=== PATIENT | female | born 2000 | race Caucasian/White ===

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

== ENCOUNTER → 2018-02-03 09:20 | Outpatient (CLI) | payer MEDICAID, SELFPAY ==
--- NOTE | 2018-02-03 09:22 | MR_ITS ---
MR cervical spine wo con, MR 3-d myelogram/MRCP HISTORY: Neck pain, posterior soft tissue neck mass Neck pain around fat pad on neck. Symptoms XYrs. HX surgery on posterior soft tissue part of neck XYrs. ago. Pain in neck when looking down. ITS.REASON: soft tissue mass ORDERING PHYSICIAN: Jame Abel MD PATIENT AGE: 17 years Comparison: CT 05/07/15 TECHNIQUE: Standard multiplanar multiecho sequences are performed without contrast. 3-D MIP and myelographic images are also rendered and reviewed FINDINGS: The craniocervical junction has an unremarkable appearance. There is normal alignment. There is mild degree of motion artifact which does somewhat obscure fine detail. C2-C3 and C3-C4 have an unremarkable appearance. C4-C5: Minimal left foraminal narrowing from uncovertebral hypertrophy. C5-C6: Minimal left foraminal narrowing from uncovertebral surgery. C6-C7: Minimal left foraminal narrowing from uncovertebral hypertrophy C7-T1: Unremarkable. Sagittal images show mild degenerative disc 3 and T3-T4 with minimal bulging disc. Prominent adipose tissue is present at the base of the neck posteriorly causing a soft tissue hump. Centrally within this adipose tissue is an irregular flattened like area of decreased T1 and T2 signal measuring up to 5 cm AP and 1 cm transverse with a cephalad to caudad thickness of 0.6 cm. Is likely related to scar tissue in this patient with previous surgery to this area. IMPRESSION: 1. Minimal left foraminal narrowing from uncovertebral hypertrophy at C4-C5, C5-C6, and C6-7. 2. No disc herniation or bony canal stenosis. 3. Abnormal signal intensity in the subcutaneous fat along the posterior aspect of the neck which may be related to scar tissue.
== END ==
PROVIDERS: PCP Physician Assistant; Visit Provider Surgery
DX: D17.0 Benign lipomatous neoplasm of skin and subcutaneous tissue of head, face and neck (principal)
CPT/HCPCS: 72141; 76376

== ENCOUNTER → 2018-10-20 15:58 | Outpatient (CLI) | payer MEDICARE, MEDICAID, SELFPAY ==
[2018-10-20 17:53] LABS: HCG,Quantitative 0 mIU/mL
== END ==
PROVIDERS: Visit Provider Obstetrics & Gynecology
DX: Z34.90 Encounter for supervision of normal pregnancy, unspecified, unspecified trimester (principal)
CPT/HCPCS: 36415; 84702

== ENCOUNTER 2019-04-20 09:00 | Outpatient (RCR) | payer MEDICARE, MEDICAID, SELFPAY ==
--- NOTE | 2019-04-12 11:15 | HMH.PTOPEV ---
PT Outpatient Evaluation Rehab PT Outpatient Evaluation Start: 04/12/19 10:20 Freq: Status: Active Protocol: Document 04/12/19 10:48 URIAH (Rec: 04/12/19 11:14 URIAH [id number]) Electronically Signed By Arnie Irizarry, PT 04/12/19 10:48 Outpatient Therapy Subjective History Subjective History Patient is a 18 year old female presenting to outpatient PT with reports of acute knee pain of insidious onset starting approximately 2 weeks ago. Most recent diagnostics negative. Pt reports no previous hx of R knee pain. Observation indicates significant genu valgus bilaterally. All special tests negative for any soft tissue compromise. She ambulates into clinic with hinged knee brace and significant lack of R knee extension with ambulation. 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 Chief Complaint Pain,Stiff,Swelling Symptom Type Sharp,Shooting Symptoms Relieved By Rest/Positioning Prior Functional Limitations None Current Functional Limitations Housework,Standing,Squatting, Recreation Activity,Walking, Stairs,Balance,Bending/ Stooping Symptom Description Constant but Variable Level of pain today (0-10) 4 Pain scale - at its best (0-10) 4 Pain scale - at its worst (0-10) 8 Hip/Knee Eval Gait Observation General Gait Pattern Observation Antalgic Gait,Decrease Weight Bear (R) Palpation Tenderness right Knee Palpation Finding Tenderness Knee Palpation Overall Comment Medial and lateral patellar borders 3/4 MMT Hip Flexion Strength Grade 4- Good- Hip Abduction Strength Grade 4- Good- Hip Adduction Strength Grade 4- Good- Hip Extension Strength Grade 3+ Fair+ Hip External Rotation Strength Grade 3+ Fair+ Hip Internal Rotation Strength Grade 3+ Fair+ Knee Extension Strength Grade 3+ Fair+ Knee Flexion Strength Grade 3+ Fair+ ROM Hip ROM Reason Not Measured Within Functional Limits Knee Extension Active Range of Motion ( -6 degrees) Knee Extension Passive Range of Motion (
== END 2019-04-20 09:05 | disposition home or self-care (01) ==
LOC: PT 09:00
PROVIDERS: Visit Provider Orthopaedic Surgery
DX: M25.561 Pain in right knee (principal)
CPT/HCPCS: 97010; 97014; 97033; 97035; 97110; 97163; G0283

== ENCOUNTER → 2019-04-20 10:56 | Outpatient (CLI) | payer MEDICARE, MEDICAID, SELFPAY ==
--- NOTE | 2019-04-20 11:06 | XR_ITS ---
PROCEDURE: XR FOOT WT BEARING LT 3V CLINICAL INDICATION: pain COMPARISON: FTL3 FOOT-LT-3 VIEWS from 03/23/2015 FTL2 FOOT-LT-2 VIEWS from 12/15/2016 FINDINGS: No fracture or dislocation. No lytic or blastic change. There is normal mineralization. The joint spaces are well-preserved. No significant degenerative/arthritic changes. No erosive changes evident. Other findings:None. IMPRESSION: No acute findings. Dictated by: Duncan Gonzalez MD 04/20/2019 15:25 Electronically signed by Duncan Gonzalez MD in [place] 04/20/2019 15:25
--- NOTE | 2019-04-20 11:06 | XR_ITS ---
PROCEDURE: XR FOOT WT BEARING RT 3V CLINICAL INDICATION: pain COMPARISON: FTL3 FOOT-LT-3 VIEWS from 03/23/2015 FTL2 FOOT-LT-2 VIEWS from 12/15/2016 FINDINGS: No fracture or dislocation. No lytic or blastic change. There is normal mineralization. The joint spaces are well-preserved. No significant degenerative/arthritic changes. No erosive changes evident. Other findings:None. IMPRESSION: No acute findings. Dictated by: Duncan Gonzalez MD 04/20/2019 15:24 Electronically signed by Duncan Gonzalez MD in [place] 04/20/2019 15:24
== END ==
PROVIDERS: PCP Physician Assistant; Visit Provider Podiatrist
DX: M79.672 Pain in left foot (principal); M79.671 Pain in right foot
CPT/HCPCS: 73630

== ENCOUNTER 2019-10-15 16:21 | Emergency (ER) | payer MEDICARE, MEDICAID, SELFPAY ==
[2019-10-15 16:23] VITALS: BP 158/100; PULSE 75; RESP 20; TEMP 37.2; O2SAT 96; BMI 38.9
--- NOTE | 2019-10-15 16:35 | XR_ITS ---
PROCEDURE: XR WRIST LT MIN 3V CLINICAL INDICATION: injury Posttraumatic pain COMPARISON: WRL2 WRIST-2 VIEWS-LT from 08/04/2012 WRR3 WRIST-3 VIEWS-RT from 08/04/2012 WRR3 WRIST-3 VIEWS-RT from 03/10/2013 WRL3 WRIST-3 VIEWS-LT from 01/20/2014 FINDINGS: No fracture or dislocation. No lytic or blastic change. There is normal mineralization. The joint spaces are well-preserved. No significant degenerative/arthritic changes. No erosive changes evident. Other findings:None. IMPRESSION: No acute findings. Dictated by: Duncan Gonzalez MD 10/16/2019 05:40 Electronically signed by Duncan Gonzalez MD in [place] 10/16/2019 05:40
--- NOTE | 2019-10-15 17:03 | HMH.EDEXTP ---
ED Disposition Clinical Impression: Sprain and strain of wrist Disposition: Home, Self-Care Condition on Discharge: Good Instructions: Sprain Referrals: Danette Lynch PA [Primary Care Provider] - - Critical Care Critical Care Time: No Attestation: On 10/15/19, the high probability of a clinically significant, sudden or life threatening deterioration of the following system(s) required my full and direct attention, intervention and personal management. The time I documented below is in addition to time spent performing reported procedures but includes the following listed in this critical care notation. Medical Decision Making - Medical Records Medical records reviewed: Yes: I reviewed the patient's medical records. - Ty Inquiry Pt receiving controlled substance: No Vital Signs: 10/15/19 16:23 Temperature 98.9 F Temperature Source Oral Pulse Rate [Right] 75 Respiratory Rate 20 Blood Pressure [Right Arm] 158/100 H Blood Pressure Mean [Right Arm] 119 02 Sat by Pulse Oximetry 96 - Lab Data Lab results reviewed: Yes: I reviewed the patient's lab results. Orders (Tests/Meds): ORDERS Category Date Time Status Wrist XR left minimum 3 views [XR wrist LT min 3V] Stat Exams 10/15/19 16:35 Taken Extremity Problem HPI - General Chief complaint: Extremity Injury, Upper Stated complaint: [id number] injured l wrist Time Seen by Provider: 10/15/19 17:03 Mode of Arrival: Ambulatory Source of Information: Patient Limitations: No Limitations Description of Symptoms (Recalled from ER Triage Doc. by RN): Left wrist injury - History of Present Illness HPI Narrative: 19-year-old female presents the ED with a left wrist injury. She was walking up a hill getting some debate out of her car for fishing and she was on uneven ground and slipped and fell and landed with an outstretched hand on the left side. This injury took place about 1 hour prior to arrival here in the emergency department today. Patient states that the pain is 4 out of 10 and sharp and she states that exacerbating factors include movement and alleviating factors include rest. She states she hurts on the ulnar side not the radial side. Patient denies any other symptoms patient denies any other trauma. - Related Data Home Medications Medication Instructions Recorded Confirmed etonogestrel 68 mg subdermal 1 implant SUBDERMAL ONCE 10/05/17 05/30/19 implant sumatriptan succinate 100 mg tablet See Rx Instructions PO .COMPLEX 12/17/19 12/17/19 Previous Rx's Medication Instructions Recorded meloxicam 7.5 mg tablet 7.5 mg PO ONCE #30 tab 04/20/19 diclofenac sodium 1 % topical gel 4 g TOPICAL QID PRN 30 Days #100 g 05/25/19 Allergies Allergy/AdvReac Type Severity Reaction Status Date / Time Penicillins [PENICILLINS] Allergy Severe Anaphylaxis Verified 05/30/19 14:11 CONTRAST Allergy Mild Anaphylaxis Uncoded 05/30/19 14:11 [facility] History - Hepatitis A Screen Drug use history?: No High risk sexual behaviors?: No History of sexually transmitted infection?: No Currently employed?: No Childcare worker?: No Do you have indoor plumbing?: Yes Do you have electricity?: Yes Does patient meet criteria?: No Attestation statement:: This patient has been screened for Hepatitis A risk factors. I have reviewed the patient's past medical history: Yes Medical History: Reports:: Anxiety, Asthma, Depression, Gastroesophageal Reflux Disease(GERD), Hypertension, Migraine Denies:: Cancer, Diabetes Mellitus Type 1, Diabetes Mellitus Type 2, Internal Pacemaker, Lung Disease, MRSA, Seizures Other Medical History: Reports: Other Comment: Asthma. Anxiety. Depression. UTI'S. Colitis. Acute Gastritis. Chronic Tonsillitis and Adenoiditis. Peptic Ulcer. Hiatal Hernia. Duodenitis Laterality Cases: Bilateral: Myringotomy (Ear Tubes), Tonsillectomy, Other Other Surgeries: Yes: No Previous Surgery, EGD, Other. No: Pacemaker Am
[2019-10-15 17:14] VITALS: BP 130/98; PULSE 85; RESP 20; TEMP 36.8; O2SAT 98
== END 2019-10-15 17:16 | disposition home or self-care (01) ==
PROVIDERS: Emergency Provider Family Medicine; PCP Physician Assistant
DX: S63.502A Unspecified sprain of left wrist, initial encounter (principal); W01.0XXA Fall on same level from slipping, tripping and stumbling without subsequent striking against object, initial encounter; Y92.89 Other specified places as the place of occurrence of the external cause
CPT/HCPCS: 29125; 73110; 99283

== ENCOUNTER 2019-10-18 23:40 | Emergency (ER) | payer MEDICARE, MEDICAID, SELFPAY ==
[2019-10-18 23:43] VITALS: BP 134/71; PULSE 98; RESP 18; TEMP 37; O2SAT 97; BMI 40.7
[2019-10-19 00:10] VITALS: BP 138/74; PULSE 88; RESP 18; TEMP 37; O2SAT 99
--- NOTE | 2019-10-19 00:12 | HMH.EDALLER ---
ED Disposition Clinical Impression: Allergic reaction Qualifiers: Encounter type: initial encounter Qualified Code(s): T78.40XA - Allergy, unspecified, initial encounter Disposition: Home, Self-Care Condition on Discharge: Good Instructions: DI for Food Allergy Additional Instructions: use claritin and call pcp and dr soriano Prescriptions: predniSONE [Prednisone 20mg Tab] 20 mg PO BID #10 tab Transmission Status: Pending to [id number] Referrals: Provider,Referral, [Primary Care Provider] - Gary Soriano [Referring] - - Critical Care Critical Care Time: No Attestation: On 10/18/19, the high probability of a clinically significant, sudden or life threatening deterioration of the following system(s) required my full and direct attention, intervention and personal management. The time I documented below is in addition to time spent performing reported procedures but includes the following listed in this critical care notation. Medical Decision Making - Medical Records Medical records reviewed: Yes: I reviewed the patient's medical records. - Ty Inquiry Pt receiving controlled substance: No Vital Signs: 10/18/19 23:43 10/19/19 00:10 Temperature 98.6 F 98.6 F Temperature Source Oral Oral Pulse Rate 92 H Pulse Rate [Right] 98 H Respiratory Rate 18 18 Blood Pressure 000/00 L Blood Pressure [Right Arm] 134/71 Blood Pressure Mean [Right Arm] 92 Blood Pressure Source [Right Arm] Automatic Cuff Blood Pressure Position [Right Arm] Supine 02 Sat by Pulse Oximetry 97 Oxygen Delivery Method Room Air Room Air - Lab Data Lab results reviewed: Yes: I reviewed the patient's lab results. Orders (Tests/Meds): ED MEDICATIONS Discontinued Medications Generic Name Dose Route Start Last Admin Trade Name Freq PRN Reason Stop Dose Admin Dexamethasone Sodium Phosphate 8 mg 10/18/19 23:58 10/19/19 00:10 Decadron 4mg/Ml 1ml Vial IM 10/18/19 23:59 8 mg ONCE ONE Administration Diphenhydramine HCl 50 mg 10/18/19 23:58 10/19/19 00:09 Benadryl 50mg/1ml Vial IM 10/18/19 23:59 50 mg ONCE ONE Administration Sodium Chloride 1,000 mls @ 999 mls/hr 10/18/19 23:45 10/19/19 00:09 Sod Chlor 0.9% 1000ml Bag IV 10/19/19 00:45 Not Given .Q1H1M URIEL - Reevaluation(s) Time: 00:21 Reevaluation #1: some better Allergic React/Insect Bite HPI - General Chief complaint: Allergic Reaction Stated complaint: allergic reaction Time Seen by Provider: 10/19/19 00:00 Mode of Arrival - ED Triage: EMS Source of Information: Patient, EMS, Medical Record Limitations: No Limitations - History of Present Illness HPI narrative: swollen throat after eating strawberry - no rash - concerned about possible mold - no tongue swelling MD complaint: allergic reaction Onset (ago): hour(s) Exposure: food Symptoms: difficulty swallowing Treatment prior to arrival: none Allergies/Adverse Reactions: Allergies Allergy/AdvReac Type Severity Reaction Status Date / Time Penicillins [PENICILLINS] Allergy Severe Anaphylaxis Verified 05/30/19 14:11 CONTRAST Allergy Mild Anaphylaxis Uncoded 05/30/19 14:11 Previous Allergic Reaction History: none Severity: moderate - Related Data Home Medications Medication Instructions Recorded Confirmed etonogestrel 68 mg subdermal 1 implant SUBDERMAL ONCE 10/05/17 10/18/19 implant Previous Rx's Medication Instructions Recorded predniSONE [Prednisone 20mg 20 mg PO BID #10 tab 10/19/19 Tab] H History - Hepatitis A Screen Drug use history?: No High risk sexual behaviors?: No History of sexually transmitted infection?: No Currently employed?: No Childcare worker?: No Do you have indoor plumbing?: Yes Do you have electricity?: Yes Attestation statement:: This patient has been screened for Hepatitis A risk factors. I have reviewed the patient's past medical history: Yes Medical History: Reports:: An
--- NOTE | 2019-10-19 00:12 | PC.NURSE ---
Pt's mother did not want to have her blood drawn, pt feeling better after Zofran.
--- NOTE | 2019-10-19 00:22 | PC.NURSE ---
Pt states she feels back to normal, states she is ready to go home and her ride is here
== END 2019-10-19 00:28 | disposition home or self-care (01) ==
PROVIDERS: Emergency Provider Emergency Medicine; PCP Physician Assistant
DX: T78.1XXA Other adverse food reactions, not elsewhere classified, initial encounter (principal); R22.0 Localized swelling, mass and lump, head; F41.8 Other specified anxiety disorders; K21.9 Gastro-esophageal reflux disease without esophagitis; F17.210 Nicotine dependence, cigarettes, uncomplicated; Z90.09 Acquired absence of other part of head and neck; Z79.899 Other long term (current) drug therapy
CPT/HCPCS: 96372; 99281

== ENCOUNTER → 2019-10-25 11:57 | Outpatient (CLI) | payer MEDICARE, MEDICAID, SELFPAY ==
--- NOTE | 2019-10-25 12:07 | XR_ITS ---
PROCEDURE: XR WRIST LT W SCAPHOID CLINICAL INDICATION: Left wrist pain COMPARISON: WRL2 WRIST-2 VIEWS-LT from 08/04/2012 WRR3 WRIST-3 VIEWS-RT from 03/10/2013 WRL3 WRIST-3 VIEWS-LT from 01/20/2014 XR WRIST LT MIN 3V from 10/15/2019 FINDINGS: There is a very faint transverse lucency through the mid aspect of the navicular on the slightly oblique view of the wrist. This could be due to a nondisplaced fracture or prominence of the trabecula. This is not confirmed on the navicular view. No other significant anomalies are evident. IMPRESSION: Possible nondisplaced navicular fracture. CT may confirm if clinically warranted. Dictated by: Duncan Gonzalez MD 10/25/2019 12:55 Electronically signed by Duncan Gonzalez MD in [place] 10/25/2019 12:55
== END ==
PROVIDERS: PCP Physician Assistant; Visit Provider Physician Assistant
DX: M25.532 Pain in left wrist (principal)
CPT/HCPCS: 73110

== ENCOUNTER → 2019-10-30 13:51 | Outpatient (CLI) | payer MEDICARE, MEDICAID, SELFPAY ==
--- NOTE | 2019-10-30 13:52 | CT_ITS ---
PROCEDURE: CT WRIST LT WO CON CLINICAL HISTORY: r/o navicular fracture Posttraumatic pain, abnormal radiograph suggesting a nondisplaced navicular fracture. COMPARISON: XR WRIST LT W SCAPHOID from 10/25/2019 TECHNIQUE: Axial images obtained with sagittal and coronal reformats. All CT scans at the facility use one or more dose reduction, viz: automated exposure control, ma/kV adjustment per patient size (including targeted exams where dose is matched to indication, i.e. head), or iterative reconstruction technique. FINDINGS: No fracture or dislocation is evident. No lytic or blastic change. IMPRESSION: No acute fracture Dictated by: Duncan Gonzalez MD 10/31/2019 16:09 Electronically signed by Duncan Gonzalez MD in [place] 10/31/2019 16:09
== END ==
PROVIDERS: PCP Physician Assistant; Visit Provider Physician Assistant
DX: M25.532 Pain in left wrist (principal)
CPT/HCPCS: 73200

== ENCOUNTER 2019-12-30 01:12 | Emergency (ER) | payer MEDICARE, MEDICAID, SELFPAY ==
[2019-12-30 01:12] VITALS: BP 152/83; PULSE 103; RESP 14; TEMP 37.2; O2SAT 95; BMI 39.4
--- NOTE | 2019-12-30 01:18 | XR_ITS ---
PROCEDURE: XR ANKLE LT MIN 3V CLINICAL INDICATION: rolled ankle Posttraumatic pain COMPARISON: ANKR2 ANKLE-RT-2 VIEWS from 08/30/2012 ANKL3 ANKLE-LT-3 VIEWS from 08/30/2012 ANKR3 ANKLE-RT-3 VIEWS from 08/19/2014 FINDINGS: No fracture or dislocation. No lytic or blastic change. There is normal mineralization. The joint spaces are well-preserved. No significant degenerative/arthritic changes. No erosive changes evident. Other findings:None. IMPRESSION: No acute findings. Dictated by: Duncan Gonzalez MD 12/30/2019 09:37 Electronically signed by Duncna Gonzalez MD in [place] 12/30/2019 09:37
[2019-12-30 01:54] VITALS: BP 155/83; PULSE 92; O2SAT 96
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
[2019-12-30 02:07] VITALS: BP 145/90; PULSE 79; RESP 14; TEMP 37.2; O2SAT 96
== END 2019-12-30 02:36 | disposition home or self-care (01) ==
PROVIDERS: Emergency Provider Emergency Medicine; PCP Physician Assistant
DX: S93.402A Sprain of unspecified ligament of left ankle, initial encounter (principal); X50.1XXA Overexertion from prolonged static or awkward postures, initial encounter; Y92.488 Other paved roadways as the place of occurrence of the external cause; I10 Essential (primary) hypertension; F41.8 Other specified anxiety disorders; K21.9 Gastro-esophageal reflux disease without esophagitis; G43.709 Chronic migraine without aura, not intractable, without status migrainosus; J45.909 Unspecified asthma, uncomplicated
CPT/HCPCS: 73610; 99283

== ENCOUNTER 2020-02-21 23:18 | Emergency (ER) | payer MEDICARE, MEDICAID, SELFPAY ==
[2020-02-21 23:35] VITALS: BP 138/78; PULSE 67; RESP 16; TEMP 37; O2SAT 94; BMI 34.9
[2020-02-22 00:08] LABS: Appearance,Urine CLEAR (Clear); Bilirubin,Urine Negative (Negative); Blood, Urine TRACE-I (Negative); Color,Urine YELLOW (Yellow); Glucose,Urine (UA) Negative (Negative); Ketones,Urine Negative (Negative); Leukocyte Esterase,Urine Negative (Negative); Microscopic, Urine URINE MICROSCOPIC (MICROSCOPIC); Nitrate,Urine Negative (Negative); Protein,Urine Negative (Negative); Specific Gravity, Urine 1.025 (1.005-1.030)
[2020-02-22 00:09] LABS: Urine Pregnancy, HCG Qual. Negative (Negative)
[2020-02-22 00:15] LABS: Bacteria,Urine 1+ /lpf; Mucus,Urine 1+ /lpf
--- NOTE | 2020-02-22 00:37 | HMH.EDGENADL ---
ED Disposition Clinical Impression: UTI (urinary tract infection) Qualifiers: Urinary tract infection type: acute cystitis Hematuria presence: without hematuria Qualified Code(s): N30.00 - Acute cystitis without hematuria Disposition: Home, Self-Care Condition on Discharge: Fair Instructions: DI for Urinary Tract Infection (UTI) Prescriptions: Sulfamethoxazole/Trimethoprim [Bactrim DS tablet] 1 each PO BID 7 Days #14 tab Transmission Status: Pending to [facility] Referrals: Danette Lynch PA [Primary Care Provider] - Time of Disposition: 00:45 - Critical Care Critical Care Time: No Attestation: On 02/21/20, the high probability of a clinically significant, sudden or life threatening deterioration of the following system(s) required my full and direct attention, intervention and personal management. The time I documented below is in addition to time spent performing reported procedures but includes the following listed in this critical care notation. Medical Decision Making - Medical Records Medical records reviewed: Yes: I reviewed the patient's medical records. MR Comment: Complaints of lower abdominal pain and diarrhea off and on. Denies fever, vomiting, denies . Urinalysis shows urinary tract infection; plan is to provide an antibiotic, - Ty Inquiry Pt receiving controlled substance: No Vital Signs: 02/21/20 23:35 Temperature 98.6 F Temperature Source Oral Pulse Rate [Right Brachial] 67 Respiratory Rate 16 Blood Pressure [Right Arm] 138/78 Blood Pressure Mean [Right Arm] 98 Blood Pressure Source [Right Arm] Automatic Cuff Blood Pressure Position [Right Arm] Sitting 02 Sat by Pulse Oximetry 94 L Oxygen Delivery Method Room Air - Lab Data Lab Results 02/21/20 23:26: Urine Color Yellow, Urine Appearance Clear, Urine pH 7.0, Ur Specific Pfeifer 1.025, Urine Protein Negative, Urine Glucose (UA) Negative, Urine Ketones Negative, Urine Blood Trace-i, Urine Nitrate Negative, Urine Bilirubin Negative, Urine Urobilinogen 1.0, Ur Leukocyte Esterase Negative, Urine RBC 3-5, Urine WBC 3-5, Ur Squamous Epith Cells 3-5, Urine Bacteria 1+, Urine Mucus 1+ 02/21/20 23:26: Urine HCG, Qual Negative Orders (Tests/Meds): ORDERS Category Date Time Status CMP [Comprehensive Metabolic Panel] Stat Lab 02/22/20 00:28 Ordered Complete Blood Count Auto Diff Stat Lab 02/22/20 00:28 Ordered Diarrhea 6-11 Panel, Cdiff PCR Stat Lab 02/21/20 23:53 Ordered General Adult HPI - General Chief complaint: Nausea/Vomiting/Diarrhea Stated complaint: Diarrhea,weak,pain in abdomen Time Seen by Provider: 02/22/20 00:30 Mode of Arrival: Ambulatory Source of Information: Patient Limitations: No Limitations Description of Symptoms (Recalled from ER Triage Doc. by RN): diarrhea since wednesday; states no known contact with anyone who is sick with covid, flu, or any other contagious illness; afebrile - History of Present Illness HPI narrative: Complaints of lower abdominal pain and diarrhea off and on. Denies fever, vomiting, denies MD complaint: abdominal pain Onset (ago): day(s) Radiation: non-radiation Severity: mild Severity scale (1-10): 2 Quality: sharp Consistency: intermittent Associated symptoms: denies other symptoms. negative: fever/chills, malaise, nausea/vomiting Treatments prior to arrival: none - Related Data Home Medications Medication Instructions Recorded Confirmed etonogestrel 68 mg subdermal 1 implant SUBDERMAL ONCE 10/05/17 10/23/19 implant Previous Rx's Medication Instructions Recorded predniSONE [Prednisone 20mg 20 mg PO BID #10 tab 10/19/19 Tab] diclofenac sodium 75 mg 75 mg PO BID #60 tab 10/23/19 tablet,delayed release epinephrine 0.3 mg/0.3 mL 0.3 mg IM Q5-15M PRN #1 each 10/23/19 injection, auto-injector Sulfamethoxazole/Trimethoprim 1 each PO BID 7 Days #14 tab 02/22/20 [Bactrim DS tablet] Allergies Allergy/A
[2020-02-22 00:49] VITALS: BP 134/72; PULSE 68; RESP 16; TEMP 37; O2SAT 96
== END 2020-02-22 01:07 | disposition home or self-care (01) ==
PROVIDERS: Emergency Provider Emergency Medicine; PCP Physician Assistant
DX: N30.00 Acute cystitis without hematuria (principal); I10 Essential (primary) hypertension; F41.8 Other specified anxiety disorders; K21.9 Gastro-esophageal reflux disease without esophagitis; F17.210 Nicotine dependence, cigarettes, uncomplicated; Z88.0 Allergy status to penicillin
CPT/HCPCS: 81001; 81025; 99281

== ENCOUNTER 2020-04-07 03:57 | Emergency (ER) | payer MEDICARE, MEDICAID, SELFPAY ==
[2020-04-07 03:50] VITALS: BP 146/72; PULSE 85; RESP 16; TEMP 36.8; O2SAT 98; BMI 52.0
--- NOTE | 2020-04-07 03:51 | HMH.EDGENADL ---
ED Disposition Clinical Impression: Allergic reaction Qualifiers: Encounter type: initial encounter Qualified Code(s): T78.40XA - Allergy, unspecified, initial encounter Disposition: Home, Self-Care Condition on Discharge: Good Instructions: DI for General Allergic Reactions Additional Instructions: Benadryl, Pepcid, prednisone as prescribed for 3 days. Additional instructions for ALLERGIC REACTION: See your physician as soon as possible for further evaluation. Return immediately if severe intolerable rash or itching, trouble breathing, or faintness. Prescriptions: diphenhydrAMINE HCL [Benadryl 25mg Capsule] 25 mg PO QID #12 cap Transmission Status: Pending to [facility] Famotidine [Pepcid 20mg Tablet] 20 mg PO BID 3 Days #6 tab Transmission Status: Pending to [facility] predniSONE [Prednisone 20mg Tab] 20 mg PO BID #6 tab Transmission Status: Pending to [facility] - Critical Care Critical Care Time: No Attestation: On , the high probability of a clinically significant, sudden or life threatening deterioration of the following system(s) required my full and direct attention, intervention and personal management. The time I documented below is in addition to time spent performing reported procedures but includes the following listed in this critical care notation. Medical Decision Making - Medical Records Medical records reviewed: Yes: I reviewed the patient's medical records. - Ty Inquiry Pt receiving controlled substance: No Vital Signs: 04/07/20 03:50 Temperature 98.2 F Temperature Source Oral Pulse Rate [Right Brachial] 85 Respiratory Rate 16 Blood Pressure [Right Arm] 146/72 H Blood Pressure Mean [Right Arm] 96 Blood Pressure Source [Right Arm] Automatic Cuff Blood Pressure Position [Right Arm] Sitting 02 Sat by Pulse Oximetry 98 Oxygen Delivery Method Room Air Orders (Tests/Meds): ED MEDICATIONS Generic Name Dose Route Start Last Admin Trade Name Freq PRN Reason Stop Dose Admin Sodium Chloride 8 ml 04/07/20 04:00 Sodium Chloride 0.9% 10ml Vial IV 05/07/20 03:59 NEEDED PRN dilute pepcid Discontinued Medications Generic Name Dose Route Start Last Admin Trade Name Freq PRN Reason Stop Dose Admin Diphenhydramine HCl 25 mg 04/07/20 04:00 Diphenhydramine 50mg/Ml Vial IV 04/07/20 04:01 ONCE ONE Famotidine 20 mg 04/07/20 04:00 Famotidine 20mg/2ml Vial IV 04/07/20 04:01 ONCE ONE Methylprednisolone Sodium Succinate 125 mg 04/07/20 04:00 Methylprednisolone Sod Succ 125mg Vial IV 04/07/20 04:01 ONCE ONE General Adult HPI - General Chief complaint: Allergic Reaction Stated complaint: allergic reaction Time Seen by Provider: 04/07/20 03:51 - History of Present Illness HPI narrative: Brought in by ambulance. Patient says she believes she had an allergic reaction to mold. She has a known mold allergy for which she has an EpiPen. She was cleaning some moldy dishes out of her residence, thinks that she inhaled some of the mold. She says her face began tingling and she became nauseated and vomited. She had no swelling of her lips or tongue. No itching. She says she thinks her sister saw some hives, but she does not have any hives now. She used her EpiPen in her leg and now is asymptomatic. She did not take any other medications. - Related Data Home Medications Medication Instructions Recorded Confirmed etonogestrel 68 mg subdermal 1 implant SUBDERMAL ONCE 10/05/17 04/07/20 implant SUMAtriptan succinate [Sumatriptan See Rx Instructions PO .COMPLEX 04/07/20 04/07/20 Succinate] Previous Rx's Medication Instructions Recorded epinephrine 0.3 mg/0.3 mL 0.3 mg IM Q5-15M PRN #1 each 10/23/19 injection, auto-injector Famotidine [Pepcid 20mg Tablet] 20 mg PO BID 3 Days #6 tab 04/07/20 diphenhydrAMINE HCL [Benadryl 25mg 25 mg PO QID #12 cap 04/07/20 Capsule] predniSONE [Pred
[2020-04-07 04:15] VITALS: BP 124/75; PULSE 75; RESP 15; TEMP 36.7; O2SAT 98
== END 2020-04-07 04:18 | disposition home or self-care (01) ==
LOC: ER 04:17
PROVIDERS: Emergency Provider Emergency Medicine; PCP Physician Assistant
DX: T78.40XA Allergy, unspecified, initial encounter (principal); F41.8 Other specified anxiety disorders; I10 Essential (primary) hypertension; K21.9 Gastro-esophageal reflux disease without esophagitis; G43.709 Chronic migraine without aura, not intractable, without status migrainosus; F17.210 Nicotine dependence, cigarettes, uncomplicated
CPT/HCPCS: 96374; 96375; 99282

== ENCOUNTER 2020-05-23 18:07 | Emergency (ER) | payer MEDICARE, MEDICAID, SELFPAY ==
[2020-05-23 18:45] VITALS: BP 131/84; PULSE 78; RESP 20; TEMP 36.9; O2SAT 99; BMI 49.6
[2020-05-23 18:46] VITALS: BMI 49.6
--- NOTE | 2020-05-23 18:46 | XR_ITS ---
PROCEDURE: XR ELBOW LT MIN 3V CLINICAL INDICATION: INJURY Posttraumatic pain COMPARISON: No exams were available for comparison FINDINGS: No fracture or dislocation. No lytic or blastic change. There is normal mineralization. The joint spaces are well-preserved. No significant degenerative/arthritic changes. No erosive changes evident. Other findings:Linear opacity is present in the subcutaneous soft tissues of the arm medially consistent with a control device IMPRESSION: No acute findings. Dictated by: Duncan Gonazlez MD 05/24/2020 07:09 Duncan Gonzalez MD in [place] 05/24/2020 07:09
--- NOTE | 2020-05-23 19:46 | HMH.EDUTC ---
[facility] [place] Disposition Clinical Impression: Left elbow pain Disposition: Home, Self-Care Condition on Discharge: Good Instructions: DI for Arm Pain Additional Instructions: Rest the extremity, Wear the barrington wrap for compression, Elevate the extremity as tolerated while you are resting. Take ibuprofen for pain. I sent in a prescription to your pharmacy. Follow up with Dr. Nash (orthopedics). Sometimes there can be fractures that don't show up well on the first set of x-rays. So, you should follow up if you continue to have symptoms. I put in a referral but you need to call his office and schedule an appointment. Follow up with your regular doctor. GO TO THE ER FOR ANY WORSENING SYMPTOMS Prescriptions: Ibuprofen [Ibuprofen 600mg Tablet] 600 mg PO Q6HP PRN #30 tab PRN Reason: Mild Pain Transmission Status: Received by [id number] Referrals: Danette Lynch PA [Primary Care Provider] - Dougie Nash MD [Staff Physician] - Time of Disposition: 19:55 Medical Decision Making - Medical Records Medical records reviewed: No: I reviewed the patient's medical records. - Ty Inquiry Pt receiving controlled substance: No Vital Signs: 05/23/20 18:45 05/23/20 19:58 Temperature 98.4 F 98.4 F Temperature Source Oral Pulse Rate 78 Pulse Rate [Right Brachial] 78 Respiratory Rate 20 20 Blood Pressure 131/84 Blood Pressure [Right Arm] 131/84 Blood Pressure Mean [Right Arm] 99 Blood Pressure Source [Right Arm] Automatic Cuff Blood Pressure Position [Right Arm] Sitting 02 Sat by Pulse Oximetry 99 Oxygen Delivery Method Room Air [facility] [place] HPI - General Stated complaint: AO 05/23 @1730 injured L Elbow Time Seen by Provider: 05/23/20 19:46 Mode of Arrival: Ambulatory Source of Information: Patient Limitations: No Limitations Description of Symptoms (Recalled from Triage Doc. by RN): PATIENT C/O LEFT ELBOW PAIN AFTER HITTING IT ON A CAR DOOR LATCH APPROX 1 HOUR ORACLE AGILE [employer] HEENT Symptoms (Recalled from RN notes): No Resp Symptoms (Recalled from RN notes): No Skin Symptoms (Recalled from RN notes): No MS Symptoms (Recalled from RN notes): Yes Functional Status (Recalled from RN notes): WNL - History of Present Illness Provider Complaint: She states that she fell into the side of her car and hit her elbow on the side of the car. This happened right before she came in. She is having right elbow pain. - Related Data Home Medications Medication Instructions Recorded Confirmed SUMAtriptan succinate [Sumatriptan See Rx Instructions PO .COMPLEX 04/07/20 04/11/20 Succinate] Previous Rx's Medication Instructions Recorded Famotidine [Pepcid 20mg Tablet] 20 mg PO BID 3 Days #6 tab 04/07/20 diphenhydrAMINE HCL [Benadryl 25mg 25 mg PO QID #12 cap 04/07/20 Capsule] predniSONE [Prednisone 20mg 20 mg PO BID #6 tab 04/07/20 Tab] epinephrine 0.3 mg/0.3 mL 0.3 mg IM Q5-15M PRN #1 each 04/11/20 injection, auto-injector Ibuprofen [Ibuprofen 600mg 600 mg PO Q6HP PRN #30 tab 05/23/20 Tablet] Allergies Allergy/AdvReac Type Severity Reaction Status Date / Time Penicillins [PENICILLINS] Allergy Severe Anaphylaxis Verified 04/11/20 10:55 mold Allergy Intermediate Verified 04/11/20 11:07 CONTRAST Allergy Mild Anaphylaxis Uncoded 03/28/20 11:54 - Worker's Comp Is this a Worker's Comp case?: No [facility] History - Hepatitis A Screen Drug use history?: No High risk sexual behaviors?: No History of sexually transmitted infection?: No Currently employed?: No Childcare worker?: No Do you have indoor plumbing?: Yes Do you have electricity?: Yes Attestation statement:: This patient has been screened for Hepatitis A risk factors. I have reviewed the patient's past medical history: Yes Medical History: Reports:: Anxiety, Asthma, Depression, Gastroesophageal Reflux Disease(GERD), Hypertension, Migraine Denies:: Cancer, Diabetes Mellitus Type 1, Diabetes Mellitus Type 2,
[2020-05-23 19:58] VITALS: BP 131/84; PULSE 78; RESP 20; TEMP 36.9; O2SAT 99
== END 2020-05-23 20:05 | disposition home or self-care (01) ==
PROVIDERS: Emergency Provider Nurse Practitioner Family; PCP Physician Assistant
DX: S50.02XA Contusion of left elbow, initial encounter (principal); W22.09XA Striking against other stationary object, initial encounter; F41.8 Other specified anxiety disorders; I10 Essential (primary) hypertension; K21.9 Gastro-esophageal reflux disease without esophagitis; J45.909 Unspecified asthma, uncomplicated; Z88.0 Allergy status to penicillin; F17.210 Nicotine dependence, cigarettes, uncomplicated
CPT/HCPCS: G0463; 73080; 99201

== ENCOUNTER 2020-06-28 15:32 | Emergency (ER) | payer MEDICARE, MEDICAID, SELFPAY ==
[2020-06-28 15:41] VITALS: BP 163/78; PULSE 77; RESP 20; TEMP 36.8; O2SAT 95; BMI 47.8
[2020-06-28 15:45] VITALS: BP 163/78; PULSE 77; RESP 20; TEMP 36.8; O2SAT 95; BMI 47.8
--- NOTE | 2020-06-28 16:04 | HMH.EDUTC ---
[facility] [place] Disposition Clinical Impression: Candidiasis of breast Disposition: Home, Self-Care Condition on Discharge: Good Instructions: DI for Sally Diaper Rash Prescriptions: Fluconazole [Diflucan 150mg tab] 150 mg PO DAILY 3 Days #3 tab Transmission Status: Pending to [id number] Nystatin [Nystatin Cr 100,000 Units/GM 30GM] 30 gm TP TID 10 Days #30 tube Transmission Status: Pending to [id number] Referrals: Danette Lynch PA [Primary Care Provider] - Time of Disposition: 16:07 Medical Decision Making - Ty Inquiry Pt receiving controlled substance: No Vital Signs: 06/28/20 15:41 06/28/20 15:45 Temperature 98.2 F 98.2 F Temperature Source Oral Oral Pulse Rate [Left Radial] 77 77 Respiratory Rate 20 20 Blood Pressure [Right Arm] 163/78 H 163/78 H Blood Pressure Mean [Right Arm] 106 106 Blood Pressure Source [Right Arm] Automatic Cuff Automatic Cuff Blood Pressure Position [Right Arm] Sitting Sitting 02 Sat by Pulse Oximetry 95 95 Oxygen Delivery Method Room Air Room Air [facility] [place] HPI - General Stated complaint: rash on stomach Time Seen by Provider: 06/28/20 16:04 Mode of Arrival: Ambulatory Source of Information: Patient Limitations: No Limitations Description of Symptoms (Recalled from Triage Doc. by RN): PATIENT C/O RED, ITCHY, PAINFUL RASH UNDER LEFT BREAST HEENT Symptoms (Recalled from RN notes): No Resp Symptoms (Recalled from RN notes): No Skin Symptoms (Recalled from RN notes): Yes MS Symptoms (Recalled from RN notes): No Functional Status (Recalled from RN notes): WNL - History of Present Illness Provider Complaint: Red itchy raised rash under left breast X 4 days. Onset (ago): day(s) (4) Location: chest Relieving factors: none Exacerbating factors: none Associated symptoms: denies other symptoms Treatments prior to arrival: none - Related Data Home Medications Medication Instructions Recorded Confirmed SUMAtriptan succinate [Sumatriptan See Rx Instructions PO .COMPLEX 04/07/20 06/17/20 Succinate] Previous Rx's Medication Instructions Recorded epinephrine 0.3 mg/0.3 mL 0.3 mg IM Q5-15M PRN #1 each 04/11/20 injection, auto-injector Ibuprofen [Ibuprofen 600mg 600 mg PO Q6HP PRN #30 tab 05/23/20 Tablet] methylprednisolone 4 mg tablets in 4 mg PO PER PKG DIR 6 Days #21 tab 05/28/20 a dose pack Fluconazole [Diflucan 150mg tab] 150 mg PO DAILY 3 Days #3 tab 06/28/20 Nystatin [Nystatin Cr 100,000 30 gm TP TID 10 Days #30 tube 06/28/20 Units/GM 30GM] Allergies Allergy/AdvReac Type Severity Reaction Status Date / Time Penicillins [PENICILLINS] Allergy Severe Anaphylaxis Verified 06/17/20 13:59 mold Allergy Intermediate Verified 06/17/20 13:59 CONTRAST Allergy Mild Anaphylaxis Uncoded 06/17/20 13:59 - Worker's Comp Is this a Worker's Comp case?: No [facility] History - Hepatitis A Screen Drug use history?: No High risk sexual behaviors?: No History of sexually transmitted infection?: No Currently employed?: No Childcare worker?: No Do you have indoor plumbing?: Yes Do you have electricity?: Yes Attestation statement:: This patient has been screened for Hepatitis A risk factors. I have reviewed the patient's past medical history: Yes Medical History: Reports:: Anxiety, Asthma, Depression, Gastroesophageal Reflux Disease(GERD), Hypertension, Migraine Denies:: Cancer, Diabetes Mellitus Type 1, Diabetes Mellitus Type 2, Internal Pacemaker, Lung Disease, MRSA, Seizures Other Medical History: Reports: Other Comment: Asthma. Anxiety. Depression. UTI'S. Colitis. Acute Gastritis. Chronic Tonsillitis and Adenoiditis. Peptic Ulcer. Hiatal Hernia. Duodenitis Laterality Cases: Bilateral: Myringotomy (Ear Tubes), Tonsillectomy, Other Other Surgeries: Yes: No Previous Surgery, EGD, Other. No: Pacemaker Amputation: No Fractures: No Comment: Ear tubes as a child. TonsilX and AdenoidX--03/17/2007. AdenoidX--2007. Rt. Eard[place]
[2020-06-28 16:13] VITALS: BP 163/78; PULSE 77; RESP 20; TEMP 36.8; O2SAT 95
== END 2020-06-28 16:15 | disposition home or self-care (01) ==
PROVIDERS: Emergency Provider Physician Assistant; PCP Physician Assistant
DX: B37.2 Candidiasis of skin and nail (principal); F41.8 Other specified anxiety disorders; I10 Essential (primary) hypertension; K21.9 Gastro-esophageal reflux disease without esophagitis; G43.709 Chronic migraine without aura, not intractable, without status migrainosus; F17.210 Nicotine dependence, cigarettes, uncomplicated; Z88.0 Allergy status to penicillin
CPT/HCPCS: G0463; 99202

== ENCOUNTER 2020-10-07 18:42 | Emergency (ER) | payer MEDICARE, MEDICAID, SELFPAY ==
[2020-10-07 19:49] VITALS: BP 135/77; PULSE 88; RESP 17; TEMP 37; O2SAT 98; BMI 42.6
--- NOTE | 2020-10-07 19:53 | HMH.EDUTC ---
[facility] [place] Dis[place] Clinical Impression: Nausea vomiting and diarrhea Disposition: Home, Self-Care Condition on Discharge: Good Instructions: Diarrhea, Nausea and Vomiting-Adult Additional Instructions: Drink extra fluids with and between meals. If you have difficulty drinking, try very small amounts of water or suck on ice chips. ? Avoid fruit juices, as these do not replace minerals and can actually increase diarrhea. ? Children and adults can use sports drinks to replenish electrolytes. Younger children and infants should use products formulated for children, like oral rehydration solutions. ? Eat food in small amounts and let your stomach recover. ? Get lots of rest. You may feel tired or weak. ? No greasy or fried foods for the next 24-48 hours BRAT diet Bananas Rice Apples and Sigurd ? Make sure to drink plenty of liquids ? Return if needed ? Straight to ER if any life threatening symptoms ? Zofran as prescribed ? You was given an outpatient order for diarrhea panel, please collect specimen and bring back to outpatient lab then call back to the [facility] or follow up with family doctor for results ? Follow up with family doctor in the next 48-72 hours if no improvement or any worsening of symptoms Prescriptions: Dicyclomine HCl [Bentyl 10mg capsule] 10 mg PO TID PRN #15 cap PRN Reason: Cramping Prescription Printed Ondansetron [Zofran 4mg ODT] 4 mg PO TIDP PRN #9 tab PRN Reason: Nausea Prescription Printed Referrals: Danette Lynch PA [Primary Care Provider] - As needed Forms: Work/School Release Time of Disposition: 20:05 Medical Decision Making - Ty Inquiry Pt receiving controlled substance: No Ty was queried for this patient: No Vital Signs: 10/07/20 19:49 10/07/20 20:08 Temperature 98.6 F 98.6 F Temperature Source Oral Oral Pulse Rate 88 Pulse Rate [Right Brachial] 88 Respiratory Rate 17 17 Blood Pressure 135/77 Blood Pressure [Right Arm] 135/77 Blood Pressure Mean [Right Arm] 96 Blood Pressure Source Automatic Cuff Blood Pressure Source [Right Arm] Automatic Cuff Blood Pressure Position Sitting Blood Pressure Position [Right Arm] Sitting 02 Sat by Pulse Oximetry 98 Oxygen Delivery Method Room Air Room Air Medical Decision Narrative: Patient denies home medications no diarrhea or vomiting since arrival State that she has taken bentyl and zofran before without complications or reactions Denies chance of NO vomiting or diarrhea since arrival [facility] [place] HPI - General Stated complaint: vommiting diarrhea Time Seen by Provider: 10/07/20 19:53 Mode of Arrival: Ambulatory Source of Information: Patient Limitations: No Limitations Description of Symptoms (Recalled from Triage Doc. by RN): VOMITING, DIARRHEA HEENT Symptoms (Recalled from RN notes): No Resp Symptoms (Recalled from RN notes): No Skin Symptoms (Recalled from RN notes): No MS Symptoms (Recalled from RN notes): No Functional Status (Recalled from RN notes): WNL - History of Present Illness Provider Complaint: Patient state that she was recently around her neice that had a stomach bug States that she has been having N/V/D all day and having cramping like feeling just prior to getting sick States that she has not had any fever or other symptoms Denies chance of - Related Data Home Medications Medication Instructions Recorded Confirmed SUMAtriptan succinate [Sumatriptan See Rx Instructions PO .COMPLEX 04/07/20 07/17/20 Succinate] Previous Rx's Medication Instructions Recorded epinephrine 0.3 mg/0.3 mL 0.3 mg IM Q5-15M PRN #1 each 04/11/20 injection, auto-injector dicyclomine 10 mg capsule 10 mg PO BID #60 cap 07/17/20 psyllium husk (with sugar) 3.4 1 tbsp PO DAILY #575 g 07/17/20 gram/12 gram oral powder Dicyclomine HCl [Bentyl 10mg 10 mg PO TID PRN #15 cap 10/07/20 capsule] Ondansetron [Zofran 4mg ODT] 4 mg PO TIDP PRN #9 tab 10/07/20 Allergies Allergy/AdvRea
[2020-10-07 20:08] VITALS: BP 135/77; PULSE 88; RESP 17; TEMP 37; O2SAT 98
== END 2020-10-07 20:21 | disposition home or self-care (01) ==
PROVIDERS: Emergency Provider Nurse Practitioner; PCP Physician Assistant
DX: R11.2 Nausea with vomiting, unspecified (principal); R19.7 Diarrhea, unspecified; F41.8 Other specified anxiety disorders; K21.9 Gastro-esophageal reflux disease without esophagitis; I10 Essential (primary) hypertension; F17.210 Nicotine dependence, cigarettes, uncomplicated; Z79.899 Other long term (current) drug therapy; Z88.0 Allergy status to penicillin
CPT/HCPCS: G0463; 99202

== ENCOUNTER 2020-12-11 12:32 | Emergency (ER) | payer MEDICARE, MEDICAID, SELFPAY ==
[2020-12-11 12:35] VITALS: BP 160/102; PULSE 79; RESP 18; TEMP 36.7; O2SAT 99; BMI 51.3
--- NOTE | 2020-12-11 12:59 | HMH.EDGENADL ---
ED Disposition Clinical Impression: Contusion of hand, left Disposition: Home, Self-Care Condition on Discharge: Fair Additional Instructions: Use ibuprofen 400 mg 3 times a day as needed for pain or Tylenol. Use Robb bandage for the next few days. Aloe up with primary care physician if needed. Referrals: Danette Lynch PA [Primary Care Provider] - - Critical Care Critical Care Time: No Attestation: On , the high probability of a clinically significant, sudden or life threatening deterioration of the following system(s) required my full and direct attention, intervention and personal management. The time I documented below is in addition to time spent performing reported procedures but includes the following listed in this critical care notation. Medical Decision Making - Medical Records MR Comment: X-ray of the left hand was negative for any fracture. She will be provided with Robb bandage. - Ty Inquiry Pt receiving controlled substance: No Ty was queried for this patient: No Vital Signs: 12/11/20 12:35 Temperature 98.1 F Temperature Source Oral Pulse Rate [Radial] 79 Respiratory Rate 18 Blood Pressure [Right Arm] 160/102 H Blood Pressure Mean [Right Arm] 121 02 Sat by Pulse Oximetry 99 Oxygen Delivery Method Room Air Orders (Tests/Meds): ED MEDICATIONS Discontinued Medications Generic Name Dose Route Start Last Admin Trade Name Freq PRN Reason Stop Dose Admin Ibuprofen 400 mg 12/11/20 13:03 Ibuprofen 400 Mg Tablet PO 12/11/20 13:04 ONCE ONE ORDERS Category Date Time Status Hand XR left minimum 3 views [XR hand LT min 3V] Stat Exams 12/11/20 13:03 Taken General Adult HPI - General Chief complaint: PAIN Stated complaint: injury of the left wrist Time Seen by Provider: 12/11/20 12:35 Mode of Arrival: Ambulatory Limitations: No Limitations Description of Symptoms (Recalled from ER Triage Doc. by RN): Pt c/o left wrist pain, states she went to catch herself after tripping, and twisted wrist. Pain rated 7/10. - History of Present Illness HPI narrative: Patient is a 20-year-old female complains of left hand pain after a injury. Swelling on the dorsum of the left hand. No other injuries no other complaints. Onset (ago): hour(s) Location: upper extremity Radiation: non-radiation Severity: mild Severity scale (1-10): 2 Quality: aching Consistency: constant Relieving factors: cold therapy Exacerbating factors: movement Associated symptoms: denies other symptoms - Related Data Previous Rx's Medication Instructions Recorded epinephrine 0.3 mg/0.3 mL 0.3 mg IM Q5-15M PRN #1 each 04/11/20 injection, auto-injector Ondansetron [Zofran 4mg ODT] 4 mg PO TIDP PRN #9 tab 10/07/20 sumatriptan succinate 100 mg tablet See Rx Instructions PO .COMPLEX #7 12/11/20 tab Allergies Allergy/AdvReac Type Severity Reaction Status Date / Time Penicillins [PENICILLINS] Allergy Severe Anaphylaxis Verified 12/11/20 11:30 mold Allergy Intermediate Verified 12/11/20 11:30 CONTRAST Allergy Mild Anaphylaxis Uncoded 11/04/20 15:[address] [facility] History - Hepatitis A Screen Drug use history?: No High risk sexual behaviors?: No History of sexually transmitted infection?: No Currently employed?: No Childcare worker?: No Do you have indoor plumbing?: Yes Do you have electricity?: Yes Attestation statement:: This patient has been screened for Hepatitis A risk factors. Medical History: Reports:: Anxiety, Asthma, Depression, Gastroesophageal Reflux Disease(GERD), Hypertension, Migraine Denies:: Cancer, Diabetes Mellitus Type 1, Diabetes Mellitus Type 2, Internal Pacemaker, Lung Disease, MRSA, Seizures Other Medical History: Reports: Other Comment: Asthma. Anxiety. Depression. UTI'S. Colitis. Acute Gastritis. Chronic Tonsillitis and Adenoiditis. Peptic Ulcer. Hiatal Hernia. Duodenitis Laterality Cases: Bilateral: Myringotomy (Ear Tubes), Tonsillectomy, Ot
--- NOTE | 2020-12-11 13:03 | XR_ITS ---
PROCEDURE: XR WRIST LT MIN 3V CLINICAL INDICATION: injury Pain COMPARISON: CR WRR3 WRIST-3 VIEWS-RT from 03/10/2013 CR WRL3 WRIST-3 VIEWS-LT from 01/20/2014 CR XR WRIST LT MIN 3V from 10/15/2019 CR XR WRIST LT W SCAPHOID from 10/25/2019 FINDINGS: No fracture or dislocation. No lytic or blastic change. There is normal mineralization. The joint spaces are well-preserved. No significant degenerative/arthritic changes. No erosive changes evident. Other findings:None. IMPRESSION: No acute findings. Dictated by: Duncan Gonzalez MD 12/11/2020 13:58 Duncan Gonzalez MD in [place] 12/11/2020 13:58
[2020-12-11 13:26] VITALS: BP 158/99; PULSE 80; RESP 18; TEMP 36.7; O2SAT 99
== END 2020-12-11 13:26 | disposition home or self-care (01) ==
LOC: ER 13:06
PROVIDERS: Emergency Provider Internal Medicine; PCP Physician Assistant
DX: S60.222A Contusion of left hand, initial encounter (principal); W18.00XA Striking against unspecified object with subsequent fall, initial encounter; Y92.019 Unspecified place in single-family (private) house as the place of occurrence of the external cause
CPT/HCPCS: 73110; 99281; 99282

== ENCOUNTER → 2020-12-17 07:47 | Outpatient (CLI) | payer MEDICARE, MEDICAID, SELFPAY ==
--- NOTE | 2020-12-17 07:47 | US_ITS ---
PROCEDURE: US GALLBLADDER CLINICAL INDICATION: abd pain Right-sided abdominal pain with diarrhea and COMPARISON: No exams were available for comparison FINDINGS: Pancreas: Unremarkable/Not well seen Liver: Unremarkable. There is appropriate direction of blood flow within a non dilated portal vein. Right kidney: Unremarkable appearing. No hydronephrosis. Gallbladder: Gallbladder somewhat contracted. No stones, gallbladder wall thickening, pericholecystic fluid, or biliary dilatation is evident. Phyrigian cap is present as a variant IMPRESSION: Negative gallbladder ultrasound. No stones evident. Dictated by: Duncan Gonzalez MD 12/17/2020 17:22 Duncan Gonzalez MD in [place] 12/17/2020 17:22
== END ==
PROVIDERS: PCP Physician Assistant; Visit Provider Nurse Practitioner Family
DX: R10.9 Unspecified abdominal pain (principal)
CPT/HCPCS: 76705

== ENCOUNTER → 2020-12-31 08:56 | Outpatient (POV) | payer MEDICARE, MEDICAID, SELFPAY | PROVIDERS: Visit Provider Otolaryngology | DX: Z00.00 Encounter for general adult medical examination without abnormal findings (principal) ==

== ENCOUNTER 2021-01-02 16:34 | Emergency (ER) | payer MEDICARE, MEDICAID, SELFPAY ==
[2021-01-02 16:42] VITALS: PULSE 74; RESP 18; O2SAT 100; BMI 37.2
[2021-01-02 17:29] VITALS: BP 142/66; PULSE 65; RESP 18; TEMP 36.8; O2SAT 98; BMI 36.3
[2021-01-02 17:41] LABS: Apearance,Urine Cloudy (Clear); Color,Urine Amber (Yellow); PH,Urine 5.5 (5.0-8.5); Protein,Urine Trace (Negative); Specific Gravity, Urine > 1.030 (1.005-1.030)
[2021-01-02 17:42] LABS: Bilirubin,Urine 1+ (Negative); Blood, Urine 3+ (Negative); Glucose,Urine (UA) Negative (Negative); Ketones,Urine Negative (Negative); UTC Leukocyte Esterase,Urine Negative (Negative); UTC Nitrate,Urine Negative (Negative); Urobilinogen,Urine 0.2 EU/dl (0.2)
--- NOTE | 2021-01-02 17:55 | HMH.EDUTC ---
[facility] [place] Clinical Impression: UTI (urinary tract infection) Qualifiers: Urinary tract infection type: site unspecified Hematuria presence: with hematuria Qualified Code(s): N39.0 - Urinary tract infection, site not specified Hematuria Qualifiers: Hematuria type: unspecified type Qualified Code(s): R31.9 - Hematuria, unspecified Disposition: Home, Self-Care Condition on Discharge: Good Instructions: Urinary Tract Infection, DI for Urinary Tract Infection (UTI) Additional Instructions: Drink plenty of fluids. Take tylenol or ibuprofen for pain or fever. Take the medications as directed. Follow up with your regular doctor. GO TO THE ER FOR ANY WORSENING SYMPTOMS Prescriptions: Sulfamethoxazole/Trimethoprim [Bactrim DS tablet] 1 each PO BID 7 Days #14 tab Transmission Status: Received by [id number] Referrals: Danette Lynch PA [Primary Care Provider] - Time of Disposition: 17:57 Medical Decision Making - Medical Records Medical records reviewed: No: I reviewed the patient's medical records. - Ty Inquiry Pt receiving controlled substance: No Vital Signs: 01/02/21 16:42 01/02/21 17:29 01/02/21 18:52 Temperature 98.3 F 98 F Temperature Source Oral Pulse Rate 65 Pulse Rate [Left Radial] 74 65 Respiratory Rate 18 18 16 Blood Pressure 142/66 H Blood Pressure [Right Arm] 142/66 H Blood Pressure Mean [Right Arm] 91 02 Sat by Pulse Oximetry 100 98 Oxygen Delivery Method Room Air - Lab Data Lab results reviewed: Yes: I reviewed the patient's lab results. Lab Results 01/02/21 17:33: Urine Color Alyssa, Urine Appearance Cloudy, Urine pH 5.5, Ur Specific Bogart > 1.030 H, Urine Protein Trace, Urine Glucose (UA) Negative, Urine Ketones Negative, Urine Blood 3+, Urine Nitrate Negative, Urine Bilirubin 1+ A, Urine Urobilinogen 0.2, Ur Leukocyte Esterase Negative 01/02/21 17:42: Tst Clinic Negative [facility] [place] - General Stated complaint: Blood in urine, Right side pain Time Seen by Provider: 01/02/21 17:55 Mode of Arrival: Ambulatory Source of Information: Patient Limitations: No Limitations Description of Symptoms (Recalled from Triage Doc. by RN): pt has the nexplanon iud. she states theres blood when i wipe after pee. no other c/o noted. HEENT Symptoms (Recalled from RN notes): No Resp Symptoms (Recalled from RN notes): No Skin Symptoms (Recalled from RN notes): No MS Symptoms (Recalled from RN notes): No Functional Status (Recalled from RN notes): na - History of Present Illness Provider Complaint: She states that for the past 4 to 5 days she has had blood in her urine at times and she has had some lower abdominal discomfort after urinating. She denies any back pain or other discomfort. - Related Data Previous Rx's Medication Instructions Recorded epinephrine 0.3 mg/0.3 mL 0.3 mg IM Q5-15M PRN #1 each 04/11/20 injection, auto-injector Ondansetron [Zofran 4mg ODT] 4 mg PO TIDP PRN #9 tab 10/07/20 sumatriptan succinate 100 mg tablet See Rx Instructions PO .COMPLEX #7 12/11/20 tab Sulfamethoxazole/Trimethoprim 1 each PO BID 7 Days #14 tab 01/02/21 [Bactrim DS tablet] Allergies Allergy/AdvReac Type Severity Reaction Status Date / Time Penicillins [PENICILLINS] Allergy Severe Anaphylaxis Verified 12/11/20 11:30 mold Allergy Intermediate Verified 12/11/20 11:30 CONTRAST Allergy Mild Anaphylaxis Uncoded 11/04/20 15:10 - Worker's Comp Is this a Worker's Comp case?: No [facility] History - Hepatitis A Screen Drug use history?: No High risk sexual behaviors?: No History of sexually transmitted infection?: No Currently employed?: No Childcare worker?: No Do you have indoor plumbing?: Yes Do you have electricity?: Yes Attestation statement:: This patient has been screened for Hepatitis A risk factors. I have reviewed the patient's past medical history: Yes Medical History: Reports:: Anxiety, Asthma, Depressi
[2021-01-02 18:52] VITALS: BP 142/66; PULSE 65; RESP 16; TEMP 36.6
[2021-01-02 19:13] LABS: UTC Pregnancy Test, Urine Negative (Negative)
== END 2021-01-02 18:52 | disposition home or self-care (01) ==
PROVIDERS: Emergency Provider Nurse Practitioner Family; PCP Physician Assistant
DX: N30.01 Acute cystitis with hematuria (principal); K21.9 Gastro-esophageal reflux disease without esophagitis; I10 Essential (primary) hypertension; F41.8 Other specified anxiety disorders; F17.210 Nicotine dependence, cigarettes, uncomplicated; Z88.0 Allergy status to penicillin; Z79.899 Other long term (current) drug therapy
CPT/HCPCS: G0463; 81003; 81025; 99202

== ENCOUNTER → 2021-01-13 14:27 | Outpatient (CLI) | payer MEDICARE, MEDICAID, SELFPAY ==
--- NOTE | 2021-01-13 14:35 | XR_ITS ---
PROCEDURE: XR FOOT WT BEARING LT 3V CLINICAL INDICATION: foot pain COMPARISON: No exams were available for comparison FINDINGS: No fracture or dislocation. No lytic or blastic change. There is normal mineralization. The joint spaces are well-preserved. No significant degenerative/arthritic changes. No erosive changes evident. Other findings:None. IMPRESSION: No acute findings. Dictated by: Duncan Gonzalez MD 01/13/2021 15:29 Duncan Gonzalez MD in [place] 01/13/2021 15:29
--- NOTE | 2021-01-13 14:35 | XR_ITS ---
PROCEDURE: XR FOOT WT BEARING RT 3V CLINICAL INDICATION: foot pain COMPARISON: CR FTL3 FOOT-LT-3 VIEWS from 03/23/2015 CR FTL2 FOOT-LT-2 VIEWS from 12/15/2016 CR XR FOOT WT BEARING RT 3V from 04/20/2019 CR XR FOOT WT BEARING LT 3V from 04/20/2019 FINDINGS: No fracture or dislocation. No lytic or blastic change. There is normal mineralization. The joint spaces are well-preserved. No significant degenerative/arthritic changes. No erosive changes evident. Other findings:None. IMPRESSION: No acute findings. Dictated by: Duncan Gonzalez MD 01/13/2021 15:29 Duncan Gonzalez MD in [place] 01/13/2021 15:29
== END ==
PROVIDERS: PCP Physician Assistant; Visit Provider Nurse Practitioner
DX: L60.2 Onychogryphosis; L60.8 Other nail disorders; M79.672 Pain in left foot; M79.671 Pain in right foot
CPT/HCPCS: 73630; 87102; 87206; 87220

== ENCOUNTER → 2021-01-20 16:31 | Outpatient (CLI) | payer MEDICARE, MEDICAID, SELFPAY ==
[2021-01-20 17:20] LABS: Urine Pregnancy, HCG Qual. Negative (Negative)
== END ==
PROVIDERS: Visit Provider Surgery
DX: Z01.812 Encounter for preprocedural laboratory examination (principal); Z11.52 Encounter for screening for COVID-19; Z13.810 Encounter for screening for upper gastrointestinal disorder
CPT/HCPCS: 81025; U0003

== ENCOUNTER 2021-01-22 09:13 | Day surgery (SDC) | payer MEDICARE, MEDICAID, SELFPAY ==
[2021-01-20 15:08] VITALS: BMI 38.9
--- NOTE | 2021-01-22 09:30 | SUR.PREOP ---
Confirmed pt's responsible adult will be able to drive pt home after procedure
[2021-01-22 09:34] VITALS: BP 154/77; PULSE 72; RESP 18; TEMP 36.4; O2SAT 96
--- NOTE | 2021-01-22 10:23 | HMH.ANESCL ---
[facility] Anesthesia Checklist - Patient Identification Patient Identification: Arm Band - Structural Data Admitted From: Home Planned Operative Procedure/s: egd Consent for Planned Operative Procedure(s) Verified: Yes Verified Documents: Surgical Consent, History and Physical - NPO Status Verified Time NPO: 00:00 - Additional verifications Anesthesia Reactions: No - Airway Assessment C-Spine Mobility Assessed: Yes (mp2) TMJ Mobility Assessed: Yes Dentition: Good Dentition - Neurological Assessment Level of Consciousness: Awake, Alert - Anesthesia Plan Anesthesia Risk discussed: Yes Anesthesia Plan: Verified ASA Class: III Anesthesia Type: MAC [facility] History I have reviewed the patient's past medical history: Yes Medical History: Reports:: Anxiety, Asthma, Depression, Gastroesophageal Reflux Disease(GERD), Hypertension, Migraine Denies:: Cancer, Diabetes Mellitus Type 1, Diabetes Mellitus Type 2, Internal Pacemaker, Lung Disease, MRSA, Seizures *Have you ever received a pneumonia vaccine?: No *Have you received a flu vaccine this season?: No Other Medical History: Reports: Other Anesthesia experience/problems:: nac Laterality Cases: Bilateral: Myringotomy (Ear Tubes), Tonsillectomy, Other Other Surgeries: Yes: EGD, Other. No: Pacemaker Amputation: No Fractures: No - *Social History Last grade of school completed: High school graduate Smoking Status: Current every day smoker Tobacco Type: cigarettes # Packs/Day (cigarettes): 1 Alcohol Intake: never Alcohol Intake Frequency:: holidays/special occasions only Substance Use Type: denies use *Occupational Status:: other Housing: house Household Members: family *Travel in the last 8 weeks: None - Psychiatric History Pschychiatric History:: Reports:: Anxiety, Depression Family Hx:: Asthma, Cancer, Diabetes, Hypertension, Thyroid Disorder, Stroke
[2021-01-22 10:40] VITALS: BP 134/64; PULSE 80; RESP 18; TEMP 36.3; O2SAT 94
--- NOTE | 2021-01-22 10:40 | P.PCN_ITS ---
- Procedure: Date: 01/22/21 Patient Date of :: 2000 Procedure Performed:: Esophagogastroduodenoscopy with biopsies Indications:: Patient is a 20-year-old female referred by Martinez Whatley for upper endoscopy. 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 She now presents to the office for possible upper endoscopy. For several months she has had symptoms of nausea occurring postprandially. This usually occurs about 20 or 30 min. This seems to be somewhat worse with fatty foods. She does have some early postprandial diarrhea. She does describe some mid abdominal discomfort. She underwent ul trasound which was negative for gallstones. Performing Provider:: Jame Abel MD Referring Provider:: Lilly Whatley Sedation:: MAC sedation Procedure:: Patient was taken to endoscopy procedure room. She was positioned in lateral decubitus position. Adequate intravenous sedation was achieved. Olympus endoscope was inserted via the oropharynx. Esophagus was cannulated. Endoscope was advanced. Esophagus overall appeared normal. Gastroesophageal junction was encountered at approximately 35 cm from the incisors. Stomach was cannulated and insufflated. Retroflexion revealed very tiny hiatal hernia. Gastric antral mucosal biopsies obtained for CLOtest for H. pylori. Overall gastric lumen appeared relatively unremarkable other than possibly some very mild nonerosive gastritis. Pylorus was traversed. Duodenum appeared unremarkable. Biopsy was obtained within the duodenum. Gastric antral mucosal biopsy was obtained to assess for microscopic colitis. 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 Multiple bi opsies were obtained. A couple of biopsies were obtained of the distal esophagus. Stomach was desufflated and the endoscope was withdrawn. 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 Treat H. pylori if positive. Symptom etiology may be dietary. Complications:: None immediately apparent Estimated blood obtained (mL): 2
[2021-01-22 10:50] VITALS: BP 145/85; PULSE 54; RESP 18; O2SAT 99
[2021-01-22 11:00] VITALS: BP 144/81; PULSE 70; RESP 18; O2SAT 98
[2021-01-22 11:10] VITALS: BP 133/73; BP 139/71; PULSE 71; PULSE 76; RESP 18; TEMP 36.3; O2SAT 97; O2SAT 98
== END 2021-01-22 11:29 | disposition home or self-care (01) ==
LOC: OUTP 09:15
PROVIDERS: PCP Physician Assistant; Visit Provider Surgery
PROC: 0DJ08ZZ Inspection of Upper Intestinal Tract, Via Natural or Artificial Opening Endoscopic (ICD-10-PCS; CPT 43235; principal; 2021-01-22 10:30)
DX: K22.9 Disease of esophagus, unspecified (principal); K44.9 Diaphragmatic hernia without obstruction or gangrene; K29.60 Other gastritis without bleeding; I10 Essential (primary) hypertension; G43.909 Migraine, unspecified, not intractable, without status migrainosus; F41.9 Anxiety disorder, unspecified; J45.909 Unspecified asthma, uncomplicated; F32.9 Major depressive disorder, single episode, unspecified; K21.9 Gastro-esophageal reflux disease without esophagitis; Z72.0 Tobacco use; Z82.3 Family history of stroke; Z83.49 Family history of other endocrine, nutritional and metabolic diseases; Z80.9 Family history of malignant neoplasm, unspecified; Z83.3 Family history of diabetes mellitus; Z82.49 Family history of ischemic heart disease and other diseases of the circulatory system; R11.0 Nausea; R19.7 Diarrhea, unspecified
CPT/HCPCS: 43239; 87339; 88305

== ENCOUNTER → 2021-02-04 13:15 | Outpatient (CLI) | payer MEDICARE, MEDICAID, SELFPAY ==
[2021-02-04 13:21] LABS: Adenovirus F 40/41, stool Not Detected (NotDetected); Astrovirus Not Detected (NotDetected); Campylobacter Not Detected (NotDetected); Clostridium Difficile A/B, PCR Not Detected (NotDetected); Cryptosporidium Not Detected (NotDetected); Cyclospora Cayetanesis Not Detected (NotDetected); Entamoeba histolytica Not Detected (NotDetected); Enteroaggregative E coli Not Detected (NotDetected); Enterotoxigenic E coli Not Detected (NotDetected); Giardia lamblia Not Detected (NotDetected); Norovirus Not Detected (NotDetected); Plesimonas Shigalloides, PCR Not Detected (NotDetected); Rotavirus A Not Detected (NotDetected); Salmonella, PCR Not Detected (NotDetected); Shiga-like toxin E coli Not Detected (NotDetected); Shigella Enterovasive E coli Not Detected (NotDetected); Vibrio Cholerae Not Detected (NotDetected); Vibrio, PCR Not Detected (NotDetected); Yersinia Entercolitica, PCR Not Detected (NotDetected)
[2021-02-04 15:49] LABS: Sapovirus Detected (NotDetected)
[2021-02-04 15:50] LABS: Enteropathogenic E coli Detected (NotDetected)
== END ==
PROVIDERS: Visit Provider Surgery
DX: R19.7 Diarrhea, unspecified (principal); A04.0 Enteropathogenic Escherichia coli infection; A08.11 Acute gastroenteropathy due to Norwalk agent
CPT/HCPCS: 87506

== ENCOUNTER → 2021-02-11 17:42 | Outpatient (CLI) | payer MEDICARE, MEDICAID, SELFPAY ==
[2021-02-11 18:06] LABS: Alanine Aminotransferase 16 U/L (12-78); Albumin Level 4.7 g/dl (3.5-5.0); Albumin/Globulin Ratio 1.4 (1.1-1.8); Alkaline Phosphatase 87 U/L (38-126); Anion Gap 16.4 mEq/L (5-15); Aspartate Amino Transferase 20 U/L (14-36); Bilirubin,Total 0.6 mg/dl (0.2-1.3); Blood Urea Nitrogen 16 mg/dl (7-17); Calcium 9.5 mg/dl (8.4-10.2); Carbon Dioxide 28 mmol/L (22.0-30.0); Chloride 103 mmol/L (98-107); Chol/HDL Ratio 4.7 (1-3.5); Cholesterol 219 mg/dl (140-200); Estimated Glomerular Filt Rate 90 ml/min (>60); GFR (African American) 109 ML/MIN (>60); Globulin 3.3 g/dL (1.3-3.2); Glucose 84 mg/dl (74-100); HDL Cholesterol 47 mg/dl (40-60); Magnesium 2.2 mg/dl (1.6-2.3); Potassium 4.4 mmoL/L (3.5-5.1); Sodium 143 mmol/L (136-145); Triglycerides 107 mg/dl (30-150); VLDL Cholesterol 21 mg/dL (0-40)
[2021-02-11 18:10] LABS: Basophils # 0.1 K/mm3 (0-0.2); Eosinophils # 0.1 K/mm3 (0.0-0.4); Eosinophils % 1.2 % (0.1-12.0); Hematocrit 50.8 % (37.0-47.0); Hemoglobin 15.6 g/dL (12.2-16.2); Lymphocytes # 2.6 K/mm3 (0.7-4.5); Lymphocytes % 37.4 % (10-50); Mean Corpuscular HGB Conc 30.8 g/dL (31.8-35.4); Mean Corpuscular Hemoglobin 27.6 pg (27.0-31.2); Mean Corpuscular Volume 89.6 fl (81-99); Mean Platelet Volume 9.4 fl (7.4-10.4); Monocytes # 0.4 K/mm3 (0.1-1.0); Monocytes % 5.3 % (1.7-9.3); Neutrophils # 3.8 K/mm3 (1.8-7.8); Neutrophils % 55.1 % (37.0-80.0); Platelet Count 338 K/mm3 (142-424); Red Blood Count 5.66 M/mm3 (4.20-5.40); Red Cell Distribution Width 14.3 % (11.5-17.5)
[2021-02-11 18:17] LABS: Direct LDL Cholesterol 149.57 mg/dL (100-129)
[2021-02-11 18:22] LABS: 25-OH Vitamin D, Total 26.7 ng/mL (30-100)
[2021-02-11 18:23] LABS: T4 (Thyroxine) 12.9 ug/dl (5.53-11.0)
[2021-02-11 18:37] LABS: Thyroid Stimulating Hormone 2.82 uIU/mL (0.465-4.68)
== END ==
PROVIDERS: Visit Provider Nurse Practitioner Family
DX: E55.9 Vitamin D deficiency, unspecified (principal); E78.5 Hyperlipidemia, unspecified; I10 Essential (primary) hypertension; R25.2 Cramp and spasm; Z68.38 Body mass index [BMI] 38.0-38.9, adult; M25.522 Pain in left elbow
CPT/HCPCS: 80053; 80061; 82306; 83735; 84436; 84443; 85025

== ENCOUNTER → 2021-03-18 10:54 | Outpatient (POV) | payer MEDICARE, MEDICAID, SELFPAY | PROVIDERS: Visit Provider Otolaryngology | DX: Z00.00 Encounter for general adult medical examination without abnormal findings (principal) ==

== ENCOUNTER 2021-04-25 16:45 | Emergency (ER) | payer MEDICARE, MEDICAID, SELFPAY ==
[2021-04-25 17:35] VITALS: BP 187/80; PULSE 79; RESP 18; TEMP 37; O2SAT 95; BMI 47.5
--- NOTE | 2021-04-25 18:21 | HMH.EDUTC ---
[facility] – [place] Disposition Clinical Impression: URI (upper respiratory infection) Qualifiers: URI type: unspecified URI Qualified Code(s): J06.9 - Acute upper respiratory infection, unspecified Disposition: Home, Self-Care Condition on Discharge: Good Instructions: Sinusitis, DI for Sinusitis Additional Instructions: Continue Taking Clindamycin as prescribed You were tested for today for COVID19 your test result should be back in the next 24-48 hours, you may check for your results on the [facility] My Health Portal if you have trouble logging on or seeing your results you may call You was given a handout with instructions for Self Quarantine and Self isolation for while you wait on test results and what to do if they are positive If you are positive the Health Dept will be contacting you also Make sure to take your Vitamins Vit. C Vit D and Zinc if you can take them Prescriptions: Brompheniramine/Pseudoephed/Dm [Bromfed Dm Cough Syrup] 5 - 10 ml PO Q46H PRN #250 ml PRN Reason: Cough Transmission Status: Pending to [id number] Fluticasone Propionate [Flonase 50mcg nasal spray 16gm] 1 spr NS DAILY #1 each Transmission Status: Pending to [id number] Referrals: Danette Lynch PA [Primary Care Provider] - As needed Time of Disposition: 19:08 Medical Decision Making - Ty Inquiry Pt receiving controlled substance: No Ty was queried for this patient: No Vital Signs: 04/25/21 17:35 Temperature 98.6 F Temperature Source Oral Pulse Rate [Left Brachial] 79 Respiratory Rate 18 Blood Pressure [Left Arm] 187/80 H Blood Pressure Mean [Left Arm] 115 Blood Pressure Source [Left Arm] Automatic Cuff Blood Pressure Position [Left Arm] Sitting 02 Sat by Pulse Oximetry 95 Oxygen Delivery Method Room Air Orders (Tests/Meds): ORDERS Category Date Time Status Covid-19 Nasal PCR ([facility]) Routine Lab 04/25/21 18:20 Received [facility] [place] HPI - General Stated complaint: poss ear inf, sore throat,coughvomiting suraj Time Seen by Provider: 04/25/21 18:21 Mode of Arrival: Ambulatory Source of Information: Patient Limitations: No Limitations Description of Symptoms (Recalled from Triage Doc. by RN): PATIENT C/O COUGH, SORE THROAT, VOMITING, DIARRHEA, CONGESTION, WHEEZING, AND LEFT EAR PAIN X 1 WEEK HEENT Symptoms (Recalled from RN notes): Yes Resp Symptoms (Recalled from RN notes): Yes Skin Symptoms (Recalled from RN notes): No MS Symptoms (Recalled from RN notes): No Functional Status (Recalled from RN notes): WNL - History of Present Illness Provider Complaint: Patient states that she has not felt well since just after States that she has been having sinus pain and pressure along with sore throat, pain in her left ear and sore throat States that she has had cough and at times coughed so much she vomited Statse that mother is having similar symptoms so she came in to get checked - Related Data Previous Rx's Medication Instructions Recorded epinephrine 0.3 mg/0.3 mL 0.3 mg IM Q5-15M PRN #1 each 04/11/20 injection, auto-injector sumatriptan succinate 100 mg tablet See Rx Instructions PO .COMPLEX #7 12/11/20 tab pantoprazole 40 mg tablet,delayed 40 mg PO DAILY #30 tab 02/03/21 release cholecalciferol (vitamin D3) 1,250 1,250 mcg PO WEEKLY #7 tab 02/13/21 mcg (50,000 unit) tablet cholecalciferol (vitamin D3) 50 50 mcg PO DAILY #90 cap 02/13/21 mcg (2,000 unit) capsule Brompheniramine/Pseudoephed/Dm 5 - 10 ml PO Q46H PRN #250 ml 04/25/21 [Bromfed Dm Cough Syrup] Fluticasone Propionate [Flonase 1 spr NS DAILY #1 each 04/25/21 50mcg nasal spray 16gm] Allergies Allergy/AdvReac Type Severity Reaction Status Date / Time Penicillins [PENICILLINS] Allergy Severe Anaphylaxis Verified 03/17/21 14:03 mold Allergy Intermediate Verified 03/17/21 14:03 CONTRAST Allergy Mild Anaphylaxis Uncoded 02/03/21 10:14 - Worker's Comp Is this a Worker's Comp case?: No H History - Hepatit
[2021-04-25 19:24] VITALS: BP 187/80; PULSE 79; RESP 18; TEMP 37; O2SAT 95
== END 2021-04-25 19:39 | disposition home or self-care (01) ==
PROVIDERS: Emergency Provider Nurse Practitioner; PCP Physician Assistant
DX: J06.9 Acute upper respiratory infection, unspecified (principal); K21.9 Gastro-esophageal reflux disease without esophagitis; I10 Essential (primary) hypertension; F41.8 Other specified anxiety disorders; F17.210 Nicotine dependence, cigarettes, uncomplicated
CPT/HCPCS: G0463; 99202; C9803; U0003; U0005

== ENCOUNTER → 2021-05-09 16:01 | Outpatient (CLI) | payer MEDICARE, MEDICAID, SELFPAY | PROVIDERS: PCP Physician Assistant; Visit Provider Nurse Practitioner | DX: Z20.822 Contact with and (suspected) exposure to COVID-19 (principal) | CPT/HCPCS: C9803; U0003; U0005 ==

== ENCOUNTER → 2021-05-14 09:50 | Outpatient (CLI) | payer MEDICARE, MEDICAID, SELFPAY | PROVIDERS: Visit Provider Nurse Practitioner | DX: U07.1 COVID-19 (principal) | CPT/HCPCS: C9803; U0003; U0005 ==

== ENCOUNTER 2021-07-25 18:42 | Emergency (ER) | payer MEDICARE, MEDICAID, SELFPAY ==
[2021-07-25 18:43] VITALS: BP 156/101; PULSE 84; RESP 18; TEMP 36.8; O2SAT 96; BMI 37.2
--- NOTE | 2021-07-25 19:05 | HMH.EDUTC ---
[facility] – [place] Disposition Clinical Impression: Diarrhea Qualifiers: Diarrhea type: unspecified type Qualified Code(s): R19.7 - Diarrhea, unspecified Disposition: Home, Self-Care Condition on Discharge: Good Instructions: DI for Diarrhea and Traveler's Diarrhea -- Adult Additional Instructions: Diarrhea panel results will guide treatment Referrals: Danette Lynch PA [Primary Care Provider] - Time of Disposition: 19:16 Medical Decision Making - Ty Inquiry Pt receiving controlled substance: No Vital Signs: 07/25/21 18:43 Temperature 98.3 F Temperature Source Oral Pulse Rate [Left Radial] 84 Respiratory Rate 18 Blood Pressure [Left Arm] 156/101 H Blood Pressure Mean [Left Arm] 119 Blood Pressure Source [Left Arm] Automatic Cuff Blood Pressure Position [Left Arm] Sitting 02 Sat by Pulse Oximetry 96 Oxygen Delivery Method Room Air [facility] [place] HPI - General Stated complaint: diarrhea Time Seen by Provider: 07/25/21 19:05 Mode of Arrival: Ambulatory Source of Information: Patient Limitations: No Limitations Description of Symptoms (Recalled from Triage Doc. by RN): Pt c/o diarrhea x1 week. Denies N/V. - History of Present Illness Provider Complaint: Diarrhea X 4 days. Started Wednesday after work. Now every time she eats she gets watery diarrhea within seconds. No fever. No nausea or vomiting. States any food or liquid causes loose stool. Has abdominal cramps. No bleeding but does have rectal pain. Onset (ago): day(s) (4) Location: buttocks Relieving factors: none Exacerbating factors: none Associated symptoms: denies other symptoms Treatments prior to arrival: none - Related Data Previous Rx's Medication Instructions Recorded epinephrine 0.3 mg/0.3 mL 0.3 mg IM Q5-15M PRN #1 each 04/11/20 injection, auto-injector sumatriptan succinate 100 mg tablet See Rx Instructions PO .COMPLEX #7 12/11/20 tab pantoprazole 40 mg tablet,delayed 40 mg PO DAILY #30 tab 02/03/21 release cholecalciferol (vitamin D3) 1,250 1,250 mcg PO WEEKLY #7 tab 02/13/21 mcg (50,000 unit) tablet cholecalciferol (vitamin D3) 50 50 mcg PO DAILY #90 cap 02/13/21 mcg (2,000 unit) capsule Brompheniramine/Pseudoephed/Dm 5 - 10 ml PO Q46H PRN #250 ml 04/25/21 [Bromfed Dm Cough Syrup] Fluticasone Propionate [Flonase 1 spr NS DAILY #1 each 04/25/21 50mcg nasal spray 16gm] Allergies Allergy/AdvReac Type Severity Reaction Status Date / Time Penicillins [PENICILLINS] Allergy Severe Anaphylaxis Verified 03/17/21 14:03 mold Allergy Intermediate Verified 03/17/21 14:03 CONTRAST Allergy Mild Anaphylaxis Uncoded 02/03/21 10:14 [facility] History - Hepatitis A Screen Attestation statement:: This patient has been screened for Hepatitis A risk factors. I have reviewed the patient's past medical history: Yes Medical History: Reports:: Anxiety, Asthma, Depression, Gastroesophageal Reflux Disease(GERD), Hypertension, Migraine Denies:: Cancer, Diabetes Mellitus Type 1, Diabetes Mellitus Type 2, Internal Pacemaker, Lung Disease, MRSA, Seizures Other Medical History: Reports: Other Comment: Asthma. Anxiety. Depression. UTI'S. Colitis. Acute Gastritis. Chronic Tonsillitis and Adenoiditis. Peptic Ulcer. Hiatal Hernia. Duodenitis Laterality Cases: Bilateral: Myringotomy (Ear Tubes), Tonsillectomy, Other Other Surgeries: Yes: No Previous Surgery, EGD, Other. No: Pacemaker Amputation: No Fractures: No Comment: Ear tubes as a child. TonsilX and AdenoidX--03/17/2007. AdenoidX--2007. Rt. Eardrum recoonstruction--2008. Neck Surgery--2014. Esophagogastroduodenoscopy with biopsy--05/17/2017. Esophagogastroduodenoscopy with biopsy-07/15/2017. EGD c bx on 01/22/21 - Social History Smoking Status: Current every day smoker Tobacco Type: cigarettes # Packs/Day (cigarettes): 1 Alcohol Intake: never Alcohol Intake Frequency:: holidays/special occasions only Substance Use Type: denies use Occupational Status: other Housing: [facility]
[2021-07-25 19:06] VITALS: BP 156/101; PULSE 84; RESP 18; TEMP 36.8; O2SAT 96; BMI 54.9
[2021-07-25 19:22] VITALS: BP 156/101; PULSE 84; RESP 18; TEMP 36.8; O2SAT 96
== END 2021-07-25 19:22 | disposition home or self-care (01) ==
LOC: UTC 18:55 → ER 18:58 → UTC 18:58
PROVIDERS: Emergency Provider Physician Assistant; PCP Physician Assistant
DX: R19.7 Diarrhea, unspecified (principal); F41.9 Anxiety disorder, unspecified; J45.909 Unspecified asthma, uncomplicated; F32.A Depression, unspecified; K21.9 Gastro-esophageal reflux disease without esophagitis; I10 Essential (primary) hypertension; F17.210 Nicotine dependence, cigarettes, uncomplicated
CPT/HCPCS: 99202; G0463

== ENCOUNTER → 2021-07-29 16:18 | Outpatient (CLI) | payer MEDICARE, MEDICAID, SELFPAY ==
[2021-07-29 16:30] LABS: Astrovirus Not Detected (NotDetected); Campylobacter Not Detected (NotDetected); Clostridium Difficile A/B, PCR Not Detected (NotDetected); Cryptosporidium Not Detected (NotDetected); Cyclospora Cayetanesis Not Detected (NotDetected); Entamoeba histolytica Not Detected (NotDetected); Enteroaggregative E coli Not Detected (NotDetected); Enterotoxigenic E coli Not Detected (NotDetected); Giardia lamblia Not Detected (NotDetected); Norovirus Not Detected (NotDetected); Plesimonas Shigalloides, PCR Not Detected (NotDetected); Rotavirus A Not Detected (NotDetected); Salmonella, PCR Not Detected (NotDetected); Sapovirus Not Detected (NotDetected); Shiga-like toxin E coli Not Detected (NotDetected); Vibrio Cholerae Not Detected (NotDetected); Vibrio, PCR Not Detected (NotDetected); Yersinia Entercolitica, PCR Not Detected (NotDetected)
[2021-07-29 22:30] LABS: Adenovirus F 40/41, stool Detected (NotDetected)
[2021-07-29 22:34] LABS: Enteropathogenic E coli Detected (NotDetected); Shigella Enterovasive E coli Detected (NotDetected)
== END ==
PROVIDERS: Visit Provider Physician Assistant
DX: R19.7 Diarrhea, unspecified (principal); A08.2 Adenoviral enteritis; A04.0 Enteropathogenic Escherichia coli infection; A03.0 Shigellosis due to Shigella dysenteriae
CPT/HCPCS: 87506

== ENCOUNTER 2021-09-15 18:36 | Emergency (ER) | payer MEDICARE, MEDICAID, SELFPAY ==
[2021-09-15 18:36] VITALS: BP 150/86; PULSE 79; RESP 18; TEMP 37.6; O2SAT 99; BMI 34.3
--- NOTE | 2021-09-15 20:26 | HMH.EDUTC ---
[facility] Disposition Clinical Impression: Bronchitis Sinusitis Qualifiers: Sinusitis location: unspecified location Chronicity: acute Recurrence: non-recurrent Qualified Code(s): J01.90 - Acute sinusitis, unspecified Disposition: Home, Self-Care Condition on Discharge: Good Instructions: DI for Sinusitis Additional Instructions: Drink plenty of fluids. Take tylenol or ibuprofen for pain or fever. Take the medications as directed. Follow up with your regular doctor. GO TO THE ER FOR ANY WORSENING SYMPTOMS Prescriptions: Brompheniramine/Pseudoephed/Dm [Bromfed Dm Cough Syrup] 5 ml PO Q6HP PRN #240 ml PRN Reason: Cough Transmission Status: Received by [facility] methylPREDNISolone [Medrol] 4 mg PO DIRECTED 6 Days #21 packet Transmission Status: Received by [facility] Azithromycin [Z-Dylan 250mg Tab*] 250 mg PO UD DOSE PK #6 tab Transmission Status: Received by [facility] Referrals: Danette Lynch PA [Primary Care Provider] - Forms: Work/School Release Time of Disposition: 20:43 Medical Decision Making - Medical Records Medical records reviewed: No: I reviewed the patient's medical records. - Ty Inquiry Pt receiving controlled substance: No Vital Signs: 09/15/21 18:36 09/15/21 20:54 Temperature 99.6 F 99.6 F Temperature Source Oral Oral Pulse Rate 79 Pulse Rate [Right Radial] 79 Respiratory Rate 18 18 Blood Pressure 150/86 H Blood Pressure [Right Arm] 150/86 H Blood Pressure Mean [Right Arm] 107 Blood Pressure Source Automatic Cuff Blood Pressure Source [Right Arm] Automatic Cuff Blood Pressure Position Sitting Blood Pressure Position [Right Arm] Sitting 02 Sat by Pulse Oximetry 99 Oxygen Delivery Method Room Air Room Air [facility] HPI - General Stated complaint: congestion,SOB, Runny nose Time Seen by Provider: 09/15/21 20:26 - History of Present Illness Provider Complaint: She states that for the past 5 days she has been having sinus and chest congestion. She denies any fever or chills. - Related Data Previous Rx's Medication Instructions Recorded epinephrine 0.3 mg/0.3 mL 0.3 mg IM Q5-15M PRN #1 each 04/11/20 injection, auto-injector sumatriptan succinate 100 mg tablet See Rx Instructions PO .COMPLEX #7 12/11/20 tab pantoprazole 40 mg tablet,delayed 40 mg PO DAILY #30 tab 02/03/21 release cholecalciferol (vitamin D3) 1,250 1,250 mcg PO WEEKLY #7 tab 02/13/21 mcg (50,000 unit) tablet cholecalciferol (vitamin D3) 50 50 mcg PO DAILY #90 cap 02/13/21 mcg (2,000 unit) capsule Brompheniramine/Pseudoephed/Dm 5 - 10 ml PO Q46H PRN #250 ml 04/25/21 [Bromfed Dm Cough Syrup] Fluticasone Propionate [Flonase 1 spr NS DAILY #1 each 04/25/21 50mcg nasal spray 16gm] ciprofloxacin HCl 500 mg tablet 500 mg PO BID PRN #14 tab 07/30/21 Azithromycin [Z-Dylan 250mg Tab*] 250 mg PO UD DOSE PK #6 tab 09/15/21 Brompheniramine/Pseudoephed/Dm 5 ml PO Q6HP PRN #240 ml 09/15/21 [Bromfed Dm Cough Syrup] methylPREDNISolone [Medrol] 4 mg PO DIRECTED 6 Days #21 09/15/21 packet Allergies Allergy/AdvReac Type Severity Reaction Status Date / Time Penicillins [PENICILLINS] Allergy Severe Anaphylaxis Verified 09/15/21 20:26 mold Allergy Intermediate Verified 03/17/21 14:03 CONTRAST Allergy Mild Anaphylaxis Uncoded 02/03/21 10:14 [facility] History - Hepatitis A Screen Attestation statement:: This patient has been screened for Hepatitis A risk factors. I have reviewed the patient's past medical history: Yes Medical History: Reports:: Anxiety, Asthma, Depression, Gastroesophageal Reflux Disease(GERD), Hypertension, Migraine Denies:: Cancer, Diabetes Mellitus Type 1, Diabetes Mellitus Type 2, Internal Pacemaker, Lung Disease, MRSA, Seizures Other Medical History: Reports: Other Comment: Asthma. Anxiety. Depression. UTI'S. Colitis. Acute Gastritis. Chronic Tonsillitis and Adenoiditis. Peptic Ulcer. Hiatal Hernia. Duo
[2021-09-15 20:54] VITALS: BP 150/86; PULSE 79; RESP 18; TEMP 37.6; O2SAT 99
== END 2021-09-15 20:54 | disposition home or self-care (01) ==
PROVIDERS: Emergency Provider Nurse Practitioner Family; PCP Physician Assistant
DX: J20.9 Acute bronchitis, unspecified (principal); J01.90 Acute sinusitis, unspecified; F41.8 Other specified anxiety disorders; K21.9 Gastro-esophageal reflux disease without esophagitis; I10 Essential (primary) hypertension; F17.210 Nicotine dependence, cigarettes, uncomplicated; Z79.899 Other long term (current) drug therapy
CPT/HCPCS: 99212; G0463

== ENCOUNTER 2021-10-19 15:28 | Emergency (ER) | payer MEDICARE, MEDICAID, SELFPAY ==
[2021-10-19 15:53] VITALS: BP 148/95; PULSE 90; RESP 20; TEMP 37.2; O2SAT 100; BMI 47.2
--- NOTE | 2021-10-19 16:22 | HMH.EDUTC ---
[facility] Disposition Clinical Impression: Sore throat (viral) Disposition: Home, Self-Care Condition on Discharge: Good Instructions: Sore Throat, DI for Cough -- Adult Additional Instructions: *Monitor Temp, Over the counter Motrin or Tylenol as directed/as needed Tylenol every 4 hours and Motrin every 6 hours (as long as your family doctor has told you that you can take it) for fever or pain. and straight to ER if unable to lower temp less than 101.0 after medication given *Warm salt water gargles may help to soothe the throat *Throat Lozenges *Warm fluids like tea with honey may help to soothe the throat *Sleep elevated *Humidifier/Vaporizer *Flonase 2 sprays in each nostril daily but be aware that it may take 2-3 days before you notice improvement *Bromfed may cause drowsiness. Know how it effects you (your child) before driving, caring for small child, or sending your child to school. Not other antihistamines/allergy medications while taking bromfed Your throat swab was sent for culture. Those results are typically sent to your primary care. Be sure to follow up in 2-3 days with your family doctor/primary care physician if no improvement so they can review those result and treat if necessary. If you don?t have a primary care doctor, I recommend you get one but in the mean time, you will have to return to a walk in clinic Follow up IMMEDIATELY for new or worsening symptoms or no Noticeable improvement over the next 48-72 hours. 911 for difficulty breathing or swallowing Prescriptions: Brompheniramine/Pseudoephed/Dm [Bromfed Dm Cough Syrup] 5 - 10 ml PO Q4-6H PRN #150 ml PRN Reason: Cough Transmission Status: Pending to [facility] Fluticasone Propionate [Flonase 50mcg nasal spray 16gm] 1 spr NS DAILY #1 each Transmission Status: Pending to [facility] Referrals: Danette Lynch PA [Primary Care Provider] - As needed Time of Disposition: 16:55 Medical Decision Making - Ty Inquiry Pt receiving controlled substance: No Ty was queried for this patient: No Vital Signs: 10/19/21 15:53 Temperature 98.9 F Temperature Source Oral Pulse Rate [Left] 90 Respiratory Rate 20 Blood Pressure [Right Arm] 148/95 H Blood Pressure Mean [Right Arm] 112 02 Sat by Pulse Oximetry 100 - Lab Data Lab Results 10/19/21 15:50: Group A Strep Rapid Negative Orders (Tests/Meds): ORDERS Category Date Time Status Strep Screen Confirmation Stat Micro 10/19/21 15:50 Received [facility] HPI - General Stated complaint: sore throat and cough Time Seen by Provider: 10/19/21 16:22 Mode of Arrival: Ambulatory Source of Information: Patient Limitations: No Limitations Description of Symptoms (Recalled from Triage Doc. by RN): two days ago pt began having cough and sore throat HEENT Symptoms (Recalled from RN notes): Yes Resp Symptoms (Recalled from RN notes): No Skin Symptoms (Recalled from RN notes): No MS Symptoms (Recalled from RN notes): No Functional Status (Recalled from RN notes): wnl - History of Present Illness Provider Complaint: Patient states that a couple days ago she started having cough and sore throat States that she is not coughing anything up and worried that she may have strep throat so she came in to get checked - Related Data Previous Rx's Medication Instructions Recorded epinephrine 0.3 mg/0.3 mL 0.3 mg IM Q5-15M PRN #1 each 04/11/20 injection, auto-injector sumatriptan succinate 100 mg tablet See Rx Instructions PO .COMPLEX #7 12/11/20 tab pantoprazole 40 mg tablet,delayed 40 mg PO DAILY #30 tab 02/03/21 release cholecalciferol (vitamin D3) 1,250 1,250 mcg PO WEEKLY #7 tab 02/13/21 mcg (50,000 unit) tablet cholecalciferol (vitamin D3) 50 50 mcg PO DAILY #90 cap 02/13/21 mcg (2,000 unit) capsule Brompheniramine/Pseudoephed/Dm 5 - 10 ml PO Q46H PRN #250 ml 04/25/21 [Bromfed Dm Cough Syrup] Fluticasone Propionate [Flonase 1 spr NS DAILY #1 each 04/25
[2021-10-19 16:48] LABS: Strep Scrn Group A (Rapid) Negative (Negative)
[2021-10-19 17:03] VITALS: BP 148/95; PULSE 90; RESP 20; TEMP 37.2
== END 2021-10-19 17:04 | disposition home or self-care (01) ==
PROVIDERS: Emergency Provider Nurse Practitioner; PCP Physician Assistant
DX: J02.8 Acute pharyngitis due to other specified organisms (principal); R06.81 Apnea, not elsewhere classified; R35.89 Other polyuria; I10 Essential (primary) hypertension; K21.9 Gastro-esophageal reflux disease without esophagitis; E78.5 Hyperlipidemia, unspecified; K52.9 Noninfective gastroenteritis and colitis, unspecified; J35.03 Chronic tonsillitis and adenoiditis; K29.00 Acute gastritis without bleeding; K44.9 Diaphragmatic hernia without obstruction or gangrene; K27.9 Peptic ulcer, site unspecified, unspecified as acute or chronic, without hemorrhage or perforation; K29.80 Duodenitis without bleeding; E55.9 Vitamin D deficiency, unspecified; G43.909 Migraine, unspecified, not intractable, without status migrainosus; F17.210 Nicotine dependence, cigarettes, uncomplicated; J45.909 Unspecified asthma, uncomplicated; F32.A Depression, unspecified; F41.9 Anxiety disorder, unspecified; Z79.51 Long term (current) use of inhaled steroids; Z79.52 Long term (current) use of systemic steroids; Z79.899 Other long term (current) drug therapy; Z88.0 Allergy status to penicillin; Z91.041 Radiographic dye allergy status; Z91.048 Other nonmedicinal substance allergy status; Z87.440 Personal history of urinary (tract) infections; Z82.49 Family history of ischemic heart disease and other diseases of the circulatory system; Z83.3 Family history of diabetes mellitus; Z83.49 Family history of other endocrine, nutritional and metabolic diseases; Z80.9 Family history of malignant neoplasm, unspecified; Z82.5 Family history of asthma and other chronic lower respiratory diseases
CPT/HCPCS: 87430; 99213; G0463

== ENCOUNTER 2021-10-21 15:02 | Emergency (ER) | payer MEDICARE, MEDICAID, SELFPAY ==
[2021-10-21 15:55] LABS: Adenovirus,PCR Not Detected (NotDetected); Bordetella Pertussis Not Detected (NotDetected); Chlamydophila Pneumoniae, PCR Not Detected (NotDetected); Coronavirus 19, PCR Not Detected (NotDetected); Coronavirus 229E Not Detected (NotDetected); Coronavirus NL63 Not Detected (NotDetected); Coronavirus OC43 Not Detected (NotDetected); Coronovirus HKU1,PCR Not Detected (NotDetected); Human Metapneumovirus Not Detected (NotDetected); Influenza A, PCR Not Detected (NotDetected); Influenza AH1, 2009 Not Detected (NotDetected); Influenza AH1, PCR Not Detected (NotDetected); Influenza AH3,PCR Not Detected (NotDetected); Influenza B, PCR Not Detected (NotDetected); Mycoplasma Pneumoniae, PCR Not Detected (NotDetected); Parainfluenza 1, PCR Not Detected (NotDetected); Parainfluenza 2, PCR Not Detected (NotDetected); Parainfluenza 3, PCR Not Detected (NotDetected); Parainfluenza 4, PCR Not Detected (NotDetected); Rhinovirus/Enterovirus Not Detected (NotDetected)
[2021-10-21 15:56] VITALS: BP 140/87; PULSE 70; RESP 19; TEMP 36.6; O2SAT 96; BMI 46.5
[2021-10-21 16:16] LABS: Strep Scrn Group A (Rapid) Negative (Negative)
--- NOTE | 2021-10-21 16:17 | HMH.EDUTC ---
[facility] [place] Disposition Clinical Impression: Viral syndrome Asthma exacerbation Qualifiers: Asthma severity: unspecified severity Asthma persistence: unspecified Qualified Code(s): J45.901 - Unspecified asthma with (acute) exacerbation Disposition: Home, Self-Care Condition on Discharge: Good Instructions: DI for Viral Syndrome, Asthma -- Adult Additional Instructions: Drink plenty of fluids. Take tylenol or ibuprofen for pain or fever. Take the medications as directed. Follow up with your regular doctor. GO TO THE ER FOR ANY WORSENING SYMPTOMS The cough medication (promethazine dm) will make you drowsy, so don't drive or operate heavy machinery after taking it. Prescriptions: Albuterol Sulfate [Albuterol Sulfate Hfa] 2 puffs IH Q6HP PRN 30 Days #1 each PRN Reason: Shortness Of Breath Transmission Status: Pending to [facility] Promethazine/Dextromethorphan [Promethazine-Dm Syrup] 5 ml PO Q6HP PRN #240 ml PRN Reason: Cough Transmission Status: Pending to [facility] methylPREDNISolone [Medrol] 4 mg PO DIRECTED 6 Days #21 packet Transmission Status: Pending to [facility] Azithromycin [Z-Dylan 250mg Tab*] 250 mg PO UD DOSE PK #6 tab Transmission Status: Pending to [facility] Referrals: Danette Lynch PA [Primary Care Provider] - Time of Disposition: 16:50 Medical Decision Making - Medical Records Medical records reviewed: No: I reviewed the patient's medical records. - Ty Inquiry Pt receiving controlled substance: No Vital Signs: 10/21/21 15:56 Temperature 97.8 F Temperature Source Oral Pulse Rate [Radial] 70 Respiratory Rate 19 Blood Pressure [Right Arm] 140/87 Blood Pressure Mean [Right Arm] 104 02 Sat by Pulse Oximetry 96 - Lab Data Lab results reviewed: Yes: I reviewed the patient's lab results. Lab Results 10/21/21 15:50: Group A Strep Rapid Negative Orders (Tests/Meds): ORDERS Category Date Time Status Full Resp Panel w/COVID ([facility]) Routine Lab 10/21/21 15:50 Received Strep Screen Confirmation Stat Micro 10/21/21 15:50 Received [facility] [place] HPI - General Stated complaint: cough,CLIFTON,wheezing,chills Time Seen by Provider: 05/10/22 16:17 Mode of Arrival: Ambulatory Source of Information: Patient Limitations: No Limitations Description of Symptoms (Recalled from Triage Doc. by RN): pt c/o cough headache wheezing HEENT Symptoms (Recalled from RN notes): Yes Resp Symptoms (Recalled from RN notes): Yes Skin Symptoms (Recalled from RN notes): No MS Symptoms (Recalled from RN notes): No Functional Status (Recalled from RN notes): wnl - History of Present Illness Provider Complaint: She c/o chilling, low grade fever, cough, and wheezing for the past 2 days. Her mother is currently in the hospital with RSV. This patient has a history of asthma. - Related Data Previous Rx's Medication Instructions Recorded epinephrine 0.3 mg/0.3 mL 0.3 mg IM Q5-15M PRN #1 each 04/11/20 injection, auto-injector sumatriptan succinate 100 mg tablet See Rx Instructions PO .COMPLEX #7 12/11/20 tab pantoprazole 40 mg tablet,delayed 40 mg PO DAILY #30 tab 02/03/21 release cholecalciferol (vitamin D3) 1,250 1,250 mcg PO WEEKLY #7 tab 02/13/21 mcg (50,000 unit) tablet cholecalciferol (vitamin D3) 50 50 mcg PO DAILY #90 cap 02/13/21 mcg (2,000 unit) capsule Brompheniramine/Pseudoephed/Dm 5 - 10 ml PO Q46H PRN #250 ml 04/25/21 [Bromfed Dm Cough Syrup] Fluticasone Propionate [Flonase 1 spr NS DAILY #1 each 04/25/21 50mcg nasal spray 16gm] ciprofloxacin HCl 500 mg tablet 500 mg PO BID PRN #14 tab 07/30/21 Azithromycin [Z-Dylan 250mg Tab*] 250 mg PO UD DOSE PK #6 tab 09/15/21 Brompheniramine/Pseudoephed/Dm 5 ml PO Q6HP PRN #240 ml 09/15/21 [Bromfed Dm Cough Syrup] methylPREDNISolone [Medrol] 4 mg PO DIRECTED 6 Days #21 09/15/21 packet Brompheniramine/Pseudoephed/Dm 5 - 10 ml PO Q4-6H PRN #150 ml 10/19/21 [Bromfed Dm Co
[2021-10-21 16:51] VITALS: BP 140/87; PULSE 70; RESP 19; TEMP 36.6
[2021-10-21 17:55] LABS: Respiratory Syncytial Virus Detected (NotDetected)
== END 2021-10-21 16:54 | disposition home or self-care (01) ==
PROVIDERS: Emergency Provider Nurse Practitioner Family; PCP Physician Assistant
DX: J45.901 Unspecified asthma with (acute) exacerbation (principal); R06.81 Apnea, not elsewhere classified; I10 Essential (primary) hypertension; K21.9 Gastro-esophageal reflux disease without esophagitis; E78.5 Hyperlipidemia, unspecified; Z20.822 Contact with and (suspected) exposure to COVID-19; K52.9 Noninfective gastroenteritis and colitis, unspecified; K29.00 Acute gastritis without bleeding; K44.9 Diaphragmatic hernia without obstruction or gangrene; K29.80 Duodenitis without bleeding; K27.9 Peptic ulcer, site unspecified, unspecified as acute or chronic, without hemorrhage or perforation; J35.03 Chronic tonsillitis and adenoiditis; R35.89 Other polyuria; E55.9 Vitamin D deficiency, unspecified; F32.A Depression, unspecified; F41.9 Anxiety disorder, unspecified; F17.210 Nicotine dependence, cigarettes, uncomplicated; Z79.51 Long term (current) use of inhaled steroids; Z79.52 Long term (current) use of systemic steroids; Z79.899 Other long term (current) drug therapy; Z88.0 Allergy status to penicillin; Z91.041 Radiographic dye allergy status; Z91.048 Other nonmedicinal substance allergy status; Z87.440 Personal history of urinary (tract) infections; Z82.49 Family history of ischemic heart disease and other diseases of the circulatory system; Z82.5 Family history of asthma and other chronic lower respiratory diseases; Z83.3 Family history of diabetes mellitus; Z80.9 Family history of malignant neoplasm, unspecified; Z83.49 Family history of other endocrine, nutritional and metabolic diseases
CPT/HCPCS: 87430; 87581; 87632; 87798; 99213; C9803; G0463; U0003; U0005

== ENCOUNTER 2021-11-18 22:05 | Emergency (ER) | payer MEDICARE, MEDICAID, SELFPAY ==
[2021-11-18 22:06] VITALS: BP 165/56; PULSE 68; RESP 16; TEMP 37.2; O2SAT 98; BMI 40.6
[2021-11-18 23:21] LABS: Urine Pregnancy, HCG Qual. Negative (Negative)
--- NOTE | 2021-11-19 00:36 | HMH.EDSKAF ---
[facility] Disposition Clinical Impression: Dermatitis Disposition: Home, Self-Care Condition on Discharge: Good Instructions: DI for Rash Additional Instructions: use meds and see pcp for follow up Prescriptions: predniSONE [Prednisone 20mg Tab] 20 mg PO BID #10 tab Transmission Status: [facility] to [facility] Referrals: Danette Lynch PA [Primary Care Provider] - - Critical Care Critical Care Time: No Attestation: On 11/18/21, the high probability of a clinically significant, sudden or life threatening deterioration of the following system(s) required my full and direct attention, intervention and personal management. The time I documented below is in addition to time spent performing reported procedures but includes the following listed in this critical care notation. Medical Decision Making - Medical Records Medical records reviewed: Yes: I reviewed the patient's medical records. - Ty Inquiry Pt receiving controlled substance: No Vital Signs: 11/18/21 22:06 Temperature 98.9 F Temperature Source Oral Pulse Rate [Left Radial] 68 Respiratory Rate 16 Blood Pressure [Right Arm] 165/56 H Blood Pressure Mean [Right Arm] 92 02 Sat by Pulse Oximetry 98 Oxygen Delivery Method Room Air - Lab Data Lab results reviewed: Yes: I reviewed the patient's lab results. Lab Results 11/18/21 23:11: Urine HCG, Qual Negative Orders (Tests/Meds): ED MEDICATIONS Discontinued Medications Generic Name Dose Route Start Last Admin Trade Name Neftaliq PRN Reason Stop Dose Admin Diphenhydramine HCl 50 mg 11/19/21 23:13 Diphenhydramine 50mg Capsule PO 11/19/21 23:14 ONCE ONE Diphenhydramine HCl 50 mg 11/18/21 23:23 11/18/21 23:24 Diphenhydramine 50mg Capsule PO 11/18/21 23:24 50 mg ONCE ONE Administration Famotidine 40 mg 11/18/21 23:07 11/18/21 23:20 Famotidine 20mg Tablet PO 11/18/21 23:08 40 mg ONCE ONE Administration Methylprednisolone Sodium Succinate 125 mg 11/18/21 23:07 11/18/21 23:20 Methylprednisolone Sod Succ 125mg Vial IM 11/18/21 23:08 125 mg ONCE ONE Administration Medical Decision Narrative: has rash to sun exposed area with no sec infection Skin/Abscess/FB HPI - General Chief complaint: Skin/Abscess/Foreign Body Stated complaint: rash all over body Time Seen by Provider: 11/19/21 00:00 Mode of Arrival: Ambulatory Source of Information: Patient, Medical Record Limitations: No Limitations Description of Symptoms (Recalled from ER Triage Doc. by RN): RASH SINCE 11/10/21- PT REPORTS THAT RASH IS GETTING WORSE. PT REPORTS THAT SHE HAS TAKEN NO OVER THE COUNTER TREATMENTS FOR ITCHING AND RASH. - History of Present Illness HPI narrative: after sun exposure has rash to trunk and upper ext MD complaint: rash Onset (ago): day(s) Tetanus up to date: yes Location: face, chest, back, LUE, RUE Severity: moderate Associated symptoms: denies other symptoms Treatments prior to arrival: none - Related Data Previous Rx's Medication Instructions Recorded epinephrine 0.3 mg/0.3 mL 0.3 mg IM Q5-15M PRN #1 each 04/11/20 injection, auto-injector sumatriptan succinate 100 mg tablet See Rx Instructions PO .COMPLEX #7 12/11/20 tab pantoprazole 40 mg tablet,delayed 40 mg PO DAILY #30 tab 02/03/21 release cholecalciferol (vitamin D3) 1,250 1,250 mcg PO WEEKLY #7 tab 02/13/21 mcg (50,000 unit) tablet cholecalciferol (vitamin D3) 50 50 mcg PO DAILY #90 cap 02/13/21 mcg (2,000 unit) capsule Brompheniramine/Pseudoephed/Dm 5 - 10 ml PO Q46H PRN #250 ml 04/25/21 [Bromfed Dm Cough Syrup] Fluticasone Propionate [Flonase 1 spr NS DAILY #1 each 04/25/21 50mcg nasal spray 16gm] ciprofloxacin HCl 500 mg tablet 500 mg PO BID PRN #14 tab 07/30/21 Azithromycin [Z-Dylan 250mg Tab*] 250 mg PO UD DOSE PK #6 tab 09/15/21 Brompheniramine/Pseudoephed/Dm 5 ml PO Q6HP PRN #240 ml 09/15/21 [Bromfed Dm Cough Syrup] methylPREDNISolo
[2021-11-19 00:49] VITALS: BP 142/78; PULSE 78; RESP 16; TEMP 37.1; O2SAT 98
== END 2021-11-19 00:52 | disposition home or self-care (01) ==
PROVIDERS: Emergency Provider Emergency Medicine; PCP Physician Assistant
DX: L57.8 Other skin changes due to chronic exposure to nonionizing radiation
CPT/HCPCS: 81025; 96372; 99282

== ENCOUNTER → 2021-11-28 07:51 | Outpatient (CLI) | payer MEDICARE, MEDICAID, SELFPAY ==
[2021-11-27 17:35] LABS: Basophils # 0.1 K/mm3 (0-0.2); Basophils % 0.9 % (0.1-2.0); Eosinophils # 0.2 K/mm3 (0.0-0.4); Eosinophils % 2.7 % (0.1-12.0); Hematocrit 44.2 % (37.0-47.0); Hemoglobin 14.5 g/dL (12.2-16.2); Lymphocytes # 2.3 K/mm3 (0.7-4.5); Lymphocytes % 33.8 % (10-50); Mean Corpuscular HGB Conc 32.8 g/dL (31.8-35.4); Mean Corpuscular Hemoglobin 28.4 pg (27.0-31.2); Mean Corpuscular Volume 86.5 fl (81-99); Mean Platelet Volume 8.4 fl (7.4-10.4); Monocytes # 0.4 K/mm3 (0.1-1.0); Monocytes % 5.6 % (1.7-9.3); Neutrophils # 3.8 K/mm3 (1.8-7.8); Platelet Count 302 K/mm3 (142-424); Red Blood Count 5.11 M/mm3 (4.20-5.40); Red Cell Distribution Width 14.6 % (11.5-17.5); White Blood Count 6.7 K/mm3 (4.8-10.8)
[2021-11-27 17:53] LABS: Alanine Aminotransferase 16 U/L (12-78); Albumin Level 4.2 g/dl (3.5-5.0); Albumin/Globulin Ratio 1.6 (1.1-1.8); Alkaline Phosphatase 73 U/L (38-126); Anion Gap 12.4 mEq/L (5-15); Aspartate Amino Transferase 32 U/L (14-36); Bilirubin,Total 0.9 mg/dl (0.2-1.3); Blood Urea Nitrogen 11 mg/dl (7-17); Calcium 9.3 mg/dl (8.4-10.2); Carbon Dioxide 26 mmol/L (22.0-30.0); Chloride 109 mmol/L (98-107); Chol/HDL Ratio 7.2 (1-3.5); Cholesterol 202 mg/dl (140-200); Estimated Glomerular Filt Rate 124 ml/min (>60); GFR (African American) 150 ML/MIN (>60); Globulin 2.7 g/dL (1.3-3.2); Glucose 91 mg/dl (74-100); HDL Cholesterol 28 mg/dl (40-60); Potassium 4.4 mmoL/L (3.5-5.1); Sodium 143 mmol/L (136-145); Total Protein,Serum 6.9 g/dl (6.3-8.2); Triglycerides 271 mg/dl (30-150); VLDL Cholesterol 54 mg/dL (0-40)
[2021-11-27 17:56] LABS: Hemoglobin A1C 5.6 % (4.0-6.0)
[2021-11-27 18:10] LABS: 25-OH Vitamin D, Total 27.2 ng/mL (30-100)
[2021-11-27 18:11] LABS: Direct LDL Cholesterol 125.27 mg/dL (100-129)
[2021-11-27 18:25] LABS: Thyroid Stimulating Hormone 0.99 uIU/mL (0.465-4.68)
== END ==
PROVIDERS: PCP Physician Assistant; Visit Provider Physician Assistant
DX: I10 Essential (primary) hypertension (principal); R19.7 Diarrhea, unspecified; R73.09 Other abnormal glucose; Z68.38 Body mass index [BMI] 38.0-38.9, adult; R10.11 Right upper quadrant pain; E55.9 Vitamin D deficiency, unspecified; E66.9 Obesity, unspecified
CPT/HCPCS: 80053; 80061; 82306; 83036; 84443; 85025

== ENCOUNTER → 2021-12-08 08:59 | Outpatient (CLI) | payer MEDICARE, MEDICAID, SELFPAY ==
--- NOTE | 2021-12-08 09:00 | US_ITS ---
FINAL REPORT CLINICAL HISTORY: diarrhea FINDINGS: Sonographic images of the right upper quadrant were obtained. The pancreas is partially obscured.The liver has an unremarkable appearance.The gallbladder appears normal without evidence of gallstones.There is no evidence of biliary ductal dilatation.The common duct measures 1 mm. Limited images of the right kidney are unremarkable. IMPRESSION: Unremarkable right upper quadrant ultrasound. Reviewed, Interpreted and Dictated by Jame Leon III, MD Transcribed by Tamika Vega Authenticated and [facility]
== END ==
PROVIDERS: PCP Physician Assistant; Visit Provider Physician Assistant
DX: R10.11 Right upper quadrant pain (principal)
CPT/HCPCS: 76705

== ENCOUNTER 2022-03-19 05:08 | Emergency (ER) | payer MEDICARE, MEDICAID, SELFPAY ==
[2022-03-19 05:33] VITALS: BP 123/78; PULSE 80; RESP 18; TEMP 36.6; O2SAT 99
== END 2022-03-19 05:35 | disposition left against medical advice (07) ==
LOC: ER 05:33
PROVIDERS: Emergency Provider Emergency Medicine; PCP Physician Assistant
DX: Z53.21 Procedure and treatment not carried out due to patient leaving prior to being seen by health care provider (principal)

== ENCOUNTER 2022-04-13 22:32 | Emergency (ER) | payer MEDICARE, MEDICAID, SELFPAY ==
[2022-04-13 22:43] VITALS: BP 169/93; PULSE 110; RESP 18; TEMP 36.8; O2SAT 97; BMI 46.0
--- NOTE | 2022-04-13 23:31 | HMH.EDBACK ---
Discharge Plan Disposition Patient Disposition: Home, Self-Care Chief Complaint: Back Pain/Injury Prescriptions Prescriptions: No Action cholecalciferol (vitamin D3) 1,250 mcg (50,000 unit) tablet 1,250 mcg PO WEEKLY Qty: 14 3RF cholecalciferol (vitamin D3) 50 mcg (2,000 unit) capsule 50 mcg PO DAILY Qty: 90 3RF epinephrine [EpiPen] 0.3 mg/0.3 mL auto-injector 0.3 mg IM Q5-15M PRN (Reason: anaphylaxis) Qty: 1 0RF Rx Instructions: do not exceed 3 doses per episode fluticasone propionate 50 mcg/actuation spray,suspension 1 spray NS DAILY Qty: 1 0RF Rx Instructions: each nostril daily pantoprazole [Protonix] 40 mg tablet,delayed release (DR/EC) 40 mg PO DAILY Qty: 90 3RF sumatriptan succinate 100 mg tablet See Rx Instructions PO .COMPLEX Qty: 7 0RF Rx Instructions: take 1 tab at onset of headache; if no relief, may repeat 1 tab after at least 2 hrs; max = 2 tabs/24 hrs PO fluticasone propionate 120 SPR/BOT bottle 1 spr NS DAILY Qty: 1 0RF Rx Instructions: one spray in each nostril daily albuterol sulfate 8.5 GM HFA aerosol inhaler 2 puffs IH Q6HP PRN (Reason: Shortness Of Breath) 30 Days Qty: 1 5RF Referrals Follow up/Referrals: Danette Lynch PA [Primary Care Provider] - See instructions Clinical Impressions Clinical Impression: Lumbar back pain Instructions Patient Instructions: DI for Low Back Pain Discharge ED Provider: Kaz Espinoza Back Pain HPI General Chief Complaint: Back Pain/Injury Stated Complaint: back pain Time Seen by Provider: 04/13/22 23:31 Mode of Arrival: Ambulatory Source of Information: Patient and Medical Record Limitations: No Limitations Description of Symptoms (Recalled from ER Triage Doc. by RN): pt states that she has been having severe lower back pain that radiates into her middle back since Wednesday morning. Patient denies any painful urination. States that she did not take any medication for her back pain including tylenol or ibuprofen, states she didn't think it would help . History of Present Illness HPI Narrative: atraumatic back pain w/o radiation worse with mov - MD Complaint: back pain Onset (ago): day(s) Duration: intermittent Similar Symptoms Previously: No Location: lumbar spine Severity: moderate Associated symptoms: denies other symptoms Related Data Previous Rx's Medication Instructions Recorded fluticasone propionate 50 1 spr intranasal DAILY #1 ea 10/19/21 mcg/actuation nasal spray,suspension albuterol sulfate 90 mcg/actuation 2 puffs inhalation Q6HP PRN 10/21/21 aerosol inhaler Shortness Of Breath 30 days #1 ea cholecalciferol (vitamin D3) 1,250 1,250 mcg PO WEEKLY #14 tabs 11/27/21 mcg (50,000 unit) tablet cholecalciferol (vitamin D3) 50 50 mcg PO DAILY #90 caps 11/27/21 mcg (2,000 unit) capsule epinephrine 0.3 mg/0.3 mL 0.3 mg (0.3 mL) IM Q5-15M PRN 11/27/21 injection, auto-injector (EpiPen) anaphylaxis #1 ea fluticasone propionate 50 1 spray intranasal DAILY #1 ea 11/27/21 mcg/actuation nasal spray,suspension pantoprazole 40 mg tablet,delayed 40 mg PO DAILY #90 tabs 11/27/21 release (Protonix) sumatriptan succinate 100 mg tablet See Rx Instructions PO .COMPLEX 11/27/21 migraine #7 tabs Allergies Allergy/AdvReac Type Severity Reaction Status Date / Time Penicillins [PENICILLINS] Allergy Severe Anaphylaxis Verified 03/23/22 08:51 mold Allergy Intermediate Verified 03/23/22 08:51 CONTRAST Allergy Mild Anaphylaxis Uncoded 11/27/21 16:03 PFSH PFS Medical History Apneic episode Family history of diabetes mellitus Gastroesophageal reflux disease Hyperlipidemia (~09/26/17) Migraine headache Polyuria Vitamin D deficiency (~18) Social History Smoking Status: Never smoker alcohol intake: never substance use type: denies use current occu
[2022-04-13 23:34] LABS: Microscopic, Urine URINE MICROSCOPIC (MICROSCOPIC)
[2022-04-13 23:39] LABS: Appearance,Urine CLEAR (Clear); Bilirubin,Urine Negative (Negative); Blood, Urine TRACE-I (Negative); Color,Urine YELLOW (Yellow); Glucose,Urine (UA) Negative (Negative); Ketones,Urine Negative (Negative); Leukocyte Esterase,Urine Negative (Negative); Nitrate,Urine Negative (Negative); Protein,Urine Negative (Negative); Specific Gravity, Urine 1.025 (1.005-1.030)
[2022-04-14 00:03] LABS: Amorphous Sediment,Urine 3+ /lpf; Bacteria,Urine 1+ /lpf; Urine Pregnancy, HCG Qual. Negative (Negative); WBC,Urine Occasional #/hpf (0-3)
--- NOTE | 2022-04-14 00:06 | CT_ITS ---
PROCEDURE INFORMATION: Exam: CT Abdomen And Pelvis Without Contrast Exam date and time: 04/14/2022 12:06 AM Age: 21 years old Clinical indication: Patient HX: PT C/O low back pain TECHNIQUE: Imaging protocol: Computed tomography of the abdomen and pelvis without contrast. Radiation optimization: All CT scans at this facility use at least one of these dose optimization techniques: automated exposure control; mA and/or kV adjustment per patient size (includes targeted exams where dose is matched to clinical indication); or iterative reconstruction. [facility] pelvis w con 10/13/2017 3:58 PM FINDINGS: Liver: Normal. No mass. Gallbladder and bile ducts: Normal. No calcified stones. No ductal dilation. Pancreas: Normal. No ductal dilation. Spleen: Normal. No splenomegaly. Adrenal glands: Normal. No mass. Kidneys and ureters: Normal. No hydronephrosis. Stomach and bowel: Unremarkable. No obstruction. No mucosal thickening. Appendix: Unremarkable appendix. Intraperitoneal space: Unremarkable. No free air. No significant fluid collection. Vasculature: Unremarkable. No abdominal aortic aneurysm. Lymph nodes: Unremarkable. No enlarged lymph nodes. Urinary bladder: Unremarkable as visualized. Reproductive: Unremarkable as visualized. Bones/joints: Unremarkable. No acute fracture. Soft tissues: Unremarkable. IMPRESSION: No acute findings.
[2022-04-14 01:04] VITALS: BP 129/79; PULSE 75; RESP 17; TEMP 36.9; O2SAT 97
== END 2022-04-14 01:18 | disposition home or self-care (01) ==
PROVIDERS: Emergency Provider Emergency Medicine; PCP Physician Assistant
DX: M54.50 Low back pain, unspecified (principal); R06.02 Shortness of breath; R35.89 Other polyuria; R06.81 Apnea, not elsewhere classified; G43.909 Migraine, unspecified, not intractable, without status migrainosus; K21.9 Gastro-esophageal reflux disease without esophagitis; E78.5 Hyperlipidemia, unspecified; E55.9 Vitamin D deficiency, unspecified; Z79.51 Long term (current) use of inhaled steroids; Z79.899 Other long term (current) drug therapy; Z88.0 Allergy status to penicillin; Z91.041 Radiographic dye allergy status; Z91.048 Other nonmedicinal substance allergy status
CPT/HCPCS: 74176; 81001; 81025; 87086; 99285

== ENCOUNTER → 2022-07-08 15:00 | Outpatient (CLI) | payer MEDICARE, MEDICAID, SELFPAY ==
[2022-07-08 19:54] LABS: 25-OH Vitamin D, Total 66.1 ng/mL (30-100)
== END ==
PROVIDERS: PCP Physician Assistant; Visit Provider Physician Assistant
DX: E55.9 Vitamin D deficiency, unspecified (principal)
CPT/HCPCS: 82306

== ENCOUNTER 2023-02-12 16:33 | Emergency (ER) | payer MEDICARE, MEDICAID, SELFPAY ==
[2023-02-12 17:10] VITALS: BP 142/93; PULSE 72; RESP 14; TEMP 37.1; O2SAT 97; BMI 45.1
--- NOTE | 2023-02-12 17:35 | EXP.UTC ---
Discharge Plan Disposition Patient Disposition: Home, Self-Care Condition: Good Prescriptions Prescriptions: No Action epinephrine [EpiPen] 0.3 mg/0.3 mL auto-injector 0.3 mg IM Q5-15M PRN (Reason: anaphylaxis) Qty: 1 0RF Rx Instructions: do not exceed 3 doses per episode fluticasone propionate 50 mcg/actuation spray,suspension 1 spray NS DAILY Qty: 1 0RF Rx Instructions: each nostril daily sumatriptan succinate 100 mg tablet See Rx Instructions PO .COMPLEX Qty: 7 0RF Rx Instructions: take 1 tab at onset of headache; if no relief, may repeat 1 tab after at least 2 hrs; max = 2 tabs/24 hrs PO cholecalciferol (vitamin D3) 50 mcg (2,000 unit) capsule 50 mcg PO DAILY Qty: 90 3RF pantoprazole [Protonix] 40 mg tablet,delayed release (DR/EC) 40 mg PO DAILY Qty: 90 3RF nystatin 100,000 unit/gram powder 1 applic topical QID Qty: 15 0RF polymyxin B sulf-trimethoprim 10,000 unit- 1 mg/mL drops 1 drp ophthalmic (eye) Q3H 7 Days Qty: 10 0RF Rx Instructions: while awake; do not exceed 6 doses in 24 hours albuterol sulfate 8.5 GM HFA aerosol inhaler 2 puffs IH Q6HP PRN (Reason: Shortness Of Breath) 30 Days Qty: 1 5RF Referrals Follow up/Referrals: Danette Lynch PA [Primary Care Provider] - See instructions Activity Restrictions/Add. Instructions Additional Instructions/Restrictions: Drink extra fluids with and between meals. If you have difficulty drinking, try very small amounts of water or suck on ice chips. ? Avoid fruit juices, as these do not replace minerals and can actually increase diarrhea. ? Children and adults can use sports drinks to replenish electrolytes. Younger children and infants should use products formulated for children, like oral rehydration solutions. ? Eat food in small amounts and let your stomach recover. ? Get lots of rest. You may feel tired or weak. ? No greasy or fried foods for the next 24-48 hours BRAT diet Bananas Rice Apples and [place] ? Make sure to drink plenty of liquids ? Return if needed ? Straight to ER if any life threatening symptoms ? You was given an outpatient order for diarrhea panel, please collect specimen and bring back to outpatient lab then call back to the [facility] or follow up with family doctor for results ? Follow up with family doctor in the next 48-72 hours if no improvement or any worsening of symptoms Clinical Impressions Clinical Impression: Diarrhea Qualifiers: Diarrhea type: unspecified type Qualified Code(s): R19.7 - Diarrhea, unspecified Stand Alone Forms Stand Alone Forms: Work/School Release Instructions Patient Instructions: Diarrhea Discharge ED Provider: Tara Joseph [facility] [place] HPI General Stated complaint: diarrhea Mode of Arrival: Ambulatory Source of Information: Patient Limitations: No Limitations Time Seen by Provider: 02/12/23 17:35 Description of Symptoms (Recalled from Triage Doc. by RN): PATIENT C/O DIARRHEA X 3 DAYS HEENT Symptoms (Recalled from RN notes): No Resp Symptoms (Recalled from RN notes): No Skin Symptoms (Recalled from RN notes): No MS Symptoms (Recalled from RN notes): No Functional Status (Recalled from RN notes): WNL History of Present Illness Provider Complaint: Patient states that she has been having diarrhea for the last 3 days during the day and then stops at night State that today she has still been having diarrhea on and off so she came in wanting to get a diarrhea panel to see what may be causing her diarrhea State that she doesnt recall eating anything bad or anything Related Data Previous Rx's Medication Instructions Recorded albuterol sulfate 90 mcg/actuation 2 puffs inhalation Q6HP PRN 10/21/21 aerosol inhaler Shortness Of Breath 30 days #1 ea epinephrine 0.3 mg/0.3 mL 0.3 mg (0.3 mL) IM Q5-15M PRN 11/27/21 injection, auto-injector (EpiPen) anaphylaxi
[2023-02-12 17:46] VITALS: BP 142/93; PULSE 72; RESP 14; TEMP 37.1; O2SAT 97
== END 2023-02-12 17:49 | disposition home or self-care (01) ==
PROVIDERS: Emergency Provider Nurse Practitioner; PCP Physician Assistant
DX: R19.7 Diarrhea, unspecified (principal); K21.9 Gastro-esophageal reflux disease without esophagitis; E78.5 Hyperlipidemia, unspecified; E55.9 Vitamin D deficiency, unspecified
CPT/HCPCS: 99212; 99213; G0463

== ENCOUNTER 2023-02-12 20:56 | Emergency (ER) | payer MEDICARE, MEDICAID, SELFPAY ==
[2023-02-12 20:57] VITALS: BP 149/65; PULSE 80; RESP 18; TEMP 36.9; O2SAT 100; BMI 41.9
--- NOTE | 2023-02-12 21:50 | HMH.EDGENADL ---
Discharge Plan Disposition Patient Disposition: Home, Self-Care Prescriptions Prescriptions: New ondansetron 4 mg tablet,disintegrating 4 mg PO Q6H PRN (Reason: nausea and vomiting) Qty: 10 0RF esomeprazole magnesium 20 mg capsule,delayed release(DR/EC) 20 mg PO DAILY 28 Days Qty: 28 0RF No Action epinephrine [EpiPen] 0.3 mg/0.3 mL auto-injector 0.3 mg IM Q5-15M PRN (Reason: anaphylaxis) Qty: 1 0RF Rx Instructions: do not exceed 3 doses per episode fluticasone propionate 50 mcg/actuation spray,suspension 1 spray NS DAILY Qty: 1 0RF Rx Instructions: each nostril daily sumatriptan succinate 100 mg tablet See Rx Instructions PO .COMPLEX Qty: 7 0RF Rx Instructions: take 1 tab at onset of headache; if no relief, may repeat 1 tab after at least 2 hrs; max = 2 tabs/24 hrs PO cholecalciferol (vitamin D3) 50 mcg (2,000 unit) capsule 50 mcg PO DAILY Qty: 90 3RF pantoprazole [Protonix] 40 mg tablet,delayed release (DR/EC) 40 mg PO DAILY Qty: 90 3RF nystatin 100,000 unit/gram powder 1 applic topical QID Qty: 15 0RF polymyxin B sulf-trimethoprim 10,000 unit- 1 mg/mL drops 1 drp ophthalmic (eye) Q3H 7 Days Qty: 10 0RF Rx Instructions: while awake; do not exceed 6 doses in 24 hours albuterol sulfate 8.5 GM HFA aerosol inhaler 2 puffs IH Q6HP PRN (Reason: Shortness Of Breath) 30 Days Qty: 1 5RF Referrals Follow up/Referrals: Danette Lynch PA [Primary Care Provider] - See instructions Activity Restrictions/Add. Instructions Additional Instructions/Restrictions: Call your family doctor to establish care for this visit to the emergency department and schedule follow-up within 48 hours to ensure improvement. If you have any worsening of your condition or any other concerning signs or symptoms, return to the emergency department or your primary care doctor for further evaluation. Take medications as prescribed Clinical Impressions Clinical Impression: Gastroenteritis Instructions Patient Instructions: DI for Acute Abdominal Pain Discharge ED Provider: Alden Garcia General Adult HPI General Chief complaint: Abdominal Pain Stated complaint: weakness, V/D Time Seen by Provider: 02/12/23 21:06 Mode of Arrival: Family Vehicle Source of Information: Patient Limitations: No Limitations Description of Symptoms (Recalled from ER Triage Doc. by RN): Pt stated that she was seen in [facility] earlier today with stomach pain, and bloody stool. She stated that pain in RUQ to LUQ that feels like its cramping and it happens when she has a bowel movement. She stated that recently she feels dizzy and her face feels tingly. History of Present Illness HPI narrative: This is a 22-year-old female with history of GERD, morbid obesity presenting with abdominal pain. Patient states that she started having abdominal pain 2 days prior to arrival. Started having bloody stools yesterday. No fever or chills, the patient is having diffuse abdominal pain. Denies urinary symptoms. Denies lightheadedness, chest pain, shortness of breath, vaginal discharge or bleeding, or any other concerns. Denies chance of . Related Data Previous Rx's Medication Instructions Recorded albuterol sulfate 90 mcg/actuation 2 puffs inhalation Q6HP PRN 10/21/21 aerosol inhaler Shortness Of Breath 30 days #1 ea epinephrine 0.3 mg/0.3 mL 0.3 mg (0.3 mL) IM Q5-15M PRN 11/27/21 injection, auto-injector (EpiPen) anaphylaxis #1 ea fluticasone propionate 50 1 spray intranasal DAILY #1 ea 11/27/21 mcg/actuation nasal spray,suspension sumatriptan succinate 100 mg tablet See Rx Instructions PO .COMPLEX 11/27/21 migraine #7 tabs cholecalciferol (vitamin D3) 50 50 mcg PO DAILY #90 caps 07/21/22 mcg (2,000 unit) capsule nystatin 100,000 unit/gram topical 1 applic topical QID #15 grams 07/21/22 powder pantoprazole 40 mg tablet,delayed 40 mg PO DAILY #90 tabs 07/21/22 release (Protonix) po
[2023-02-12 21:51] LABS: Basophils # 0.1 K/mm3 (0-0.2); Basophils % 0.7 % (0.1-2.0); Eosinophils # 0.2 K/mm3 (0.0-0.4); Eosinophils % 1.8 % (0.1-12.0); Hematocrit 46.3 % (37.0-47.0); Hemoglobin 14.9 g/dL (12.2-16.2); Lymphocytes # 2.6 K/mm3 (0.7-4.5); Mean Corpuscular HGB Conc 32.1 g/dL (31.8-35.4); Mean Corpuscular Hemoglobin 27.1 pg (27.0-31.2); Mean Corpuscular Volume 84.4 fl (81-99); Monocytes # 0.5 K/mm3 (0.1-1.0); Monocytes % 5.6 % (1.7-9.3); Neutrophils # 4.9 K/mm3 (1.8-7.8); Platelet Count 317 K/mm3 (142-424); Red Blood Count 5.48 M/mm3 (4.20-5.40); Red Cell Distribution Width 14.4 % (11.5-17.5); White Blood Count 8.2 K/mm3 (4.8-10.8)
[2023-02-12 21:52] LABS: Chloride 103 mmol/L (98-107); Potassium 3.8 mmoL/L (3.5-5.1); Sodium 140 mmol/L (136-145)
[2023-02-12 21:53] LABS: Occult Blood,Stool Negative (Negative)
[2023-02-12 21:55] LABS: Alanine Aminotransferase 25 U/L (12-78); Albumin Level 4.3 g/dl (3.5-5.0); Albumin/Globulin Ratio 1.2 (1.1-1.8); Alkaline Phosphatase 83 U/L (38-126); Anion Gap 11.8 mEq/L (5-15); Aspartate Amino Transferase 27 U/L (14-36); Bilirubin,Total 0.7 mg/dl (0.2-1.3); Blood Urea Nitrogen 12 mg/dl (7-17); Calcium 9.7 mg/dl (8.4-10.2); Carbon Dioxide 29 mmol/L (22.0-30.0); Creatinine Clearance Estimated 135 mL/min (50-200); Estimated Glomerular Filt Rate 123 ml/min (>60); GFR (African American) 149 ML/MIN (>60); Globulin 3.5 g/dL (1.3-3.2); Glucose 110 mg/dl (74-100); HDL Cholesterol 31 mg/dl (40-60); Lipase 95 U/L (23-300); Total Protein,Serum 7.8 g/dl (6.3-8.2)
[2023-02-12 21:56] LABS: Chol/HDL Ratio 7.3 (1-3.5); Cholesterol 225 mg/dl (140-200); Triglycerides 336 mg/dl (30-150); VLDL Cholesterol 67 mg/dL (0-40)
[2023-02-12 22:05] LABS: Hemoglobin A1C 5.6 % (4.0-6.0)
[2023-02-12 22:07] LABS: Direct LDL Cholesterol 122.71 mg/dL (100-129)
[2023-02-12 22:17] LABS: Microscopic, Urine URINE MICROSCOPIC (MICROSCOPIC)
[2023-02-12 22:29] LABS: Urine Pregnancy, HCG Qual. Negative (Negative)
[2023-02-12 22:30] LABS: Appearance,Urine Slightly Cloudy (Clear); Color,Urine Yellow (Yellow)
[2023-02-12 22:31] VITALS: BP 147/76; PULSE 70; O2SAT 94
[2023-02-12 22:31] LABS: Bilirubin,Urine Negative (Negative); Blood, Urine Negative (Negative); Glucose,Urine (UA) Negative (Negative); Ketones,Urine Negative (Negative); Leukocyte Esterase,Urine Negative (Negative); Nitrate,Urine Negative (Negative); PH,Urine 8.5 (5.0-8.5); Protein,Urine Negative (Negative); Specific Gravity, Urine 1.025 (1.005-1.030)
--- NOTE | 2023-02-12 22:40 | PC.NURSE ---
Pt going to RAD
--- NOTE | 2023-02-12 22:41 | CT_ITS ---
PROCEDURE INFORMATION: Exam: CT Abdomen And Pelvis Without Contrast Exam date and time: 02/12/2023 10:46 PM Age: 22 years old Clinical indication: Abdominal pain; Additional info: Abd pain diffusely TECHNIQUE: Imaging protocol: Computed tomography of the abdomen and pelvis without contrast. Total images: 338 Radiation optimization: All CT scans at this facility use at least one of these dose optimization techniques: automated exposure control; mA and/or kV adjustment per patient size (includes targeted exams where dose is matched to clinical indication); or iterative reconstruction. REPORTING DATA: Count of CT and Cardiac NM exams in prior 12 months: This patient has received [address] and 0 known cardiac nuclear medicine studies in the 12 months prior to the current study. COMPARISON: CT ABDOMEN PELVIS WO CON 04/14/2022 12:06 AM FINDINGS: Lungs: Fine linear bibasilar atelectasis or scarring. No airspace consolidation. Heart: Normal heart size. Liver: Normal. No mass. Gallbladder and bile ducts: Normal. No calcified stones. No ductal dilation. Pancreas: Normal. No ductal dilation. Spleen: Normal. No splenomegaly. Adrenal glands: Normal. No mass. Kidneys and ureters: No hydronephrosis, nephrolithiasis, or discrete renal mass. No ureteral stones. Stomach and bowel: Mild gastric distention with recently ingested content. Unremarkable duodenum. No ileus or bowel obstruction. Mild subjective wall thickening proximal loops of jejunum may reflect enteritis. Mild colonic stool burden. No acute colonic inflammatory process. Unremarkable rectum. Appendix: Normal appendix. Intraperitoneal space: Unremarkable. No free air. No significant fluid collection. Vasculature: Aorta is normal in caliber. Lymph nodes: Mesenteric root haziness with prominent mesenteric lymph nodes implying mesenteric panniculitis/adenitis. Urinary bladder: Collapsed bladder. Reproductive: Physiologic uterus and ovaries. Bones/joints: No acute osseous abnormality or concerning bone lesions. No degenerative spondylosis. Soft tissues: Minor deep abdominal wall soft tissue edema. IMPRESSION: 1. Mild subjective wall thickening proximal loops of jejunum concerning for acute enteritis. No complicating features. 2. Mesenteric root haziness with prominent lymph nodes implying mesenteric panniculitis/adenitis. 3. No nephrolithiasis or hydronephrosis. 4. Normal appendix.
[2023-02-12 22:45] LABS: Amorphous Sediment,Urine 2+ /lpf; Bacteria,Urine 2+ /lpf; Squamous Epithelial Cell,Urine Occasional #/hpf (0-5); WBC,Urine Occasional #/hpf (0-3)
--- NOTE | 2023-02-12 22:52 | PC.NURSE ---
Pt is back from RAD
[2023-02-12 23:23] VITALS: BP 130/68; PULSE 66; O2SAT 98
[2023-02-12 23:31] VITALS: BP 140/70; PULSE 70; O2SAT 99
[2023-02-13 00:03] VITALS: BP 142/81; PULSE 69; RESP 16; TEMP 36.9; O2SAT 99
== END 2023-02-13 00:08 | disposition home or self-care (01) ==
PROVIDERS: Emergency Provider Emergency Medicine; PCP Physician Assistant
DX: K52.9 Noninfective gastroenteritis and colitis, unspecified (principal); K21.9 Gastro-esophageal reflux disease without esophagitis; E66.01 Morbid (severe) obesity due to excess calories; E78.5 Hyperlipidemia, unspecified
CPT/HCPCS: 74176; 80053; 80061; 81001; 81025; 82272; 83036; 83690; 85025; 87086; 96361; 96374; 96375; 99285; G0328; J0131

== ENCOUNTER → 2023-04-06 13:24 | Outpatient (CLI) | payer MEDICARE, MEDICAID, SELFPAY ==
--- NOTE | 2023-04-06 13:24 | US_ITS ---
PROCEDURE INFORMATION: Exam: US Right Breast, Complete US Left Breast, Complete MG Bilateral Screening 3D Mammography Exam date and time: 04/06/2023 1:28 PM Age: 22 years old Clinical indication: Screening examination; Family history of breast cancer in aunt TECHNIQUE: Imaging protocol: Complete ultrasound of all four quadrants of the right breast and the retroareolar regions, including ultrasound of the axilla when performed. Complete ultrasound of all four quadrants of the left breast and the retroareolar regions, including ultrasound of the axilla when performed. Bilateral Screening tomosynthesis and 2D mammography including computer-aided detection (CAD) when performed. COMPARISON: No relevant prior studies available. FINDINGS: MAMMOGRAPHY: Breast composition: Breast composition: The breasts are almost entirely fatty. Mass: 0.5 cm ovoid mass in the middle third of the right upper outer quadrant. Architectural distortion: None. Calcifications: None. Asymmetric density: None. Skin thickening: None. Axillary adenopathy: None. ULTRASOUND: Right solid masses: None. Right cystic masses: None. Right architectural distortion: None. Right acoustical shadowing: None. Right skin thickening: None. Right axillary adenopathy: None. Left solid masses: None. Left cystic masses: None. Left architectural distortion: None. Left acoustical shadowing: None. Left skin thickening: None. Left axillary adenopathy: None. IMPRESSION: Mammographically detected probably benign subcentimeter mass in the right upper outer quadrant. The finding is not seen on sonography. A six-month follow-up diagnostic right mammogram is recommended to ensure stability over time ASSESSMENT: Screening mammogram BIRADS: BI-RADS Category 0: Incomplete- Need Additional Imaging Evaluation and/or Prior Mammograms for Comparison Overall BIRADS: BI-RADS Category 3: Probably benign
== END ==
LOC: RAD 13:24
PROVIDERS: PCP Physician Assistant; Visit Provider Physician Assistant
DX: Z84.89 Family history of other specified conditions (principal); Z84.81 Family history of carrier of genetic disease; Z80.3 Family history of malignant neoplasm of breast; Z12.31 Encounter for screening mammogram for malignant neoplasm of breast; Z80.41 Family history of malignant neoplasm of ovary; N63.11 Unspecified lump in the right breast, upper outer quadrant; R92.8 Other abnormal and inconclusive findings on diagnostic imaging of breast
CPT/HCPCS: 76641; 77063; 77067

== ENCOUNTER 2023-04-29 10:46 | Emergency (ER) | payer MEDICARE, MEDICAID, SELFPAY ==
[2023-04-29 11:05] VITALS: BP 160/99; PULSE 88; RESP 24; TEMP 36.9; O2SAT 98; BMI 49.4
--- NOTE | 2023-04-29 11:32 | EXP.UTC ---
Discharge Plan Disposition Patient Disposition: Home, Self-Care Condition: Good Prescriptions Prescriptions: New fluticasone propionate [Flonase Allergy Relief] 50 mcg/actuation spray,suspension 1 - 2 spray intranasal DAILY Qty: 16 0RF Rx Instructions: administer into each nostril daily pseudoephedrine HCl [Sudafed 12 Hour] 120 mg tablet extended release 120 mg PO Q12H PRN (Reason: nasal congestion) Qty: 20 0RF azithromycin [Zithromax Z-Dylan] 250 mg tablet See Rx Instructions .ROUTE .COMPLEX 5 Days Qty: 6 0RF Rx Instructions: For 250 mg dose pack: take 500 mg today (day 1), then 250 mg for 4 days (days 2-5) No Action epinephrine [EpiPen] 0.3 mg/0.3 mL auto-injector 0.3 mg IM Q5-15M PRN (Reason: anaphylaxis) Qty: 1 0RF Rx Instructions: do not exceed 3 doses per episode fluticasone propionate 50 mcg/actuation spray,suspension 1 spray NS DAILY Qty: 1 0RF Rx Instructions: each nostril daily sumatriptan succinate 100 mg tablet See Rx Instructions PO .COMPLEX Qty: 7 0RF Rx Instructions: take 1 tab at onset of headache; if no relief, may repeat 1 tab after at least 2 hrs; max = 2 tabs/24 hrs PO cholecalciferol (vitamin D3) 50 mcg (2,000 unit) capsule 50 mcg PO DAILY Qty: 90 3RF pantoprazole [Protonix] 40 mg tablet,delayed release (DR/EC) 40 mg PO DAILY Qty: 90 3RF nystatin 100,000 unit/gram powder 1 applic topical QID Qty: 15 0RF esomeprazole magnesium 20 mg capsule,delayed release(DR/EC) 20 mg PO DAILY sulfamethoxazole-trimethoprim [Bactrim DS] 800-160 mg tablet 1 tab PO BID 10 Days Qty: 20 0RF albuterol sulfate 8.5 GM HFA aerosol inhaler 2 puffs IH Q6HP PRN (Reason: Shortness Of Breath) 30 Days Qty: 1 5RF ondansetron 4 mg tablet,disintegrating 4 mg PO Q6H PRN (Reason: nausea and vomiting) Qty: 10 0RF Referrals Follow up/Referrals: Danette Lynch PA [Primary Care Provider] - See instructions Activity Restrictions/Add. Instructions Additional Instructions/Restrictions: *Monitor Temp, Over the counter Motrin or Tylenol as directed/as needed Tylenol every 4 hours and Motrin every 6 hours (as long as your family doctor has told you that you can take it) for fever or pain. and straight to ER if unable to lower temp less than 101.0 after medication given *Warm salt water gargles may help to soothe the throat *Throat Lozenges? *Warm fluids like tea with honey may help to soothe the throat? *Sleep elevated *Humidifier/Vaporizer *Flonase 2 sprays in each nostril daily but be aware that it may take 2-3 days before you notice improvement Follow up IMMEDIATELY for new or worsening symptoms or no Noticeable improvement over the next 48-72 hours. 911 for difficulty breathing or swallowing Clinical Impressions Clinical Impression: Otitis media Qualifiers: Otitis media type: unspecified Laterality: right Qualified Code(s): H66.91 - Otitis media, unspecified, right ear Instructions Patient Instructions: Middle Ear Infection, DI for Nasal Congestion, Pseudoephedrine Discharge ED Provider: Tara Joseph [facility] General Stated complaint: sore throat, cough, ear drainage Mode of Arrival: Ambulatory Source of Information: Patient Limitations: No Limitations Time Seen by Provider: 04/29/23 11:20 Description of Symptoms (Recalled from Triage Doc. by RN): PATIENT C/O COUGH, BILATERAL EAR DRAINAGE, AND SINUS DRAINAGE SINCE WEDNESDAY MORNING HEENT Symptoms (Recalled from RN notes): Yes Resp Symptoms (Recalled from RN notes): Yes Skin Symptoms (Recalled from RN notes): No MS Symptoms (Recalled from RN notes): No Functional Status (Recalled from RN notes): WNL History of Present Illness Provider Complaint: Patient states that she has been having pain and pressure in her ears for several days then yesterday she woke up with sinus congestion cough and feeling like her ears are draining and
[2023-04-29 11:37] VITALS: BP 160/99; PULSE 88; RESP 24; TEMP 36.9; O2SAT 98
== END 2023-04-29 11:56 | disposition home or self-care (01) ==
PROVIDERS: Emergency Provider Nurse Practitioner; PCP Physician Assistant
DX: H66.91 Otitis media, unspecified, right ear (principal); R09.81 Nasal congestion; R07.0 Pain in throat; R05.9 Cough, unspecified; H92.03 Otalgia, bilateral; K21.9 Gastro-esophageal reflux disease without esophagitis; E78.5 Hyperlipidemia, unspecified
CPT/HCPCS: 99212; 99214; G0463

== ENCOUNTER → 2023-05-13 14:07 | Outpatient (CLI) | payer MEDICARE, MEDICAID, SELFPAY ==
[2023-05-13 14:44] LABS: Basophils # 0.1 K/mm3 (0-0.2); Basophils % 0.9 % (0.1-2.0); Eosinophils # 0.2 K/mm3 (0.0-0.4); Hematocrit 44.6 % (37.0-47.0); Hemoglobin 14.5 g/dL (12.2-16.2); Lymphocytes # 2.5 K/mm3 (0.7-4.5); Lymphocytes % 32.4 % (10-50); Mean Corpuscular HGB Conc 32.5 g/dL (31.8-35.4); Mean Corpuscular Hemoglobin 27.4 pg (27.0-31.2); Mean Corpuscular Volume 84.4 fl (81-99); Mean Platelet Volume 7.8 fl (7.4-10.4); Monocytes # 0.4 K/mm3 (0.1-1.0); Monocytes % 4.8 % (1.7-9.3); Neutrophils # 4.6 K/mm3 (1.8-7.8); Neutrophils % 59.9 % (37.0-80.0); Platelet Count 294 K/mm3 (142-424); Red Blood Count 5.29 M/mm3 (4.20-5.40); Red Cell Distribution Width 15.4 % (11.5-17.5); White Blood Count 7.7 K/mm3 (4.8-10.8)
[2023-05-13 15:12] LABS: Alanine Aminotransferase 24 U/L (12-78); Albumin Level 4.8 g/dl (3.5-5.0); Albumin/Globulin Ratio 1.5 (1.1-1.8); Alkaline Phosphatase 73 U/L (38-126); Anion Gap 13.2 mEq/L (5-15); Aspartate Amino Transferase 27 U/L (14-36); Bilirubin,Total 0.6 mg/dl (0.2-1.3); Blood Urea Nitrogen 16 mg/dl (7-17); Calcium 9.6 mg/dl (8.4-10.2); Carbon Dioxide 28 mmol/L (22.0-30.0); Chloride 105 mmol/L (98-107); Cholesterol 208 mg/dl (140-200); Estimated Glomerular Filt Rate 103 ml/min (>60); GFR (African American) 124 ML/MIN (>60); Globulin 3.2 g/dL (1.3-3.2); Glucose 94 mg/dl (74-100); HDL Cholesterol 42 mg/dl (40-60); Potassium 4.2 mmoL/L (3.5-5.1); Sodium 142 mmol/L (136-145); Triglycerides 161 mg/dl (30-150); VLDL Cholesterol 32 mg/dL (0-40)
[2023-05-13 15:23] LABS: C-Reactive Protein 9.7 mg/L (0-4); Direct LDL Cholesterol 137.93 mg/dL (100-129)
[2023-05-13 15:29] LABS: 25-OH Vitamin D, Total 40.2 ng/mL (30-100)
[2023-05-13 15:43] LABS: Thyroid Stimulating Hormone 2.67 uIU/mL (0.465-4.68)
[2023-05-13 15:56] LABS: Erythrocyte Sedimentation Rate 35 mm/hr (0-20)
== END ==
PROVIDERS: PCP Physician Assistant; Visit Provider Physician Assistant
DX: E55.9 Vitamin D deficiency, unspecified (principal); R19.7 Diarrhea, unspecified; E78.5 Hyperlipidemia, unspecified; Z79.899 Other long term (current) drug therapy
CPT/HCPCS: 36415; 80053; 80061; 82306; 84443; 85025; 85651; 86140

== ENCOUNTER → 2023-05-17 14:58 | Outpatient (CLI) | payer MEDICARE, MEDICAID, SELFPAY ==
[2023-05-17 15:04] LABS: Campylobacter Not Detected (NotDetected); Clostridium Difficile A/B, PCR Not Detected (NotDetected); Cryptosporidium Not Detected (NotDetected); Cyclospora Cayetanesis Not Detected (NotDetected); Enteroaggregative E coli Not Detected (NotDetected); Enteropathogenic E coli Not Detected (NotDetected); Enterotoxigenic E coli Not Detected (NotDetected); Plesimonas Shigalloides, PCR Not Detected (NotDetected); Salmonella, PCR Not Detected (NotDetected); Shiga-like toxin E coli Not Detected (NotDetected); Shigella Enterovasive E coli Not Detected (NotDetected); Vibrio Cholerae Not Detected (NotDetected); Vibrio, PCR Not Detected (NotDetected); Yersinia Entercolitica, PCR Not Detected (NotDetected)
[2023-05-17 15:05] LABS: Adenovirus F 40/41, stool Not Detected (NotDetected); Astrovirus Not Detected (NotDetected); Entamoeba histolytica Not Detected (NotDetected); Giardia lamblia Not Detected (NotDetected); Norovirus Not Detected (NotDetected); Rotavirus A Not Detected (NotDetected)
[2023-05-17 15:43] LABS: Occult Blood,Stool Negative (Negative)
[2023-05-21 13:13] LABS: Lactoferrin, Fecal, Quant. <1.00 ug/mL(g) (0.00-7.24)
[2023-05-22 07:35] LABS: Sapovirus Not Detected (NotDetected)
[2023-05-22 22:07] LABS: Calprotectin, Fecal 6 ug/g (0-120)
[2023-05-24 22:27] LABS: Fats, Neutral Normal (.); Fats, Total Normal (.); Pancreatic Elastase, Fecal 462 (>200)
== END ==
PROVIDERS: PCP Physician Assistant; Visit Provider Physician Assistant
DX: R19.7 Diarrhea, unspecified (principal); K21.9 Gastro-esophageal reflux disease without esophagitis
CPT/HCPCS: 82272; 82656; 82705; 83630; 83993; 87506; G0328

== ENCOUNTER → 2023-05-21 06:40 | Outpatient (CLI) | payer MEDICARE, MEDICAID, SELFPAY ==
--- NOTE | 2023-05-21 06:47 | US_ITS ---
FINAL REPORT CLINICAL HISTORY: Diarrhea, gallballder pain COMPARISON: 12/08/2021 FINDINGS: Sonographic images of the right upper quadrant were obtained. The pancreas is obscured. There is fatty infiltration of the liver. The gallbladder appears normal without evidence of gallstones. A phrygian cap is present in the gallbladder. There is no evidence of biliary ductal dilatation.The common duct measures 2 mm. Limited images of the right kidney are unremarkable. IMPRESSION: Fatty infiltration of the liver. Pancreas obscured by overlying bowel gas. Reviewed, Interpreted and Dictated by Jean Whitney MD Transcribed by Bibi Rodriguez Authenticated and . [facility]
== END ==
PROVIDERS: PCP Physician Assistant; Visit Provider Physician Assistant
DX: K82.9 Disease of gallbladder, unspecified (principal); R19.7 Diarrhea, unspecified
CPT/HCPCS: 76705

== ENCOUNTER 2023-08-15 10:22 | Emergency (ER) | payer MEDICARE, MEDICAID, SELFPAY ==
--- NOTE | 2023-08-15 10:29 | XR_ITS ---
PROCEDURE INFORMATION: Exam: XR Right Knee Exam date and time: 08/15/2023 10:23 AM Age: 23 years old Clinical indication: Injury or trauma; Fall; Blunt trauma; Knee; Right; Additional info: Fall x 3 days ago TECHNIQUE: Imaging protocol: Radiologic exam of the right knee. Views: 3 views. COMPARISON: CR XR KNEE RT 3V 03/26/2019 8:52 PM FINDINGS: Bones/joints: There is no evidence of acute fracture.There is no evidence of malalignment or dislocation. Soft tissues: Normal. IMPRESSION: There is no evidence of acute fracture.There is no evidence of malalignment or dislocation.
[2023-08-15 10:45] VITALS: BP 148/86; PULSE 76; RESP 18; TEMP 36.6; O2SAT 98; BMI 51.2
--- NOTE | 2023-08-15 10:51 | ED_ITS ---
Discharge Plan Disposition Patient Disposition: Home, Self-Care Condition: Good Prescriptions Prescriptions: New bacitracin 500 unit/gram ointment 1 applic topical TID Qty: 30 0RF Rx Instructions: apply to abrasion on knee as directed No Action epinephrine [EpiPen] 0.3 mg/0.3 mL auto-injector 0.3 mg IM Q5-15M PRN (Reason: anaphylaxis) Qty: 1 0RF Rx Instructions: do not exceed 3 doses per episode albuterol sulfate 90 mcg/actuation HFA aerosol inhaler 2 puff IH Q6HP PRN (Reason: Shortness Of Breath) 30 Days Qty: 1 5RF cholecalciferol (vitamin D3) 50 mcg (2,000 unit) capsule 50 mcg PO DAILY Qty: 90 3RF pantoprazole [Protonix] 40 mg tablet,delayed release (DR/EC) 40 mg PO DAILY Qty: 90 3RF nystatin 100,000 unit/gram powder 1 applic topical QID Qty: 15 0RF clotrimazole 1 % cream 1 applic topical TID Qty: 90 0RF ondansetron 4 mg tablet,disintegrating 4 mg PO Q6H PRN (Reason: nausea and vomiting) Qty: 10 0RF cefdinir 300 mg capsule 300 mg PO BID 10 Days Qty: 20 0RF fluconazole 150 mg tablet 150 mg PO DAILY Qty: 10 0RF fluticasone propionate [Flonase Allergy Relief] 50 mcg/actuation spray,suspension 1 - 2 spray intranasal DAILY Qty: 16 0RF Rx Instructions: administer into each nostril daily Referrals Follow up/Referrals: Danette Lynch PA [Primary Care Provider] - See instructions Activity Restrictions/Add. Instructions Additional Instructions/Restrictions: Clean abrasion with antibacterial soap and water and pat dry Leave open to air as much as possible and cover if you are going to be out *weight bearing as tolerated *RICE, Rest the extremity, Ice 15-20 minutes 3-4 times daily, Compress- wear the [place] wrap as discussed as much as possible to help reduce swelling and pain, Elevate the extremity when at rest Elevate when resting? *Ibuprofen 600-800mg every 6-8 hours as needed for pain an inflammation. If need something more can take Tylenol in between doses of Ibuprofen to help Clinical Impressions Clinical Impression: Contusion of knee, left Qualifiers: Encounter type: initial encounter Qualified Code(s): S80.02XA - Contusion of left knee, initial encounter Instructions Patient Instructions: DI for Contusion, DI for Abrasion Discharge ED Provider: Tara Joseph [facility] General Stated complaint: AO fall , right foot pain Mode of Arrival: Ambulatory Source of Information: Patient Limitations: No Limitations Time Seen by Provider: 08/15/23 10:51 Description of Symptoms (Recalled from Triage Doc. 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 and she slipped and fell and hit her right knee on the ground States that she has an abrasion on her knee and hurts when she walks on it so today she came in to get it checked out denies any other injury Related Data Previous Rx's Medication Instructions Recorded epinephrine 0.3 mg/0.3 mL 0.3 mg (0.3 mL) IM Q5-15M PRN 11/27/21 injection, auto-injector (EpiPen) anaphylaxis #1 ea fluticasone propionate 50 1 - 2 spray intranasal DAILY #16 04/29/23 mcg/actuation nasal grams spray,suspension (Flonase Allergy Relief) fluconazole 150 mg tablet 150 mg PO DAILY #10 tabs 07/23/23 albuterol sulfate 90 mcg/actuation 2 puff inhalation Q6HP PRN 07/28/23 aerosol inhaler Shortness Of Breath 30 days #1 ea cefdinir 300 mg capsule 300 mg PO BID 10 days #20 caps 07/28/23 cholecalciferol (vitamin D3) 50 50 mcg PO DAILY #90 caps 07/28/23 mcg (2,000 unit) capsule clotrimazole 1 % topical cream 1 applic topical TID #90 grams 07/28/23 nystatin 100,000 unit/gram topical 1 applic topical QID #15 grams 07/28/23 powder ondansetron 4 mg disintegrating 4 mg PO Q6H PRN nausea and 07/28/23 tablet vomiting #10 tabs pantoprazole 40 mg tablet,delayed 40 mg PO DAILY #90 tabs 07/28/23 release (Protonix) bacitracin 500 unit/gram topical 1 applic topical TID #30 grams 08/15/23 ointment Allergies Allergy/AdvReac Type Severity Reaction Status Date / Time Penicillins [PENICILLINS] Allergy Severe Anaphylaxis Verified 08/05/23 10:34 mold Allergy Intermediate Other Verified 08/05/23 10:34 Iodinated Contrast Media Allergy Anaphylaxis Verified 08/05/23 10:34 Worker's Comp Is this a Worker's Comp case?: No [facility] Disclaimer: The information contained in this section may have been updated after the patient was seen, as this information can be updated by other users. Medical History Apneic episode Family history of diabetes mellitus Gastroesophageal reflux disease Hyperlipidemia (~09/26/17) LGSIL on Pap smear of cervix Migraine headache Nexplanon insertion insertion 10/15/20 Polyuria Vitamin D deficiency (~09/26/17) Social History Smoking Status: Never smoker alcohol intake: never substance use type: denies use current occupational status: other Travel in the last 8 weeks: None household members: family housing: house caffeine: No ROS Obtained: Yes All systems reviewed & no additional complaints except as documented and Yes Systems reviewed as appropriate & no additional complaints except as documented Constitutional Constitutional: Reports system reviewed and no additional complaints, except as documented and Reports as per HPI ENT Ears, Nose, Mouth, and Throat: Reports system reviewed and no additional complaints, except as documented and Reports as per HPI Cardiovascular Cardiovascular: Reports system reviewed and no additional complaints, except as documented and Reports as per HPI Respiratory Respiratory: Reports system reviewed and no additional complaints, except as documented and Reports as per HPI Musculoskeletal Musculoskeletal: Reports system reviewed and no additional complaints, except as documented, Reports as per HPI and Reports other Comments: Pain in right knee after falling on Physical Exam General General appearance: alert and in no apparent distress ENT ENT exam: Present mucous membranes moist Respiratory Respiratory exam: Present normal lung sounds bilaterally; Absent respiratory distress or wheezes Cardiovascular Cardiovascular exam: Present regular rate, normal rhythm and normal heart sounds Abdominal Exam Abdominal exam: Present soft and normal bowel sounds; Absent distention or tenderness Expanded Lower Extremity Exam Right: Knee exam: Present tenderness and abrasion; Absent ecchymosis, deformity or erythema Lower leg exam: Present normal inspection Ankle exam: Present normal inspection Foot/toe exam: Present normal inspection Neurological Exam Neurological exam: Present alert, oriented X3 and normal gait Medical Decision Making Ty Inquiry Pt receiving controlled substance: No Ty was queried for this patient: No Vital Signs: 08/15/23 10:45 Temperature 97.9 F Temperature Source Oral Pulse Rate [Left Brachial] 76 Respiratory Rate 18 Blood Pressure [Left Arm] 148/86 H Blood Pressure Mean [Left Arm] 106 Blood Pressure Source [Left Arm] Automatic Cuff Blood Pressure Position [Left Arm] Sitting 02 Sat by Pulse Oximetry 98 Oxygen Delivery Method Room Air Orders (Tests/Meds): ORDERS Category Date Time Status Knee XR right 3 views [XR knee RT 3V] Stat Exams 08/15/23 10:29 Taken Radiology Data #1: Image(s): Knee Image Reviewed: Yes I have reviewed radiologist's interpretation IMPRESSION: There is no evidence of acute fracture.There is no evidence of malalignment or dislocation.
[2023-08-15 11:27] VITALS: BP 148/86; PULSE 76; RESP 18; TEMP 36.6; O2SAT 98
== END 2023-08-15 11:43 | disposition home or self-care (01) ==
PROVIDERS: Emergency Provider Nurse Practitioner; PCP Physician Assistant
DX: S80.01XA Contusion of right knee, initial encounter (principal); K21.9 Gastro-esophageal reflux disease without esophagitis; E78.5 Hyperlipidemia, unspecified; E66.01 Morbid (severe) obesity due to excess calories; Z68.43 Body mass index [BMI] 50.0-59.9, adult; I10 Essential (primary) hypertension; W01.0XXA Fall on same level from slipping, tripping and stumbling without subsequent striking against object, initial encounter
CPT/HCPCS: 73562; 99212; 99214; G0463

== ENCOUNTER 2023-08-15 23:37 | Emergency (ER) | payer MEDICARE, MEDICAID, SELFPAY ==
[2023-08-15 23:37] VITALS: BP 154/92; PULSE 101; PULSE 82; RESP 18; RESP 22; TEMP 36.6; O2SAT 98; O2SAT 99; BMI 51.9
--- NOTE | 2023-08-15 23:41 | PC.NURSE ---
Nicko JUNG at bedside, pt lungs are clear, equal bilaterally. Pt call light within reach, will observe for any new changes
--- NOTE | 2023-08-16 00:01 | HMH.EDGENADL ---
Discharge Plan Disposition Patient Disposition: Home, Self-Care Chief Complaint: Allergic Reaction Prescriptions Prescriptions: No Action epinephrine [EpiPen] 0.3 mg/0.3 mL auto-injector 0.3 mg IM Q5-15M PRN (Reason: anaphylaxis) Qty: 1 0RF Rx Instructions: do not exceed 3 doses per episode albuterol sulfate 90 mcg/actuation HFA aerosol inhaler 2 puff IH Q6HP PRN (Reason: Shortness Of Breath) 30 Days Qty: 1 5RF cholecalciferol (vitamin D3) 50 mcg (2,000 unit) capsule 50 mcg PO DAILY Qty: 90 3RF pantoprazole [Protonix] 40 mg tablet,delayed release (DR/EC) 40 mg PO DAILY Qty: 90 3RF nystatin 100,000 unit/gram powder 1 applic topical QID Qty: 15 0RF clotrimazole 1 % cream 1 applic topical TID Qty: 90 0RF ondansetron 4 mg tablet,disintegrating 4 mg PO Q6H PRN (Reason: nausea and vomiting) Qty: 10 0RF cefdinir 300 mg capsule 300 mg PO BID 10 Days Qty: 20 0RF fluconazole 150 mg tablet 150 mg PO DAILY Qty: 10 0RF fluticasone propionate [Flonase Allergy Relief] 50 mcg/actuation spray,suspension 1 - 2 spray intranasal DAILY Qty: 16 0RF Rx Instructions: administer into each nostril daily bacitracin 500 unit/gram ointment 1 applic topical TID Qty: 30 0RF Rx Instructions: apply to abrasion on knee as directed Activity Restrictions/Add. Instructions Additional Instructions/Restrictions: Please follow-up with your primary care provider. Please return to the emergency department if you develop any new or worsening symptoms or become concerned for your health. Clinical Impressions Clinical Impression: Allergic reaction Qualifiers: Encounter type: initial encounter Qualified Code(s): T78.40XA - Allergy, unspecified, initial encounter Discharge ED Provider: Nicko Ordonez Adult HPI General Chief complaint: Allergic Reaction Stated complaint: allergic reaction Time Seen by Provider: 08/15/23 23:39 Mode of Arrival: EMS Source of Information: Patient Limitations: No Limitations Description of Symptoms (Recalled from ER Triage Doc. by RN): Pt states she consumed a [place] Drink around 2300 and immediately started experiencing facial tingling that radiates into her arms. VSS at this time. No complaints of SOA or CP. History of Present Illness HPI narrative: 23-year-old female with no significant past medical history presents with concern for allergic reaction. She reports that she drank a dov drink from [employer] approximately 20 minutes prior to arrival. Shortly after drinking the dov drink, she reports that her face started tingling and she felt like she was having trouble swallowing. She reported difficulty breathing with EMS, but her vital signs were all within normal limits and on arrival she has no difficulty breathing. No wheezing noted by EMS. Patient has history of penicillin allergy and IV contrast allergy, but she has no history of foodborne allergies. She denies any nausea vomiting diarrhea or abdominal pain. Denies any chest pain. Related Data Previous Rx's Medication Instructions Recorded epinephrine 0.3 mg/0.3 mL 0.3 mg (0.3 mL) IM Q5-15M PRN 11/27/21 injection, auto-injector (EpiPen) anaphylaxis #1 ea fluticasone propionate 50 1 - 2 spray intranasal DAILY #16 04/29/23 mcg/actuation nasal grams spray,suspension (Flonase Allergy Relief) fluconazole 150 mg tablet 150 mg PO DAILY #10 tabs 07/23/23 albuterol sulfate 90 mcg/actuation 2 puff inhalation Q6HP PRN 07/28/23 aerosol inhaler Shortness Of Breath 30 days #1 ea cefdinir 300 mg capsule 300 mg PO BID 10 days #20 caps 07/28/23 cholecalciferol (vitamin D3) 50 50 mcg PO DAILY #90 caps 07/28/23 mcg (2,000 unit) capsule clotrimazole 1 % topical cream 1 applic topical TID #90 grams 07/28/23 nystatin 100,000 unit/gram topical 1 applic topical QID #15 grams 07/28/23 powder ondansetron 4 mg disintegrating 4 mg PO Q6H PRN nausea and 07/28/23 tablet vomiting #10 tabs pantoprazole 40 mg tablet,delayed 40 mg PO DAILY #90 tabs 07/28/23 release (Protonix) bacitracin 500 unit/gram topical 1 applic topical TID #30 grams 08/15/23 ointment Allergies Allergy/AdvReac Type Severity Reaction Status Date / Time Penicillins [PENICILLINS] Allergy Severe Anaphylaxis Verified 08/05/23 10:34 mold Allergy Intermediate Other Verified 08/05/23 10:34 Iodinated Contrast Media Allergy Anaphylaxis Verified 08/05/23 10:34 [facility] Disclaimer: The information contained in this section may have been updated after the patient was seen, as this information can be updated by other users. Medical History Apneic episode Family history of diabetes mellitus Gastroesophageal reflux disease Hyperlipidemia (~09/26/17) LGSIL on Pap smear of cervix Migraine headache Nexplanon insertion insertion 10/15/20 Polyuria Vitamin D deficiency (~09/26/17) Social History Smoking Status: Never smoker alcohol intake: never substance use type: denies use current occupational status: other Travel in the last 8 weeks: None household members: family housing: house caffeine: No ROS Obtained: Yes All systems reviewed & no additional complaints except as documented Physical Exam General General appearance: alert, in no apparent distress and obese Head Head exam: atraumatic and normocephalic Eye Eye exam: Present normal appearance, PERRL and EOMI ENT ENT exam: Present normal oropharynx, mucous membranes moist and normal external ear exam Neck Neck exam: Present normal inspection and full ROM Chest Chest inspection: Present normal inspection and symmetric chest wall rise; Absent tenderness Respiratory Respiratory exam: Present normal lung sounds bilaterally; Absent respiratory distress or wheezes Cardiovascular Cardiovascular exam: Present normal rhythm and tachycardia Abdominal Exam Abdominal exam: Present soft; Absent distention, tenderness or guarding Extremities Exam Extremities exam: Present normal inspection; Absent edema or joint swelling Back Exam Back exam: Present normal inspection; Absent tenderness Neurological Exam Neurological exam: Present alert and oriented X3; Absent motor sensory deficit Psychiatric Psychiatric exam: Present anxious Skin Skin exam: Present warm, dry and normal color Lymphatic Lymphatic Findings: no adenopathy Medical Decision Making Medical Records Medical records reviewed: Yes I reviewed the patient's medical records. Ty Inquiry Pt receiving controlled substance: No Ty was queried for this patient: No Vital Signs: 08/15/23 23:37 Temperature 97.9 F Temperature Source Oral Pulse Rate [Left] 101 H Respiratory Rate 22 Blood Pressure [Right Arm] 154/92 H Blood Pressure Mean [Right Arm] 112 Blood Pressure Source [Right Arm] Automatic Cuff Blood Pressure Position [Right Arm] Supine 02 Sat by Pulse Oximetry 98 Oxygen Delivery Method Room Air Lab Data Lab results reviewed: Yes I reviewed the patient's lab results. Medical Decision Narrative: 23-year-old female with history of penicillin and IV contrast allergy presents with concern for allergic reaction to dov juice. History was obtained interactive discussion with patient, EMS. On arrival, patient is [afebrile, hemodynamically stable, satting appropriately, alert, oriented x4, GCS 15], moving all extremities spontaneously. Full physical exam performed and significant for no significant physical exam abnormalities, specifically no wheezing, normal vitals, normal oropharyngeal exam. Differential includes but is not limited to allergic reaction, anaphylaxis, aspiration. Patient may be having a mild allergic reaction, but certainly does not meet the criteria for anaphylaxis. We will observe patient for a period of time and reassess. Patient placed on quality assurance monitor body. On reassessment patient reports symptomatic resolution. On my interpretation of quality assurance monitor body, patient remains normal sinus rhythm with rates in the 90s. Continues to sat appropriately on room air. Medications for anaphylaxis was considered, but deemed unnecessary due to low concern for emergent pathology at this time. Given patient history, exam and workup, patient's presentation most likely represents possible mild allergic reaction. Procedures Risk/Benefits of Procedure(s) Were Explained: Yes Critical Care Critical Care Time Critical Care Time: No
[2023-08-16 00:35] VITALS: BP 128/75; PULSE 63; RESP 16; TEMP 36.8; O2SAT 96
== END 2023-08-16 00:41 | disposition home or self-care (01) ==
PROVIDERS: Emergency Provider Emergency Medicine
DX: T78.40XA Allergy, unspecified, initial encounter (principal)
CPT/HCPCS: 99283

== ENCOUNTER 2023-09-17 14:00 | Outpatient (RCR) | payer MEDICARE, MEDICAID, SELFPAY ==
--- NOTE | 2023-08-11 11:27 | HMH.PTOPEV ---
PT Outpatient Evaluation Rehab PT Outpatient Evaluation Start: 08/11/23 10:18 Freq: Status: Active Protocol: Document 08/11/23 10:18 MOY (Rec: 08/11/23 11:27 MOY [id number]) E-signed By Alyssa Esteves, PT Outpatient Therapy Subjective History Subjective History Pt is a 23 y/o female who reports chronic bilateral medial arch and heel pain for >2 years. Pt denies injury or trauma. Pt denies having recent imaging of her ankles/ feet. Pt reports pain is worse with first steps out of bed in the morning. Pt reports pain is also aggravated by prolonged standing, walking and stair climbing. 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 Pt reports she wears her house slippers around the house and tennis shoes for community ambulation, denies having orthotics. Pt reports she ordered a night splint from [employer] but it does not fit around her calves so she is unable to wear it. Pt states she has had multiple injections in both feet with the last one performed on 08/05 which provide temporary relief. Pt reports Dr. Carlson gave her stretches and told her to roll her feet on a frozen water bottle but she is unable to tolerate this due to pain. Pt reports sometimes pain is so severe she has difficulty getting out of bed. Pt states she returns to her doctor in mid September for a follow-up visit. Medical History: Hyperlipidemia, GERD New diagnosis of cancer in past 12 No months? Chief Complaint Pain Symptom Type Sharp Symptoms Relieved By Rest/Positioning,Prescription Meds Symptoms Aggravated By Standing,Physical Activity, Walking Prior Functional Limitations None Current Functional Limitations Housework,Standing,Walking, Stairs Symptom Description Constant but Variable Level of pain today (0-10) 7 Pain scale - at its best (0-10) 2 Pain scale - at its worst (0-10) 10 Ankle/Foot Eval Gait Observation General Gait Pattern Observation Antalgic Gait,Wide Based Gait Palpation Tenderness bilateral Ankle/Foot Palpation Findings Tenderness Ankle/Foot Palpation Overall Comment PF insertion, medial arch ROM left Ankle/Foot Dorsiflexion w/Knee Extended 12 Active Range Motion (degrees) Ankle/Foot Plantar Flexion Active Range 40 of Motion (degrees) Ankle/Foot Eversion Active Range of 12 Motion (degrees) Ankle/Foot Inversion Active Range of 20 Motion (degrees) right Ankle/Foot Dorsiflexion w/Knee Extended 12 Active Range Motion (degrees) Ankle/Foot Plantar Flexion Active Range 30 of Motion (degrees) Ankle/Foot Eversion Active Range of 12 Motion (degrees) Ankle/Foot Inversion Active Range of 20 Motion (degrees) MMT left Ankle Dorsiflexion Strength Grade 4 Good Ankle Plantarflexion Strength Grade 4- Good- Foot Eversion Strength Grade 4- Good- Foot Inversion Strength Grade 4 Good right Ankle Dorsiflexion Strength Grade 4 Good Ankle Plantarflexion Strength Grade 4- Good- Foot Eversion Strength Grade 4- Good- Foot Inversion Strength Grade 4 Good Special Tests Ankle Anterior Drawer Test Negative Left,Negative Right Talar Tilt Test Negative Left,Negative Right Foot Compression Test Negative Left,Negative Right Lower Extremity Functional Index Activities Today, do you or would you have any difficulty at all with: a.Any of your usual work, housework or Moderate difficulty school activities b. Your usual hobbies, recreational or Quite a bit of difficulty sporting activities c. Getting into or out of the bath A little bit of difficulty d. Walking between rooms Quite a bit of difficulty e. Putting on your shoes or socks Moderate difficulty f. Squatting Extreme difficulty or unable to perform activity g. Lifting an object, like a bag of A little bit of difficulty groceries from the floor h. Performing light activities around Moderate difficulty your home i. Performing heavy activities around Moderate difficulty your home j. Getting into or out of a car Quite a bit of difficulty k. Walking 2 blocks Quite a bit of difficulty l. Walking a mile Quite a bit of difficulty m. Going up or down 10 stairs (about 1 Quite a bit of difficulty flight of stairs) n. Standing for 1 hour Moderate difficulty o. Sitting for 1 hour No difficulty p. Running on even ground Moderate difficulty q. Running on uneven ground A little bit of difficulty r. Making sharp turns while running fast Extreme difficulty or unable to perform activity s. Hopping Quite a bit of difficulty t. Rolling over in bed No difficulty LEFI Score Lower Extremity Functional Index Score 36 Outpatient Therapy Assessment Impairments Problems/Impairmments Palpation Tenderness,Impaired Range of Motion,Impaired Strength,Impaired Gait Pattern ,Impaired Walking,Impaired Standing,Impaired Household Care,Impaired Stair Climbing, Impaired Incline Stepping, Impaired Stepping on Uneven Surface,Subjective C/O Pain, Impaired Self Care/Self Management Prognosis Rehab Potential Fair Comment chronic pain and elevated BMI posing as barrier to progress Clinical Impression Consistent with Diagnosis Yes Short Term Goals Number of Weeks 3 Decrease Subjective C/O Pain Yes: Improve pain at worst to 8/10 to improve overall QOL Improve Self Care/Self Management Yes Patient to be Ind w/ HEP Yes Residential Goals Number of Weeks 6 Increase Range of Motion Yes: Improve B ankle PF to 45 degrees Increase Strength Yes: Improve ankle MMT to 4+-5 /5 to assist with function Increase Ability to Walk Yes: >5' with pain 6/10 or less to assist with ADLs Increase Ability to Stand Yes: >5' with pain 6/10 or less to assist with ADLs Improve LEFI Score Yes: Improve score to 46/80 to improve overall QOL Decrease Subjective C/O Pain Yes: Improve pain at worst to 6/10 to improve overall QOL Outpatient Therapy Plan of Care Treatment Plan May Include Therapeutic Exercise Including Home Yes Exercise Program Manual Therapy Techniques Yes Neuromuscular Re-education Yes Therapeutic Activities to Return to Yes Previous Functional/Work Level ADL/Self Care Education Yes Dry Needling Yes Thermal Modalities Yes Electrical Stimulation Yes Ultrasound/Phonophoresis Yes Iontophoresis Yes Orthotics/Bracing/Splinting Yes Vasopneumatic Compression Pump Yes Massage Yes Eval/Re-Eval Yes Frequency Times per week 2 Duration Number of Weeks 4-6 Addendums This patient is a candidate for social No or vocational rehab? Patient/Guardian verbally acknowledges Yes understanding of treatment program and consents to further treatment? Patient/Guardian verbally acknowledges Yes understanding of diagnosis, prognosis and goals for treatment? Eval Complexity PT Charges 58760 - Low Complexity Shoulder/Elbow Eval Shoulder Objective Measurements Elbow Objective Measurements PHYSICIAN CERTIFICATION: I certify the specified therapy services for Sanjuana Piña are required, authorized, and reviewed every 30 days.
--- NOTE | 2023-09-15 15:48 | HMH.RHREAS ---
Rehab Reassessment Rehab OP Re-assessment Start: 08/11/23 10:18 Freq: Status: Active Protocol: Document 09/15/23 14:59 MEGHANROBERT (Rec: 09/15/23 15:47 MOY [id number]) E-signed By Alyssa Esteves PT Lower Extremity Functional Index Activities Today, do you or would you have any difficulty at all with: a.Any of your usual work, housework or No difficulty school activities b. Your usual hobbies, recreational or No difficulty sporting activities c. Getting into or out of the bath A little bit of difficulty d. Walking between rooms A little bit of difficulty e. Putting on your shoes or socks Moderate difficulty f. Squatting Quite a bit of difficulty g. Lifting an object, like a bag of A little bit of difficulty groceries from the floor h. Performing light activities around No difficulty your home i. Performing heavy activities around Moderate difficulty your home j. Getting into or out of a car Extreme difficulty or unable to perform activity k. Walking 2 blocks Extreme difficulty or unable to perform activity l. Walking a mile Extreme difficulty or unable to perform activity m. Going up or down 10 stairs (about 1 Quite a bit of difficulty flight of stairs) n. Standing for 1 hour A little bit of difficulty o. Sitting for 1 hour No difficulty p. Running on even ground No difficulty q. Running on uneven ground Quite a bit of difficulty r. Making sharp turns while running fast Moderate difficulty s. Hopping A little bit of difficulty t. Rolling over in bed No difficulty LEFI Score Lower Extremity Functional Index Score 48 Rehab Re-assessment Subjective Subjective Pt reports noted improvement in pain since starting PT. Pt reports compliance with HEP. Pt states she has been wearing supportive tennis shoes as instructed; however, presents in slippers to most PT treatment sessions. Pt reports pain at worst as 4/10 with increased activity throughout the day. Pt reports she is now able to stand and walk longer . Pt states she no longer has sharp pain with initial steps in the morning. Pt reports she does get intermittent brief sharp pains in her R>L heels with quick movements that only last a few seconds. Pt reports she returns to her MD on 10/04/23. Objective Objective Notes L ankle: TTP: 1/4 TTP of posterior tib and PF insertion MMT: 4+/5 grossly R ankle: TTP: 1/4 TTP of PF insertion AROM: 40 PF MMT: 4+/5 grossly Assessment Assessment Notes Pt has attended 7 PT visits consisting of aerobic exercise , LE stretching/strengthening, modalities and HEP with good tolerance. Pt demonstrated improved subjective report of pain, tenderness to palpation, ankle strength and LEFS score this date compared to the initial evaluation. Pt continues to report brief, sharp shooting pain of the R>L heel with quick movements. Pt encouraged to wear supportive tennis shoes with orthotics to assist with this. Pt provided on information to assist with obtaining OTC orthortics for plantar fasciitis. Overall, the pt met most PT goals and is appropriate to discharge to independent HEP at this time. Patient goals met ST/3 LT/6 Goals Not Met 45 PF B (40 B) Revised Goals n/a Plan Plan Discharge to independent HEP Time and Billing Re-Eval Time 12 Re-Eval Billing Units 1 PHYSICIAN CERTIFICATION: I certify the specified therapy services for Sanjuana Deedee Piña are required, authorized, and reviewed every 30 days.
== END 2023-09-17 14:05 | disposition home or self-care (01) ==
LOC: PT 14:00
PROVIDERS: Visit Provider Podiatrist
DX: M72.2 Plantar fascial fibromatosis (principal); M79.671 Pain in right foot; M79.672 Pain in left foot
CPT/HCPCS: 97010; 97014; 97035; 97110; 97163; 97164; 97530; 97535; G0283

== ENCOUNTER 2023-11-12 15:12 | Emergency (ER) | payer MEDICARE, MEDICAID, SELFPAY ==
[2023-11-12 15:33] VITALS: BP 157/73; PULSE 67; RESP 16; TEMP 36.8; O2SAT 99; BMI 50.1
--- NOTE | 2023-11-12 15:37 | ED_ITS ---
Discharge Plan Disposition Patient Disposition: Home, Self-Care Condition: Good Prescriptions Prescriptions: New polymyxin B sulf-trimethoprim 10,000 unit- 1 mg/mL drops 1 drp Eye-Left Q3H 7 Days Qty: 10 0RF Rx Instructions: while awake; do not exceed 6 doses in 24 hours methylprednisolone 4 mg Tablets,Dose Pack 4 mg PO DIRECTED 6 Days Qty: 21 0RF Rx Instructions: Take 1 pack as directed for 6 days No Action dicyclomine 20 mg tablet 20 mg PO TID PRN (Reason: abdominal pain) Qty: 180 1RF amitriptyline 10 mg tablet 10 mg PO HS Qty: 30 2RF cholecalciferol (vitamin D3) 50 mcg (2,000 unit) capsule 50 mcg PO DAILY Qty: 90 3RF pantoprazole [Protonix] 40 mg tablet,delayed release (DR/EC) 40 mg PO DAILY Qty: 90 3RF epinephrine [EpiPen] 0.3 mg/0.3 mL auto-injector 0.3 mg IM Q5-15M PRN (Reason: anaphylaxis) Qty: 1 0RF Rx Instructions: do not exceed 3 doses per episode Referrals Follow up/Referrals: Danette Lynch PA [Primary Care Provider] - See instructions Activity Restrictions/Add. Instructions Additional Instructions/Restrictions: Use the eye drops as directed. Strict hand washing in the house hold, because conjunctivitis is very contagious. Follow up with your regular doctor. GO TO THE ER FOR ANY WORSENING SYMPTOMS OR CONCERNS Clinical Impressions Clinical Impression: Conjunctivitis of left eye Instructions Patient Instructions: How to Instill Eye Drops, DI for Conjunctivitis Discharge ED Provider: [place] Velas[place] [facility] [place] General Stated complaint: Right eye watering Mode of Arrival: Ambulatory Source of Information: Patient Limitations: No Limitations Time Seen by Provider: 11/12/23 15:36 Description of Symptoms (Recalled from Triage Doc. by RN): Complaint of swollen and crusted eye. HEENT Symptoms (Recalled from RN notes): Yes Resp Symptoms (Recalled from RN notes): No Skin Symptoms (Recalled from RN notes): No MS Symptoms (Recalled from RN notes): No Functional Status (Recalled from RN notes): wnl Related Data Previous Rx's Medication Instructions Recorded cholecalciferol (vitamin D3) 50 50 mcg PO DAILY #90 caps 07/28/23 mcg (2,000 unit) capsule pantoprazole 40 mg tablet,delayed 40 mg PO DAILY #90 tabs 07/28/23 release (Protonix) epinephrine 0.3 mg/0.3 mL 0.3 mg (0.3 mL) IM Q5-15M PRN 08/17/23 injection, auto-injector (EpiPen) anaphylaxis #1 ea amitriptyline 10 mg tablet 10 mg PO HS #30 tabs 08/26/23 dicyclomine 20 mg tablet 20 mg PO TID PRN abdominal pain 08/26/23 #180 tabs methylprednisolone 4 mg tablets in 4 mg PO DIRECTED 6 days #21 tabs 11/12/23 a dose pack polymyxin B sulfate 10,000 1 drp Eye-Left Q3H 7 days #10 mL 11/12/23 unit-trimethoprim 1 mg/mL eye drops Allergies Allergy/AdvReac Type Severity Reaction Status Date / Time Penicillins [PENICILLINS] Allergy Severe Anaphylaxis Verified 08/26/23 11:51 mold Allergy Intermediate Other Verified 08/26/23 11:51 Iodinated Contrast Media Allergy Anaphylaxis Verified 08/26/23 11:51 Worker's Comp Is this a Worker's Comp case?: No [facility] Disclaimer: The information contained in this section may have been updated after the patient was seen, as this information can be updated by other users. Medical History Gastroesophageal reflux disease LGSIL on Pap smear of cervix Nexplanon insertion insertion 10/15/20 Vitamin D deficiency (~09/26/17) Hyperlipidemia (~09/26/17) Family history of diabetes mellitus Polyuria Apneic episode Migraine headache Social History Smoking Status: Never smoker alcohol intake: never substance use type: denies use current occupational status: other Travel in the last 8 weeks: None household members: family housing: house caffeine: No ROS Obtained: Yes All systems reviewed & no additional complaints except as documented Constitutional Constitutional: Denies chills and Denies fever(s) Eyes Eyes: Reports eye discharge ENT Ears, Nose, Mouth, and Throat: Denies dizziness, Denies otalgia and Denies sore throat Cardiovascular Cardiovascular: Denies chest pain Respiratory Respiratory: Denies shortness of breath, Denies chest congestion, Denies cough, Denies stridor and Denies wheezing Gastrointestinal Gastrointestingal: Denies nausea or vomiting Musculoskeletal Musculoskeletal: Reports system reviewed and no additional complaints, except as documented and Denies arthralgias Integumentary/Breasts Skin/Breast: Denies rash Neurologic Neurologic: Denies dizziness and Denies paresthesias Allergic/Immunologic Allergic/Immunologic: Denies wheezing Physical Exam General General appearance: alert and in no apparent distress Head Head exam: atraumatic, normocephalic and normal inspection Eye Eye exam: Present PERRL, EOMI, conjunctival redness, conjunctival injection and discharge ENT ENT exam: Present normal exam, normal oropharynx, mucous membranes moist, TM's normal bilaterally and normal external ear exam Neck Neck exam: Present normal inspection, full ROM and trachea midline; Absent meningismus or lymphadenopathy Chest Chest inspection: Present normal inspection and symmetric chest wall rise; Absent tenderness Respiratory Respiratory exam: Present normal lung sounds bilaterally; Absent respiratory distress Cardiovascular Cardiovascular exam: Present regular rate and normal rhythm; Absent JVD Abdominal Exam Abdominal exam: Present soft and normal bowel sounds; Absent distention, tenderness or guarding Extremities Exam Extremities exam: Present normal inspection, full ROM and normal capillary refill; Absent calf tenderness Back Exam Back exam: Present normal inspection; Absent tenderness Neurological Exam Neurological exam: Present alert and oriented X3 Psychiatric Psychiatric exam: Present normal affect and normal mood Skin Skin exam: Present warm, dry, intact and normal color Lymphatic Lymphatic Findings: no adenopathy Medical Decision Making Medical Records Medical records reviewed: No I reviewed the patient's medical records. Ty Inquiry Pt receiving controlled substance: No Vital Signs: 11/12/23 15:33 Temperature 98.3 F Temperature Source Oral Pulse Rate [Radial] 67 Respiratory Rate 16 Blood Pressure [Right Arm] 157/73 H Blood Pressure Mean [Right Arm] 101 Blood Pressure Source [Right Arm] Automatic Cuff Blood Pressure Position [Right Arm] Sitting 02 Sat by Pulse Oximetry 99 Oxygen Delivery Method Room Air
[2023-11-12 16:20] VITALS: BP 157/73; PULSE 67; RESP 16; TEMP 36.8; O2SAT 99
== END 2023-11-12 16:21 | disposition home or self-care (01) ==
PROVIDERS: Emergency Provider Nurse Practitioner Family; PCP Physician Assistant
DX: H10.32 Unspecified acute conjunctivitis, left eye (principal)
CPT/HCPCS: 99212; 99214; G0463

== ENCOUNTER 2023-12-09 16:05 | Emergency (ER) | payer MEDICARE, MEDICAID, SELFPAY ==
[2023-12-09 16:25] VITALS: BP 133/80; PULSE 73; RESP 20; TEMP 36.7; O2SAT 95; BMI 51.2
--- NOTE | 2023-12-09 16:29 | XR_ITS ---
PROCEDURE INFORMATION: Exam: XR Left Foot Exam date and time: 12/09/2023 4:36 PM Age: 23 years old Clinical indication: Pain; Toes; Left; Additional info: Pinky toe is hurt/ pain when walking. TECHNIQUE: Imaging protocol: Radiologic exam of the left foot. Views: 1 or 2 views. COMPARISON: CR XR FOOT WT BEARING LT 3V 01/13/2021 2:50 PM FINDINGS: Bones/joints: Multiple views were obtained. The osseous structures appear intact with no evidence of acute fracture, dislocation, or malalignment. Joint spaces are preserved. No abnormal bone density or destructive lesions are noted. Soft tissues: Soft tissue swelling is observed, and further clinical correlation is advised. IMPRESSION: At the time of imaging, the skeletal radiograph demonstrates no acute osseous abnormalities but does show soft tissue swelling.
--- NOTE | 2023-12-09 17:21 | EXP.UTC ---
Discharge Plan Disposition Patient Disposition: Home, Self-Care Condition: Good Prescriptions Prescriptions: No Action dicyclomine 20 mg tablet 20 mg PO TID PRN (Reason: abdominal pain) Qty: 180 1RF amitriptyline 10 mg tablet 10 mg PO HS Qty: 30 2RF cholecalciferol (vitamin D3) 50 mcg (2,000 unit) capsule 50 mcg PO DAILY Qty: 90 3RF pantoprazole [Protonix] 40 mg tablet,delayed release (DR/EC) 40 mg PO DAILY Qty: 90 3RF epinephrine [EpiPen] 0.3 mg/0.3 mL auto-injector 0.3 mg IM Q5-15M PRN (Reason: anaphylaxis) Qty: 1 0RF Rx Instructions: do not exceed 3 doses per episode polymyxin B sulf-trimethoprim 10,000 unit- 1 mg/mL drops 1 drp Eye-Left Q3H 7 Days Qty: 10 0RF Rx Instructions: while awake; do not exceed 6 doses in 24 hours methylprednisolone 4 mg Tablets,Dose Pack 4 mg PO DIRECTED 6 Days Qty: 21 0RF Rx Instructions: Take 1 pack as directed for 6 days Referrals Follow up/Referrals: Danette Lynch PA [Primary Care Provider] - See instructions Activity Restrictions/Add. Instructions Additional Instructions/Restrictions: Take Tylenol/Motrin as needed for pain. Clinical Impressions Clinical Impression: Bruise of toe Instructions Patient Instructions: How To Perform RICE (Rest, Ice, Compress, Elevate) Discharge ED [place]iza [place] [facility] [place] General Stated complaint: AO 1830 toe pain Mode of Arrival: Ambulatory Source of Information: Patient Limitations: No Limitations Time Seen by Provider: 12/09/23 16:31 Description of Symptoms (Recalled from Triage Doc. by RN): PATIENT C/O PAIN TO LEFT PINKY TOE AFTER HITTING HER FOOT ON A CROCK-POT YESTERDAY HEENT Symptoms (Recalled from RN notes): No Resp Symptoms (Recalled from RN notes): No Skin Symptoms (Recalled from RN notes): No MS Symptoms (Recalled from RN notes): Yes Functional Status (Recalled from RN notes): WNL History of Present Illness Provider Complaint: Pt reports that she hit her pinky toe on a crockpot yesterday and it is bruised and swollen. Related Data Previous Rx's Medication Instructions Recorded cholecalciferol (vitamin D3) 50 50 mcg PO DAILY #90 caps 07/28/23 mcg (2,000 unit) capsule pantoprazole 40 mg tablet,delayed 40 mg PO DAILY #90 tabs 07/28/23 release (Protonix) epinephrine 0.3 mg/0.3 mL 0.3 mg (0.3 mL) IM Q5-15M PRN 08/17/23 injection, auto-injector (EpiPen) anaphylaxis #1 ea amitriptyline 10 mg tablet 10 mg PO HS #30 tabs 08/26/23 dicyclomine 20 mg tablet 20 mg PO TID PRN abdominal pain 08/26/23 #180 tabs methylprednisolone 4 mg tablets in 4 mg PO DIRECTED 6 days #21 tabs 11/12/23 a dose pack polymyxin B sulfate 10,000 1 drp Eye-Left Q3H 7 days #10 mL 11/12/23 unit-trimethoprim 1 mg/mL eye drops Allergies Allergy/AdvReac Type Severity Reaction Status Date / Time Penicillins [PENICILLINS] Allergy Severe Anaphylaxis Verified 08/26/23 11:51 mold Allergy Intermediate Other Verified 08/26/23 11:51 Iodinated Contrast Media Allergy Anaphylaxis Verified 08/26/23 11:51 Worker's Comp Is this a Worker's Comp case?: No [facility] Disclaimer: The information contained in this section may have been updated after the patient was seen, as this information can be updated by other users. Medical History Gastroesophageal reflux disease LGSIL on Pap smear of cervix Nexplanon insertion insertion 10/15/20 Vitamin D deficiency (~09/26/17) Hyperlipidemia (~09/26/17) Family history of diabetes mellitus Polyuria Apneic episode Migraine headache Social History Smoking Status: Never smoker alcohol intake: never substance use type: denies use current occupational status: other Travel in the last 8 weeks: None household members: family housing: house caffeine: No ROS Obtained: Yes All systems reviewed & no additional complaints except as documented Constitutional Constitutional: Reports system reviewed and no additional complaints, except as documented Eyes Eyes: Reports system reviewed and no additional complaints, except as documented ENT Ears, Nose, Mouth, and Throat: Reports system reviewed and no additional complaints, except as documented Cardiovascular Cardiovascular: Reports system reviewed and no additional complaints, except as documented Respiratory Respiratory: Reports system reviewed and no additional complaints, except as documented Gastrointestinal Gastrointestingal: Reports system reviewed and no additional complaints, except as documented Genitourinary Female Genitourinary: Reports system reviewed and no additional complaints, except as documented Musculoskeletal Musculoskeletal: Reports system reviewed and no additional complaints, except as documented, Reports abnormal gait, Reports arthralgias and Reports joint swelling Integumentary/Breasts Skin/Breast: Reports system reviewed and no additional complaints, except as documented Neurologic Neurologic: Reports system reviewed and no additional complaints, except as documented and Reports abnormal gait Endocrine Endocrine: Reports system reviewed and no additional complaints, except as documented Hematologic/Lymphatic Henatologic/Lymphatic: Reports system reviewed and no additional complaints, except as documented Allergic/Immunologic Allergic/Immunologic: Reports system reviewed and no additional complaints, except as documented Physical Exam General General appearance: alert and in no apparent distress Head Head exam: atraumatic and normocephalic Eye Eye exam: Present normal appearance ENT ENT exam: Present normal exam and normal oropharynx Neck Neck exam: Present normal inspection Chest Chest inspection: Present normal inspection and symmetric chest wall rise Respiratory Respiratory exam: Present normal lung sounds bilaterally Cardiovascular Cardiovascular exam: Present regular rate and normal rhythm Abdominal Exam Abdominal exam: Present soft and normal bowel sounds Extremities Exam Extremities exam: Present tenderness, normal capillary refill and edema Expanded Lower Extremity Exam Left: Hip/Pelvis exam: Present normal inspection Knee exam: Present normal inspection Lower leg exam: Present normal inspection Ankle exam: Present normal inspection Foot/toe exam: Present tenderness (fifth digit), swelling (fifth digit), ecchymosis (fifth digit) and tenderness at base of 5th metatarsal Top foot image: 1. bruising and swelling Neurovascular/Tendon exam: Present normal capillary refill Gait: observed and limited by pain Back Exam Back exam: Present normal inspection Neurological Exam Neurological exam: Present alert and oriented X3 Psychiatric Psychiatric exam: Present normal affect and normal mood Skin Skin exam: Present warm, dry and intact Lymphatic Lymphatic Findings: no adenopathy Medical Decision Making Ty Inquiry Pt receiving controlled substance: No Ty was queried for this patient: No Vital Signs: 12/09/23 16:25 Temperature 98.0 F Temperature Source Oral Pulse Rate [Left Brachial] 73 Respiratory Rate 20 Blood Pressure [Left Arm] 133/80 Blood Pressure Mean [Left Arm] 97 Blood Pressure Source [Left Arm] Automatic Cuff Blood Pressure Position [Left Arm] Sitting 02 Sat by Pulse Oximetry 95 Oxygen Delivery Method Room Air Orders (Tests/Meds): ORDERS Category Date Time Status Foot XR left 2 views [XR foot LT 2V] Stat Exams 12/09/23 16:29 Completed Radiology Data #1: Image(s): Foot/Toes Image Reviewed: Yes I reviewed the patient's radiology results and Yes I have reviewed radiologist's interpretation FINDINGS: Bones/joints: Multiple views were obtained. The osseous structures appear intact with no evidence of acute fracture, dislocation, or malalignment. Joint spaces are preserved. No abnormal bone density or destructive lesions are noted. Soft tissues: Soft tissue swelling is observed, and further clinical correlation is advised. IMPRESSION: At the time of imaging, the skeletal radiograph demonstrates no acute osseous abnormalities but does show soft tissue swelling.
[2023-12-09 17:27] VITALS: BP 133/80; PULSE 73; RESP 20; TEMP 36.7; O2SAT 95
== END 2023-12-09 17:32 | disposition home or self-care (01) ==
PROVIDERS: Emergency Provider Nurse Practitioner Family; PCP Physician Assistant
DX: S90.122A Contusion of left lesser toe(s) without damage to nail, initial encounter (principal); W22.8XXA Striking against or struck by other objects, initial encounter
CPT/HCPCS: 73620; 99212; 99213; G0463

== ENCOUNTER → 2024-01-13 07:24 | Outpatient (CLI) | payer MEDICARE, MEDICAID, SELFPAY | LOC: SL 07:25 | PROVIDERS: PCP Nurse Practitioner Family; Visit Provider Nurse Practitioner Family | DX: G47.33 Obstructive sleep apnea (adult) (pediatric) (principal); R40.0 Somnolence; R06.09 Other forms of dyspnea | CPT/HCPCS: G0399 ==

== ENCOUNTER 2024-04-10 16:56 | Emergency (ER) | payer MEDICARE, MEDICAID, SELFPAY ==
[2024-04-10 17:35] VITALS: BP 134/65; PULSE 70; RESP 21; TEMP 36.8; O2SAT 96; BMI 50.1
--- NOTE | 2024-04-10 17:43 | ED_ITS ---
Discharge Plan Disposition Patient Disposition: Home, Self-Care Condition: Good Prescriptions Prescriptions: New azithromycin [Zithromax] 250 mg tablet 250 mg PO UD DOSE PK Qty: 6 0RF Rx Instructions: Take two (2) tablets today, then one (1) tablet days #2 thru #5 methylprednisolone 4 mg Tablets,Dose Pack 4 mg PO DIRECTED 6 Days Qty: 21 0RF Rx Instructions: Take 1 pack as directed for 6 days [id number] [Bromfed DM] 2-30-10 mg/5 mL Syrup 5 ml PO Q6H PRN (Reason: Cough) Qty: 240 0RF No Action cholecalciferol (vitamin D3) 50 mcg (2,000 unit) capsule 50 mcg PO DAILY Qty: 90 3RF pantoprazole [Protonix] 40 mg tablet,delayed release (DR/EC) 40 mg PO DAILY Qty: 90 3RF Referrals Follow up/Referrals: Jose Baker APRN [Primary Care Provider] - See instructions Activity Restrictions/Add. Instructions Additional Instructions/Restrictions: Drink plenty of fluids. Take tylenol or ibuprofen for pain or fever. Take the medications as directed. Follow up with your regular doctor. GO TO THE ER FOR ANY WORSENING SYMPTOMS Clinical Impressions Clinical Impression: Acute bronchitis, Acute viral syndrome Instructions Patient Instructions: Acute Bronchitis, DI for Acute Bronchitis Print Language Print Language: Luxembour[place] Discharge ED Provider: Jeff Velasquez [facility] General Stated complaint: Cough,congestion Mode of Arrival: Ambulatory Source of Information: Patient Limitations: No Limitations Time Seen by Provider: 04/10/24 17:43 Description of Symptoms (Recalled from Triage Doc. by RN): PATIENT C/O COUGH AND STATES HER CHEST HURTS WHEN SHE COUGH SINCE YESTERDAY HEENT Symptoms (Recalled from RN notes): No Resp Symptoms (Recalled from RN notes): Yes Skin Symptoms (Recalled from RN notes): No MS Symptoms (Recalled from RN notes): No Functional Status (Recalled from RN notes): WNL Related Data Previous Rx's ?Medication ?Instructions ?Recorded cholecalciferol (vitamin D3) 50 50 mcg PO DAILY #90 caps 07/28/23 mcg (2,000 unit) capsule pantoprazole 40 mg tablet,delayed 40 mg PO DAILY #90 tabs 07/28/23 release (Protonix) azithromycin 250 mg tablet 250 mg PO UD DOSE PK #6 tabs 04/10/24 (Zithromax) yxgokylwksbuqsk-nvcbahhhpzafoah-VT 5 ml PO Q6H PRN Cough #240 mL 04/10/24 2 mg-30 mg-10 mg/5 mL oral syrup (Bromfed DM) methylprednisolone 4 mg tablets in 4 mg PO DIRECTED 6 days #21 tabs 04/10/24 a dose pack Allergies Allergy/AdvReac Type Severity Reaction Status Date / Time Penicillins [PENICILLINS] Allergy Severe Anaphylaxis Verified 12/23/23 13:38 mold Allergy Intermediate Other Verified 12/23/23 13:38 Iodinated Contrast Media Allergy Anaphylaxis Verified 12/23/23 13:38 Worker's Comp Is this a Worker's Comp case?: No [facility] Disclaimer: The information contained in this section may have been updated after the patient was seen, as this information can be updated by other users. Medical History Gastroesophageal reflux disease LGSIL on Pap smear of cervix Nexplanon insertion insertion 10/15/20 Vitamin D deficiency (~09/26/17) Hyperlipidemia (~09/26/17) Family history of diabetes mellitus Polyuria Apneic episode Migraine headache Social History Smoking Status: Never smoker alcohol intake: never substance use type: denies use current occupational status: other Travel in the last 8 weeks: None household members: family housing: house caffeine: No ROS Obtained: Yes All systems reviewed & no additional complaints except as d ocumented Constitutional Constitutional: Reports chills and Reports fever(s) Eyes Eyes: Denies eye discharge ENT Ears, Nose, Mouth, and Throat: Reports as per HPI Cardiovascular Cardiovascular: Denies chest pain Respiratory Respiratory: Denies chest congestion and Reports cough Gastrointestinal Gastrointestingal: Reports nausea; Denies abdominal pain, constipation, cramping, diarrhea or vomiting Musculoskeletal Musculoskeletal: Denies arthralgias Integumentary/Breasts Skin/Breast: Denies rash Neurologic Neurologic: Denies paresthesias Physical Exam General General appearance: alert and in no apparent distress Eye Eye exam: Present normal appearance, PERRL and EOMI ENT ENT exam: Present mucous membranes moist and normal external ear exam Expanded ENT Exam External ear exam: Present normal external inspection TM/Canal exam: Bilateral TM: erythema and bulging Nose exam: Absent sinus tenderness Nasal speculum exam: Bilateral: normal Mouth exam: Present normal external inspection; Absent drooling Teeth exam: Present normal inspection Throat exam: Present tonsillar erythema and tonsillomegaly Neck Neck exam: Present normal inspection, full ROM and trachea midline; Absent tenderness, lymphadenopathy or thyromegaly Chest Chest inspection: Present normal inspection and symmetric chest wall rise; Absent tenderness or rash Respiratory Respiratory exam: Present normal lung sounds bilaterally; Absent respiratory distress, wheezes, stridor or accessory muscle use Cardiovascular Cardiovascular exam: Present regular rate, normal rhythm and normal heart sounds Abdominal Exam Abdominal exam: Present soft; Absent distention, tenderness, guarding, rebound or rigidity Extremities Exam Extremities exam: Present normal inspection, full ROM and normal capillary refill; Absent tenderness or calf tenderness Back Exam Back exam: Present normal inspection and full ROM; Absent tenderness Neurological Exam Neurological exam: Present alert and oriented X3 Psychiatric Psychiatric exam: Present normal affect and normal mood Skin Skin exam: Present warm, dry, intact and normal color Lymphatic Lymphatic Findings: no adenopathy Medical Decision Making Medical Records Medical records reviewed: No I reviewed the patient's medical records. Screening: Per USPSTF and CDC recommendations, given the prevalence of disease in our region, it is our hospital?s policy to screen for HIV and viral Hepatitis for all patients aged 18 and over and those with ongoing risk factors. Ty Inquiry Pt receiving controlled substance: No Vital Signs: 04/10/24 17:35 Temperature 98.2 F Temperature Source Oral Pulse Rate [Left Brachial] 70 Respiratory Rate 21 Blood Pressure [Left Arm] 134/65 Blood Pressure Mean [Left Arm] 88 Blood Pressure Source [Left Arm] Automatic Cuff Blood Pressure Position [Left Arm] Sitting 02 Sat by Pulse Oximetry 96 Oxygen Delivery Method Room Air Lab Data Lab results reviewed: Yes I reviewed the patient's lab results.
[2024-04-10 18:35] VITALS: BP 134/65; PULSE 70; RESP 21; TEMP 36.8; O2SAT 96
== END 2024-04-10 18:42 | disposition home or self-care (01) ==
PROVIDERS: Emergency Provider Nurse Practitioner Family; PCP Nurse Practitioner Family
DX: B34.9 Viral infection, unspecified (principal)
CPT/HCPCS: 87635; 99213; G0381

== ENCOUNTER 2024-04-13 23:31 | Inpatient (IN) | payer MEDICARE, MEDICAID, SELFPAY ==
--- NOTE | 2024-04-13 23:29 | ECG_ITS ---
APPROVED REPORT Exam: Resting ECG HR:106 bpm ECG Measurements Heart Rate 106 AXES OR 141 P 39 QRSd 85 QRS 104 QT 320 T 24 QTc 382 Conclusion SINUS TACHYCARDIA RIGHT AXIS DEVIATION [QRS AXIS > 100] NONSPECIFIC T-WAVE ABNORMALITY ABNORMAL ECG UNCONFIRMED REPORT Electronically signed by : DACIA MAR, 04/15/2024 00:45:00
[2024-04-13 23:31] VITALS: BP 149/89; PULSE 63; RESP 24; TEMP 36.9; O2SAT 100; BMI 47.8
--- NOTE | 2024-04-13 23:43 | XR_ITS ---
PROCEDURE INFORMATION: Exam: XR Chest Exam date and time: 04/14/2024 12:07 AM Age: 23 years old Clinical indication: Cough and shortness of breath; Additional info: Cough SOA TECHNIQUE: Imaging protocol: Radiologic exam of the chest. Views: 1 view. COMPARISON: CR CXR CHEST(2 VIEWS-NOT PORTABLE) 05/19/2017 12:24 PM FINDINGS: Lungs: Low lung volumes. Pulmonary vasculature grossly normal. Alveolar opacities in the left mid and basilar lung concerning for pneumonia versus atelectasis or atypical edema pattern. Bandlike atelectasis in the right upper lobe. Pleural spaces: No pleural effusion. No pneumothorax. Heart/Mediastinum: Heart size normal. No tracheal/mediastinal shift. Bones/joints: No acute osseous abnormalities are identified. IMPRESSION: Alveolar opacities in the left lung mid and basilar distributions concerning for pneumonia versus atelectasis or atypical edema pattern.
[2024-04-13 23:44] VITALS: PULSE 63
--- NOTE | 2024-04-13 23:48 | ED_ITS ---
Discharge Plan Disposition Patient Disposition: Admitted Prescriptions Prescriptions: No Action cholecalciferol (vitamin D3) 50 mcg (2,000 unit) capsule 50 mcg PO DAILY Qty: 90 3RF pantoprazole [Protonix] 40 mg tablet,delayed release (DR/EC) 40 mg PO DAILY Qty: 90 3RF azithromycin [Zithromax] 250 mg tablet 250 mg PO UD DOSE PK Qty: 6 0RF Rx Instructions: Take two (2) tablets today, then one (1) tablet days #2 thru #5 methylprednisolone 4 mg Tablets,Dose Pack 4 mg PO DIRECTED 6 Days Qty: 21 0RF Rx Instructions: Take 1 pack as directed for 6 days [id number] [Bromfed DM] 2-30-10 mg/5 mL Syrup 5 ml PO Q6H PRN (Reason: Cough) Qty: 240 0RF Clinical Impressions Clinical Impression: Pneumonia, Asthma exacerbation Respiratory failure Qualifiers: Chronicity: acute Respiratory failure complication: hypoxia Qualified Code(s): J96.01 - Acute respiratory failure with hypoxia Print Language Print Language: [place] Discharge ED Provider: Nicko Ordonez General Adult HPI General Chief complaint: Chest Pain Stated complaint: chest pain Time Seen by Provider: 04/13/24 23:35 Mode of Arrival: Wheelchair Source of Information: Patient Limitations: No Limitations Description of Symptoms (Recalled from ER Triage Doc. by RN): Pt reports to ED with cc of chest pain. Pt states started approx 30 mins ago. Pt states she was checking out at [facility] when the chest pain started. Pt states having shortness of breathe with the chest pain. Pt denies pain radiating. Pt states having N&V. Pt describe the chest pain as tightness. Pt is accompained by sister. Pt sister states pt told her she was having some facial numbness. History of Present Illness HPI narrative: 23-year-old female with reported history of asthma presents with worsening chest pain shortness of breath. She reports that she has felt better last few days with cough and some shortness of breath. She was seen at urgent care couple days ago and diagnosed with bronchitis, was discharged with azithromycin and steroids but she did not pick them up. She reports that her asthma is not usually severe. Related Data Previous Rx's ?Medication ?Instructions ?Recorded cholecalciferol (vitamin D3) 50 50 mcg PO DAILY #90 caps 07/28/23 mcg (2,000 unit) capsule pantoprazole 40 mg tablet,delayed 40 mg PO DAILY #90 tabs 07/28/23 release (Protonix) azithromycin 250 mg tablet 250 mg PO UD DOSE PK #6 tabs 04/10/24 (Zithromax) [id number]-cflrfjkmdcdjebf-BR 5 ml PO Q6H PRN Cough #240 mL 04/10/24 2 mg-30 mg-10 mg/5 mL oral syrup (Bromfed DM) methylprednisolone 4 mg tablets in 4 mg PO DIRECTED 6 days #21 tabs 04/10/24 a dose pack Allergies Allergy/AdvReac Type Severity Reaction Status Date / Time Penicillins [PENICILLINS] Allergy Severe Anaphylaxis Verified 12/23/23 13:38 mold Allergy Intermediate Other Verified 12/23/23 13:38 Iodinated Contrast Media Allergy Anaphylaxis Verified 12/23/23 13:38 [facility] Disclaimer: The information contained in this section may have been updated after the patient was seen, as this information can be updated by other users. Medical History Gastroesophageal reflux disease LGSIL on Pap smear of cervix Nexplanon insertion insertion 10/15/20 Vitamin D deficiency (~09/26/17) Hyperlipidemia (~09/26/17) Family history of diabetes mellitus Polyuria Apneic episode Migraine headache Social History Smoking Status: Current every day smoker tobacco type: cigarettes packs per day: 1 alcohol intake: never substance use type: denies use current occupational status: other Travel in the last 8 weeks: None household members: family housing: house caffeine: No Other Medical History Have you received the Flu Vaccine for this season: No Have you received the Pneumonia Vaccine: No ROS Obtained: Yes All systems reviewed & no additional complaints except as documented Physical Exam General General appearance: alert Comment: Uncomfortable appearing Head Head exam: atraumatic and normocephalic Eye Eye exam: Present normal appearance, PERRL and EOMI ENT ENT exam: Present normal oropharynx and normal external ear exam Neck Neck exam: Present normal inspection and full ROM Chest Chest inspection: Present normal inspection and symmetric chest wall rise; Absent tenderness Respiratory Respiratory exam: Present respiratory distress (Mild tachypnea) and wheezes (Mild bilateral); Absent prolonged expiratory phase Cardiovascular Cardiovascular exam: Present normal rhythm and tachycardia Abdominal Exam Abdominal exam: Present soft; Absent distention, tenderness or guarding Extremities Exam Extremities exam: Present normal inspection; Absent edema or joint swelling Back Exam Back exam: Present normal inspection; Absent tenderness Neurological Exam Neurological exam: Present alert and oriented X3; Absent motor sensory deficit Psychiatric Psychiatric exam: Present normal affect and normal mood Skin Skin exam: Present warm, dry and normal color Lymphatic Lymphatic Findings: no adenopathy Medical Decision Making Medical Records Medical records reviewed: Yes I reviewed the patient's medical records. Screening: Per USPSTF and CDC recommendations, given the prevalence of disease in our region, it is our hospital?s policy to screen for HIV and viral Hepatitis for all patients aged 18 and over and those with ongoing risk factors. Ty Inquiry Pt receiving controlled substance: No Ty was queried for this patient: No Vital Signs: 04/13/24 23:31 04/13/24 23:44 04/14/24 00:22 Temperature 98.5 F Temperature Source Oral Pulse Rate 63 100 H Pulse Rate [Left Radial] 63 Respiratory Rate 24 Blood Pressure [Right Arm] 149/89 H Blood Pressure Mean [Right Arm] 109 Blood Pressure Source [Right Arm] Automatic Cuff Blood Pressure Position [Right Arm] Sitting 02 Sat by Pulse Oximetry 100 Oxygen Delivery Method Room Air 04/14/24 00:22 Temperature Temperature Source Pulse Rate 98 H Pulse Rate [Left Radial] Respiratory Rate Blood Pressure [Right Arm] Blood Pressure Mean [Right Arm] Blood Pressure Source [Right Arm] Blood Pressure Position [Right Arm] 02 Sat by Pulse Oximetry Oxygen Delivery Method Lab Data Lab results reviewed: Yes I reviewed the patient's lab results. Lab Results 04/13/24 23:47: WBC 7.0, RBC 5.36, Hgb 14.8, Hct 44.5, MCV 82.9, MCH 27.5, MCHC 33.2, RDW 14.6, Plt Count 265, MPV 6.9 L, Neut % (Auto) 65.1, Lymph % (Auto) 26.8, [place] % (Auto) 5.4, Eos % (Auto) 1.7, Baso % (Auto) 1.0, Neut # (Auto) 4.6, Lymph # (Auto) 1.9, [place] # (Auto) 0.4, Eos # (Auto) 0.1, Baso # (Auto) 0.1, Sodium 139, Potassium 3.7, Chloride 104, Carbon Dioxide 24, Anion Gap 14.7, BUN 12, Creatinine 0.70, Estimated Creat Clear 102, Estimated GFR 102, Est GFR ( Amer) 123, Glucose 121 H, Calcium 9.4, Total Bilirubin 0.9, AST 32, ALT 22, Alkaline Phosphatase 68, Troponin I < 0.01, Total Protein 7.9, Albumin 4.6, Globulin 3.3 H, Albumin/Globulin Ratio 1.4, Serum HCG, Qual Negative, HIV 1&2 Antibody Rapid Nonreactive 04/14/24 00:04: SARS-CoV-2 (PCR) Not detected, Influenza A Untype (PCR) Not detected, Influenza Type B (PCR) Not detected 04/13/24 23:47 04/13/24 23:47 Orders (Tests/Meds): ED MEDICATIONS Generic Name Dose Route Start Last Admin Trade Name Freq PRN Reason Stop Dose Admin Benzonatate 100 mg 04/14/24 01:00 Benzonatate 100mg Capsule PO 05/14/24 00:59 ONCE URIEL Levofloxacin/Dextrose 750 mg in 150 mls @ 100 mls/hr 04/14/24 01:30 Levofloxacin 750mg/150ml Premix IV 04/24/24 01:29 Q24H URIEL Discontinued Medications Generic Name Dose Route Start Last Admin Trade Name Freq PRN Reason Stop Dose Admin Acetaminophen 1,000 mg 04/13/24 23:43 04/13/24 23:58 Acetaminophen 500mg Tab PO 04/13/24 23:44 1,000 mg ONCE ONE Administration Albuterol/Ipratropium 6 ml 04/13/24 23:43 04/14/24 00:22 Ipratropium/Albuterol 3 Ml Neb IH 04/13/24 23:44 6 ml ONCE ONE Administration Azithromycin 500 mg 04/14/24 00:56 04/14/24 01:14 Azithromycin 250mg Tablet PO 04/14/24 00:57 Not Given ONCE ONE Dexamethasone Sodium Phosphate 10 mg 04/13/24 23:46 04/13/24 23:58 Dexamethasone 4mg/Ml 1ml Vial IV 04/13/24 23:47 10 mg ONCE ONE Administration Doxycycline Hyclate 100 mg 04/14/24 00:57 04/14/24 01:14 Doxycycline Hycl 100 Mg Tablet PO 04/14/24 00:58 Not Given ONCE ONE Lidocaine HCl 5 ml 04/14/24 00:20 04/14/24 00:22 Lidocaine 2% 20ml Vial IJ 04/14/24 00:21 5 ml ONCE ONE Administration ORDERS Category Date Time Status CXR --portable [XR chest portable] Stat Exams 04/13/24 23:43 Completed CBC w/Auto Diff [Complete Blood Count Auto Diff] Stat Lab 04/13/24 23:47 Completed CMP [Comprehensive Metabolic Panel] Stat Lab 04/13/24 23:47 Completed Full Resp Panel w/COVID ([facility]) Routine Lab 04/14/24 01:14 Ordered HCG Qualitative, Serum Stat Lab 04/13/24 23:47 Completed HIV (1&2) Antibody Rapid Stat Lab 04/13/24 23:47 Completed Hep C Ab with Reflex to RNA Stat Lab 04/13/24 23:47 Received Procalcitonin Stat Lab 04/14/24 01:14 Ordered Rapid PCR Covid and Flu A/B Stat Lab 04/14/24 00:04 Completed Troponin I Q3H Lab 04/13/24 23:47 Completed Troponin I Q3H Lab 04/14/24 02:46 Ordered Medical Decision Narrative: 23-year-old female with history of asthma presents for several days of worsening cough shortness of breath, acutely worsened tonight with the addition of chest pain. History was obtained via interactive discussion with patient, chart review. On arrival, patient is afebrile, mildly tachycardic, satting mid 90s on room air, alert and oriented, moving all extremities spontaneously. Full physical exam performed and significant for mild bilateral wheezing, mild tachypnea Differential includes but is not limited to asthma exacerbation, pneumonia, URI, COVID flu. Patient was given Decadron, DuoNeb x 2, lidocaine neb, Tessalon Perles, Tylenol for symptomatic management and correction of underlying abnormalities. Workup initiated including CBC CMP test troponin EKG chest x-ray COVID flu swab. On re-evaluation, patient reports some improvement in her breathing, but she is now hypoxic. She is satting in the high 80s consistently. With ambulation she dropped to the low 80s. She was placed on 2 L nasal cannula. Laboratory workup independently interpreted by me and significant for negative COVID flu, negative initial troponin, unremarkable labs. Imaging independently interpreted by me and significant for opacities consistent with pneumonia. See radiology read for full review of final results. EKG independently interpreted by me and significant for sinus tachycardia, rate of 106, insignificant Q-wave in lead III, no concerning ST changes. Documented April 13 at 2330. Given patient history, exam and workup, patient's presentation most likely represents pneumonia and asthma exacerbation with acute hypoxic respiratory failure. Given her anaphylactic allergy to penicillins, we will administer Levaquin for empiric treatment of commune acquired pneumonia. Interactive discussion was had with the hospitalist on-call for admission. Procedures Risk/Benefits of Procedure(s) Were Explained: Yes Critical Care Critical Care Time Critical Care Time: Yes Attestation: On 04/13/24, the high probability of a clinically significant, sudden or life threatening deterioration of the following system(s) respiratory required my full and direct attention, intervention and personal management. The time I documented below is in addition to time spent performing reported procedures but includes the following listed in this critical care notation. Total Time Total Critical Care Time: 40
--- NOTE | 2024-04-13 23:55 | PC.NURSE ---
contacted respiratory for the duoneb treatments
[2024-04-13 23:56] LABS: Basophils # 0.1 K/mm3 (0-0.2); Eosinophils # 0.1 K/mm3 (0.0-0.4); Eosinophils % 1.7 % (0.1-12.0); Hematocrit 44.5 % (37.0-47.0); Hemoglobin 14.8 g/dL (12.2-16.2); Lymphocytes # 1.9 K/mm3 (0.7-4.5); Lymphocytes % 26.8 % (10-50); Mean Corpuscular HGB Conc 33.2 g/dL (31.8-35.4); Mean Corpuscular Hemoglobin 27.5 pg (27.0-31.2); Mean Corpuscular Volume 82.9 fl (81-99); Mean Platelet Volume 6.9 fl (7.4-10.4); Monocytes # 0.4 K/mm3 (0.1-1.0); Monocytes % 5.4 % (1.7-9.3); Neutrophils # 4.6 K/mm3 (1.8-7.8); Neutrophils % 65.1 % (37.0-80.0); Platelet Count 265 K/mm3 (142-424); Red Blood Count 5.36 M/mm3 (4.20-5.40); Red Cell Distribution Width 14.6 % (11.5-17.5)
[2024-04-13] MEDS: DEXAMETHASONE 4MG/ML 1ML VIAL 10 MG IV (23:58)
[2024-04-13] MEDS: ACETAMINOPHEN 500MG TAB 1000 MG PO (23:58)
[2024-04-14] VITALS (15 sets, daily range): BP systolic 134–169; BP diastolic 63–90; PULSE 78–112; RESP 14–25; TEMP 36.4–37.1; O2SAT 92–96; BMI 49.7
[2024-04-14 00:05] LABS: Albumin Level 4.6 g/dl (3.5-5.0); Chloride 104 mmol/L (98-107); Potassium 3.7 mmoL/L (3.5-5.1); Sodium 139 mmol/L (136-145)
[2024-04-14 00:06] LABS: Blood Urea Nitrogen 12 mg/dl (7-17); Creatinine Clearance Estimated 102 mL/min (50-200); Estimated Glomerular Filt Rate 102 ml/min (>60); GFR (African American) 123 ML/MIN (>60); HCG Qualitative, Serum Negative (Negative)
[2024-04-14 00:07] LABS: Alanine Aminotransferase 22 U/L (12-78); Albumin/Globulin Ratio 1.4 (1.1-1.8); Alkaline Phosphatase 68 U/L (38-126); Anion Gap 14.7 mEq/L (5-15); Aspartate Amino Transferase 32 U/L (14-36); Bilirubin,Total 0.9 mg/dl (0.2-1.3); Calcium 9.4 mg/dl (8.4-10.2); Carbon Dioxide 24 mmol/L (22.0-30.0); Globulin 3.3 g/dL (1.3-3.2); Glucose 121 mg/dl (74-100); Total Protein,Serum 7.9 g/dl (6.3-8.2)
[2024-04-14 00:11] LABS: Coronavirus 19, PCR Not Detected (NotDetected); Influenza A, PCR Not Detected (NotDetected); Influenza B, PCR Not Detected (NotDetected)
[2024-04-14] MEDS: LIDOCAINE 2% 20ML VIAL 5 ML IJ (00:22)
[2024-04-14] MEDS: IPRATROPIUM/ALBUTEROL 3 ML NEB 6 ML IH (00:22)
[2024-04-14 00:27] LABS: HIV (1&2) Antibody Rapid NONREACTIVE (NONREACTIVE)
[2024-04-14 00:33] LABS: Troponin I < 0.01 ng/ml (0.00-0.034)
[2024-04-14] MEDS: BENZONATATE 100MG CAPSULE 100 MG PO (01:16)
[2024-04-14] MEDS: LEVOFLOXACIN/D5W 750 MG/150 ML 750 MG/150 ML PIGGYBACK 100 MG IV (01:16)
--- NOTE | 2024-04-14 01:20 | PC.NURSE ---
Attempted to call report nurse unable to take report at this time.
--- NOTE | 2024-04-14 01:35 | PC.NURSE ---
Report called to Justina KNIGHT
[2024-04-14 01:56] LABS: Procalcitonin 0.046 ng/mL (0.0-2.0)
--- NOTE | 2024-04-14 02:04 | P.HP_ITS ---
<Statement entered by Simba Hernandez MD - 04/16/24 15:21> Personally examined the patient and agree with the plan of care outlined by LAWYER. History of Present Illness *Admission Date: 04/14/24 *Reason for visit:: Shortness of breath *History of present illness: This is a 23-year-old female with past medical history of morbid obesity, TOO, hypertension and asthma who presents emergency department today with complaints of shortness of breath. She reports approximate 1 week ago developing increased wheezing and shortness of breath. Was seen in the outpatient clinic and diagnosed with bronchitis and sent home with cough syrup and steroids. States that she got into a coughing spell today and could not catch her breath. She denies any fever or congestion. States that she is coughing up clear sputum. Has been using her inhaler more than normal at home. Used to use her mother's nebulizer but she had to turn that nebulizer machine in. States that she wears BiPAP at home for her TOO. Emergency Department workup notable for mild respiratory stress on arrival. Audible wheezing noted upon arrival to the emergency department. Oxygen saturations in the mid 80s. She received bronchodilators and steroids in the emergency department with mild improvement in symptoms. They attempted to ambulate her off oxygen and had oxygen saturation dropped to 82% on room air. Given her continued wheezing and need for supplemental O2, she is admitted to the hospital service [facility] Disclaimer: The information contained in this section may have been updated after the patient was seen, as this information can be updated by other users. Medical History Gastroesophageal reflux disease LGSIL on Pap smear of cervix Nexplanon insertion Vitamin D deficiency (~09/26/17) Hyperlipidemia (~09/26/17) Family history of diabetes mellitus Polyuria Apneic episode Migraine headache Social History Smoking Status: Current every day smoker tobacco type: cigarettes packs per day: 1 alcohol intake: never substance use type: denies use current occupational status: other Travel in the last 8 weeks: None household members: family housing: house caffeine: No Other Medical History Have you received the Flu Vaccine for this season: No Have you received the Pneumonia Vaccine: No Review of Systems Review of Systems Review of systems:: other Review of systems (narrative): Negative except for HPI Meds Home Medications and Allergies Home Medications ?Medication ?Instructions ?Recorded ?Confirmed ?Type cholecalciferol (vitamin D3) 50 50 mcg PO DAILY #90 caps 07/28/23 04/10/24 Rx mcg (2,000 unit) capsule pantoprazole 40 mg tablet,delayed 40 mg PO DAILY #90 tabs 07/28/23 04/10/24 Rx release (Protonix) azithromycin 250 mg tablet 250 mg PO UD DOSE PK #6 tabs 04/10/24 Rx (Zithromax) [id number]-mpuvebcacgboida-WN 5 ml PO Q6H PRN Cough #240 mL 04/10/24 Rx 2 mg-30 mg-10 mg/5 mL oral syrup (Bromfed DM) methylprednisolone 4 mg tablets in 4 mg PO DIRECTED 6 days #21 tabs 04/10/24 Rx a dose pack New Prescriptions to Start Prescriptions: Allergies Allergy/AdvReac Type Severity Reaction Status Date / Time Penicillins [PENICILLINS] Allergy Severe Anaphylaxis Verified 12/23/23 13:38 mold Allergy Intermediate Other Verified 12/23/23 13:38 Iodinated Contrast Media Allergy Anaphylaxis Verified 12/23/23 13:38 Exam Data for Last 24 hours Vital signs and Labs for Last 24 Hours: Temp Pulse Resp BP Pulse Ox O2 Del Method O2 Flow Rate 98.5 F 107 H 24 169/63 H 93 L Nasal Cannula 2 04/14/24 01:35 04/14/24 01:35 04/14/24 01:35 04/14/24 01:35 04/14/24 01:00 04/14/24 01:35 04/14/24 01:35 Laboratory Results - last 24 hr 04/13/24 23:47: WBC 7.0, RBC 5.36, Hgb 14.8, Hct 44.5, MCV 82.9, MCH 27.5, MCHC 33.2, RDW 14.6, Plt Count 265, MPV 6.9 L, Neut % (Auto) 65.1, Lymph % (Auto) 26.8, [place] % (Auto) 5.4, Eos % (Auto) 1.7, Baso % (Auto) 1.0, Neut # (Auto) 4.6, Lymph # (Auto) 1.9, [place] # (Auto) 0.4, Eos # (Auto) 0.1, Baso # (Auto) 0.1, Sodium 139, Potassium 3.7, Chloride 104, Carbon Dioxide 24, Anion Gap 14.7, BUN 12, Creatinine 0.70, Estimated Creat Clear 102, Estimated GFR 102, Est GFR ( Amer) 123, Glucose 121 H, Calcium 9.4, Total Bilirubin 0.9, AST 32, ALT 22, Alkaline Phosphatase 68, Troponin I < 0.01, Total Protein 7.9, Albumin 4.6, Globulin 3.3 H, Albumin/Globulin Ratio 1.4, Serum HCG, Qual Negative, HIV 1&2 Antibody Rapid Nonreactive 04/14/24 00:01: Procalcitonin 0.046 04/14/24 00:04: SARS-CoV-2 (PCR) Not detected, Influenza A Untype (PCR) Not detected, Influenza Type B (PCR) Not detected I & O for Last 24 hours: Intake & Output 04/11/24 04/12/24 04/13/24 04/14/24 23:59 23:59 23:59 23:59 Weight 122.47 kg Constitutional Constitutional: no acute distress *Routine HEENT Exam Head: Present normocephalic Eye: Present EOMI and PERRL ENT: Present mucous membranes moist *Routine Neck Exam Neck: Present supple; Absent lymphadenopathy *Routine Respiratory Exam Respiratory: Present prolonged expiratory phase, wheezes and crackles *Routine Cardiovascular Exam Cardiovascular: Present RRR *Routine Abdominal Exam Abdominal: Present soft and normoactive bowel sounds; Absent tenderness *Routine Rectal Exam Rectal:: deferred *Routine Genitalia Exam Genitalia:: deferred *Routine Extremities Exam Extremities: Absent cyanosis, clubbing or edema *Routine Skin Exam Skin: Present warm; Absent rash *Routine Neurological Exam Neurological: Present alert and oriented X3 Assessment and Plan *Assessment and plan (1) Asthma exacerbation: Status: Acute Category: Medical Code(s): J45.901 - Unspecified asthma with (acute) exacerbation (2) Pneumonia: Status: Acute Category: Medical Code(s): J18.9 - Pneumonia, unspecified organism (3) TOO (obstructive sleep apnea): Status: Acute Category: Medical Code(s): G47.33 - Obstructive sleep apnea (adult) (pediatric) (4) Acute respiratory failure with hypoxia: Status: Acute Category: Medical Code(s): J96.01 - Acute respiratory failure with hypoxia Plan #Acute respiratory failure with hypoxia #Pneumonia #Asthma exacerbation On admission patient still has diffuse wheezing in the anterior upper lung ortega. Patient has extreme cough with difficulty catching her breath. Continue promethazine/codeine cough syrup for symptomatic relief Continue supplemental O2, wean as tolerated Daily prednisone 20 mg Continue Levaquin antibiotics, procalcitonin pending. Sputum culture pending COVID flu negative, will send for RPP DuoNebs every 6 #TOO CPAP for naps and bedtime. #Obesity, morbid Complicates all aspects of care
--- NOTE | 2024-04-14 02:06 | PC.NURSE ---
patient arrived to floor via stretcher @02:05
[2024-04-14] MEDS: PROMETHAZINE W/CODEINE 6.25MG/10MG 5ML UDC 5 ML PO ×2 (02:32→06:51)
[2024-04-14 04:05] LABS: Troponin I 0.01 ng/ml (0.00-0.034)
[2024-04-14 04:16] LABS: Adenovirus,PCR Not Detected (NotDetected); Bordetella Pertussis Not Detected (NotDetected); Chlamydophila Pneumoniae, PCR Not Detected (NotDetected); Coronavirus 19, PCR Not Detected (NotDetected); Coronavirus 229E Not Detected (NotDetected); Coronavirus NL63 Not Detected (NotDetected); Coronavirus OC43 Not Detected (NotDetected); Coronovirus HKU1,PCR Not Detected (NotDetected); Human Metapneumovirus Not Detected (NotDetected); Influenza A, PCR Not Detected (NotDetected); Influenza AH1, 2009 Not Detected (NotDetected); Influenza AH1, PCR Not Detected (NotDetected); Influenza AH3,PCR Not Detected (NotDetected); Influenza B, PCR Not Detected (NotDetected); Parainfluenza 1, PCR Not Detected (NotDetected); Parainfluenza 2, PCR Not Detected (NotDetected); Parainfluenza 3, PCR Not Detected (NotDetected); Parainfluenza 4, PCR Not Detected (NotDetected); Respiratory Syncytial Virus Not Detected (NotDetected); Rhinovirus/Enterovirus Not Detected (NotDetected)
[2024-04-14 05:46] LABS: Mycoplasma Pneumoniae, PCR Detected (NotDetected)
[2024-04-14] MEDS: IPRATROPIUM/ALBUTEROL 3 ML NEB IH (06:21)
[2024-04-14 06:45] LABS: Basophils % 0.4 % (0.1-2.0); Hematocrit 43.5 % (37.0-47.0); Hemoglobin 14.1 g/dL (12.2-16.2); Lymphocytes # 0.6 K/mm3 (0.7-4.5); Lymphocytes % 9.4 % (10-50); Mean Corpuscular HGB Conc 32.3 g/dL (31.8-35.4); Mean Corpuscular Hemoglobin 27.8 pg (27.0-31.2); Mean Corpuscular Volume 85.9 fl (81-99); Monocytes # 0.1 K/mm3 (0.1-1.0); Neutrophils # 5.3 K/mm3 (1.8-7.8); Neutrophils % 88.3 % (37.0-80.0); Platelet Count 255 K/mm3 (142-424); Red Blood Count 5.07 M/mm3 (4.20-5.40); Red Cell Distribution Width 14.6 % (11.5-17.5)
[2024-04-14] MEDS: AZITHROMYCIN 500 MG in 0.9 % SODIUM CHLORIDE 250 ML 250 MG IV (06:45)
[2024-04-14 06:48] LABS: MANUAL DIFFERENTIAL MANUAL DIFFERENTIAL (MANUAL DIFF)
[2024-04-14 07:00] LABS: Blood Urea Nitrogen 13 mg/dl (7-17); Calcium 8.9 mg/dl (8.4-10.2); Carbon Dioxide 25 mmol/L (22.0-30.0); Chloride 105 mmol/L (98-107); Creatinine Clearance Estimated 113 mL/min (50-200); Estimated Glomerular Filt Rate 122 ml/min (>60); GFR (African American) 147 ML/MIN (>60); Glucose 185 mg/dl (74-100); Sodium 140 mmol/L (136-145)
[2024-04-14] MEDS: predniSONE 20MG TAB 20 MG PO ×2 (08:31→09:51)
[2024-04-14] MEDS: CEFTRIAXONE 1 GM 1 GM in 0.9 % SODIUM CHLORIDE 50 ML IV (09:46)
[2024-04-14 09:59] LABS: Lymphocytes % 8 % (10-50); Monocytes % 3 % (2-9); Neutrophils % 89 % (42-76); Platelet Estimate Normal; RBC Morphology Normal; Total Cells Counted 100
[2024-04-14] MEDS: MAGNESIUM SULFATE IN WATER 2 GM/50 ML PIGGYBACK IV (11:22)
--- NOTE | 2024-04-14 15:56 | PC.NURSE ---
patient is a/ox4 and currently tolerating 2 LNC with o2 sats in the mid 90s. no c/o pain or nausea this shift. pt has been up ad isis to the bathroom independently. still awaiting sputum, pt is aware but unable to cough anything up, specimen cup at bedside. call light within reach no further requests at this time.
--- NOTE | 2024-04-14 22:21 | EXP.PN ---
Subjective *Date: 04/14/24 *Time: 22:21 Exam Data for Last 24 hours Vital signs and Labs for Last 24 Hours: Temp Pulse Resp BP Pulse Ox O2 Del Method O2 Flow Rate 98.8 F 90 18 157/89 H 96 Nasal Cannula 2 04/14/24 20:00 04/14/24 20:00 04/14/24 20:00 04/14/24 20:00 04/14/24 21:09 04/14/24 21:09 04/14/24 21:09 Laboratory Results - last 24 hr 04/13/24 23:47: WBC 7.0, RBC 5.36, Hgb 14.8, Hct 44.5, MCV 82.9, MCH 27.5, MCHC 33.2, RDW 14.6, Plt Count 265, MPV 6.9 L, Neut % (Auto) 65.1, Lymph % (Auto) 26.8, [place] % (Auto) 5.4, Eos % (Auto) 1.7, Baso % (Auto) 1.0, Neut # (Auto) 4.6, Lymph # (Auto) 1.9, [place] # (Auto) 0.4, Eos # (Auto) 0.1, Baso # (Auto) 0.1, Sodium 139, Potassium 3.7, Chloride 104, Carbon Dioxide 24, Anion Gap 14.7, BUN 12, Creatinine 0.70, Estimated Creat Clear 102, Estimated GFR 102, Est GFR ( Amer) 123, Glucose 121 H, Calcium 9.4, Total Bilirubin 0.9, AST 32, ALT 22, Alkaline Phosphatase 68, Troponin I < 0.01, Total Protein 7.9, Albumin 4.6, Globulin 3.3 H, Albumin/Globulin Ratio 1.4, Serum HCG, Qual Negative, HIV 1&2 Antibody Rapid Nonreactive 04/14/24 00:01: Procalcitonin 0.046 04/14/24 00:04: SARS-CoV-2 (PCR) Not detected, Influenza A Untype (PCR) Not detected, Influenza Type B (PCR) Not detected 04/14/24 03:20: Troponin I 0.01 04/14/24 04:00: Chlamy pneumoniae PCR Not detected, Adenovirus (PCR) Not detected, B. pertussis DNA (PCR) Not detected, Coronavirus OC43 (PCR) Not detected, Coronavirus HKU1 (PCR) Not detected, Coronavirus 229E (PCR) Not detected, SARS-CoV-2 (PCR) Not detected, Coronavirus NL63 (PCR) Not detected, Human Metapneumovir PCR Not detected, Influenza A (H1) PCR Not detected, Influ A (H1N1/09) PCR Not detected, Influenza A (H3) PCR Not detected, Influenza Type A (PCR) Not detected, Influenza Type B (PCR) Not detected, M. pneumoniae (PCR) Detected A, Parainfluenza 1 (PCR) Not detected, Parainfluenza 2 (PCR) Not detected, Parainfluenza 3 (PCR) Not detected, Parainfluenza 4 (PCR) Not detected, RSV (PCR) Not detected, Entero/Rhino (PCR) Not detected 04/14/24 05:57: WBC 6.0, RBC 5.07, Hgb 14.1, Hct 43.5, MCV 85.9, MCH 27.8, MCHC 32.3, RDW 14.6, Plt Count 255, MPV 7.0 L, Neut % (Auto) 88.3 H, Lymph % (Auto) 9.4 L, [place] % (Auto) 2.0, Eos % (Auto) 0.0 L, Baso % (Auto) 0.4, Neut # (Auto) 5.3, Lymph # (Auto) 0.6 L, [place] # (Auto) 0.1, Eos # (Auto) 0.0, Baso # (Auto) 0.0, Total Counted 100, Neutrophils % (Manual) 89 H, Lymphocytes % (Manual) 8 L, Monocytes % (Manual) 3, Platelet Estimate Normal, RBC Morphology Normal, Sodium 140, Potassium 4.0, Chloride 105, Carbon Dioxide 25, Anion Gap 14.0, BUN 13, Creatinine 0.60, Estimated Creat Clear 113, Estimated GFR 122, Est GFR ( Amer) 147, Glucose 185 H D, Calcium 8.9 I & O for Last 24 hours: Intake & Output 04/11/24 04/12/24 04/13/24 04/14/24 23:59 23:59 23:59 23:59 Intake Total 780 / 780 Output Total 0 / 0 Balance 780 / 780 Weight 122.47 kg 127.323 kg Assessment and Plan *Assessment and plan (1) Asthma exacerbation: Status: Acute Category: Medical Code(s): J45.901 - Unspecified asthma with (acute) exacerbation (2) Pneumonia: Status: Acute Category: Medical Code(s): J18.9 - Pneumonia, unspecified organism (3) TOO (obstructive sleep apnea): Status: Acute Category: Medical Code(s): G47.33 - Obstructive sleep apnea (adult) (pediatric) (4) Acute respiratory failure with hypoxia: Status: Acute Category: Medical Code(s): J96.01 - Acute respiratory failure with hypoxia Plan #Acute respiratory failure with hypoxia #Pneumonia #Asthma exacerbation On admission patient still has diffuse wheezing in the anterior upper lung ortega. Patient has extreme cough with difficulty catching her breath. Continue promethazine/codeine cough syrup for symptomatic relief Continue supplemental O2, wean as tolerated Daily prednisone 40 mg Ceftriaxone, azithrymycin. Sputum culture pending COVID flu negative, will send for RPP DuoNebs every 6 - Started pulmicort. Given IV magnesium. Still requiring 5-6L NC. #TOO CPAP for naps and bedtime. #Obesity, morbid Complicates all aspects of care
[2024-04-15] VITALS (12 sets, daily range): BP systolic 133–162; BP diastolic 71–87; PULSE 53–120; RESP 16–20; TEMP 36.8–36.9; O2SAT 93–97; BMI 49.7
[2024-04-15] MEDS: IPRATROPIUM/ALBUTEROL 3 ML NEB IH ×4 (00:17→18:14)
[2024-04-15 05:11] LABS: HCV Ab Non Reactive (Non Reactive)
[2024-04-15] MEDS: AZITHROMYCIN 500 MG in 0.9 % SODIUM CHLORIDE 250 ML 250 MG IV (05:59)
[2024-04-15] MEDS: BUDESONIDE 0.5MG/2ML NEB 0.5 MG IH ×2 (06:28→18:13)
[2024-04-15] MEDS: ONDANSETRON 4MG/2ML VIAL 4 MG IV (07:29)
[2024-04-15] MEDS: predniSONE 20MG TAB 40 MG PO (08:25)
[2024-04-15] MEDS: CEFTRIAXONE 1 GM 1 GM in 0.9 % SODIUM CHLORIDE 50 ML IV (08:25)
[2024-04-15 08:37] LABS: Basophils % 0.5 % (0.1-2.0); Eosinophils % 0.6 % (0.1-12.0); Hematocrit 44.5 % (37.0-47.0); Lymphocytes # 1.8 K/mm3 (0.7-4.5); Lymphocytes % 28.2 % (10-50); Mean Corpuscular HGB Conc 31.4 g/dL (31.8-35.4); Mean Corpuscular Hemoglobin 27.6 pg (27.0-31.2); Monocytes # 0.3 K/mm3 (0.1-1.0); Neutrophils # 4.3 K/mm3 (1.8-7.8); Neutrophils % 66.7 % (37.0-80.0); Platelet Count 284 K/mm3 (142-424); Red Blood Count 5.06 M/mm3 (4.20-5.40); Red Cell Distribution Width 14.8 % (11.5-17.5); White Blood Count 6.5 K/mm3 (4.8-10.8)
[2024-04-15 08:45] LABS: Albumin Level 4.2 g/dl (3.5-5.0); Chloride 107 mmol/L (98-107); Potassium 4.2 mmoL/L (3.5-5.1); Sodium 141 mmol/L (136-145)
[2024-04-15 08:48] LABS: Alanine Aminotransferase 22 U/L (12-78); Albumin/Globulin Ratio 1.4 (1.1-1.8); Alkaline Phosphatase 53 U/L (38-126); Anion Gap 11.2 mEq/L (5-15); Aspartate Amino Transferase 25 U/L (14-36); Bilirubin,Total 0.7 mg/dl (0.2-1.3); Blood Urea Nitrogen 18 mg/dl (7-17); Calcium 8.8 mg/dl (8.4-10.2); Carbon Dioxide 27 mmol/L (22.0-30.0); Creatinine Clearance Estimated 97 mL/min (50-200); Estimated Glomerular Filt Rate 102 ml/min (>60); GFR (African American) 123 ML/MIN (>60); Glucose 191 mg/dl (74-100); Total Protein,Serum 7.2 g/dl (6.3-8.2)
[2024-04-15] MEDS: MAGNESIUM SULFATE IN WATER 2 GM/50 ML PIGGYBACK IV (09:38)
[2024-04-15] MEDS: FLUTICASONE/SALMETEROL 250/50MCG DISKUS 1 PUFF IH ×2 (11:03→18:16)
--- NOTE | 2024-04-15 14:10 | CT_ITS ---
PROCEDURE INFORMATION: Exam: CT Chest Without Contrast; Diagnostic Exam date and time: 04/15/2024 2:35 PM Age: 23 years old Clinical indication: Condition or disease; Lung condition and disease; Hypoxia; Shortness of breath; Additional info: Hypoxia, SOB TECHNIQUE: Imaging protocol: Diagnostic computed tomography of the chest without contrast. Radiation optimization: All CT scans at this facility use at least one of these dose optimization techniques: automated exposure control; mA and/or kV adjustment per patient size (includes targeted exams where dose is matched to clinical indication); or iterative reconstruction. COMPARISON: CR XR CHEST PORTABLE 04/14/2024 12:07 AM. Chest radiograph dated 05/19/2017. FINDINGS: Tubes, catheters and devices: None. Lungs: Bilateral pulmonary multifocal linear interstitial and alveolar consolidation opacities are demonstrated within the lungs. The pulmonary opacities are demonstrated within bilateral upper and lower lungs. The pulmonary opacities are prominent within bilateral perihilar lungs. Prominent alveolar consolidation in the left perihilar mid lung extending to the posteromedial left lower lobe. Pleural spaces: Unremarkable. No pneumothorax. No pleural effusion. Heart: The heart does not appear enlarged. No significant pericardial effusion. Coronary arteries: Within the limitations of the study, no definite coronary arterial calcifications are identified. Lymph nodes: Calcified right hilar and mediastinal lymph nodes are present compatible with prior granulomatous infection. Vasculature: Unremarkable. No aortic aneurysm. Bones/joints: No acute bony abnormality identified. Soft tissues: Unremarkable. Other findings: This study is severely limited by patient's large body habitus. Clinically significant abnormalities may not be visible on this study. Recommend clinical correlation. Limited study with motion artifact. IMPRESSION: 1. Significantly limited study. 2. Bilateral pneumonia. 3. Decreased lung volumes with linear pulmonary atelectasis, scarring.
--- NOTE | 2024-04-15 15:21 | PC.NURSE ---
patient is a/ox4 and currently on RA. o2 sats on RA are 90%-94%. pt ambulated in the hallway via stand by assist on RA and sats dropped to 85% with no c/o SOB or dizziness. c/o nausea earlier in shift, treated per AUG. tolerating diet well. call light within reach, no further requests a this time.
--- NOTE | 2024-04-15 15:38 | EXP.PN ---
Subjective *Date: 04/15/24 *Time: 15:38 Interval history: Patient continues to have significant cough, desaturated to 85% on room air on walk test today. No chest pain. Exam Data for Last 24 hours Vital signs and Labs for Last 24 Hours: Temp Pulse Resp BP Pulse Ox O2 Del Method O2 Flow Rate 98.5 F 71 19 133/74 95 Room Air 2 04/15/24 12:00 04/15/24 12:00 04/15/24 12:00 04/15/24 12:00 04/15/24 12:00 04/15/24 15:00 04/15/24 13:00 Laboratory Results - last 24 hr 04/13/24 23:47: Hepatitis C Antibody Non reactive 04/15/24 08:27: WBC 6.5, RBC 5.06, Hgb 14.0, Hct 44.5, MCV 88.0, MCH 27.6, MCHC 31.4 L, RDW 14.8, Plt Count 284, MPV 7.0 L, Neut % (Auto) 66.7, Lymph % (Auto) 28.2, [place] % (Auto) 4.0, Eos % (Auto) 0.6, Baso % (Auto) 0.5, Neut # (Auto) 4.3, Lymph # (Auto) 1.8, [place] # (Auto) 0.3, Eos # (Auto) 0.0, Baso # (Auto) 0.0, Sodium 141, Potassium 4.2, Chloride 107, Carbon Dioxide 27, Anion Gap 11.2, BUN 18 H D, Creatinine 0.70, Estimated Creat Clear 97, Estimated GFR 102, Est GFR ( Amer) 123, Glucose 191 H, Calcium 8.8, Total Bilirubin 0.7, AST 25, ALT 22, Alkaline Phosphatase 53, Total Protein 7.2, Albumin 4.2, Globulin 3.0, Albumin/Globulin Ratio 1.4 I & O for Last 24 hours: Intake & Output 04/12/24 04/13/24 04/14/24 04/15/24 23:59 23:59 23:59 23:59 Intake Total 780 / 980 1000 / 1000 Output Total 0 / 0 Balance 780 / 980 1000 / 1000 Weight 122.47 kg 127.323 kg 127.323 kg Constitutional Constitutional: no acute distress *Routine HEENT Exam Head: Present normocephalic Eye: Present EOMI and PERRL ENT: Present mucous membranes moist *Routine Neck Exam Neck: Present supple; Absent lymphadenopathy *Routine Respiratory Exam Respiratory: Present wheezes and diminished air movement; Absent CTA bilaterally *Routine Cardiovascular Exam Cardiovascular: Present RRR *Routine Abdominal Exam Abdominal: Present soft and normoactive bowel sounds; Absent tenderness *Routine Extremities Exam Extremities: Absent cyanosis, clubbing or edema *Routine Skin Exam Skin: Present warm; Absent rash *Routine Neurological Exam Neurological: Present alert and oriented X3 Assessment and Plan *Assessment and plan (1) Asthma exacerbation: Status: Acute Category: Medical Code(s): J45.901 - Unspecified asthma with (acute) exacerbation (2) Pneumonia: Status: Acute Category: Medical Code(s): J18.9 - Pneumonia, unspecified organism (3) TOO (obstructive sleep apnea): Status: Acute Category: Medical Code(s): G47.33 - Obstructive sleep apnea (adult) (pediatric) (4) Acute respiratory failure with hypoxia: Status: Acute Category: Medical Code(s): J96.01 - Acute respiratory failure with hypoxia Plan #Acute respiratory failure with hypoxia # Multifocal community-acquired pneumonia # Presumed asthma exacerbation On admission patient still has diffuse wheezing in the anterior upper lung ortega. Patient has extreme cough with difficulty catching her breath. ? Patient was told she has asthma, but does not have home inhalers and does not seem like she has had PFTs. Current smoker. ? Respiratory panel positive for mycoplasma pneumonia. ? CT chest reveals bilateral pneumonia, but no chronic lung disease. ? Walk test today had desaturations to 85% on room air. ? Duo[place] scheduled and as needed. Pulmicort twice daily. ? Started Symbicort today. ? IV magnesium also given today. ? Continue ceftriaxone, azithromycin day 2/5. ? Prednisone 40 mg day 2/5. ? Will need pulmonology referral, PFTs outpatient. #Tobacco use disorder ? Nicotine patch as needed #TOO CPAP for naps and bedtime. #Obesity, morbid Complicates all aspects of care
[2024-04-16] VITALS (8 sets, daily range): BP systolic 127–157; BP diastolic 68–86; PULSE 55–85; RESP 16–18; TEMP 36.9; O2SAT 92–97; BMI 49.7
[2024-04-16] MEDS: IPRATROPIUM/ALBUTEROL 3 ML NEB IH ×3 (00:06→11:12)
--- NOTE | 2024-04-16 04:26 | PC.NURSE ---
23 yo female pt is A/O X 4. She is able to ambulate to BR with standby assist. [address] at 2 liters per nc however pt has taken 02 off several times throughout the shift. She has denied pain or increased SOA. Pt slept on and off throughout shift. VS have been stable for pt
[2024-04-16] MEDS: AZITHROMYCIN 500 MG in 0.9 % SODIUM CHLORIDE 250 ML 250 MG IV (05:30)
[2024-04-16] MEDS: BUDESONIDE 0.5MG/2ML NEB 0.5 MG IH (06:06)
[2024-04-16] MEDS: FLUTICASONE/SALMETEROL 250/50MCG DISKUS 1 PUFF IH (06:07)
[2024-04-16 07:40] LABS: Basophils # 0.1 K/mm3 (0-0.2); Basophils % 0.7 % (0.1-2.0); Eosinophils # 0.1 K/mm3 (0.0-0.4); Hematocrit 42.1 % (37.0-47.0); Lymphocytes # 2.7 K/mm3 (0.7-4.5); Lymphocytes % 35.7 % (10-50); Mean Corpuscular HGB Conc 33.1 g/dL (31.8-35.4); Mean Corpuscular Hemoglobin 28.4 pg (27.0-31.2); Mean Corpuscular Volume 85.7 fl (81-99); Monocytes # 0.4 K/mm3 (0.1-1.0); Monocytes % 4.8 % (1.7-9.3); Neutrophils # 4.3 K/mm3 (1.8-7.8); Neutrophils % 57.8 % (37.0-80.0); Platelet Count 292 K/mm3 (142-424); Red Blood Count 4.92 M/mm3 (4.20-5.40); Red Cell Distribution Width 14.8 % (11.5-17.5); White Blood Count 7.4 K/mm3 (4.8-10.8)
[2024-04-16 07:48] LABS: Chloride 105 mmol/L (98-107); Potassium 3.9 mmoL/L (3.5-5.1); Sodium 142 mmol/L (136-145)
[2024-04-16 07:51] LABS: Blood Urea Nitrogen 18 mg/dl (7-17); Creatinine Clearance Estimated 76 mL/min (50-200); Estimated Glomerular Filt Rate 76 ml/min (>60); GFR (African American) 92 ML/MIN (>60)
[2024-04-16 07:52] LABS: Anion Gap 11.9 mEq/L (5-15); Calcium 8.5 mg/dl (8.4-10.2); Carbon Dioxide 29 mmol/L (22.0-30.0); Glucose 124 mg/dl (74-100)
[2024-04-16] MEDS: predniSONE 20MG TAB 40 MG PO (08:33)
[2024-04-16] MEDS: NICOTINE 7MG/24HRS PATCH 7 MG TD (08:34)
[2024-04-16] MEDS: CEFTRIAXONE 1 GM 1 GM in 0.9 % SODIUM CHLORIDE 50 ML IV (08:34)
--- NOTE | 2024-04-16 11:53 | EXP.DC.SUM ---
General Admission date:: 04/14/24 HPI HPI HPI: This is a 23-year-old female with past medical history of morbid obesity, TOO, hypertension and asthma who presents emergency department today with complaints of shortness of breath. She reports approximate 1 week ago developing increased wheezing and shortness of breath. Was seen in the outpatient clinic and diagnosed with bronchitis and sent home with cough syrup and steroids. States that she got into a coughing spell today and could not catch her breath. She denies any fever or congestion. States that she is coughing up clear sputum. Has been using her inhaler more than normal at home. Used to use her mother's nebulizer but she had to turn that nebulizer machine in. States that she wears BiPAP at home for her TOO. Emergency Department workup notable for mild respiratory stress on arrival. Audible wheezing noted upon arrival to the emergency department. Oxygen saturations in the mid 80s. She received bronchodilators and steroids in the emergency department with mild improvement in symptoms. They attempted to ambulate her off oxygen and had oxygen saturation dropped to 82% on room air. Given her continued wheezing and need for supplemental O2, she is admitted to the hospital service Hospital Course Hospital Course Hospital Course: #Acute respiratory failure with hypoxia # Multifocal community-acquired pneumonia # Presumed asthma exacerbation On admission patient had diffuse wheezing throughout lung ortega. Patient has significant cough with difficulty catching her breath. ? Patient was told she has asthma, but does not have home inhalers and does not seem like she has had PFTs. Current smoker. ? Respiratory panel positive for mycoplasma pneumonia. ? CT chest reveals bilateral pneumonia, but no chronic lung disease. - Clinically improved with ceftriaxone and azithromycin, Duoneb and Pulmicort breathing treatments, IV magnesium, prednisone, and starting Symbicort. Appropriate saturations on walk test. - Discharged with cefdinir, azithromycin, and prednisone for a total of 5 days. Also prescribed Symbicort. - Referred to pulmonology for further evaluation and management. #Tobacco use disorder ? Nicotine patch as needed. Counseled on smoking cessation. #TOO Home CPAP for naps and bedtime. #Obesity, morbid Complicates all aspects of care Exam Data for Last 24 hours Vital signs and Labs for Last 24 Hours: Temp Pulse Resp BP Pulse Ox O2 Del Method O2 Flow Rate 98.5 F 83 17 133/86 97 Room Air 2 04/16/24 08:00 04/16/24 11:12 04/16/24 08:00 04/16/24 08:00 04/16/24 11:12 04/16/24 11:12 04/16/24 01:37 EDT Laboratory Results - last 24 hr 04/16/24 07:32: WBC 7.4, RBC 4.92, Hgb 14.0, Hct 42.1, MCV 85.7, MCH 28.4, MCHC 33.1, RDW 14.8, Plt Count 292, MPV 7.0 L, Neut % (Auto) 57.8, Lymph % (Auto) 35.7, [place] % (Auto) 4.8, Eos % (Auto) 1.0, Baso % (Auto) 0.7, Neut # (Auto) 4.3, Lymph # (Auto) 2.7, [place] # (Auto) 0.4, Eos # (Auto) 0.1, Baso # (Auto) 0.1, Sodium 142, Potassium 3.9, Chloride 105, Carbon Dioxide 29, Anion Gap 11.9, BUN 18 H, Creatinine 0.90 D, Estimated Creat Clear 76, Estimated GFR 76, Est GFR ( Amer) 92 D, Glucose 124 H D, Calcium 8.5 I & O for Last 24 hours: Intake & Output 04/13/24 04/14/24 04/15/24 04/16/24 23:59 23:59 23:59 22:59 Intake Total 780 / 980 1530 / 1530 530 / 530 Output Total 0 / 0 0 / 0 0 / 0 Balance 780 / 980 1530 / 1530 530 / 530 Weight 122.47 kg 127.323 kg 127.323 kg 127.323 kg Constitutional Constitutional: no acute distress and obese *Routine HEENT Exam Head: Present normocephalic Eye: Present EOMI and PERRL ENT: Present mucous membranes moist *Routine Neck Exam Neck: Present supple; Absent lymphadenopathy *Routine Respiratory Exam Respiratory: Present wheezes and diminished air movement; Absent CTA bilaterally *Routine Cardiovascular Exam Cardiovascular: Present RRR *Routine Abdominal Exam Abdominal: Present soft and normoactive bowel sounds; Absent tenderness *Routine Extremities Exam Extremities: Absent cyanosis, clubbing or edema *Routine Skin Exam Skin: Present warm; Absent rash *Routine Neurological Exam Neurological: Present alert and oriented X3 Results Data Completed and Pending Labs on day of discharge: Labs from last 24 hours 04/16/24 07:32 WBC 7.4 RBC 4.92 Hgb 14.0 Hct 42.1 MCV 85.7 MCH 28.4 MCHC 33.1 RDW 14.8 Plt Count 292 MPV 7.0 L Neut % (Auto) 57.8 Lymph % (Auto) 35.7 [place] % (Auto) 4.8 Eos % (Auto) 1.0 Baso % (Auto) 0.7 Neut # (Auto) 4.3 Lymph # (Auto) 2.7 [place] # (Auto) 0.4 Eos # (Auto) 0.1 Baso # (Auto) 0.1 Sodium 142 Potassium 3.9 Chloride 105 Carbon Dioxide 29 Anion Gap 11.9 BUN 18 H Creatinine 0.90 D Estimated Creat Clear 76 Estimated GFR 76 Est GFR ( Amer) 92 D Glucose 124 H D Calcium 8.5 DS: Diagnosis Discharge Diagnosis (1) Asthma exacerbation: Status: Resolved Code(s): J45.901 - Unspecified asthma with (acute) exacerbation (2) Pneumonia: Status: Acute Code(s): J18.9 - Pneumonia, unspecified organism Problem details: IM steroid Albuterol for shortness of breath, wheezing (3) TOO (obstructive sleep apnea): Status: Acute Code(s): G47.33 - Obstructive sleep apnea (adult) (pediatric) (4) Acute respiratory failure with hypoxia: Status: Resolved Code(s): J96.01 - Acute respiratory failure with hypoxia Meds Home Medications and Allergies Home Medications ?Medication ?Instructions ?Recorded ?Confirmed ?Type cholecalciferol (vitamin D3) 50 50 mcg PO DAILY #90 caps 07/28/23 04/20/24 Rx mcg (2,000 unit) capsule pantoprazole 40 mg tablet,delayed 40 mg PO DAILY #90 tabs 07/28/23 04/20/24 Rx release (Protonix) amitriptyline 10 mg tablet 10 mg PO HS 04/14/24 04/20/24 History fluticasone 250 mcg-salmeterol 50 1 inh inhalation BIDRT 30 days #60 04/16/24 04/20/24 Rx mcg/dose blistr powdr for ea inhalation (Advair Diskus) albuterol sulfate 90 mcg/actuation 1 inh inhalation Q6H PRN shortness 04/20/24 04/20/24 Rx aerosol inhaler of breath or wheezing #8.5 grams benzonatate 200 mg capsule 200 mg PO BID PRN cough #30 caps 04/20/24 04/20/24 Rx levofloxacin 500 mg tablet 500 mg PO DAILY 7 days #7 tabs 04/20/24 04/20/24 Rx New Prescriptions to Start Prescriptions: fluticasone propion-salmeterol [Advair Diskus] Simba Hernandez Allergies Allergy/AdvReac Type Severity Reaction Status Date / Time Penicillins [PENICILLINS] Allergy Severe Anaphylaxis Verified 04/20/24 14:11 mold Allergy Intermediate Other Verified 04/20/24 14:11 Iodinated Contrast Media Allergy Anaphylaxis Verified 04/20/24 14:11 Discharge Plan Disposition Patient Disposition: Home, Self-Care Discharge Order Discharge Orders: Discharge Order (Routine); Ordered 04/16/24 Ordered By: Simba Hernandez Follow up Plan Follow up with: Jose Baker APRN [Nurse Practitioner] - Enter time for follow up Praveen Zheng MD [Physician] - 04/19/24 Prescriptions/Medication Reconciliation: New fluticasone propion-salmeterol [Advair Diskus] 250-50 mcg/dose Blister With Device 1 inh inhalation BIDRT 30 Days Qty: 60 0RF Continued cholecalciferol (vitamin D3) 50 mcg (2,000 unit) capsule 50 mcg PO DAILY Qty: 90 3RF pantoprazole [Protonix] 40 mg tablet,delayed release (DR/EC) 40 mg PO DAILY Qty: 90 3RF amitriptyline 10 mg Tablet 10 mg PO HS No Action levofloxacin 500 mg tablet 500 mg PO DAILY 7 Days Qty: 7 0RF benzonatate 200 mg capsule 200 mg PO BID PRN (Reason: cough) Qty: 30 0RF albuterol sulfate 90 mcg/actuation HFA aerosol inhaler 1 inh inhalation Q6H PRN (Reason: shortness of breath or wheezing) Qty: 8.5 0RF Problem Reconciliation Problems Reviewed?: Yes Patient Discharge Instructions Patient Instructions: Pneumonia--Adult Print Language: German Providers Primary Care Provider: Provider,Referral Admit Provider: Simba Hernandez Attending Provider: Simba Hernandez
--- NOTE | 2024-04-18 13:48 | CARE MANAGER ---
Attempted to contact patient x2 related to hospital discharge. Left VM message. EUGENE Au
== END 2024-04-16 14:07 | disposition home or self-care (01) | DRG 189 ==
LOC: ER 04-14 01:15 → 2ND 04-14 10:48
PROVIDERS: Nurse Practitioner Acute Care; Admitting Provider Student in an Organized Health Care Education/Training Program; Emergency Provider Emergency Medicine; Visit Provider Student in an Organized Health Care Education/Training Program
DX: J96.01 Acute respiratory failure with hypoxia (principal); J18.9 Pneumonia, unspecified organism; Z68.42 Body mass index [BMI] 45.0-49.9, adult; J45.901 Unspecified asthma with (acute) exacerbation; E55.9 Vitamin D deficiency, unspecified; G47.33 Obstructive sleep apnea (adult) (pediatric); F17.210 Nicotine dependence, cigarettes, uncomplicated; E66.01 Morbid (severe) obesity due to excess calories
CPT/HCPCS: 36415; 71045; 71250; 80048; 80053; 84145; 84484; 84703; 85007; 85025; 85378; 86803; 87265; 87389; 87486; 87581; 87632; 87635; 87636; 93005; 94640; 94761; 99291; J0456; J0696; J1100; J1956; J2405; J3475; J7050; J7620

== ENCOUNTER 2024-07-17 17:30 | Emergency (ER) | payer MEDICARE, MEDICAID, SELFPAY ==
[2024-07-17 17:33] VITALS: BP 141/87; PULSE 89; RESP 17; TEMP 36.7; O2SAT 96; BMI 40.7
--- NOTE | 2024-07-17 17:35 | ED_ITS ---
<Statement entered by Musa James MD - 07/17/24 22:52> I was consulted by the PAYAL, and we discussed the complexity of the problems being addressed. I approved the treatment and management plan for this patient's care in the emergency department, thus performing a substantive portion of the medical decision making. Musa James MD, KATARINA, FACEP Discharge Plan Disposition Patient Disposition: Home, Self-Care Condition: Good Prescriptions Prescriptions: No Action cholecalciferol (vitamin D3) 50 mcg (2,000 unit) capsule 50 mcg PO DAILY Qty: 90 3RF pantoprazole [Protonix] 40 mg tablet,delayed release (DR/EC) 40 mg PO DAILY Qty: 90 3RF fluticasone propion-salmeterol [Advair Diskus] 250-50 mcg/dose blister with device 1 inh inhalation BIDRT 90 Days Qty: 60 3RF albuterol sulfate 90 mcg/actuation HFA aerosol inhaler 1 inh inhalation Q6H PRN (Reason: shortness of breath or wheezing) 90 Days Qty: 8.5 3RF benzonatate 200 mg capsule 200 mg PO BID PRN (Reason: cough) Qty: 30 0RF amitriptyline 10 mg Tablet 10 mg PO HS Referrals Follow up/Referrals: Becky Miller APRN [Primary Care Provider] - See instructions Activity Restrictions/Add. Instructions Additional Instructions/Restrictions: Continue taking Tylenol alternating with Motrin for body aches.. You may use [id number] antidiarrheals as instructed. Follow-up with your PCP for continued new or worsening signs or symptoms or return to the ER as needed. Clinical Impressions Clinical Impression: Diarrhea Qualifiers: Diarrhea type: unspecified type Qualified Code(s): R19.7 - Diarrhea, unspecified Instructions Patient Instructions: DI for Diarrhea and Traveler's Diarrhea -- Adult, DI for Diarrhea and Traveler's Diarrhea -- Child, DI for Nausea -- Adult, DI for Nausea -- Child Print Language Print Language: Portuguese Discharge ED Provider: Musa James General Adult HPI General Chief complaint: Nausea/Vomiting/Diarrhea Stated complaint: diarrhea stomach pain Time Seen by Provider: 07/17/24 17:35 History of Present Illness HPI narrative: Patient presents for 5 days of diarrhea. Patient states that she has been having loose stool and crampy abdominal pain for 5 days. She denies any fever chills hemoptysis hematochezia melena nausea or vomiting. Related Data Home Medications ?Medication ?Instructions ?Recorded ?Confirmed amitriptyline 10 mg tablet 10 mg PO HS 04/14/24 06/01/24 Previous Rx's ?Medication ?Instructions ?Recorded cholecalciferol (vitamin D3) 50 50 mcg PO DAILY #90 caps 07/28/23 mcg (2,000 unit) capsule pantoprazole 40 mg tablet,delayed 40 mg PO DAILY #90 tabs 07/28/23 release (Protonix) benzonatate 200 mg capsule 200 mg PO BID PRN cough #30 caps 04/20/24 albuterol sulfate 90 mcg/actuation 1 inh inhalation Q6H PRN shortness 05/24/24 aerosol inhaler of breath or wheezing 90 days #8.5 grams fluticasone 250 mcg-salmeterol 50 1 inh inhalation BIDRT 90 days #60 05/24/24 mcg/dose blistr powdr for ea inhalation (Advair Diskus) Allergies Allergy/AdvReac Type Severity Reaction Status Date / Time Penicillins (PENICILLINS) Allergy Severe Anaphylaxis Verified 06/01/24 16:24 mold Allergy Intermediate Other Verified 06/01/24 16:24 Iodinated Contrast Media Allergy Anaphylaxis Verified 06/01/24 16:24 [facility] Disclaimer: The information contained in this section may have been updated after the patient was seen, as this information can be updated by other users. Medical History (Updated 07/17/24 @ 20:35 by NI Díaz) Sleep apnea Asthma Acute viral syndrome Acute bronchitis Bruise of toe Conjunctivitis of left eye Allergic reaction Contusion of knee, left Skin yeast infection Otitis media Plantar fasciitis, bilateral Family history of ovarian cancer Family history of breast cancer Family history of BRCA gene mutation Bilateral otitis media Gastroesophageal reflux disease BMI 38.0-38.9,adult LGSIL on Pap smear of cervix Nexplanon insertion Hypertension Morbid obesity with BMI of 45.0-49.9, adult Vitamin D deficiency (~09/26/17) Hyperlipidemia (~09/26/17) Family history of diabetes mellitus Polyuria Apneic episode Migraine headache Surgical History (Updated 06/01/24 @ 16:25 by Tara Guzmán) History of tonsillectomy and adenoidectomy Family History (Updated 06/01/24 @ 16:26 by Tara Guzmán) Other Anxiety Depression Diabetes Hypertension Sleep apnea Stroke Social History Smoking Status: Never smoker alcohol intake: never substance use type: denies use current occupational status: disabled Travel in the last 8 weeks: None household members: family housing: house caffeine: No Have you lived/traveled outside [place] in past 30 days?: No Contact w/someone who lives/traveled outside US past 30 days?: No Exposure to someone with infectious disease in past 14 days?: No Do you have a fever (greater than 100.4 F or 38 C)?: No Have you tested positive for COVID-19: No Exposed to someone with COVID-19 in past 14 days?: No Do you have a sore throat?: No Do you have a cough?: Yes Do you have any weakness?: Yes Do you have any diarrhea?: Yes Are you experiencing any unusual bleeding?: No Do you have any muscle aches/pain?: No Do you have any abdominal pain?: No Are you experiencing loss of taste or smell?: No Other Medical History Have you received the Flu Vaccine for this season: No Have you received the Pneumonia Vaccine: No ROS Obtained: Yes Systems reviewed as appropriate & no additional complaints except as documented Physical Exam General General appearance: alert and in no apparent distress Respiratory Respiratory exam: Present normal lung sounds bilaterally Cardiovascular Cardiovascular exam: Present regular rate Neurological Exam Neurological exam: Present alert and oriented X3 Medical Decision Making Medical Records Medical records reviewed: Yes I reviewed the patient's medical records. Screening: Per USPSTF and CDC recommendations, given the prevalence of disease in our region, it is our hospital?s policy to screen for HIV and viral Hepatitis for all patients aged 18 and over and those with ongoing risk factors. Ty Inquiry Pt receiving controlled substance: No Vital Signs: 07/17/24 17:33 Temperature 98.1 F Temperature Source Oral Pulse Rate [Left Radial] 89 Respiratory Rate 17 Blood Pressure [Right Arm] 141/87 H Blood Pressure Mean [Right Arm] 105 Blood Pressure Source [Right Arm] Automatic Cuff Blood Pressure Position [Right Arm] Sitting 02 Sat by Pulse Oximetry 96 Oxygen Delivery Method Room Air Lab Data Lab results reviewed: Yes I reviewed the patient's lab results. Lab Results 07/17/24 19:09: WBC 5.9, RBC 5.07, Hgb 13.8, Hct 43.5, MCV 85.8, MCH 27.2, MCHC 31.7 L, RDW 13.8, Plt Count 245, MPV 8.6, Neut % (Auto) 59.3, Lymph % (Auto) 30.7, [place] % (Auto) 6.6, Eos % (Auto) 2.9, Baso % (Auto) 0.3, Neut # (Auto) 3.5, Lymph # (Auto) 1.8, [place] # (Auto) 0.4, Eos # (Auto) 0.2, Baso # (Auto) 0.0, Sodium 140, Potassium 3.6, Chloride 105, Carbon Dioxide 26, Anion Gap 12.6, BUN 12, Creatinine 0.70, Estimated Creat Clear 202, Estimated GFR 102, Est GFR ( Amer) 123, Glucose 98, Calcium 9.1, Magnesium 1.8, Total Bilirubin 0.8, AST 32, ALT 21, Alkaline Phosphatase 68, Total Protein 6.7, Albumin 4.6, Globulin 2.1, Albumin/Globulin Ratio 2.2 H, Lipase 34, Serum HCG, Qual Negative 07/17/24 19:09 07/17/24 19:09 Orders (Tests/Meds): ED MEDICATIONS Discontinued Medications Generic Name Dose Route Start Last Admin Trade Name Freq PRN Reason Stop Dose Admin Sodium Chloride 1,000 mls @ 999 mls/hr 07/17/24 17:58 07/17/24 18:57 Sod Chlor 0.9% 1000ml Bag IV 07/17/24 18:58 999 mls/hr .Q1H1M ONE Administration Ondansetron HCl 4 mg 07/17/24 17:58 07/17/24 18:57 Ondansetron 4mg/2ml Vial IV 07/17/24 17:59 4 mg ONCE ONE Administration ORDERS Category Date Time Status CT abdomen pelvis wo con Stat Cat Scan 07/17/24 17:59 Completed CBC w/Auto Diff [Complete Blood Count Auto Diff] Stat Lab 07/17/24 19:09 Completed CMP [Comprehensive Metabolic Panel] Stat Lab 07/17/24 19:09 Completed Diarrhea 23 Panel, PCR Stat Lab 07/17/24 17:59 Ordered HCG Qualitative, Serum Stat Lab 07/17/24 19:09 Completed Lipase Stat Lab 07/17/24 19:09 Completed Magnesium Stat Lab 07/17/24 19:09 Completed Medical Decision Narrative: In summary patient is a 23-year-old female who presents to the emergency department for evaluation of 5 days of diarrhea and abdominal discomfort. Patient is hemodynamically stable with a blood pressure 141/87 pulse 89 respiratory rate 17 O2 sat of 96% on room air upon arrival, febrile at 98.1. Physical exam is remarkable for mild diffuse abdominal tenderness with no rebound or guarding or rigidity. Bowel sounds normal active.. Differential diagnosis includes gastroenteritis versus colitis versus functional diarrhea etc. Initial workup will be conducted with hematologic labs CT scan abdomen pelvis without contrast as patient has contrast allergy. Initial interventions include crystalloid bolus and Zofran for now. Initial workup reviewed by me shows that her hematologic labs are nonactionable including normal electrolytes normal white count with no shift and negative test. My informed interpretation of CT scan abdomen pelvis shows no acute abnormalities no excessive stool burden no air-fluid levels or dilated bowel.. Upon repeat evaluation patient is still tolerating p.o but was unable to provide a stool specimen. Given this patient is appropriate for discharge with follow-up with her PCP for continuing symptoms. Patient given strict return precautions. Critical Care Critical Care Time Critical Care Time: No
--- NOTE | 2024-07-17 17:59 | CT_ITS ---
PROCEDURE INFORMATION: Exam: CT Abdomen And Pelvis Without Contrast Exam date and time: 07/17/2024 7:55 PM Age: 23 years old Clinical indication: Abdominal pain; Additional info: Acute abd pain TECHNIQUE: Imaging protocol: Computed tomography of the abdomen and pelvis without contrast. Radiation optimization: All CT scans at this facility use at least one of these dose optimization techniques: automated exposure control; mA and/or kV adjustment per patient size (includes targeted exams where dose is matched to clinical indication); or iterative reconstruction. COMPARISON: CT ABDOMEN PELVIS WO CON 02/12/2023 10:46 PM FINDINGS: Limitations: Lack of intravenous contrast. Lungs: Linear atelectasis/scarring LEFT lower lobe. Liver: Unremarkable. Gallbladder and biliary ducts: No calcified stones. No ductal dilation. Pancreas: Unremarkable. No ductal dilation. Spleen: No splenomegaly. Adrenal glands: No mass. Kidneys and ureters: No renal calculi. No significant hydronephrosis. Stomach and bowel: No definite mural thickening. No obstruction. Appendix: Normal caliber. No inflammation. Intraperitoneal space: No significant fluid collection. No definite free air. Vasculature: Unremarkable. No abdominal aortic aneurysm. Lymph nodes: No pathologically enlarged lymph nodes. Urinary bladder: Unremarkable. Reproductive: Small calcification along RIGHT adnexal region, stable. Bones/joints: No acute fracture. Soft tissues: Unremarkable. IMPRESSION: No definite acute intraabdominal abnormality.
--- NOTE | 2024-07-17 18:55 | PC.NURSE ---
have difficulty obtaining IV and labs. After 5 sticks, was able to place a 22g to LAC. However, line will not draw well. Called lab to obtained blood for ordered labs.
[2024-07-17] MEDS: ONDANSETRON 4MG/2ML VIAL 4 MG IV (18:57)
[2024-07-17] MEDS: 0.9 % SODIUM CHLORIDE 1000ML 1,000 ML 999 ML IV (18:57)
[2024-07-17 19:31] LABS: Basophils % 0.3 % (0.1-2.0); Eosinophils # 0.2 K/mm3 (0.0-0.4); Eosinophils % 2.9 % (0.1-12.0); Hematocrit 43.5 % (37.0-47.0); Hemoglobin 13.8 g/dL (12.2-16.2); Lymphocytes # 1.8 K/mm3 (0.7-4.5); Lymphocytes % 30.7 % (10-50); Mean Corpuscular HGB Conc 31.7 g/dL (31.8-35.4); Mean Corpuscular Hemoglobin 27.2 pg (27.0-31.2); Mean Corpuscular Volume 85.8 fl (81-99); Mean Platelet Volume 8.6 fl (7.4-10.4); Monocytes # 0.4 K/mm3 (0.1-1.0); Monocytes % 6.6 % (1.7-9.3); Neutrophils # 3.5 K/mm3 (1.8-7.8); Neutrophils % 59.3 % (37.0-80.0); Platelet Count 245 K/mm3 (142-424); Red Blood Count 5.07 M/mm3 (4.20-5.40); Red Cell Distribution Width 13.8 % (11.5-17.5); White Blood Count 5.9 K/mm3 (4.8-10.8)
[2024-07-17 19:41] LABS: Albumin Level 4.6 g/dl (3.5-5.0); Chloride 105 mmol/L (98-107); Sodium 140 mmol/L (136-145)
[2024-07-17 19:42] LABS: HCG Qualitative, Serum Negative (Negative); Potassium 3.6 mmoL/L (3.5-5.1)
[2024-07-17 19:44] LABS: Alanine Aminotransferase 21 U/L (12-78); Albumin/Globulin Ratio 2.2 (1.1-1.8); Alkaline Phosphatase 68 U/L (38-126); Anion Gap 12.6 mEq/L (5-15); Aspartate Amino Transferase 32 U/L (14-36); Bilirubin,Total 0.8 mg/dl (0.2-1.3); Blood Urea Nitrogen 12 mg/dl (7-17); Calcium 9.1 mg/dl (8.4-10.2); Carbon Dioxide 26 mmol/L (22.0-30.0); Creatinine Clearance Estimated 202 mL/min (50-200); Estimated Glomerular Filt Rate 102 ml/min (>60); GFR (African American) 123 ML/MIN (>60); Globulin 2.1 g/dL (1.3-3.2); Glucose 98 mg/dl (74-100); Lipase 34 U/L (23-300); Magnesium 1.8 mg/dl (1.6-2.3); Total Protein,Serum 6.7 g/dl (6.3-8.2)
[2024-07-17 21:26] VITALS: BP 163/96; PULSE 92; RESP 16; TEMP 36.6; O2SAT 99
== END 2024-07-17 21:27 | disposition home or self-care (01) ==
PROVIDERS: Physician Assistant; Emergency Provider Student in an Organized Health Care Education/Training Program; PCP Family Medicine
DX: R19.7 Diarrhea, unspecified (principal); R10.9 Unspecified abdominal pain
CPT/HCPCS: 74176; 80053; 83690; 83735; 84703; 85025; 96361; 96374; 99284; J2405; J7030

== ENCOUNTER 2024-08-24 12:26 | Outpatient (CLI) | payer MEDICARE, MEDICAID, SELFPAY ==
--- NOTE | 2024-08-24 13:47 | PC.NURSE ---
6 Minute Walk completed without incident.
== END 2024-08-24 23:59 | disposition home or self-care (01) ==
LOC: RT 12:27
PROVIDERS: PCP Family Medicine; Visit Provider Internal Medicine Pulmonary Disease
DX: R06.09 Other forms of dyspnea (principal)
CPT/HCPCS: 94618

== ENCOUNTER 2024-12-11 23:35 | Emergency (ER) | payer MEDICARE, MEDICAID, SELFPAY ==
[2024-12-11 23:45] VITALS: BP 148/92; PULSE 87; RESP 16; TEMP 37.1; O2SAT 98; BMI 47.6
[2024-12-11] MEDS: LACTATED RINGERS 1000ML 1,000 ML 999 ML IV (23:55)
[2024-12-11] MEDS: droPERidol 5MG/2ML VIAL 2.5 MG IV (23:55)
[2024-12-11] MEDS: ACETAMINOPHEN 500MG TAB 1000 MG PO (23:55)
[2024-12-11 23:57] LABS: Hematocrit 45.6 % (37.0-47.0); Hemoglobin 14.5 g/dL (12.2-16.2); Immature Granulocytes % 0.3 %; Mean Corpuscular HGB Conc 31.8 g/dL (31.8-35.4); Mean Corpuscular Hemoglobin 27.1 pg (27.0-31.2); Mean Corpuscular Volume 85.2 fl (81-99); Nucleated Red Blood Cells % 0 %; Platelet Count 311 K/mm3 (142-424); Red Blood Count 5.35 M/mm3 (4.20-5.40); Red Cell Distribution Width-SD 43.1 fL; White Blood Count 11.5 K/mm3 (4.8-10.8)
--- NOTE | 2024-12-11 23:57 | ECG_ITS ---
APPROVED REPORT Exam: Resting ECG HR:67 bpm ECG Measurements Heart Rate 67 AXES MA 151 P 2 QRSd 81 QRS 89 QT 394 T 58 QTc 410 Conclusion SINUS RHYTHM WITH OCCASIONAL SUPRAVENTRICULAR PREMATURE COMPLEXES No STEMI Electronically signed by : YOUSIF TYLER, 12/12/2024 02:26:08
[2024-12-11 23:59] LABS: Albumin Level 4.9 g/dl (3.5-5.0); Chloride 100 mmol/L (98-107); Potassium 4.2 mmoL/L (3.5-5.1); Sodium 140 mmol/L (136-145)
--- OUTSIDE RECORDS SUMMARY | 2024-12-11 23:59 | XMS_ITS | Clinical Summary ---
Author Organization Healthcare Address [address] [place] [address] Care Team Providers Care Journalism Intern Name Role Phone Danette Lynch Primary Care Provider [phone] Family History Medical History Relation Name Comments Diabetes Other 1 Hypertension Other 2 Osteoarthritis Other 3 Osteoporosis Other 4 Relation Name Status Comments Other 1 Other 2 Other 3 Other 4 Social History Tobacco Use Types Packs/Day Years Used Date Smoking Tobacco: Never Assessed Comments Unknown Sex and Gender Information Value Date Recorded Sex Assigned at Not on file Legal Sex Female 7:15 PM EDT Gender Identity Not on file Sexual Orientation Not on file Last Filed Vital Signs Vital Sign Reading Time Taken Comments Blood Pressure - - Pulse - - Temperature - - Respiratory Rate - - Oxygen Saturation - - Inhaled Oxygen Concentration - - Weight 90.9 kg (200 lb 6.4 oz) 08/06/2015 2:34 P M EST Height 156 cm (5' 1.42 ) 08/06/2015 2:34 PM EST Body Mass Index 37.35 08/06/2015 2:34 PM EST Plan of Treatment Health Maintenance Due Date Last Done Comments [facility]-Depression Screening 1998 [facility]-Infant/Child/Adol SDOH Screenings 1998 [facility]-Varicella Vaccines (1 of 2 - 13+ 2-dose series) 2011 HPV Vaccines (1 - 3-dose series) 2013 [facility]- SDOH Screenings 2016 [facility]-Adult SDOH Screenings 2016 [facility]-DTaP,Tdap,and Td Vaccine s (1 - Tdap) 2017 [facility]-Hepatitis B Vaccines (1 of 3 - 19+ 3-dose series) 2017 [facility]-Pap Smear 2019 [id number] Vaccine (1 - 20 24-25 season) 2024 [facility]-Influenza Vaccine ([place]as[place] n Ended) 2025 07/15/2007 [facility]-Zoster Vaccines (1 of 2) 2048 [facility]-Pneumococcal Vaccine: Pediatrics (0 to 5 Years) and At-Risk Patients (6 to 49 Years) Aged Out 09/05/2007 No long er eligible based on patient's age to complete this topic [facility]-HIB Vaccines Aged Out No longer e ligible based on patient's age to complete this topic [facility]-Hepatitis A Vaccines Aged Out No longer eligible based on patient's age to complete this topic [facility]-IPV Vaccines Aged Out No longer e ligible based on patient's age to complete this topic [facility]-Rotavirus Vaccines Aged Out No lo nger eligible based on patient's age to complete this topic Insurance MEDICAID [facility] MEDICARE Care Teams Journalism Intern Relationship Specialty Start Date End Date Danette Lynch PA [address] [place] [address] PCP - General 10/25/20
[2024-12-12] VITALS (12 sets, daily range): BP systolic 131–171; BP diastolic 66–105; PULSE 62–108; RESP 12–20; TEMP 37.1; O2SAT 94–99
[2024-12-12 00:04] LABS: Alanine Aminotransferase 20 U/L (12-78); Albumin/Globulin Ratio 1.5 (1.1-1.8); Alkaline Phosphatase 52 U/L (38-126); Anion Gap 13.2 mEq/L (5-15); Aspartate Amino Transferase 36 U/L (14-36); Bilirubin,Total 0.9 mg/dl (0.2-1.3); Blood Urea Nitrogen 13 mg/dl (7-17); Calcium 9.3 mg/dl (8.4-10.2); Carbon Dioxide 31 mmol/L (22.0-30.0); Creatinine Clearance Estimated 101 mL/min (50-200); Creatinine,Serum 0.70 mg/dl (0.52-1.04); Estimated Glomerular Filt Rate 101 ml/min (>60); GFR (African American) 122 ML/MIN (>60); Globulin 3.2 g/dL (1.3-3.2); Glucose 89 mg/dl (74-100); Total Protein,Serum 8.1 g/dl (6.3-8.2)
--- NOTE | 2024-12-12 00:06 | XR_ITS ---
PROCEDURE INFORMATION: Exam: XR Chest Exam date and time: 12/12/2024 12:31 AM Age: 24 years old Clinical indication: Other: Light headed; Additional info: Lightheadedness with standing TECHNIQUE: Imaging protocol: Radiologic exam of the chest. Views: 1 view. COMPARISON: CT CHEST WO CON 04/15/2024 2:35 PM FINDINGS: Lungs: There is mild elevation of the right hemidiaphragm. Minor linear markings in the right upper lobe are decreased from prior exam and likely reflect residual parenchymal scarring. The lungs appear otherwise clear. No focal areas of consolidation. Pleural spaces: No pleural effusions. Negative for pneumothorax. Heart/Mediastinum: Cardiac silhouette and pulmonary vasculature are within range of normal. Bones/joints: There is no evidence of acute fracture. IMPRESSION: Minor right upper lobe parenchymal scarring. Otherwise, negative for an acute cardiopulmonary abnormality.
[2024-12-12 00:28] LABS: HCG Qualitative, Serum Negative (Negative)
[2024-12-12 01:06] LABS: Troponin I < 0.01 ng/ml (0.00-0.034)
[2024-12-12 02:01] LABS: Microscopic, Urine URINE MICROSCOPIC (MICROSCOPIC)
--- NOTE | 2024-12-12 02:07 | HMH.EDGENADL ---
Discharge Plan Disposition Patient Disposition: Home, Self-Care Condition: Good Prescriptions Prescriptions: No Action (DME) blood-glucose meter [Accu-Chek Guide Glucose Meter] Misc See Rx Instructions .ROUTE .MEDSUPPLY Qty: 1 Patient Comments: USE DIRECTED Rx Instructions: As directed mupirocin [Centany] 2 % ointment 1 applic topical TID Qty: 15 0RF methylprednisolone 4 mg tablets,dose pack See Rx Instructions PO PER PKG DIR Qty: 21 0RF Rx Instructions: PO PER PKG DIR albuterol sulfate 90 mcg/actuation HFA aerosol inhaler 1 inh inhalation Q6H PRN (Reason: shortness of breath or wheezing) 90 Days Qty: 8.5 3RF amitriptyline 10 mg tablet 10 mg PO HS Qty: 30 1RF cholecalciferol (vitamin D3) 50 mcg (2,000 unit) capsule 50 mcg PO DAILY Qty: 90 3RF fluticasone propion-salmeterol [Advair Diskus] 250-50 mcg/dose blister with device 1 inh inhalation BIDRT 90 Days Qty: 60 3RF pantoprazole [Protonix] 40 mg tablet,delayed release (DR/EC) 40 mg PO DAILY Qty: 90 3RF (DME) blood pressure monitor [Blood Pressure Kit] Kit See Rx Instructions .Route Qty: 1 0RF Rx Instructions: As directed Referrals Follow up/Referrals: Cruzito Hughes MD [Staff Physician, Cardiology] - See instructions Referral Note: lightheadedness with standing with borderline positive orthostatics (tachycardia). Obese. Activity Restrictions/Add. Instructions Additional Instructions/Restrictions: You were evaluated in the ER and are believed to be appropriate for discharge at this time. Continue home medications as previously prescribed. Increase your hydration, aim for 80 to 100 ounces of water daily. You can also drink Gatorade or Pedialyte. Avoid caffeine or sugary drinks. Make an appointment with your primary care doctor for reevaluation in 2 to 3 days and discuss your blood pressure, lightheadedness, and urinary urgency with them. Also make an appointment with the cardiology office for reevaluation of your lightheadedness, you have been referred to Dr. Hughes for this purpose. Return to the ER with any new, worsening, or otherwise concerning symptoms Clinical Impressions Clinical Impression: Headache, Lightheadedness, Urinary urgency Print Language Print Language: Greenlandic Discharge ED Provider: Shin Reese General Adult HPI General Chief complaint: Headache Stated complaint: Headache, Dizzy, Shakiness Time Seen by Provider: 12/11/24 23:38 Mode of Arrival: EMS Source of Information: Patient Description of Symptoms (Recalled from ER Triage Doc. by RN): CLIFTON Pt presents to the ED with c/o CLIFTON X 4 hrs. Pt reports hx of migraines and reports that CLIFTON is similar to previous migraine. Pt denies N/V. History of Present Illness HPI narrative: 24-year-old female presents to the ER complaining of headache for the last 4 hours. She has history of migraines and reports this headache is similar to previous migraines however she cannot get it to go away. She admits she does not have any sumatriptan which she used to take for migraines. She took ibuprofen prior to arrival without relief. Patient denies nausea or vomiting. She states that separately she has been having some issues with lightheadedness when standing. She has not had full syncope but has gotten lightheaded and dizzy with standing. She also states she has been having significant urge to urinate and when she needs to urinate she needs to go right now or she will become incontinent. Her primary complaint today is the headache and she states her lightheadedness has seemed worse with the headache. She does not describe the headache as thunderclap in nature, it was not maximal intensity when it started. She states it is across the front of her head which is typical of her migraines. She has no photophobia or phonophobia. She reports when she had her lightheadedness earlier and her headache started she realized she had not had anything to eat so she ate and that helped her lightheadedness but her headache has not resolved. No chest pain or difficulty breathing, no numbness, tingling, or weakness. She denies dysuria or hematuria, no fevers or chills. No recent illness. Patient reports she has had high blood pressure readings but is not on any medications. She has no cardiac history. No other complaints or concerns. Related Data Home Medications ?Medication ?Instructions ?Recorded ?Confirmed blood-glucose meter (Accu-Chek #1 ea 12/04/24 12/04/24 Guide Glucose Meter) Previous Rx's ?Medication ?Instructions ?Recorded albuterol sulfate 90 mcg/actuation 1 inh inhalation Q6H PRN shortness 11/17/24 aerosol inhaler of breath or wheezing 90 days #8.5 grams amitriptyline 10 mg tablet 10 mg PO HS #30 tabs 11/17/24 cholecalciferol (vitamin D3) 50 50 mcg PO DAILY #90 caps 11/17/24 mcg (2,000 unit) capsule fluticasone 250 mcg-salmeterol 50 1 inh inhalation BIDRT 90 days #60 11/17/24 mcg/dose blistr powdr for ea inhalation (Advair Diskus) pantoprazole 40 mg tablet,delayed 40 mg PO DAILY #90 tabs 11/17/24 release (Protonix) blood pressure monitor (Blood #1 ea 11/27/24 Pressure Kit) methylprednisolone 4 mg tablets in See Rx Instructions PO PER PKG DIR 12/04/24 a dose pack #21 tabs mupirocin 2 % topical ointment 1 applic topical TID #15 grams 12/04/24 (Centany) Allergies Allergy/AdvReac Type Severity Reaction Status Date / Time Penicillins (PENICILLINS) Allergy Severe Anaphylaxis Verified 12/04/24 18:10 mold Allergy Intermediate Other Verified 12/04/24 18:10 Iodinated Contrast Media Allergy Anaphylaxis Verified 12/04/24 18:10 [facility] Disclaimer: The information contained in this section may have been updated after the patient was seen, as this information can be updated by other users. Medical History Sleep apnea Asthma Acute viral syndrome Acute bronchitis Bruise of toe Conjunctivitis of left eye Allergic reaction Contusion of knee, left Skin yeast infection Otitis media Plantar fasciitis, bilateral Family history of ovarian cancer Family history of breast cancer Family history of BRCA gene mutation Bilateral otitis media Gastroesophageal reflux disease BMI 38.0-38.9,adult LGSIL on Pap smear of cervix Nexplanon insertion insertion 10/15/20 Hypertension Morbid obesity with BMI of 45.0-49.9, adult Vitamin D deficiency (~09/26/17) Hyperlipidemia (~09/26/17) Family history of diabetes mellitus Polyuria Apneic episode Migraine headache Surgical History History of tonsillectomy and adenoidectomy Family History Other Anxiety Depression Diabetes Hypertension Sleep apnea Stroke Social History Smoking Status: Current every day smoker tobacco type: cigarettes packs per day: 1 alcohol intake: never substance use type: denies use current occupational status: disabled Travel in the last 8 weeks?: None household members: family housing: house caffeine: No Other Medical History Have you received the Flu Vaccine for this season: No Have you received the Pneumonia Vaccine: No ROS Obtained: Yes Systems reviewed as appropriate & no additional complaints except as documented per HPI Physical Exam General General appearance: alert, in no apparent distress and obese Head Head exam: atraumatic and normocephalic Eye Eye exam: Present PERRL and EOMI; Absent conjunctival redness or nystagmus ENT ENT exam: Present mucous membranes moist Neck Neck exam: Present normal inspection and full ROM Chest Chest inspection: Present symmetric chest wall rise Respiratory Respiratory exam: Present normal lung sounds bilaterally; Absent respiratory distress, wheezes or stridor Cardiovascular Cardiovascular exam: Present regular rate and normal rhythm Abdominal Exam Abdominal exam: Present soft; Absent distention or tenderness Extremities Exam Extremities exam: Present full ROM; Absent edema Neurological Exam Neurological exam: Present alert, oriented X3, CN II-XII intact and normal gait; Absent motor sensory deficit Psychiatric Psychiatric exam: Present normal affect and normal mood Skin Skin exam: Present warm and dry Medical Decision Making Medical Records Medical records reviewed: Yes I reviewed the patient's medical records. Screening: Per USPSTF and CDC recommendations, given the prevalence of disease in our region, it is our hospital?s policy to screen for HIV and viral Hepatitis for all patients aged 18 and over and those with ongoing risk factors. Ty Inquiry Pt receiving controlled substance: No Vital Signs: 12/11/24 23:45 12/12/24 00:00 12/12/24 00:07 Temperature 98.8 F Temperature Source Oral Pulse Rate 76 Pulse Rate [Left] 87 Pulse Rate [Orthostatic Lying] 74 Pulse Rate [Orthostatic Sitting] 108 H Pulse Rate [Orthostatic Standing] 105 H Respiratory Rate 16 12 Blood Pressure 169/85 H Blood Pressure [Orthostatic Lying Right Arm] 150/82 H Blood Pressure [Orthostatic Sitting Right Arm] 155/98 H Blood Pressure [Orthostatic Standing Right Arm] 163/105 H Blood Pressure [Right Arm] 148/92 H Blood Pressure Mean 113 Blood Pressure Mean [Right Arm] 110 Blood Pressure Source [Right Arm] Automatic Cuff Blood Pressure Position Blood Pressure Position [Right Arm] Sitting 02 Sat by Pulse Oximetry 98 98 Oxygen Delivery Method Room Air 12/12/24 00:17 12/12/24 00:19 12/12/24 00:31 Temperature Temperature Source Pulse Rate 70 104 H 75 Pulse Rate [Left] Pulse Rate [Orthostatic Lying] Pulse Rate [Orthostatic Sitting] Pulse Rate [Orthostatic Standing] Respiratory Rate 14 15 19 Blood Pressure 150/82 H 155/98 H 131/74 Blood Pressure [Orthostatic Lying Right Arm] Blood Pressure [Orthostatic Sitting Right Arm] Blood Pressure [Orthostatic Standing Right Arm] Blood Pressure [Right Arm] Blood Pressure Mean 104 117 107 Blood Pressure Mean [Right Arm] Blood Pressure Source [Right Arm] Blood Pressure Position Blood Pressure Position [Right Arm] 02 Sat by Pulse Oximetry 95 95 97 Oxygen Delivery Method 12/12/24 01:00 12/12/24 01:30 12/12/24 01:56 Temperature Temperature Source Pulse Rate 62 66 74 Pulse Rate [Left] Pulse Rate [Orthostatic Lying] Pulse Rate [Orthostatic Sitting] Pulse Rate [Orthostatic Standing] Respiratory Rate 19 20 14 Blood Pressure 140/66 134/77 144/76 H Blood Pressure [Orthostatic Lying Right Arm] Blood Pressure [Orthostatic Sitting Right Arm] Blood Pressure [Orthostatic Standing Right Arm] Blood Pressure [Right Arm] Blood Pressure Mean 103 96 98 Blood Pressure Mean [Right Arm] Blood Pressure Source [Right Arm] Blood Pressure Position Supine Blood Pressure Position [Right Arm] 02 Sat by Pulse Oximetry 94 L 96 99 Oxygen Delivery Method 12/12/24 01:57 12/12/24 01:58 Temperature Temperature Source Pulse Rate 66 89 Pulse Rate [Left] Pulse Rate [Orthostatic Lying] Pulse Rate [Orthostatic Sitting] Pulse Rate [Orthostatic Standing] Respiratory Rate 18 20 Blood Pressure 160/87 H 171/96 H Blood Pressure [Orthostatic Lying Right Arm] Blood Pressure [Orthostatic Sitting Right Arm] Blood Pressure [Orthostatic Standing Right Arm] Blood Pressure [Right Arm] Blood Pressure Mean 93 121 Blood Pressure Mean [Right Arm] Blood Pressure Source [Right Arm] Blood Pressure Position Sitting Standing Blood Pressure Position [Right Arm] 02 Sat by Pulse Oximetry 99 99 Oxygen Delivery Method Lab Data Lab Results 12/11/24 23:17: WBC 11.5 H, RBC 5.35, Hgb 14.5, Hct 45.6, MCV 85.2, MCH 27.1, MCHC 31.8, RDW 13.9, Plt Count 311, MPV 8.7, Neut % (Auto) 59.2, Lymph % (Auto) 32.9, [place] % (Auto) 5.8, Eos % (Auto) 1.5, Baso % (Auto) 0.3, Neut # (Auto) 6.8, Lymph # (Auto) 3.8, [place] # (Auto) 0.7, Eos # (Auto) 0.2, Baso # (Auto) 0.0, Sodium 140, Potassium 4.2, Chloride 100, Carbon Dioxide 31 H, Anion Gap 13.2, BUN 13, Creatinine 0.70, Estimated Creat Clear 101, Estimated GFR 101, Est GFR ( Amer) 122, Glucose 89, Calcium 9.3, Total Bilirubin 0.9, AST 36, ALT 20, Alkaline Phosphatase 52, Total Protein 8.1, Albumin 4.9, Globulin 3.2, Albumin/Globulin Ratio 1.5, Serum HCG, Qual Negative 12/12/24 00:15: Troponin I < 0.01 12/11/24 23:17 12/11/24 23:17 Orders (Tests/Meds): ED MEDICATIONS Discontinued Medications Generic Name Dose Route Start Last Admin Trade Name Mer PRN Reason Stop Dose Admin Acetaminophen 1,000 mg 12/11/24 23:46 12/11/24 23:55 Acetaminophen 500mg Tab PO 12/11/24 23:47 1,000 mg ONCE ONE Administration Droperidol 2.5 mg 12/11/24 23:45 12/11/24 23:55 Droperidol 5mg/2ml Vial IV 12/11/24 23:46 2.5 mg ONCE ONE Administration Lactated Ringer's 1,000 mls @ 999 mls/hr 12/11/24 23:41 12/11/24 23:55 Lactated Ringer's 1000 Ml Bag IV 12/12/24 00:41 999 mls/hr .Q1H1M ONE Administration ORDERS Category Date Time Status CXR --portable [XR chest portable] Stat Exams 12/12/24 00:06 Taken CBC w/Auto Diff [Complete Blood Count Auto Diff] Stat Lab 12/11/24 23:17 Completed CMP [Comprehensive Metabolic Panel] Stat Lab 12/11/24 23:17 Completed HCG Qualitative, Serum Stat Lab 12/11/24 23:17 Completed Trop I [Troponin I] Stat Lab 12/12/24 00:15 Completed Troponin I Q3H Lab 12/12/24 03:15 Ordered Troponin I Q3H Lab 12/12/24 06:15 Ordered Urinalysis and Microscopic Stat Lab 12/12/24 01:58 Received Medical Decision Narrative: In summary, this 24-year-old female with history of TOO, obesity, elevated blood pressures not on medications, hyperlipidemia presents to the emergency department today with headache similar to previous migraines, episodes of lightheadedness, episodes of urinary urgency without dysuria or hematuria and no infectious symptoms. On initial evaluation patient is hemodynamically stable, afebrile, GCS 15, independently ambulatory into the ER, no neurologic deficits, headache does not have any red flag symptoms, cardiopulmonary exam benign, no peripheral edema, abdominal exam benign. Differential diagnosis includes but is not limited to headache, migraine, tension headache, I considered acute intracranial pathology such as bleed but have very low suspicion for this since patient has a history of migraines and her headache is characteristic of that without red flag symptoms, I considered electrolyte abnormality, dehydration, orthostatic hypotension, I had considered arrhythmia, arrhythmia genic abnormality such as WPW, Brugada, HCM, prolonged QT, anxiety, urinary tract infection, among others. Ruling out the most morbid conditions drove my assessment. ECG personally interpreted demonstrates sinus rhythm with occasional PAC, normal axis, normal [place] and QTc, no STEMI. Patient received IV fluids, Tylenol, droperidol for treatment. Initial orthostatics were positive for significant tachycardia with position changes but no hypotension. Labs personally reviewed demonstrate mild leukocytosis WBC 11.5, nonspecific and nonactionable, no anemia, normal platelets, CMP unremarkable, nonactionable, initial troponin undetectably low less than 0.01, hCG negative, UA negative for findings of infection. XR personally interpreted demonstrates no acute intrathoracic abnormality, see radiology read for final interpretation. On reassessment patient has had improvement of symptoms. She no longer has headache. Orthostatics were repeated and patient does not have any hypotension, she only became tachycardic between sitting and standing. She was much less lightheaded per her report. I believe she is appropriate for discharge at this time. I gave her referral to cardiology for outpatient follow-up given her report of symptoms as well as recommendations for close follow-up with her primary care doctor for further evaluation. She is comfortable with this plan. Patient was given instructions on symptomatic management, follow up instructions, and return precautions for the emergency department. Patient indicated understanding and was discharged in stable condition. Critical Care Critical Care Time Critical Care Time: No
[2024-12-12 02:12] LABS: Bilirubin,Urine Negative (Negative); Color,Urine YELLOW (Yellow); Glucose,Urine (UA) Negative (Negative); Ketones,Urine Negative (Negative); Leukocyte Esterase,Urine Negative (Negative); PH,Urine 6.0 (5.0-8.5); Protein,Urine Negative (Negative); Specific Gravity, Urine 1.025 (1.005-1.030); Urobilinogen,Urine 0.2 EU/dl (0.2)
[2024-12-12 03:35] LABS: Squamous Epithelial Cell,Urine Occasional #/hpf (0-5); WBC,Urine Occasional #/hpf (0-3)
[2024-12-12 03:36] LABS: Bacteria,Urine 1+ /lpf; Calcium Oxalate Crystals,Urine 2+ /lpf
== END 2024-12-12 02:32 | disposition home or self-care (01) ==
PROVIDERS: Emergency Provider Emergency Medicine
DX: R51.9 Headache, unspecified (principal); R42 Dizziness and giddiness; R39.15 Urgency of urination; F17.210 Nicotine dependence, cigarettes, uncomplicated; I10 Essential (primary) hypertension; E78.5 Hyperlipidemia, unspecified
CPT/HCPCS: 71045; 80053; 81001; 84484; 84703; 85025; 93005; 96361; 96374; 99284; J1790; J7120

== ENCOUNTER 2024-12-26 15:34 | Outpatient (CLI) | payer MEDICARE, MEDICAID, SELFPAY ==
--- OUTSIDE RECORDS SUMMARY | 2024-12-26 15:36 | XMS_ITS | Clinical Summary ---
Author Organization Healthcare Address [address] [place] [address] Care Team Providers Care Church History Teacher Name Role Phone Danette Lynch Primary Care Provider [phone] Family History Medical History Relation Name Comments [...] 19+ 3-dose series) 2017 [facility]-Pap Smear 2019 [id number] Vaccine (1 - 20 24-25 season) 2024 [facility]-Influenza Vaccine (#1) 2025 07/15/2007 [facility]-Zoster Vaccines (1 of 2) [...] age to complete this topic Insurance MEDICAID [facility] MEDICARE Care Teams Church History Teacher Relationship Specialty Start Date End Date Danette Lynch PA [address] [place] [address] PCP - General 10/25/20
--- OUTSIDE RECORDS SUMMARY | 2024-12-26 15:36 | XMS_ITS | Clinical Summary ---
[facility] Organization [facility] Address [address] [place] [id number] Phone Care Team Providers Care Guest Service Manager Name Role Phone Krystal Treadwell PA-C Primary Care Physician [ ] Conditions or Problems Problem Name Problem Code Onset Date Status Entry Date Provider Comment Standard Description Annotate HEAD LICE PEDICULOS B85.2 (ICD-10-CM) Inactive Krystal Treadwell PA-C Pediculosis, unspecified History of HEARING LOSS, RIGHT EAR 95376659 (SNOMED CT) Active Mikayla Rosales MA Hearing loss 50% History of ASTHMA 208560589 (SNOMED CT) Active Mikayla Rosales MA Asthma History of ALLERGIC RHINITIS 65477023 (SNOMED CT) Active Mikayla Rosales MA Allergic rhinitis Medications Medication Instructions Start Date Stop Date Generic Name [facility] Provider ULESFIA 5 % EXTERNAL LOTION APPLY TO HAIR, RINSE AFTER 10 MINUTES AND REPEAT IN 1 WEEK 5 BENZYL ALCOHOL [id number] Krystal Treadwell PA-C ADVAIR HFA 45-21 MCG/ACT AERO USE 2 PUFFS TWICE A DAY 2 FLUTICASONE-SHASHI METEROL [id number] Krystal Treadwell PA-C LORATADINE 10 MG TABS TAKE 1 TAB BY MOUTH EVERY DAY 2 LORATADINE [id number] Krystal Treadwell PA-C SINGULAIR 5 MG CHEW TAKE 1 TAB BY MOUTH EVERY DAY 2 MONTELUKAST SODIUM 59055329374 Krystal Treadwell PA-C PROAIR HFA 108 (90 Base) MCG/ACT INHALATION AEROSOL SOLUTION USE 2 INHALATIONS 4 TIMES A DAY NEEDED FOR WHEEZING 2 ALBUTEROL SULFATE 97858596337 Krystal Treadwell PA-C ULESFIA 5 % EXTERNAL LOTION APPLY TO HAIR, RINSE AFTER 10 MINUTES AND REPEAT IN 1 WEEK 5 BENZYL ALCOHOL [id number] Krystal Treadwell PA-C ADVAIR HFA 45-21 MCG/ACT AERO 2 PUFFS BID 1 FLUTICASONE-SHASHI METEROL 23523150521 Krystal Treadwell PA-C LORATADINE 10 MG TABS OPT 1 LORATADINE 16385468207 Mikayla Rosales MA SINGULAIR 5 MG CHEW 1 PO QD 1 MONTELUKAST SODIUM 71083174069 Mikayla Rosales MA PROAIR HFA 108 (90 Base) MCG/ACT INHALATION AEROSOL SOLUTION 2 PUFFS QID 1 ALBUTEROL SULFATE [id number] Mikayla Rosales MA Medications Administered No information available. Allergies, Adverse Reactions, Alerts Allergy Name Reaction Description Start Date Severity Statu s Provider PENICILLIN Critical Active Mikayla Rosales MA Results No information available. Plan of Care Type Date Detail Pending order Flu 3 yrs and ol hansel vfc Pending order Hep A pediatric/ adolescent dosage- 2 dose 2 schedule Pending order Gardasil, HPV vf c Procedures Code Procedure Name Date Entry Date CPT-33690SVD Flu 3 yrs and older vfc 2009 CPT-16471KIT Hep A pediatric/adol escent dosage- 2 dose 2 schedule CPT-93860WUX Gardasil, HPV vfc Vital Signs Date Name Value Unit Description Body Temperature 97.3 [degF] temperat ure E&M Body Temperature 36.3 Rossy temperat ure in centigrade E&M BP Diastolic 75 mm[Hg] blood pressu re, diastolic BP Systolic 130 mm[Hg] blood pressur e, systolic Heart Rate 66 /min pulse rate Weight Measured 125 [lb_av] weight E& M Weight Measured 125 [lb_av] weight E& M Weight Measured 56.82 kg weight in kilograms E&M Height 0 cm height in cent imeters E&M BMI (Body Mass Index) 22.2 kg/m2 Bod y Mass Index (Ratio) Immunizations Vaccine Administration Date Standard Description CVX Co de Dose mmr #1 03 Unknown mmr #2 03 Unknown ipv #4 10 Unknown ipv #3 10 Unknown ipv #2 10 Unknown ipv #1 10 Unknown hib #1 17 Unknown dtap #2 20 Unknown hib #4 17 Unknown dtap #1 20 Unknown dtap #4 20 Unknown hib #3 17 Unknown hib #2 17 Unknown varicella#2 21 Unknown dtap #5 20 Unknown dtap #3 20 Unknown varicella#1 21 Unknown pneumovax 33 Unknown hpv #3 62 Unknown hpv #2 62 Unknown hpv #1 62 Unknown flu vax 88 Unknown flu vax 88 Unknown flu vax 88 Unknown hepbvax#1 45 Unknown hepavax #1 85 Unknown hepbvax#2 45 Unknown hepbvax#3 45 Unknown flu vax#1 88 Unknown Advance Directives No information available.
== END 2024-12-26 23:59 | disposition home or self-care (01) ==
LOC: RT 15:35
PROVIDERS: PCP Family Medicine; Visit Provider Physician Assistant
DX: I49.1 Atrial premature depolarization (principal); I47.19 Other supraventricular tachycardia; I49.3 Ventricular premature depolarization; E78.5 Hyperlipidemia, unspecified; R51.9 Headache, unspecified; R55 Syncope and collapse; R00.1 Bradycardia, unspecified
CPT/HCPCS: 93270

== ENCOUNTER 2025-01-25 14:33 | Outpatient (CLI) | payer MEDICARE, MEDICAID, SELFPAY ==
--- OUTSIDE RECORDS SUMMARY | 2025-01-25 14:37 | XMS_ITS | Clinical Summary ---
Author Organization [facility] Address [address] [place] [address] Care Team Providers Care Multigraph Operator Name Role Phone Danette Lynch Primary Care Provider [phone] Family History Medical History Relation Name Comments [...] Date Last Done Comments [facility]-Depression Screening 1998 [facility]-/Child/Adol SDOH Screenings 1998 [facility]-Varicella Vaccines (1 of 2 - 13+ 2-dose series) 2011 HPV Vaccines (1 - 3-dose series) 2013 [facility]- SDOH Screenings 2016 [facility]-Adult SDOH Screenings 2016 [facility]-DTaP,Tdap,and Td Vaccine s (1 - Tdap) 2017 [facility]-Hepatitis B Vaccines (1 of 3 - 19+ 3-dose series) 2017 [facility]-Pap Smear 2019 [id number] Vaccine (1 - 20 24-25 season) 2024 [...] age to complete this topic Insurance MEDICAID [facility] MEDICARE Care Teams Multigraph Operator Relationship Specialty Start Date End Date Danette Lynch PA [address] [place] [address] PCP - General 10/25/20
[2025-01-25 15:02] LABS: Hematocrit 42.0 % (37.0-47.0); Hemoglobin 13.3 g/dL (12.2-16.2); Immature Granulocytes % 0.1 %; Mean Corpuscular HGB Conc 31.7 g/dL (31.8-35.4); Mean Corpuscular Hemoglobin 27.1 pg (27.0-31.2); Mean Corpuscular Volume 85.7 fl (81-99); Nucleated Red Blood Cells % 0 %; Platelet Count 293 K/mm3 (142-424); Red Blood Count 4.90 M/mm3 (4.20-5.40); Red Cell Distribution Width-SD 44.1 fL; White Blood Count 7.1 K/mm3 (4.8-10.8)
[2025-01-25 16:28] LABS: Albumin Level 4.4 g/dl (3.5-5.0); Chloride 107 mmol/L (98-107); Potassium 4.2 mmoL/L (3.5-5.1); Sodium 141 mmol/L (136-145)
[2025-01-25 16:31] LABS: Alanine Aminotransferase 14 U/L (12-78); Alkaline Phosphatase 81 U/L (38-126); Anion Gap 11.2 mEq/L (5-15); Aspartate Amino Transferase 21 U/L (14-36); Bilirubin,Direct 0.2 mg/dl (0.0-0.4); Bilirubin,Indirect 0.5 mg/dL (0.0-0.9); Bilirubin,Total 0.7 mg/dl (0.2-1.3); Bilirubin,Unconjugated 0.4 mg/dL (0.0-1.1); Blood Urea Nitrogen 10 mg/dl (7-17); Calcium 9.0 mg/dl (8.4-10.2); Carbon Dioxide 27 mmol/L (22.0-30.0); Cholesterol 195 mg/dl (140-200); Creatinine,Serum 0.60 mg/dl (0.52-1.04); Estimated Glomerular Filt Rate 121 ml/min (>60); GFR (African American) 146 ML/MIN (>60); Glucose 95 mg/dl (74-100); Total Protein,Serum 7.0 g/dl (6.3-8.2); Triglycerides 110 mg/dl (30-150)
[2025-01-25 16:32] LABS: HDL Cholesterol 40 mg/dl (40-60); Magnesium 2.2 mg/dl (1.6-2.3)
[2025-01-25 16:47] LABS: Free T4 (Free Thyroxine) 1.20 ng/dl (0.78-2.19)
[2025-01-25 17:03] LABS: Thyroid Stimulating Hormone 1.99 uIU/mL (0.465-4.68)
== END 2025-01-25 23:59 | disposition home or self-care (01) ==
LOC: LAB 14:34
PROVIDERS: PCP Family Medicine; Visit Provider Physician Assistant
DX: E78.49 Other hyperlipidemia (principal); R42 Dizziness and giddiness; R03.0 Elevated blood-pressure reading, without diagnosis of hypertension
CPT/HCPCS: 36415; 80048; 80061; 80076; 83735; 84439; 84443; 85025

== ENCOUNTER 2025-02-13 14:35 | Outpatient (CLI) | payer MEDICARE, MEDICAID, SELFPAY ==
--- NOTE | 2025-02-13 14:30 | CA_ITS ---
FINAL REPORT TECHNIQUE: Ultrasound images of the deep venous system were obtained from the left groin to the calf veins. CLINICAL HISTORY: calf tenderness and edema FINDINGS: The deep venous system is normally compressible. Normal flow is identified. IMPRESSION: No evidence of left lower extremity DVT. Reviewed, Interpreted and Dictated by Jean Whitney MD Transcribed by Callie Blevins Authenticated and [facility] [place]
--- OUTSIDE RECORDS SUMMARY | 2025-02-13 14:44 | XMS_ITS | Clinical Summary ---
Author Organization [facility] Address [address] [place] [phone] Phone Care Team Providers Care Harm Reduction Worker Name Role Phone Krystal Treadwell PA-C Primary Care Physician [phone] [ ] Conditions or Problems Problem Name Problem Code Onset Date Status Entry Date Provider Comment Standard Description Annotate HEAD LICE PEDICULOS B85.2 (ICD-10-CM) Inactive Krystal Treadwell PA-C Pediculosis, unspecified History of HEARING LOSS, RIGHT EAR 69659128 (SNOMED CT) Active Mikayla Rosales MA Hearing loss 50% History of ASTHMA 378075594 (SNOMED CT) Active Mikayla Rosales MA Asthma History of ALLERGIC RHINITIS 14963708 (SNOMED CT) Active Mikayla Rosales MA Allergic rhinitis Medications Medication Instructions Start Date Stop Date Generic Name [facility][NOTE 3] Provider ULESFIA 5 % EXTERNAL LOTION APPLY TO HAIR, RINSE AFTER 10 MINUTES AND REPEAT IN 1 WEEK 5 BENZYL ALCOHOL [id number] Krystal Treadwell PA-C ADVAIR HFA 45-21 MCG/ACT AERO USE 2 PUFFS TWICE A DAY 2 FLUTICASONE-SHASHI METEROL 22741151743 Krystal Treadwell PA-C LORATADINE 10 MG TABS TAKE 1 TAB BY MOUTH EVERY DAY 2 LORATADINE 00302603444 Krystal Treadwell PA-C SINGULAIR 5 MG CHEW TAKE 1 TAB BY MOUTH EVERY DAY 2 MONTELUKAST SODIUM 95876690605 Krystal Treadwell PA-C PROAIR HFA 108 (90 Base) MCG/ACT INHALATION AEROSOL SOLUTION USE 2 INHALATIONS 4 TIMES A DAY NEEDED FOR WHEEZING 2 ALBUTEROL SULFATE 60808687470 Krystal Treadwell PA-C ULESFIA 5 % EXTERNAL LOTION APPLY TO HAIR, RINSE AFTER 10 MINUTES AND REPEAT IN 1 WEEK 5 BENZYL ALCOHOL 89410221352 Krystal Treadwell PA-C ADVAIR HFA 45-21 MCG/ACT AERO 2 PUFFS BID 1 FLUTICASONE-SHASHI METEROL 09841209262 Krystal Treadwell PA-C LORATADINE 10 MG TABS OPT 1 LORATADINE 59859909621 Mikayla Rosales MA SINGULAIR 5 MG CHEW 1 PO QD 1 MONTELUKAST SODIUM 51458421229 Mikayla Rosales MA PROAIR HFA 108 (90 Base) MCG/ACT INHALATION AEROSOL SOLUTION 2 PUFFS QID 1 ALBUTEROL SULFATE 12160838452 Mikayla Rosales MA Medications Administered No information [...] Procedures Code Procedure Name Date Entry Date CPT-46673JGB Flu 3 yrs and older vfc 2009 CPT-72608EMR Hep A pediatric/adol escent dosage- 2 dose 2 schedule CPT-26660VHP Gardasil, HPV vfc Vital Signs Date Name [...]
--- OUTSIDE RECORDS SUMMARY | 2025-02-13 14:45 | XMS_ITS | Clinical Summary ---
Author Organization [facility] Address [address] [place] [address] Care Team Providers Care Legal Librarian Name Role Phone Danette Lynch Primary Care Provider [phone] Family History Medical History Relation Name Comments [...] 19+ 3-dose series) 2017 [facility]-Pap Smear 2019 [id number] Vaccine (1 - 20 24-25 season) 2024 [...] age to complete this topic Insurance MEDICAID [facility] MEDICARE Care Teams Legal Librarian Relationship Specialty Start Date End Date Danette Lynch PA [address] [place] [address] PCP - General 10/25/20
== END 2025-02-13 23:59 | disposition home or self-care (01) ==
LOC: RT 14:36
PROVIDERS: PCP Family Medicine; Visit Provider Family Medicine
DX: M79.669 Pain in unspecified lower leg (principal); M79.89 Other specified soft tissue disorders
CPT/HCPCS: 93971

== ENCOUNTER 2025-02-22 00:18 | Inpatient (IN) | payer MEDICARE, MEDICAID, SELFPAY ==
[2025-02-22] VITALS (40 sets, daily range): BP systolic 101–166; BP diastolic 58–97; PULSE 72–119; RESP 12–24; TEMP 36.5–37.2; O2SAT 86–100; BMI 46.9; BMI 46.1
--- NOTE | 2025-02-22 00:32 | ECG_ITS ---
APPROVED REPORT Exam: Resting ECG HR:87 bpm ECG Measurements Heart Rate 87 AXES OK 146 P 19 QRSd 83 QRS 96 QT 409 T -58 QTc 453 Conclusion SINUS RHYTHM BORDERLINE RIGHT AXIS DEVIATION [QRS AXIS > 90] MODERATE T-WAVE ABNORMALITY, CONSIDER ANTEROLATERAL ISCHEMIA [-0.1+ mV T-WAVE IN V3-V6] MODERATE T-WAVE ABNORMALITY, CONSIDER INFERIOR ISCHEMIA [-0.1+ mV T-WAVE IN II/aVF] No STEMI Electronically signed by : YOUSIF TYLER, 02/23/2025 02:51:05
[2025-02-22] MEDS: KETOROLAC 30MG/ML VIAL 30 MG IV (00:40)
[2025-02-22] MEDS: ACETAMINOPHEN 500MG TAB 1000 MG PO (00:45)
[2025-02-22] MEDS: MECLIZINE 25MG TABLET 25 MG PO (00:45)
[2025-02-22] MEDS: ASPIRIN 81MG CHEWABLE TABLET 324 MG PO (02:00)
--- NOTE | 2025-02-22 03:29 | CT_ITS ---
PROCEDURE INFORMATION: Exam: CTA Chest With Contrast Exam date and time: 02/22/2025 2:37 AM Age: 24 years old Clinical indication: Pain; Chest pressure; Additional info: Chest pain, elevated d-dimer TECHNIQUE: Imaging protocol: Computed tomographic angiography of the chest with contrast. Exam focused on the arteries. 3D rendering (Not supervised by radiologist): MIP and/or 3D reconstructed images were created by the technologist. Radiation optimization: All CT scans at this facility use at least one of these dose optimization techniques: automated exposure control; mA and/or kV adjustment per patient size (includes targeted exams where dose is matched to clinical indication); or iterative reconstruction. Contrast material: ISOVUE; Contrast volume: 80 ml; Contrast route: INTRAVENOUS (IV); COMPARISON: No relevant prior studies available. FINDINGS: Pulmonary arteries: Extensive bilateral pulmonary emboli with emboli as proximal as the right and left main pulmonary arteries. Aorta: Unremarkable. No aortic aneurysm. No aortic dissection. Lungs: Groundglass opacity left lung base likely pulmonary infarct. Pleural spaces: Unremarkable. No pneumothorax. No pleural effusion. Heart: Elevated RV LV ratio of 1.1 compatible with right heart strain. Lymph nodes: Unremarkable. No enlarged lymph nodes. Bones/joints: Unremarkable. No acute fracture. Soft tissues: Unremarkable. IMPRESSION: Acute pulmonary embolism as described above. Findings discussed with Dr. Piña 1:02 [address] [place] Standard time.
--- NOTE | 2025-02-22 03:29 | ED_ITS ---
Discharge Plan Disposition Patient Disposition: Admitted Condition: Serious Clinical Impressions Clinical Impression: Pulmonary embolism Discharge ED Provider: Nicko Ordonez General Adult HPI General Chief complaint: Chest Pain Stated complaint: Chest pain Time Seen by Provider: 02/22/25 03:29 History of Present Illness HPI narrative: 24-year-old female with history of severe obesity presents for multiple complaints. She reports that 2 days ago she had an episode of dizziness and passing out which is abnormal for her. She saw her PCP and got a ultrasound of the left lower extremity which was negative. She is continue to feel weak and dizzy and had another dizzy spell earlier today. She reports some chest pain and palpitations, denies significant shortness of breath. She reports that she feels lightheaded and does not really feel like the room is spinning. Moving her head or laying back does not change or make the dizziness worse. Related Data Home Medications ?Medication ?Instructions ?Recorded ?Confirmed blood-glucose meter (Accu-Chek #1 ea 12/04/24 02/20/25 Guide Glucose Meter) Previous Rx's ?Medication ?Instructions ?Recorded amitriptyline 10 mg tablet 10 mg PO HS #30 tabs cholecalciferol (vitamin D3) 50 50 mcg PO DAILY #90 ca ps 11/17/24 mcg (2,000 unit) capsule pantoprazole 40 mg tablet,delayed 40 mg PO DAILY #90 t abs 11/17/24 release (Protonix) blood pressure monitor (Blood #1 ea 11/27/24 Pressure Kit) albuterol sulfate 90 mcg/actuation 1 inh inhalation Q6 H PRN shortness 12/19/24 aerosol inhaler of breath or wheezing 90 day s #8.5 grams fluticasone 500 mcg-salmeterol 50 1 inh inhalation BID 90 days #180 12/19/24 mcg/dose blistr powdr for ea inhalation (Advair Diskus) ipratropium 0.5 mg-albuterol 3 mg 3 ml inhalation Q6H PRN shortness 12/19/24 (2.5 mg base)/3 mL nebulization of breath or wheezing #90 mL soln blood pressure monitor (Blood #1 ea 12/26/24 Pressure Kit) furosemide 20 mg tablet (Lasix) 20 mg PO DAILY #4 tabs 02/13/25 Allergies Allergy/AdvReac Type Severity Reaction Status Date / Time Penicillins (PENICILLINS) Allergy Severe Anaphylaxis Verified 02/20/25 13:53 mold Allergy Intermediate Other Verified 02/20/25 13:53 Iodinated Contrast Media Allergy Anaphylaxis Verified 02/20/25 13:53 [facility] Disclaimer: The information contained in this section may have been updated after the patient was seen, as this information can be updated by other users. Medical History Sleep apnea Asthma Acute viral syndrome Acute bronchitis Bruise of toe Conjunctivitis of left eye Allergic reaction Contusion of knee, left Skin yeast infection Otitis media Plantar fasciitis, bilateral Family history of ovarian cancer Family history of breast cancer Family history of BRCA gene mutation Bilateral otitis media Gastroesophageal reflux disease BMI 38.0-38.9,adult LGSIL on Pap smear of cervix Nexplanon insertion insertion 10/15/20 Hypertension Morbid obesity with BMI of 45.0-49.9, adult Vitamin D deficiency (~09/26/17) Hyperlipidemia (~09/26/17) Family history of diabetes mellitus Polyuria Apneic episode Migraine headache Surgical History History of tonsillectomy and adenoidectomy Family History Other Anxiety Depression Diabetes Hypertension Sleep apnea Stroke Social History Smoking Status: Current every day smoker tobacco type: cigarettes packs per day: 1 alcohol intake: never substance use type: denies use current occupational status: disabled Travel in the last 8 weeks?: None household members: family housing: house caffeine: No Other Medical History Have you received the Flu Vaccine for this season: No Have you received the Pneumonia Vaccine: No ROS Obtained: Yes All systems reviewed & no additional complaints except as documented Physical Exam General General appearance: alert and in no apparent distress Head Head exam: atraumatic and normocephalic Eye Eye exam: Present normal appearance, PERRL and EOMI ENT ENT exam: Present normal oropharynx and normal external ear exam Neck Neck exam: Present normal inspection and full ROM Chest Chest inspection: Present normal inspection and symmetric chest wall rise; Absent tenderness Respiratory Respiratory exam: Present normal lung sounds bilaterally; Absent respiratory distress Cardiovascular Cardiovascular exam: Present normal rhythm and tachycardia Abdominal Exam Abdominal exam: Present soft; Absent distention, tenderness or guarding Extremities Exam Extremities exam: Present normal inspection; Absent edema or joint swelling Back Exam Back exam: Present normal inspection; Absent tenderness Neurological Exam Neurological exam: Present alert and oriented X3; Absent motor sensory deficit Psychiatric Psychiatric exam: Present normal affect and normal mood Skin Skin exam: Present warm, dry and normal color Lymphatic Lymphatic Findings: no adenopathy Medical Decision Making Medical Records Medical records reviewed: Yes I reviewed the patient's medical records. Screening: Per USPSTF and CDC recommendations, given the prevalence of disease in our region, it is our hospital?s policy to screen for HIV and viral Hepatitis for all patients aged 18 and over and those with ongoing risk factors. Ty Inquiry Pt receiving controlled substance: No Ty was queried for this patient: No Vital Signs: 02/22/25 00:24 02/22/25 00:30 02/22/25 01:00 Temperature Temperature Source Pulse Rate 98 H 92 H 83 Pulse Rate [Left] Respiratory Rate 12 21 Blood Pressure 166/85 H 139/78 130/79 Blood Pressure [Right Arm] Blood Pressure Mean [Right Arm] Blood Pressure Source Blood Pressure Source [Right Arm] Blood Pressure Position Blood Pressure Position [Right Arm] 02 Sat by Pulse Oximetry 96 99 97 Oxygen Delivery Method Room Air 02/22/25 01:31 02/22/25 02:00 02/22/25 03:00 Temperature Temperature Source Pulse Rate 77 81 106 H Pulse Rate [Left] Respiratory Rate 20 22 17 Blood Pressure 116/70 122/65 147/96 H Blood Pressure [Right Arm] Blood Pressure Mean [Right Arm] Blood Pressure Source Blood Pressure Source [Right Arm] Blood Pressure Position Blood Pressure Position [Right Arm] 02 Sat by Pulse Oximetry 95 95 98 Oxygen Delivery Method Room Air 02/22/25 03:27 02/22/25 03:30 02/22/25 03:42 Temperature 97.8 F 97.8 F Temperature Source Oral Pulse Rate 106 H 105 H Pulse Rate [Left] 96 H Respiratory Rate 18 17 Blood Pressure 147/96 H Blood Pressure [Right Arm] 166/85 H Blood Pressure Mean [Right Arm] 112 Blood Pressure Source Automatic Cuff Blood Pressure Source [Right Arm] Automatic Cuff Blood Pressure Position Sitting Blood Pressure Position [Right Arm] Sitting 02 Sat by Pulse Oximetry 100 Oxygen Delivery Method Room Air Room Air Lab Data Lab results reviewed: Yes I reviewed the patient's lab results. Lab Results 02/22/25 00:30: WBC 10.0, RBC 5.60 H, Hgb 15.4, Hct 48.1 H, MCV 85.9, MCH 27.5, MCHC 32.0, RDW 13.8, Plt Count 246, MPV 9.3, Neut % (Auto) 51.5, Lymph % (Auto) 39.9, Robeson % (Auto) 6.0, Eos % (Auto) 2.0, Baso % (Auto) 0.4, Neut # (Auto) 5.2, Lymph # (Auto) 4.0, Robeson # (Auto) 0.6, Eos # (Auto) 0.2, Baso # (Auto) 0.0, D- Dimer 2.75 H, Sodium 141, Potassium 3.8, Chloride 106, Carbon Dioxide 26, Anion Gap 12.8, BUN 12, Creatinine 0.70, Estimated Creat Clear 101, Estimated GFR 101, Est GFR ( Amer) 122, Glucose 98, Calcium 10.0, Total Bilirubin 1.7 H, AST 48 H, ALT 32, Alkaline Phosphatase 71, Total Protein 8.6 H, Albumin 4.9, G lobulin 3.7 H, Albumin/Globulin Ratio 1.3, Serum HCG, Qual Negative 02/22/25 00:30 02/22/25 00:30 Orders (Tests/Meds): ED MEDICATIONS Generic Name Dose Route Start Last Admin Trade Name Freq PRN Reason Stop Dose Admin Acetaminophen 1,000 mg 02/22/25 03:29 02/22/25 00:45 Acetaminophen 500mg Tab PO 02/22/25 03:30 1,000 mg ONCE ONE Administration Acetaminophen 650 mg 02/22/25 03:34 Acetaminophen 325mg Tab PO 03/24/25 03:33 Q4HP PRN Fever or Mild Pain (1-3) Aspirin 324 mg 02/22/25 03:29 02/22/25 02:00 Aspirin 81mg Chewable Tablet PO 02/22/25 03:30 324 mg ONCE ONE Administration Enoxaparin Sodium 120 mg 02/22/25 03:30 02/22/25 02:55 Enoxaparin 100mg/Ml Syringe SUBCUT 03/24/25 03:29 120 mg Q12H URIEL Administration Ketorolac Tromethamine 30 mg 02/22/25 03:29 02/22/25 00:40 Ketorolac 30mg/Ml Vial IV 02/22/25 03:30 30 mg ONCE ONE Administration Meclizine HCl 25 mg 02/22/25 03:39 02/22/25 00:45 Meclizine 25mg Tablet PO 02/22/25 03:40 25 mg ONCE ONE Administration Ondansetron HCl 4 mg 02/22/25 03:34 Ondansetron 4mg/2ml Vial IV 03/24/25 03:33 Q8HP PRN Nausea ECG Data Tracing #1: I reviewed this ECG and interpreted as documented below: T wave inversions in all ortega, sinus tachycardia ECG initial impression date: 02/22/25 ECG initial impression time: 00:30 HEART Score History (anamnesis): Slightly suspicious ECG: Non-specific disturbance Age: <45 years Risk factors: 1-2 risk factors Troponin: 1-3x normal limit HEART Score: 3 Medical Decision Narrative: 24-year-old female with history of obesity presents for some lightheadedness, a couple of episodes of near syncope over the last couple of days, with some associated chest pain.. History was obtained via interactive discussion with patient, family. On arrival, patient is [afebrile, hemodynamically stable, mildly tachycardic, satting appropriately, alert, oriented x4, GCS 15], moving all extremities spontaneously. Full physical exam performed and significant for clear lungs bilaterally Differential includes but is not limited to ACS, PE, BPPV, STRIPPING SHOVEL OPERATOR lesion, palpitations, arrhythmia, electrolyte derangement,. Patient was given Tylenol, Toradol, meclizine initially for symptomatic management and correction of underlying abnormalities. Workup initiated including CBC CMP D-dimer troponin EKG chest x-ray test. On re-evaluation, patient [remains afebrile, HD stable.] Laboratory workup independently interpreted by me and significant for elevated initial troponin, elevated D-dimer, will follow-up with CT PE. Patient was given aspirin. Imaging independently interpreted by me and significant for CT PE with massive bilateral mainstem PEs extending into all lung ortega with associated right heart strain. See radiology read for full review of final results. Patient was initiated on Lovenox 1 mg/kg. I called and discussed the case with Dr. Hughes who is planning on doing thrombectomy in the morning. Patient was admitted to the hospitalist after interactive discussion in stable condition. Shortly after the patient went upstairs, she passed out in the bathroom and became diaphoretic, blue in the face and minimally responsive with heart rate in the 160s and sats in the 70s.. I was called upstairs, and additional IV access, placed on a nonrebreather. Unfortunately, during the time the patient was in our ER, we were in downtime and did not have access to her chart. In her chart she has a listed anaphylactic reaction to contrast. It has been at least a couple of hours since patient received contrast, but given her acute decompensation I think treating with IM epi and Solu-Medrol is reasonable so this was done. More likely though, her decompensation is related to hemodynamic changes from her massive PEs. We discussed the case with Dr. Hughes again. Patient was given TNK for thrombolysis. When I left the patient's bedside she was awake and interactive, tachycardic to 110, normotensive, satting appropriately on nasal cannula. It is unclear whether the patient struck her head during her syncopal event after admission. Given her hemodynamic instability, I do not think a CT scan is the best course of action at this time. Recommend neurochecks and CT scan if patient has a neurologic decompensation. Procedures Risk/Benefits of Procedure(s) Were Explained: Yes Critical Care Critical Care Time Critical Care Time: Yes Attestation: On 02/22/25, the high probability of a clinically significant, sudden or life threatening deterioration of the following system(s) required my full and direct attention, intervention and personal management. The time I documented below is in addition to time spent performing reported procedures but includes the following listed in this critical care notation. Total Time Total Critical Care Time: 75
--- NOTE | 2025-02-22 03:30 | XR_ITS ---
PROCEDURE INFORMATION: Exam: XR Chest Exam date and time: 02/22/2025 12:49 AM Age: 24 years old Clinical indication: Pain; Chest pressure; Additional info: Chest pain TECHNIQUE: Imaging protocol: Radiologic exam of the chest. Views: 1 view. COMPARISON: No relevant prior studies available. FINDINGS: Lungs: Unremarkable. No consolidation. Pleural spaces: Unremarkable. No pleural effusion. No pneumothorax. Heart/Mediastinum: Unremarkable. No cardiomegaly. Bones/joints: Unremarkable. IMPRESSION: No acute findings.
--- OUTSIDE RECORDS SUMMARY | 2025-02-22 03:31 | XMS_ITS | Clinical Summary ---
Author Organization [facility] Address [address] [place] [phone] Phone Care Team Providers Care Distribution Collection Operator Name Role Phone Krystal Treadwell PA-C Primary Care Physician [ ] Conditions or Problems Problem Name Problem Code Onset Date Status Entry Date Provider Comment Standard Description Annotate HEAD LICE PEDICULOS B85.2 (ICD-10-CM) Inactive Krystal Treadwell PA-C Pediculosis, unspecified History of HEARING LOSS, RIGHT EAR 30487343 (SNOMED CT) Active Mikayla Rosales MA Hearing loss 50% History of ASTHMA 101457075 (SNOMED CT) Active Mikayla Rosales MA Asthma History of ALLERGIC RHINITIS 69076582 (SNOMED CT) Active Mikayla Rosales MA Allergic rhinitis Medications Medication Instructions Start Date Stop Date Generic Name [facility] Provider ULESFIA 5 % EXTERNAL LOTION APPLY TO HAIR, RINSE AFTER 10 MINUTES AND REPEAT IN 1 WEEK 5 BENZYL ALCOHOL [id number] Krystal Treadwell PA-C ADVAIR HFA 45-21 MCG/ACT AERO USE 2 PUFFS TWICE A DAY 2 FLUTICASONE-SHASHI METEROL [id number] Krystal Treadwell PA-C LORATADINE 10 MG TABS TAKE 1 TAB BY MOUTH EVERY DAY 2 LORATADINE [id number] Krystal Treadwell PA-C SINGULAIR 5 MG CHEW TAKE 1 TAB BY MOUTH EVERY DAY 2 MONTELUKAST SODIUM [id number] Krystal Treadwell PA-C PROAIR HFA 108 (90 Base) MCG/ACT INHALATION AEROSOL SOLUTION USE 2 INHALATIONS 4 TIMES A DAY NEEDED FOR WHEEZING 2 ALBUTEROL SULFATE [id number] Krystal Treadwell PA-C ULESFIA 5 % EXTERNAL LOTION APPLY TO HAIR, RINSE AFTER 10 MINUTES AND REPEAT IN 1 WEEK 5 BENZYL ALCOHOL [id number] Krystal Treadwell PA-C ADVAIR HFA 45-21 MCG/ACT AERO 2 PUFFS BID 1 FLUTICASONE-SHASHI METEROL [id number] Krystal Treadwell PA-C LORATADINE 10 MG TABS OPT 1 LORATADINE [id number] Mikayla Rosales MA SINGULAIR 5 MG CHEW 1 PO QD 1 MONTELUKAST SODIUM [id number] Mikayla Rosales MA PROAIR HFA 108 (90 Base) MCG/ACT INHALATION AEROSOL SOLUTION 2 PUFFS QID 1 ALBUTEROL SULFATE [id number] Mikayla Rosales MA Medications Administered No information [...] Procedures Code Procedure Name Date Entry Date CPT-[id number] Flu 3 yrs and older vfc 2009 CPT-[id number] Hep A pediatric/adol escent dosage- 2 dose 2 schedule CPT-[id number] Gardasil, HPV vfc Vital Signs Date Name [...]
--- OUTSIDE RECORDS SUMMARY | 2025-02-22 03:32 | XMS_ITS | Clinical Summary ---
Author Organization Healthcare Address [address] [place] [address] Care Team Providers Care Outreach Nurse Name Role Phone Danette Lynch Primary Care Provider [phone] Family History Medical History Relation Name Comments [...] 19+ 3-dose series) 2017 [facility]-Pap Smear 2019 TIN-YTFUP-33 Vaccine (1 - 20 24-25 season) 2025 [facility]-Influenza Vaccine (#1) 2025 07/15/2007 [facility]-Zoster Vaccines [...] age to complete this topic Insurance MEDICAID [facility] MEDICARE Care Teams Outreach Nurse Relationship Specialty Start Date End Date Danette Lynch PA [address] [place] [address] PCP - General 10/25/20
--- NOTE | 2025-02-22 03:36 | P.HP_ITS ---
<Statement entered by Simba Hernandez MD - 02/22/25 10:47> Personally evaluated patient and agree with the plan of care as outlined by the PRODUCTION BORING MACHINE OPERATOR. History of Present Illness *Admission Date: 02/22/25 *Reason for visit:: Chest pain and dizziness *History of present illness: This is a 24-year-old female with past medical history of obesity, TOO, GERD, hyperlipidemia, anxiety who presents emergency department with complaints of dizziness and chest pain. She also reports 1 week history of left calf tightness and lower extremity swelling. States that she saw her PCP in office approximately a week ago and had ultrasound of her left lower extremity that was negative for DVT. She reports chest pressure/heaviness and dizziness that began 2 days ago. She denies shortness of breath or fever. Emergency department workup notable for elevated D-dimer with elevated troponin of 0.10. CT PE with massive bilateral mainstem PEs extending into all lung ortega with associated right heart strain. All other labs stable. At the time of admission she had normal vital signs with heart rate in the 70s, 100% on room air and blood pressure of 140/80. Dr. Hughes was consulted and recommends therapeutic Lovenox with plans for thrombectomy in the a.m. [facility] difficulty. Upon getting out of the wheelchair and ambulating to the bathroom she became dizzy, diaphoretic with syncopal episode. Upon my immediate arrival to the bedside she was noted to be cyanotic and minimally responsive. She was noted to have heart rate in the 160s with oxygen saturation in the 70s. She did arouse somewhat and was able to get back into the wheelchair and then back to the hospital bed. ER provider Dr. Ordonez and manager data warehouse with other community support specialist arrived to the bedside. She was complaining of worsening chest pressure with worsening T wave abnormalities on EKG. Dr. Hughes was reconsulted and decision was made to give TNK given likely hemodynamic changes from her massive PEs. Further differentials were discussed including possible anaphylaxis. At the time of patient receiving CT contrast, computer system was on downtime. She did not tell ED providers that she was allergic to contrast in the beginning of her emergency department visit. After computer system came back up it was shown that she was allergic to iodine to contrast dye. Given her hemodynamic instability 0.3 mg of epinephrine IM and Solu-Medrol were given although CT contrast scan was completed approximately 2 hours prior to this event. After stabilization, she was moved to the ICU. At the time of transfer to the ICU she had heart rate in the 110s, 100% oxygen saturation and normotensive. All care was discussed with her as well as her sister Cami over the phone. Both patient and sister Cami agreed to patient receiving TNK. [facility] Disclaimer: The information contained in this section may have been updated after the patient was seen, as this information can be updated by other users. Medical History Sleep apnea Asthma Acute viral syndrome Acute bronchitis Bruise of toe Conjunctivitis of left eye Allergic reaction Contusion of knee, left Skin yeast infection Otitis media Plantar fasciitis, bilateral Family history of ovarian cancer Family history of breast cancer Family history of BRCA gene mutation Bilateral otitis media Gastroesophageal reflux disease BMI 38.0-38.9,adult LGSIL on Pap smear of cervix Nexplanon insertion insertion 10/15/20 Hypertension Morbid obesity with BMI of 45.0-49.9, adult Vitamin D deficiency (~09/26/17) Hyperlipidemia (~09/26/17) Family history of diabetes mellitus Polyuria Apneic episode Migraine headache Surgical History History of tonsillectomy and adenoidectomy Family History Other Anxiety Depression Diabetes Hypertension Sleep apnea Stroke Social History Smoking Status: Current every day smoker tobacco type: cigarettes packs per day: 1 alcohol intake: never substance use type: denies use current occupational status: disabled Travel in the last 8 weeks?: None household members: family housing: house caffeine: No Other Medical History Have you received the Flu Vaccine for this season: No Have you received the Pneumonia Vaccine: No Review of Systems Review of Systems Review of systems:: pertinent systems reviewed and negative unless documented below Review of systems (narrative): Negative except for HPI Meds Home Medications and Allergies Home Medications ?Medication ?Instructions ?Recorded ?Confirmed ?Type amitriptyline 10 mg tablet 10 mg PO HS #30 tabs 02/22/25 Rx cholecalciferol (vitamin D3) 50 50 mcg PO DAILY #90 ca ps 11/17/24 02/22/25 Rx mcg (2,000 unit) capsule pantoprazole 40 mg tablet,delayed 40 mg PO DAILY #90 t abs 11/17/24 02/22/25 Rx release (Protonix) blood pressure monitor (Blood #1 ea 11/27/24 02/20/25 Rx Pressure Kit) blood-glucose meter (Accu-Chek #1 ea 12/04/24 02/20/25 History Guide Glucose Meter) albuterol sulfate 90 mcg/actuation 1 inh inhalation Q6 H PRN shortness 12/19/24 02/22/25 Rx aerosol inhaler of breath or wheezing 90 day s #8.5 grams fluticasone 500 mcg-salmeterol 50 1 inh inhalation BID 90 days #180 12/19/24 02/22/25 Rx mcg/dose blistr powdr for ea inhalation (Advair Diskus) ipratropium 0.5 mg-albuterol 3 mg 3 ml inhalation Q6H PRN shortness 12/19/24 02/22/25 Rx (2.5 mg base)/3 mL nebulization of breath or wheezing #90 mL soln blood pressure monitor (Blood #1 ea 12/26/24 02/20/25 Rx Pressure Kit) New Prescriptions to Start Prescriptions: Allergies Allergy/AdvReac Type Severity Reaction Status Date / Time Penicillins (PENICILLINS) Allergy Severe Anaphylaxis Verified 02/20/25 13:53 mold Allergy Intermediate Other Verified 02/20/25 13:53 Iodinated Contrast Media Allergy Anaphylaxis Verified 02/20/25 13:53 Exam Data for Last 24 hours Vital signs and Labs for Last 24 Hours: Temp Pulse Resp BP Pulse Ox O2 Del Method 97.8 F 96 H 18 166/85 H 100 Room Air 02/22/25 03:27 02/22/25 03:27 02/22/25 03:27 02/22/25 03:27 02/22/25 03:27 02/22/25 03:27 I & O for Last 24 hours: Intake & Output 02/19/25 02/20/25 02/21/25 02/22/25 23:59 23:59 23:59 23:59 Weight 120.202 kg Constitutional Constitutional: moderate distress, morbidly obese and diaphoretic *Routine HEENT Exam Head: Present normocephalic Eye: Present EOMI and PERRL ENT: Present mucous membranes moist *Routine Neck Exam Neck: Present supple; Absent lymphadenopathy *Routine Respiratory Exam Respiratory: Present accessory muscle use and CTA bilaterally *Routine Cardiovascular Exam Cardiovascular: Present RRR *Routine Abdominal Exam Abdominal: Present soft and normoactive bowel sounds; Absent tenderness *Routine Rectal Exam Rectal:: deferred *Routine Genitalia Exam Genitalia:: deferred *Routine Extremities Exam Extremities: Absent cyanosis, clubbing or edema *Routine Skin Exam Skin: Present warm; Absent rash *Routine Neurological Exam Neurological: Present alert and oriented X3 Assessment and Plan *Assessment and plan (1) Pulmonary embolism: Status: Acute Qualifiers: Acute cor pulmonale presence: with acute cor pulmonale Chronicity: acute Category: Medical Code(s): I26.99 - Other pulmonary embolism without acute cor pulmonale (2) Peripheral edema: Status: Acute Category: Medical Code(s): R60.0 - Localized edema (3) Hypertension: Status: Acute Category: Medical Code(s): I10 - Essential (primary) hypertension (4) BMI greater than 40: Status: Chronic Category: Medical (5) TOO (obstructive sleep apnea): Status: Acute Category: Medical Code(s): G47.33 - Obstructive sleep apnea (adult) (pediatric) Plan Admit to ICU #Bilateral pulmonary emboli Massive pulmonary emboli bilaterally with right heart strain. Elevated troponin of 0.10, repeat pending Dr. Hughes consulted. Initially staged for thrombectomy in a.m. but patient had decompensation requiring TNK administration. Cardiology to see patient in a.m. and develop further planning Avoid further venipuncture post TNK Every hour neurochecks. Patient did have syncopal episode and is unsure if if she hit her head or not. Patient did receive therapeutic Lovenox in the emergency department as well as aspirin prior to this syncopal episode. Out of abundance for precaution, will continue neurochecks to monitor for any neuro changes related to bleeding Cardiac monitoring #Syncope Syncopized after ambulation upon arrival to the [facility] floor. Unsure if patient hit her head. Patient does not have any tenderness to her scalp anywhere. Will continue every hour neurochecks since patient did receive therapeutic Lovenox and aspirin in the emergency department and then TNK post syncopal episode. Monitor for signs and symptoms of changing neurostatus Every hour neurocheck #Obesity #TOO Complicates all aspects of care
[2025-02-22 03:37] LABS: Alanine Aminotransferase 32 U/L (12-78); Albumin Level 4.9 g/dl (3.5-5.0); Albumin/Globulin Ratio 1.3 (1.1-1.8); Alkaline Phosphatase 71 U/L (38-126); Anion Gap 12.8 mEq/L (5-15); Aspartate Amino Transferase 48 U/L (14-36); Bilirubin,Total 1.7 mg/dl (0.2-1.3); Blood Urea Nitrogen 12 mg/dl (7-17); Calcium 10.0 mg/dl (8.4-10.2); Carbon Dioxide 26 mmol/L (22.0-30.0); Chloride 106 mmol/L (98-107); Creatinine Clearance Estimated 101 mL/min (50-200); Creatinine,Serum 0.70 mg/dl (0.52-1.04); Estimated Glomerular Filt Rate 101 ml/min (>60); GFR (African American) 122 ML/MIN (>60); Globulin 3.7 g/dL (1.3-3.2); Glucose 98 mg/dl (74-100); Hematocrit 48.1 % (37.0-47.0); Hemoglobin 15.4 g/dL (12.2-16.2); Immature Granulocytes % 0.2 %; Mean Corpuscular HGB Conc 32.0 g/dL (31.8-35.4); Mean Corpuscular Hemoglobin 27.5 pg (27.0-31.2); Mean Corpuscular Volume 85.9 fl (81-99); Nucleated Red Blood Cells % 0 %; Platelet Count 246 K/mm3 (142-424); Potassium 3.8 mmoL/L (3.5-5.1); Red Blood Count 5.60 M/mm3 (4.20-5.40); Red Cell Distribution Width-SD 43.0 fL; Sodium 141 mmol/L (136-145); Total Protein,Serum 8.6 g/dl (6.3-8.2); White Blood Count 10.0 K/mm3 (4.8-10.8)
[2025-02-22 03:38] LABS: D-Dimer 2.75 ug/mL (0.0-0.5)
[2025-02-22 03:39] LABS: HCG Qualitative, Serum Negative (Negative)
[2025-02-22] MEDS: METHYLPREDNISOLONE SOD SUCC 125MG VIAL 125 MG IV ×2 (04:00→11:12)
--- NOTE | 2025-02-22 04:03 | ECG_ITS ---
APPROVED REPORT Exam: Resting ECG HR:118 bpm ECG Measurements Heart Rate 118 AXES WI 142 P 17 QRSd 105 QRS 119 QT 344 T -56 QTc 414 Conclusion SINUS TACHYCARDIA INCOMPLETE RIGHT BUNDLE BRANCH BLOCK [90+ ms QRS DURATION, TERMINAL R IN V1/V2, 40+ ms S IN I/aVL/V4/V5/V6] POSSIBLE RIGHT VENTRICULAR HYPERTROPHY [SOME/ALL OF: PROMINENT R IN V1, LATE TRANSITION, RAD, BENITA, SSS] ABNORMAL ECG INTERPRETATION BASED ON A DEFAULT AGE OF 40 YEARS UNCONFIRMED REPORT Electronically signed by : Reinaldo Nava MD 02/22/2025 09:09:13
[2025-02-22] MEDS: TENECTEPLASE 50MG VIAL IV (04:04)
[2025-02-22 04:25] LABS: Hematocrit 43.8 % (37.0-47.0); Immature Granulocytes % 0.2 %; Mean Corpuscular HGB Conc 31.3 g/dL (31.8-35.4); Mean Corpuscular Hemoglobin 27.2 pg (27.0-31.2); Mean Corpuscular Volume 87.1 fl (81-99); Nucleated Red Blood Cells % 0 %; Platelet Count 245 K/mm3 (142-424); Red Blood Count 5.03 M/mm3 (4.20-5.40); Red Cell Distribution Width-SD 44.4 fL; White Blood Count 13.0 K/mm3 (4.8-10.8)
--- NOTE | 2025-02-22 04:25 | PC.NURSE ---
Addendum entered by Alyse Bruce RN 02/22/25 05:55: Patient arrived to MedSurg Unit (Room 214) at approximately 03:35 via wheelchair on room air. Original Note: RAPID RESPONSE activated at 03:44 due to acute change in patient's condition - SEE RAPID RESPONSE INTERVENTION Patient was transferred to ICU Unit (Room 266) at 04:12.
[2025-02-22 04:33] LABS: Chloride 108 mmol/L (98-107); Potassium 3.5 mmoL/L (3.5-5.1); Sodium 138 mmol/L (136-145)
[2025-02-22 04:36] LABS: Blood Urea Nitrogen 11 mg/dl (7-17); Creatinine Clearance Estimated 75 mL/min (50-200); Creatinine,Serum 0.90 mg/dl (0.52-1.04); Estimated Glomerular Filt Rate 76 ml/min (>60); GFR (African American) 92 ML/MIN (>60)
[2025-02-22 04:37] LABS: Anion Gap 21.5 mEq/L (5-15); Calcium 9.2 mg/dl (8.4-10.2); Carbon Dioxide 12 mmol/L (22.0-30.0); Glucose 275 mg/dl (74-100)
[2025-02-22 04:42] LABS: Hemoglobin 13.7 g/dL (12.2-16.2)
--- NOTE | 2025-02-22 04:49 | PC.NURSE ---
patient brought to ICU from [facility] at 4:15 for transfer per Hospitalist. Patient admission history and assessment completed. Patient stable and comfortable at this time. Will continue to monitor.
[2025-02-22 05:12] LABS: Troponin I 0.12 ng/ml (0.00-0.034)
[2025-02-22 05:20] LABS: Total Cells Counted 100
[2025-02-22] MEDS: FUROSEMIDE 40MG/4ML VIAL 40 MG IV ×2 (05:34→10:46)
[2025-02-22] MEDS: ONDANSETRON 4MG/2ML VIAL 4 MG IV (05:34)
[2025-02-22] MEDS: IPRATROPIUM BROMIDE 0.5 MG/2.5ML SOLUTION IH ×3 (05:35→09:45)
--- NOTE | 2025-02-22 07:00 | CA_ITS ---
APPROVED REPORT EXAM: Comprehensive 2D, Doppler, and color-flow Echocardiogram [employer] Mill Operator: Paz Martinez CRT Ht: 5 ft 2 in Wt: 260lbs BSA: 2.14 BP: 147/96 mmHg Indications: Massive PE's, Chest Pain, Shortness of Breath, Syncope, Palpitations, Peripheral Edema Pt sitting up in bed, SOB, on 6 LPM NC and NRB. very difficult exam. M-Mode Dimensions RVDd 2.78 cm (0.9-2.6) LA Diam 2.71 cm (1.9-4.0) LVDd 2.98 cm (3.5-5.7) LVDs 2.24 cm (3.5-5.7) IVSd 2.01 cm (0.6-1.1) PWd 1.04 cm (0.6-1.1) EF (Teich) 50.60% FS 24.80% EDV (Teich) 34.40 mL TAPSE 1.09 (<1.7) ESV (Teich) 17.00 mL LV Diastology E Decel Time 193 (160-240 msec) E/A Ratio 1.14 MED A' 8.50 cm/s LAT A' 7.00 cm/s Aortic Valve AO Peak GR. 7.60 mmHg Mitral Valve MV A Velocity 54.0 (40-130 cm/s) E/A Ratio 1.14 Tricuspid Valve TR P. Velocity 320.00 cm/s RAP Estimate 10.00 mmHg RVSP 50.80 mmHg Left Ventricle The left ventricle is normal size. Left ventricular systolic function is normal. The left ventricular ejection fraction is within the normal range. There is normal left ventricular wall thickness. There is normal LV segmental wall motion. The left ventricular diastolic function is normal. LVEF is 55% Right Ventricle The right ventricle is moderately dilated. The right ventricular systolic function is moderately reduced. Atria The left atrium size is normal. The right atrium size is normal. There is no color Doppler evidence of interatrial shunt. Aortic Valve The aortic valve opens well. There is no hemodynamically significant aortic valvular stenosis. No aortic regurgitation is present. Mitral Valve The mitral valve is normal in structure. No evidence of mitral valve stenosis. Trace mitral regurgitation is present. Tricuspid Valve The tricuspid valve leaflets are thin and pliable. Trace tricuspid regurgitation. There is insufficient TR jet to estimate RVSP. Pulmonic Valve The pulmonary valve is grossly normal in structure. Trace pulmonic valve regurgitation is present. Great Vessels The aortic root is normal in size. IVC is normal in size and collapses >50% with inspiration. Pericardium There is no pericardial effusion. Other Information Study Quality: Technically Difficult Conclusion Technically difficult study. Normal LV systolic function. Moderate RV dilation with moderate reduction in RV function. No significant valvular stenosis or regurgitation. Electronically signed by : Laura Beaver MD 02/22/2025 14:34:57
[2025-02-22] MEDS: 0.9 % SODIUM CHLORIDE 50 ML VIAL IV (07:14)
[2025-02-22] MEDS: SODIUM CHLORIDE 0.9% 10ML SYR (RAD ONLY) 10 ML IV (07:15)
[2025-02-22] MEDS: IOPAMIDOL-370 (76%);100ML BOTTLE 80 ML IV (07:15)
--- NOTE | 2025-02-22 07:30 | HMH.PHAINT1 ---
Pharmacy Intervention Comments: MEDICATION RECONCILIATION COMPLETED ON PATIENT USING EXTERNAL FILL HISTORY FROM PHARMACY AND LIST FROM PCP OFFICE. -JEMAL DONALDSON, LIZETTED
[2025-02-22 08:48] LABS: Hemoglobin A1C 5.4 % (4.0-6.0)
[2025-02-22 08:58] LABS: Cholesterol 197 mg/dl (140-200); Triglycerides 168 mg/dl (30-150)
[2025-02-22 08:59] LABS: HDL Cholesterol 30 mg/dl (40-60); Troponin I 0.47 ng/ml (0.00-0.034)
--- NOTE | 2025-02-22 09:03 | PC.NURSE ---
relayed critical troponin to dr torres on morning rounds. Asked about pulmonology consult which he was okay with ordering.
[2025-02-22 09:29] LABS: Thyroid Stimulating Hormone 1.36 uIU/mL (0.465-4.68)
[2025-02-22 09:34] LABS: NT Pro Brain Natriuretic Pep. 2860 pg/mL (0-125)
[2025-02-22] MEDS: LEVALBUTEROL 1.25MG/3ML NEB 1.25 MG IH (09:45)
--- NOTE | 2025-02-22 09:50 | P.CONS_ITS ---
History of Present Illness History of present illness: Ms. Piña is a 74-year-old female with a history of obesity TOO and GERD dyslipidemia presented today with worsening respiratory distress dizziness found to have bilateral pulmonary embolism and pulmonary was called for further evaluation and management. [facility] Disclaimer: The information contained in this section may have been updated after the patient was seen, as this information can be updated by other users. Medical History (Updated 02/22/25 @ 11:48 by Sandi Daniels APRN) Leg pain Sleep apnea Asthma Acute viral syndrome Acute bronchitis Bruise of toe Conjunctivitis of left eye Allergic reaction Contusion of knee, left Skin yeast infection Otitis media Plantar fasciitis, bilateral Family history of ovarian cancer Family history of breast cancer Family history of BRCA gene mutation Bilateral otitis media Gastroesophageal reflux disease BMI 38.0-38.9,adult LGSIL on Pap smear of cervix Nexplanon insertion Hypertension Morbid obesity with BMI of 45.0-49.9, adult Vitamin D deficiency (~09/26/17) Hyperlipidemia (~09/26/17) Family history of diabetes mellitus Polyuria Apneic episode Migraine headache Surgical History History of tonsillectomy and adenoidectomy Family History Other Anxiety Depression Diabetes Hypertension Sleep apnea Stroke Social History (Updated 02/22/25 @ 04:42 by Gabrielle Ruano RN) Smoking Status: Current every day smoker tobacco type: cigarettes packs per day: 1 alcohol intake: never substance use type: denies use current occupational status: disabled Travel in the last 8 weeks?: None household members: family housing: house caffeine: No Contact w/someone who lives/traveled outside [place] past 30 days?: No Exposure to someone with infectious disease in past 14 days?: No Do you have a fever (greater than 100.4 F or 38 C)?: No Review of Systems Constitutional Constitutional: Reports anorexia, Reports body ache(s), Reports fatigue and Reports lethargy Eyes Eyes: Denies eye discharge, Denies dry eyes, Denies irritation and Denies itchy eyes ENT Ears, Nose, Mouth, and Throat: Denies epistaxis, Denies facial pain, Denies lip swelling and Denies throat swelling *Cardiovascular Cardiovascular: Reports dyspnea and Reports dyspnea on exertion Comments: Dizziness *Respiratory Respiratory: Denies change in phlegm color, Reports chest congestion, Reports cough, Reports dyspnea, Reports dyspnea on exertion, Denies excessive phlegm production, Denies hemoptysis and Reports wheezing *Gastrointestinal Gastrointestinal: Denies abdominal pain, Denies belching and Denies cramping *Musculoskeletal Musculoskeletal: Reports back pain, Reports myalgias and Reports other (No small joint swelling or Pain) Psychiatric Psychiatric: Denies homicidal ideation and Denies suicidal ideation Endocrine Endocrine: Reports fatigue and Denies heat intolerance Hematologic/Lymphatic Hematologic/Lymphatic: Denies easy bleeding and Denies lymphadenopathy Allergic/Immunologic Allergic/Immunologic: Denies itchy eyes, Denies lip swelling, Denies throat swelling and Reports wheezing Pulmonology Exam Inpatient Vital signs and Labs for Last 24 Hours: Temp Pulse Resp BP Pulse Ox O2 Del Method O2 Flow Rate 97.9 F 84 17 133/78 99 Nasal Cannula, Non-Rebreather 15 02/22/25 07:00 02/22/25 09:00 02/22/25 09:00 02/22/25 09:00 02/22/25 09:00 02/22/25 09:00 02/22/25 06:22 FiO2 100 02/22/25 08:00 Laboratory Results - last 24 hr 02/22/25 00:30: WBC 10.0, RBC 5.60 H, Hgb 15.4, Hct 48.1 H, MCV 85.9, MCH 27.5, MCHC 32.0, RDW 13.8, Plt Count 246, MPV 9.3, Neut % (Auto) 51.5, Lymph % (Auto) 39.9, Amador % (Auto) 6.0, Eos % (Auto) 2.0, Baso % (Auto) 0.4, Neut # (Auto) 5.2, Lymph # (Auto) 4.0, Amador # (Auto) 0.6, Eos # (Auto) 0.2, Baso # (Auto) 0.0, D- Dimer 2.75 H, Sodium 141, Potassium 3.8, Chloride 106, Carbon Dioxide 26, Anion Gap 12.8, BUN 12, Creatinine 0.70, Estimated Creat Clear 101, Estimated GFR 101, Est GFR ( Amer) 122, Glucose 98, Calcium 10.0, Total Bilirubin 1.7 H, AST 48 H, ALT 32, Alkaline Phosphatase 71, Total Protein 8.6 H, Albumin 4.9, G lobulin 3.7 H, Albumin/Globulin Ratio 1.3, Serum HCG, Qual Negative 02/22/25 04:15: WBC 13.0 H D, RBC 5.03, Hgb 13.7 D, Hct 43.8, MCV 87.1, MCH 27.2, MCHC 31.3 L, RDW 13.9, Plt Count 245, MPV 9.3, Neut % (Auto) 46.0, Lymph % (Auto) 46.4, Amador % (Auto) 5.8, Eos % (Auto) 1.3, Baso % (Auto) 0.3, Neut # (Auto) 6.0, Lymph # (Auto) 6.0 H, Amador # (Auto) 0.8, Eos # (Auto) 0.2, Baso # (Auto) 0.0, Total Counted 100, Neutrophils % (Manual) 35 L, Lymphocytes % (Manual) 59 H, Monocytes % (Manual) 6, Platelet Estimate Not Reportable, RBC Morphology Not Reportable, Sodium 138, Potassium 3.5, Chloride 108 H, Carbon Dioxide 12 L, Anion Gap 21.5 H, BUN 11, Creatinine 0.90 D, Estimated Creat Clear 75, Estimated GFR 76, Est GFR ( Amer) 92 D, Glucose 275 H D, Calcium 9.2, Troponin I 0.12 H 02/22/25 08:15: Hemoglobin A1c 5.4, Troponin I 0.47 H, NT-Pro-B Natriuret Pep 2860 H, Triglycerides 168 H, Cholesterol 197, LDL Cholesterol Direct 140.37 H, VLDL Cholesterol 34, HDL Cholesterol 30 L, Cholesterol/HDL Ratio 6.6 H, TSH 1.36 I & O for Labs for Last 24 Hours: Intake & Output 02/19/25 02/20/25 02/21/25 02/22/25 23:59 23:59 23:59 23:59 Output Total 1000 / 1000 Balance -1000 / -1000 Weight 260 lb 4.8 oz Constitutional: Present severe distress Head: Present normocephalic and atraumatic ENT: Present normal exam, normal oropharynx and mucous membranes moist Neck: Present normal inspection and full ROM Respiratory: Present respiratory distress, diminished air movement and able to speak in complete sentences; Absent prolonged expiratory phase, rhonchi, wheezes or crackles Cardiac: Present S1/S2, Tachycardia and radial pulses present GI: Present soft and distention; Absent tenderness or guarding Rectal (female): Present deferred (female): Present deferred Skin: Present intact; Absent cyanosis or jaundice Neuro: Present alert, awake and oriented x 3 Extremities: Present normal inspection; Absent clubbing or cyanosis Psychiatric: Present normal affect and cooperative Meds Home Medications and Allergies Home Medications ?Medication ?Instructions ?Recorded ?Confirmed ?Type amitriptyline 10 mg tablet 10 mg PO HS #30 tabs 02/22/25 Rx cholecalciferol (vitamin D3) 50 50 mcg PO DAILY #90 ca ps 11/17/24 02/22/25 Rx mcg (2,000 unit) capsule pantoprazole 40 mg tablet,delayed 40 mg PO DAILY #90 t abs 11/17/24 02/22/25 Rx release (Protonix) blood pressure monitor (Blood #1 ea 11/27/24 02/20/25 Rx Pressure Kit) blood-glucose meter (Accu-Chek #1 ea 12/04/24 02/20/25 History Guide Glucose Meter) fluticasone 500 mcg-salmeterol 50 1 inh inhalation BID 90 days #180 12/19/24 02/22/25 Rx mcg/dose blistr powdr for ea inhalation (Advair Diskus) blood pressure monitor (Blood #1 ea 12/26/24 02/20/25 Rx Pressure Kit) albuterol sulfate 90 mcg/actuation 1 inh inhalation Q6 HP PRN 02/22/25 02/22/25 History aerosol inhaler shortness of breath or wheez ing ipratropium 0.5 mg-albuterol 3 mg 3 ml inhalation Q6HP PRN shortness 02/22/25 02/22/25 History (2.5 mg base)/3 mL nebulization of breath or wheezing soln New Prescriptions to Start Prescriptions: Allergies Allergy/AdvReac Type Severity Reaction Status Date / Time Penicillins (PENICILLINS) Allergy Severe Anaphylaxis Verified 02/20/25 13:53 mold Allergy Intermediate Other Verified 02/20/25 13:53 Iodinated Contrast Media Allergy Anaphylaxis Verified 02/20/25 13:53 Results Laboratory Findings 02/22/25 04:15 02/22/25 04:15 PT/INR, D-dimer D-Dimer 2.75 ug/mL (0.0-0.5) H 02/22/25 00:30 Abnormal lab findings: Abnormal Labs 02/22/25 02/22/25 02/22/25 00:30 04:15 08:15 WBC 13.0 H D RBC 5.60 H Hct 48.1 H MCHC 31.3 L Lymph # (Auto) 6.0 H Neutrophils % (Manual) 35 L Lymphocytes % (Manual) 59 H D-Dimer 2.75 H Chloride 108 H Carbon Dioxide 12 L Anion Gap 21.5 H Glucose 275 H D Total Bilirubin 1.7 H AST 48 H Troponin I 0.12 H 0.47 H NT-Pro-B Natriuret Pep 2860 H Total Protein 8.6 H Globulin 3.7 H Triglycerides 168 H LDL Cholesterol Direct 140.37 H HDL Cholesterol 30 L Cholesterol/HDL Ratio 6.6 H Assessment and Plan *Assessment and plan (1) Pulmonary embolism: Status: Acute Qualifiers: Acute cor pulmonale presence: with acute cor pulmonale Chronicity: a cute Pulmonary embolism type: saddle Qualified Code(s): I26.02 - Saddle embolus of pulmonary artery with acute cor pulmonale Category: Medical Code(s): I26.99 - Other pulmonary embolism without acute cor pulmonale (2) Acute respiratory failure with hypoxia: Status: Resolved Category: Medical Code(s): J96.01 - Acute respiratory failure with hypoxia Plan Ms. Piña is a 74-year-old female with a history of obesity TOO and GERD dyslipidemia presented today with worsening respiratory distress dizziness found to have bilateral pulmonary embolism and pulmonary was called for further evaluation and management. CT upon admission bilateral extensive pulmonary embolism extending from right and left main pulmonary arteries. Possible left lower lobe wedge infarct. She had received tenecteplase for her pulmonary embolism. She also received iodine contrast. Plan: Received initial dose of Lovenox at 3 AM. Will start heparin drip at 3 PM today and will continue for the next 24 hours before switching to long-acting anticoagulants. Closely monitor coagulation studies. ICU management for the next 48 hours. Closely monitor for any signs of bleeding/neurological complications. Continue other supplementation to maintain O2 saturation above 90% and above. Avoid positive pressure ventilation. Follow with cardiology recommendations Anthony 4 times daily as needed # Thank you for involving pulmonary in this patient care. Will continue to follow.
--- OUTSIDE RECORDS SUMMARY | 2025-02-22 10:29 | XMS_ITS | Clinical Summary ---
Author Organization [facility] Address [address] [place] [id number] Phone Care Team Providers Care Piano Player Name Role Phone Krystal Treadwell PA-C Primary Care Physician [ ] Conditions or Problems Problem Name Problem Code Onset Date Status Entry Date Provider Comment Standard Description Annotate HEAD LICE PEDICULOS B85.2 (ICD-10-CM) Inactive Krystal Treadwell PA-C Pediculosis, unspecified History of HEARING LOSS, RIGHT EAR 83856025 (SNOMED CT) Active Mikayla Rosales MA Hearing loss 50% History of ASTHMA 019800233 (SNOMED CT) Active Mikayla Rosales MA Asthma History of ALLERGIC RHINITIS 70483081 (SNOMED CT) Active Mikayla Rosales MA Allergic rhinitis Medications Medication Instructions Start Date Stop Date Generic Name [facility] Provider ULESFIA 5 % EXTERNAL LOTION APPLY TO HAIR, RINSE AFTER 10 MINUTES AND REPEAT IN 1 WEEK 5 BENZYL ALCOHOL [id number] Krystal Treadwell PA-C ADVAIR HFA 45-21 MCG/ACT AERO USE 2 PUFFS TWICE A DAY 2 FLUTICASONE-SHASHI METEROL [id number] Krystal Treadwell PA-C LORATADINE 10 MG TABS TAKE 1 TAB BY MOUTH EVERY DAY 2 LORATADINE [id number] Krystal Treadwell PA-C SINGULAIR 5 MG CHEW TAKE 1 TAB BY MOUTH EVERY DAY 2 MONTELUKAST SODIUM [id number] Krystal Treadwell PA-C PROAIR HFA 108 (90 Base) MCG/ACT INHALATION AEROSOL SOLUTION USE 2 INHALATIONS 4 TIMES A DAY NEEDED FOR WHEEZING 2 ALBUTEROL SULFATE [id number] Krystal Treadwell PA-C ULESFIA 5 % EXTERNAL LOTION APPLY TO HAIR, RINSE AFTER 10 MINUTES AND REPEAT IN 1 WEEK 5 BENZYL ALCOHOL [id number] Krystal Treadwell PA-C ADVAIR HFA 45-21 MCG/ACT AERO 2 PUFFS BID 1 FLUTICASONE-SHASHI METEROL [id number] Krystal Treadwell PA-C LORATADINE 10 MG TABS OPT 1 LORATADINE [id number] Mikayla Rosales MA SINGULAIR 5 MG CHEW 1 PO QD 1 MONTELUKAST SODIUM 36346123745 Mikayla Rosales MA PROAIR HFA 108 (90 Base) MCG/ACT INHALATION AEROSOL SOLUTION 2 PUFFS QID 1 ALBUTEROL SULFATE [id number] Mikayla Rosales MA Medications Administered No information [...] Procedures Code Procedure Name Date Entry Date CPT-[id number] Flu 3 yrs and older vfc 2009 [id number] Hep A pediatric/adol escent dosage- 2 dose 2 schedule [id number] Gardasil, HPV vfc Vital Signs Date Name [...]
--- OUTSIDE RECORDS SUMMARY | 2025-02-22 10:30 | XMS_ITS | Clinical Summary ---
Author Organization Healthcare Address [address] [place] [address] Care Team Providers Care Weave Defect Charting Clerk Name Role Phone Danette Lynch Primary Care Provider [phone] Family History Medical History Relation Name Comments [...] 19+ 3-dose series) 2017 UKY-Pap Smear 2019 EIN-VBAFU-84 Vaccine (1 - 20 24-25 season) 2025 [...] age to complete this topic Insurance MEDICAID [facility] MEDICARE Care Teams Weave Defect Charting Clerk Relationship Specialty Start Date End Date Danette Lynch PA [address] [place] [address] PCP - General 10/25/20
--- NOTE | 2025-02-22 10:35 | IR_ITS ---
APPROVED REPORT Patient Location: Inpatient PROCEDURES Right femoral venous access Catheter placement in the right pulmonary artery Right pulmonary artery selective angiogram Catheter placement in the right upper right middle and right lower subsegmental branches with mechanical thrombectomy Catheter placement in the left pulmonary artery Left pulmonary artery selective angiogram Catheter placement in the left upper and left lower subsegmental branches with mechanical thrombectomy INDICATION Massive and submassive pulmonary embolism, Right ventricular strain, Informed consent was obtained prior to the procedure. COMPLICATIONS NONE Estimated Blood Loss: LESS THAN 10 ML TECHNIQUE 1% lidocaine used anesthetize the right groin the right femoral vein was accessed via the central technique and a 7 Guamanian sheath was placed in the right femoral vein. This was upsized to an 11 and then 16 Guamanian sheath. Under fluoroscopic guidance a Cashion-Krysten catheter was floated into the right pulmonary artery and a wire was exchanged along with a trailblazer catheter and eventually allowed for advancement of the 16 Guamanian sheath to be advanced into the right main pulmonary artery. A flash catheter was advanced and angiography was performed. The catheter was placed in the upper middle and lower pulmonary arteries and subsegmental branches and a large evacuation of thrombus was performed which reperfused the upper and lower pulmonary arteries. Post embolectomy angiography demonstrated wide patency pulmonary arteries. This procedure was repeated in the left lung performing left upper and lower pulmonary artery mechanical thrombectomy. At the end of procedure the apparatus was removed the sheath was removed and hemostasis was achieved using manual pressure patient was transferred to the postoperative in stable condition ANGIOGRAPHIC RESULTS Right main distal pulmonary artery has a large thrombus which extends into the middle and lower lung occluding nearly the entire right lower lung Left main distal pulmonary artery has a large thrombus partially occluding the left lower lobe and partially the right left upper lobe IMPRESSION Bilateral submassive PEs as described above Successful mechanical thrombectomy as described above PLAN 1. Xarelto 15 mg twice daily for 3 weeks followed by 20 mg daily 2. Recommend MELT HELPER evaluation for removal of hormone releasing control from the arm 3. Hypercoagulable workup Electronically signed by : Cruzito Hughes MD 02/22/2025 15:40:18
--- NOTE | 2025-02-22 10:36 | CA_ITS ---
FINAL REPORT CLINICAL HISTORY: PE'S,SOA,LLE SWELLING COMPARISON: None FINDINGS: DUPLEX VENOUS SONOGRAPHY OF THE BILATERAL LOWER EXTREMITIES Multiple transverse and longitudinal scans were performed of the femoropopliteal deep venous systems, with augmentation and compression maneuvers. HISTORY: Pain and edema FINDINGS: Normal phasic flow was noted in the visualized deep venous systems. No intraluminal increased echogenicity is noted to suggest thrombus. There is normal compression and augmentation of the venous structures. No abnormal venous collaterals are seen. IMPRESSION: No evidence of deep venous thrombosis of the bilateral lower extremities. Reviewed, Interpreted and Dictated by Rena Frankel MD Transcribed by Bibi Rodriguez Authenticated and [facility]
[2025-02-22] MEDS: METHYLPREDNISOLONE SOD SUCC 40MG VIAL 40 MG IV ×2 (10:45→21:08)
[2025-02-22] MEDS: FAMOTIDINE 20MG/2ML VIAL 20 MG IV (11:14)
--- NOTE | 2025-02-22 11:40 | P.CONCA_ITS ---
History of Present Illness History of Present Illness Consult date: 02/22/25 Requesting physician: Simba Hernandez Consult reason: chest pain Chief complaint: chest pain History of present illness: This is a 24-year-old female with a past medical history of obesity, obstructive sleep apnea, GERD, hyperlipidemia and anxiety. She presented to the emergency department with complaints of chest pain and dizziness. She states that her symptoms started approximately 3 to 4 days ago with feeling sharp pains in her chest. She states that she was walking from the car to her sisters job yesterday when she got significantly dizzy and felt as if she was going to pass out. She had to lean on the car to prevent herself from passing out again. She states that she did pass out a few days ago at home. She states that last week she was having pain and swelling in her left calf area. She saw her primary care provider and have an ultrasound that did not show a DVT. Now she states that she is having the pain in the right leg which is new for her today. In the emergency department she was found to have an elevated troponin and D-dimer. CT of the chest showed massive bilateral mainstem PEs extending into the right and left main pulmonary arteries. There is also evidence that she has likely had some pulmonary infarcts, this is concerning for acute on chronic PEs. Initially the patient was treated with Lovenox and plan for thrombectomy this morning. When she arrived to the MedSurg unit she got cyanotic and was minimally responsive. Her heart rate was in the 160s with oxygen saturations in the 70s. She was having worsening chest pressure with worsening T wave abnormalities. The patient was then given TNK for her massive PEs. She did have improvement in her symptoms after that. This morning her vital signs are stable. While I am talking to her that her heart rate did increase to around 103 to 110 bpm but her oxygen saturation and blood pressure remained stable. Her sister Cami was on the phone during my evaluation of the patient who also did help to provide some history. The patient denies any fever, chills, nausea, vomiting or diarrhea. She denies hypertension, hyperlipidemia and diabetes. [facility] Disclaimer: The information contained in this section may have been updated after the patient was seen, as this information can be updated by other users. Medical History (Updated 02/22/25 @ 11:48 by Sandi Daniels APRN) Leg pain Sleep apnea Asthma Acute viral syndrome Acute bronchitis Bruise of toe Conjunctivitis of left eye Allergic reaction Contusion of knee, left Skin yeast infection Otitis media Plantar fasciitis, bilateral Family history of ovarian cancer Family history of breast cancer Family history of BRCA gene mutation Bilateral otitis media Gastroesophageal reflux disease BMI 38.0-38.9,adult LGSIL on Pap smear of cervix Nexplanon insertion Hypertension Morbid obesity with BMI of 45.0-49.9, adult Vitamin D deficiency (~09/26/17) Hyperlipidemia (~09/26/17) Family history of diabetes mellitus Polyuria Apneic episode Migraine headache Surgical History History of tonsillectomy and adenoidectomy Family History Other Anxiety Depression Diabetes Hypertension Sleep apnea Stroke Social History (Updated 02/22/25 @ 04:42 by Gabrielle Ruano RN) Smoking Status: Current every day smoker tobacco type: cigarettes packs per day: 1 alcohol intake: never substance use type: denies use current occupational status: disabled Travel in the last 8 weeks?: None household members: family housing: house caffeine: No Contact w/someone who lives/traveled outside [place] past 30 days?: No Exposure to someone with infectious disease in past 14 days?: No Do you have a fever (greater than 100.4 F or 38 C)?: No Review of Systems Review of Systems Review of systems:: pertinent systems reviewed and negative unless documented below Constitutional Constitutional: Reports system reviewed and no additional complaints, except as documented, Reports fatigue, Reports lethargy and Reports weakness Eyes Eyes: Reports system reviewed and no additional complaints, except as documented ENT Ears, Nose, Mouth, and Throat: Reports system reviewed and no additional complaints, except as documented and Reports dizziness *Cardiovascular Cardiovascular: Reports system reviewed and no additional complaints, except as documented, Reports chest pain, Reports chest pain at rest, Reports chest pain with activity, Reports lightheadedness and Reports syncope *Respiratory Respiratory: Reports system reviewed and no additional complaints, except as documented *Gastrointestinal Gastrointestinal: Reports system reviewed and no additional complaints, except as documented *Genitourinary Genitourinary: Reports system reviewed and no additional complaints, except as documented *Musculoskeletal Musculoskeletal: Reports system reviewed and no additional complaints, except as documented Integumentary/Breasts Skin/Breast: Reports system reviewed and no additional complaints, except as documented *Neurologic Neurologic: Reports system reviewed and no additional complaints, except as documented, Reports dizziness, Reports syncope and Reports weakness Psychiatric Psychiatric: Reports system reviewed and no additional complaints, except as documented Endocrine Endocrine: Reports system reviewed and no additional complaints, except as documented and Reports fatigue Hematologic/Lymphatic Hematologic/Lymphatic: Reports system reviewed and no additional complaints, except as documented Allergic/Immunologic Allergic/Immunologic: Reports system reviewed and no additional complaints, except as documented Exam Data for Last 24 hours Vital signs and Labs for Last 24 Hours: Temp Pulse Resp BP Pulse Ox O2 Del Method O2 Flow Rate 97.9 F 76 20 131/77 99 Nasal Cannula, Non-Rebreather 15 02/22/25 07:00 02/22/25 10:00 02/22/25 10:00 02/22/25 10:00 02/22/25 10:00 02/22/25 09:55 02/22/25 09:55 FiO2 100 02/22/25 09:55 Laboratory Results - last 24 hr 02/22/25 00:30: WBC 10.0, RBC 5.60 H, Hgb 15.4, Hct 48.1 H, MCV 85.9, MCH 27.5, MCHC 32.0, RDW 13.8, Plt Count 246, MPV 9.3, Neut % (Auto) 51.5, Lymph % (Auto) 39.9, [place] % (Auto) 6.0, Eos % (Auto) 2.0, Baso % (Auto) 0.4, Neut # (Auto) 5.2, Lymph # (Auto) 4.0, [place] # (Auto) 0.6, Eos # (Auto) 0.2, Baso # (Auto) 0.0, D- Dimer 2.75 H, Sodium 141, Potassium 3.8, Chloride 106, Carbon Dioxide 26, Anion Gap 12.8, BUN 12, Creatinine 0.70, Estimated Creat Clear 101, Estimated GFR 101, Est GFR ( Amer) 122, Glucose 98, Calcium 10.0, Total Bilirubin 1.7 H, AST 48 H, ALT 32, Alkaline Phosphatase 71, Total Protein 8.6 H, Albumin 4.9, Globulin 3.7 H, Albumin/Globulin Ratio 1.3, Serum HCG, Qual Negative 02/22/25 04:15: WBC 13.0 H D, RBC 5.03, Hgb 13.7 D, Hct 43.8, MCV 87.1, MCH 27.2, MCHC 31.3 L, RDW 13.9, Plt Count 245, MPV 9.3, Neut % (Auto) 46.0, Lymph % (Auto) 46.4, [place] % (Auto) 5.8, Eos % (Auto) 1.3, Baso % (Auto) 0.3, Neut # (Auto) 6.0, Lymph # (Auto) 6.0 H, [place] # (Auto) 0.8, Eos # (Auto) 0.2, Baso # (Auto) 0.0, Total Counted 100, Neutrophils % (Manual) 35 L, Lymphocytes % (Manual) 59 H, Monocytes % (Manual) 6, Platelet Estimate Not Reportable, RBC Morphology Not Reportable, Sodium 138, Potassium 3.5, Chloride 108 H, Carbon Dioxide 12 L, Anion Gap 21.5 H, BUN 11, Creatinine 0.90 D, Estimated Creat Clear 75, Estimated GFR 76, Est GFR ( Amer) 92 D, Glucose 275 H D, Calcium 9.2, Troponin I 0.12 H 02/22/25 08:15: Hemoglobin A1c 5.4, Troponin I 0.47 H, NT-Pro-B Natriuret Pep 2860 H, Triglycerides 168 H, Cholesterol 197, LDL Cholesterol Direct 140.37 H, VLDL Cholesterol 34, HDL Cholesterol 30 L, Cholesterol/HDL Ratio 6.6 H, TSH 1.36 I & O for Last 24 hours: Intake & Output 02/19/25 02/20/25 02/21/25 02/22/25 23:59 23:59 23:59 23:59 Output Total 1000 / 1000 Balance -1000 / -1000 Weight 260 lb 4.8 oz Constitutional Constitutional: no acute distress and morbidly obese *Routine HEENT Exam Head: Present normocephalic and atraumatic ENT: Present mucous membranes moist *Routine Neck Exam Neck: Present supple, full ROM and normal carotid upstroke; Absent JVD, carotid bruit or lymphadenopathy *Routine Respiratory Exam Respiratory: Present CTA bilaterally, normal respiratory effort, able to speak in complete sentences and symmetric chest movement *Routine Cardiovascular Exam Cardiovascular: Present RRR, Normal S1 and Normal S2; Absent murmur or gallop *Routine Abdominal Exam Abdominal: Present soft and normoactive bowel sounds; Absent tenderness, distended or organomegaly *Routine Extremities Exam Extremities: Present full ROM, pulses intact and normal capillary refill; Absent cyanosis, clubbing or edema *Routine Skin Exam Skin: Present intact and warm; Absent erythema *Routine Neurological Exam Neurological: Present alert, oriented X3 and CN II-XII intact; Absent sensory deficit or motor deficit Routine Psychiatric Exam Psychiatric: Present normal affect Meds Home Medications and Allergies Home Medications ?Medication ?Instructions ?Recorded ?Confirmed ?Type amitriptyline 10 mg tablet 10 mg PO HS #30 tabs 02/22/25 Rx cholecalciferol (vitamin D3) 50 50 mcg PO DAILY #90 ca ps 11/17/24 02/22/25 Rx mcg (2,000 unit) capsule pantoprazole 40 mg tablet,delayed 40 mg PO DAILY #90 t abs 11/17/24 02/22/25 Rx release (Protonix) blood pressure monitor (Blood #1 ea 11/27/24 02/20/25 Rx Pressure Kit) blood-glucose meter (Accu-Chek #1 ea 12/04/24 02/20/25 History Guide Glucose Meter) fluticasone 500 mcg-salmeterol 50 1 inh inhalation BID 90 days #180 12/19/24 02/22/25 Rx mcg/dose blistr powdr for ea inhalation (Advair Diskus) blood pressure monitor (Blood #1 ea 12/26/24 02/20/25 Rx Pressure Kit) albuterol sulfate 90 mcg/actuation 1 inh inhalation Q6 HP PRN 02/22/25 02/22/25 History aerosol inhaler shortness of breath or wheez ing ipratropium 0.5 mg-albuterol 3 mg 3 ml inhalation Q6HP PRN shortness 02/22/25 02/22/25 History (2.5 mg base)/3 mL nebulization of breath or wheezing soln New Prescriptions to Start Prescriptions: Allergies Allergy/AdvReac Type Severity Reaction Status Date / Time Penicillins (PENICILLINS) Allergy Severe Anaphylaxis Verified 02/20/25 13:53 mold Allergy Intermediate Other Verified 02/20/25 13:53 Iodinated Contrast Media Allergy Anaphylaxis Verified 02/20/25 13:53 Assessment and Plan *Assessment and plan (1) Pulmonary embolism: Status: Acute Qualifiers: Acute cor pulmonale presence: with acute cor pulmonale Chronicity: acute Pulmonary embolism type: saddle Qualified Code(s): I26.02 - Saddle embolus of pulmonary artery with acute cor pulmonale Category: Medical Code(s): I26.99 - Other pulmonary embolism without acute cor pulmonale (2) Peripheral edema: Status: Acute Category: Medical Code(s): R60.0 - Localized edema (3) Leg pain: Status: Acute Qualifiers: Laterality: bilateral Qualified Code(s): M79.604 - Pain in right leg; M79.605 - Pain in left leg Category: Medical Code(s): M79.606 - Pain in leg, unspecified (4) Syncope: Status: Acute Qualifiers: Syncope type: unspecified Qualified Code(s): R55 - Syncope and collapse Category: Medical Code(s): R55 - Syncope and collapse (5) TOO (obstructive sleep apnea): Status: Acute Category: Medical Code(s): G47.33 - Obstructive sleep apnea (adult) (pediatric) Plan Plan: 1. The patient was admitted to the hospital for bilateral massive pulmonary emb gisele extending to the right and left main pulmonary arteries. Echocardiogram does show at least moderate dilation and moderate reduction in RV function. Thrombectomy is recommended. 2. The patient will undergo bilateral thrombectomy today due to her massive PEs. She has been educated risk and benefits of proceeding with procedure, bilateral thrombectomy. The patient verbalized understanding and is agreeable to proceed with the procedure. 3. The patient will be n.p.o. in preparation for bilateral thrombectomy. 4. Her blood pressure is well-controlled. 5. Her LDL goal is less than 100. Her LDL is 140. Will start her on Lipitor 40 mg p.o. nightly. 6. The patient will be on therapeutic Lovenox with the twice daily dosing for anticoagulation. Prior to discharge home she will need to be transitioned to oral Xarelto. 7. The patient does have a Nexplanon in place and she is a smoker. These PEs were likely provoked from the Nexplanon and tobacco use. We do recommend her having the Nexplanon removed and switching her form of control. The patient verbalizes understanding and is agreeable with this. 8. Her troponins were elevated which is most likely from the RV strain from her massive PEs. No plans for invasive left cardiac catheterization at this time. 9. As mentioned above the patient does have bilateral PEs. There is also evidence of pulmonary infarct. Pulmonology has been consulted as well. 10. Further recommendations were made pending the patient's response to treatment the results of her thrombectomy today. Thank you for the opportunity to help participate in the care of this patient. All recommendations and orders are per Dr. Beaver.
[2025-02-22 12:18] LABS: Troponin I 0.51 ng/ml (0.00-0.034)
[2025-02-22] MEDS: HEPARIN 1,000 UNITS/500ML NS (CATH LAB) 3000 UNIT IV (13:20)
[2025-02-22] MEDS: FENTANYL 100MCG/2ML VIAL 50 MCG IV (13:23)
[2025-02-22] MEDS: LIDOCAINE 1% 10ML MDV 10 ML IJ (13:23)
[2025-02-22] MEDS: MIDAZOLAM HCL 1MG/ML 5ML VIAL 1 MG IV (13:23)
[2025-02-22] MEDS: HEPARIN 1,000 UNITS/ML 10ML VIAL (CATH LAB) 5000 UNIT IV (13:43)
--- NOTE | 2025-02-22 13:56 | PC.NURSE ---
notified wom[facility] about consult
[2025-02-22] MEDS: HEPARIN 25,000 UNITS/D5W 500 ML 40 UNIT IV (16:43)
[2025-02-22 17:18] LABS: PTT Heparin (inpatient only) 80.1 Seconds (50-75)
--- NOTE | 2025-02-22 17:32 | EXP.GYNCONS ---
History of Present Illness *Admission Date: 02/22/25 *History of present illness: Sanjuana Piña is a pleasant 24-year-old G0 who I was consulted on secondary to pulmonary embolism in the setting of a Nexplanon. Per chart review her Nexplanon was placed on 10/15/2020, approximately 4 years ago. Her beta-hCG is negative as of 02/22/2025. Her Pap smear was last completed in 2020 where it was negative for endothelial lesion or malignancy, transformation zone was present, gonorrhea and Chlamydia negative. She did have a Pap smear in 2018 that was LGSIL. The patient reports a past medical history of tobacco use, obesity, obstructive sleep apnea, GERD, hyperlipidemia, and anxiety. She has not seen a bowling ball assembler in several years. Patient reports that her mom from a stroke. She is unsure if she has any family history of inheritable thrombophilias [facility] Disclaimer: The information contained in this section may have been updated after the patient was seen, as this information can be updated by other users. Medical History (Updated 02/22/25 @ 11:48 by Sandi Daniels APRN) Leg pain Sleep apnea Asthma Acute viral syndrome Acute bronchitis Bruise of toe Conjunctivitis of left eye Allergic reaction Contusion of knee, left Skin yeast infection Otitis media Plantar fasciitis, bilateral Family history of ovarian cancer Family history of breast cancer Family history of BRCA gene mutation Bilateral otitis media Gastroesophageal reflux disease BMI 38.0-38.9,adult LGSIL on Pap smear of cervix Nexplanon insertion Hypertension Morbid obesity with BMI of 45.0-49.9, adult Vitamin D deficiency (~09/26/17) Hyperlipidemia (~09/26/17) Family history of diabetes mellitus Polyuria Apneic episode Migraine headache Surgical History History of tonsillectomy and adenoidectomy Family History Other Anxiety Depression Diabetes Hypertension Sleep apnea Stroke Social History (Updated 02/22/25 @ 04:42 by Gabrielle Ruano RN) Smoking Status: Current every day smoker tobacco type: cigarettes packs per day: 1 alcohol intake: never substance use type: denies use current occupational status: disabled Travel in the last 8 weeks?: None household members: family housing: house caffeine: No Contact w/someone who lives/traveled outside [place] past 30 days?: No Exposure to someone with infectious disease in past 14 days?: No Do you have a fever (greater than 100.4 F or 38 C)?: No Review of Systems Review of Systems Review of systems (narrative): Review of Systems Constitutional: Denies fever, chills, and sweats Eyes: Denies vision change/ pain Respiratory: Denies cough and shortness of breath Cardiovascular: Denies chest pain and lightheadedness Gastrointestinal: Denies abdominal pain. Denies nausea, vomiting. Genitourinary: Denies dysuria and incontinence Musculoskeletal: Denies shoulder pain and back pain Neurological: Denies change in speech or headaches Constitutional Constitutional: Reports weakness ENT Ears, Nose, Mouth, and Throat: Reports dizziness *Cardiovascular Cardiovascular: Reports syncope *Neurologic Neurologic: Reports system reviewed and no additional complaints, except as documented, Reports dizziness, Reports syncope and Reports weakness Meds Home Medications and Allergies Home Medications ?Medication ?Instructions ?Recorded ?Confirmed ?Type amitriptyline 10 mg tablet 10 mg PO HS #30 tabs 11/17/24 02/22/25 Rx cholecalciferol (vitamin D3) 50 50 mcg PO DAILY #90 caps 11/17/24 02/22/25 Rx mcg (2,000 unit) capsule pantoprazole 40 mg tablet,delayed 40 mg PO DAILY #90 tabs 11/17/24 02/22/25 Rx release (Protonix) blood pressure monitor (Blood #1 ea 11/27/24 02/20/25 Rx Pressure Kit) blood-glucose meter (Accu-Chek #1 ea 12/04/24 02/20/25 History Guide Glucose Meter) fluticasone 500 mcg-salmeterol 50 1 inh inhalation BID 90 days #180 12/19/24 02/22/25 Rx mcg/dose blistr powdr for ea inhalation (Advair Diskus) blood pressure monitor (Blood #1 ea 12/26/24 02/20/25 Rx Pressure Kit) albuterol sulfate 90 mcg/actuation 1 inh inhalation Q6HP PRN 02/22/25 02/22/25 History aerosol inhaler shortness of breath or wheezing ipratropium 0.5 mg-albuterol 3 mg 3 ml inhalation Q6HP PRN shortness 02/22/25 02/22/25 History (2.5 mg base)/3 mL nebulization of breath or wheezing soln New Prescriptions to Start Prescriptions: Allergies Allergy/AdvReac Type Severity Reaction Status Date / Time Penicillins (PENICILLINS) Allergy Severe Anaphylaxis Verified 02/20/25 13:53 mold Allergy Intermediate Other Verified 02/20/25 13:53 Iodinated Contrast Media Allergy Anaphylaxis Verified 02/20/25 13:53 Exam (Inpt) Vital signs and Labs for Last 24 Hours: Temp Pulse Resp BP Pulse Ox O2 Del Method O2 Flow Rate 98.9 F 92 H 18 103/64 L 93 L Nasal Cannula 4 02/22/25 12:00 02/22/25 17:10 02/22/25 17:10 02/22/25 17:10 02/22/25 17:10 02/22/25 17:10 02/22/25 17:10 FiO2 100 02/22/25 09:55 Laboratory Results - last 24 hr 02/22/25 00:30: WBC 10.0, RBC 5.60 H, Hgb 15.4, Hct 48.1 H, MCV 85.9, MCH 27.5, MCHC 32.0, RDW 13.8, Plt Count 246, MPV 9.3, Neut % (Auto) 51.5, Lymph % (Auto) 39.9, [place] % (Auto) 6.0, Eos % (Auto) 2.0, Baso % (Auto) 0.4, Neut # (Auto) 5.2, Lymph # (Auto) 4.0, [place] # (Auto) 0.6, Eos # (Auto) 0.2, Baso # (Auto) 0.0, D-Dimer 2.75 H, Sodium 141, Potassium 3.8, Chloride 106, Carbon Dioxide 26, Anion Gap 12.8, BUN 12, Creatinine 0.70, Estimated Creat Clear 101, Estimated GFR 101, Est GFR ( Amer) 122, Glucose 98, Calcium 10.0, Total Bilirubin 1.7 H, AST 48 H, ALT 32, Alkaline Phosphatase 71, Total Protein 8.6 H, Albumin 4.9, Globulin 3.7 H, Albumin/Globulin Ratio 1.3, Serum HCG, Qual Negative 02/22/25 04:15: WBC 13.0 H D, RBC 5.03, Hgb 13.7 D, Hct 43.8, MCV 87.1, MCH 27.2, MCHC 31.3 L, RDW 13.9, Plt Count 245, MPV 9.3, Neut % (Auto) 46.0, Lymph % (Auto) 46.4, [place] % (Auto) 5.8, Eos % (Auto) 1.3, Baso % (Auto) 0.3, Neut # (Auto) 6.0, Lymph # (Auto) 6.0 H, [place] # (Auto) 0.8, Eos # (Auto) 0.2, Baso # (Auto) 0.0, Total Counted 100, Neutrophils % (Manual) 35 L, Lymphocytes % (Manual) 59 H, Monocytes % (Manual) 6, Platelet Estimate Not Reportable, RBC Morphology Not Reportable, Sodium 138, Potassium 3.5, Chloride 108 H, Carbon Dioxide 12 L, Anion Gap 21.5 H, BUN 11, Creatinine 0.90 D, Estimated Creat Clear 75, Estimated GFR 76, Est GFR ( Amer) 92 D, Glucose 275 H D, Calcium 9.2, Troponin I 0.12 H 02/22/25 08:15: Hemoglobin A1c 5.4, Troponin I 0.47 H, NT-Pro-B Natriuret Pep 2860 H, Triglycerides 168 H, Cholesterol 197, LDL Cholesterol Direct 140.37 H, VLDL Cholesterol 34, HDL Cholesterol 30 L, Cholesterol/HDL Ratio 6.6 H, TSH 1.36 02/22/25 11:30: Troponin I 0.51 H 02/22/25 16:35: APTT 80.1 H* I & O for Labs for Last 24 Hours: Intake & Output 02/19/25 02/20/25 02/21/25 02/22/25 23:59 23:59 23:59 23:59 Output Total 2500 / 2500 Balance -2500 / -2500 Weight 260 lb 4.8 oz HEENT Head: Present normocephalic and atraumatic Respiratory: Present normal respiratory effort and able to speak in complete sentences; Absent accessory muscle use or respiratory distress Cardiac: Present Reg Rate and Rhythm GI: Present soft Extremities: Present normal inspection; Absent tenderness Skin: Present intact Assessment and Plan *Assessment and plan (1) Pulmonary embolism: Status: Acute Qualifiers: Acute cor pulmonale presence: with acute cor pulmonale Chronicity: acute Pulmonary embolism type: saddle Qualified Code(s): I26.02 - Saddle embolus of pulmonary artery with acute cor pulmonale Category: Medical Code(s): I26.99 - Other pulmonary embolism without acute cor pulmonale (2) Peripheral edema: Status: Acute Category: Medical Code(s): R60.0 - Localized edema (3) Leg pain: Status: Acute Qualifiers: Laterality: bilateral Qualified Code(s): M79.604 - Pain in right leg; M79.605 - Pain in left leg Category: Medical Code(s): M79.606 - Pain in leg, unspecified (4) Syncope: Status: Acute Qualifiers: Syncope type: unspecified Qualified Code(s): R55 - Syncope and collapse Category: Medical Code(s): R55 - Syncope and collapse (5) TOO (obstructive sleep apnea): Status: Acute Category: Medical Code(s): G47.33 - Obstructive sleep apnea (adult) (pediatric) (6) Hypertension: Status: Acute Category: Medical Code(s): I10 - Essential (primary) hypertension (7) BMI greater than 40: Status: Chronic Category: Medical (8) Nexplanon in place: Status: Acute Category: Social Hx Code(s): Z97.5 - Presence of (intrauterine) contraceptive device Plan Discussed tobacco cessation Discussed increased ambulation and lifestyle modifications upon discharge Recommended outpatient follow-up with gynecology as this time for new Nexplanon as well as an annual exam and a Pap smear Discussed that per the CDC guidelines the Nexplanon is a category 2 and equivocal to all other forms of LARCs including the copper IUD, levonorgestrel IUD, Depo-Provera, and progesterone only pills as far as safety goes with current clot. Combined oral contraceptives would be contraindicated in this patient. She should undergo a thrombophilia evaluation. Discussed with the patient that this needed to be reviewed with any business english instructor during future pregnancies as she would be at an increased risk for recurrent clot in We will schedule an outpatient follow-up for this patient tomorrow when the office staff is back in the office and it will be provided to her prior to her discharge Thanks for including us on her care
--- NOTE | 2025-02-22 17:51 | PC.NURSE ---
Addendum entered by Amira Hernández RN 02/22/25 18:21: made aware of the r ankle pain and complaints of the slight numbness to that leg. stated let her continue stay in bed for now until reads of studies come back, and see how pain does. patient visiting with family and purwick and chux replaced. call light within reach. heparin drip was started after baseline ptt drawn. Original Note: patient has done well this shift. before heart caht rested well and using purick. lots of urine produced with 2 bedchange required on top of purwick because of large amounts of urine. no complaints of pain and had selwyn noted through out. upon return to floor after heart cath patient doing well. on nasal cannula at 4lpm with sats of 95%. has slowly been sat up. noted small amount of blood to groin gauzepad, but unchanged at this time. educated she could get up now slowly with assistance. bp and heart rate has remained stable. attempted to stand up at this time but is complaining of ankle pain on right side. groin site looks good. pulses within normal limits. warm to touch. assisted back to bed
[2025-02-22 19:23] LABS: PTT Heparin (inpatient only) 86.4 Seconds (50-75)
--- NOTE | 2025-02-22 19:28 | PC.NURSE ---
new dressing placed over cath site at this time
--- NOTE | 2025-02-22 20:12 | XR_ITS ---
PROCEDURE INFORMATION: Exam: XR Chest Exam date and time: 02/22/2025 5:28 AM Age: 24 years old Clinical indication: Pulmonary embolism. Shortness of breath TECHNIQUE: Imaging protocol: Radiologic exam of the chest. Views: 1 view. COMPARISON: CR (CHEST, CXR AP LANDSCAPE) 02/22/2025 12:49 AM FINDINGS: Lungs: Increasing right upper lobe subsegmental atelectasis. Increasing hazy ground-glass opacity within the right lower lung and left upper lung. Stable hazy opacity at the left base. Pleural spaces: No significant pleural effusions. No pneumothorax. Heart/Mediastinum: Mild cardiomegaly. Stable mediastinal contours. Bones/joints: Bones are stable. IMPRESSION: 1. Mild cardiomegaly. 2. Multifocal pulmonary infiltrates, increasing compared to the earlier examination. In the setting of pulmonary embolism, these may represent pulmonary infarcts.
[2025-02-22] MEDS: ACETAMINOPHEN 325MG TAB 650 MG PO (20:29)
[2025-02-22] MEDS: TRAMADOL 50MG TABLET 50 MG PO (21:07)
[2025-02-22 21:49] LABS: PTT Heparin (inpatient only) 110.2 Seconds (50-75)
[2025-02-22] MEDS: MORPHINE 2MG/ML SYRINGE 2 MG IV (22:32)
[2025-02-22 23:30] LABS: Hematocrit 38.1 % (37.0-47.0); Immature Granulocytes % 0.2 %; Mean Corpuscular HGB Conc 32.3 g/dL (31.8-35.4); Mean Corpuscular Hemoglobin 27.6 pg (27.0-31.2); Mean Corpuscular Volume 85.6 fl (81-99); Nucleated Red Blood Cells % 0 %; Platelet Count 218 K/mm3 (142-424); Red Blood Count 4.45 M/mm3 (4.20-5.40); Red Cell Distribution Width-SD 43.1 fL; White Blood Count 10.4 K/mm3 (4.8-10.8)
[2025-02-22 23:34] LABS: Hemoglobin 12.4 g/dL (12.2-16.2)
[2025-02-22 23:59] LABS: PTT Heparin (inpatient only) 112.0 Seconds (50-75)
[2025-02-23] VITALS (24 sets, daily range): BP systolic 108–139; BP diastolic 54–90; PULSE 67–114; RESP 14–21; TEMP 36.4–37; O2SAT 91–100; BMI 45.4
--- NOTE | 2025-02-23 02:10 | PC.NURSE ---
Attempted to draw labs on pt by multiple staff for scheduled 0100 PTT and were unsuccessful. Pt IV to right upper arm occluded. Ultrasound guided IV placed to right forearm. Labs collected at time of insertion.
--- NOTE | 2025-02-23 02:15 | PC.NURSE ---
Cath site dressing noted to be saturated with sanguineous drainage. Dressing removed. Manual pressure held for 10 minutes. No sign of active bleeding at this time. New dressing applied to site.
[2025-02-23 02:27] LABS: PTT Heparin (inpatient only) 95.0 Seconds (50-75)
[2025-02-23] MEDS: ACETAMINOPHEN 325MG TAB 650 MG PO ×2 (06:08→10:24)
--- NOTE | 2025-02-23 06:35 | PC.NURSE ---
Pt has not voided during shift. Pt bladder scanned - 368ml. Pt states she is unable to void at this time. Musa Larson made aware and states to reassess in 2 hours.
[2025-02-23 07:05] LABS: Hematocrit 36.4 % (37.0-47.0); Hemoglobin 11.4 g/dL (12.2-16.2); Immature Granulocytes % 0.5 %; Mean Corpuscular HGB Conc 31.3 g/dL (31.8-35.4); Mean Corpuscular Hemoglobin 27.2 pg (27.0-31.2); Mean Corpuscular Volume 86.9 fl (81-99); Nucleated Red Blood Cells % 0 %; Platelet Count 241 K/mm3 (142-424); Red Blood Count 4.19 M/mm3 (4.20-5.40); Red Cell Distribution Width-SD 45.1 fL; White Blood Count 13.1 K/mm3 (4.8-10.8)
[2025-02-23 07:17] LABS: PTT Heparin (inpatient only) 58.9 Seconds (50-75)
[2025-02-23 08:20] LABS: Anion Gap 13.1 mEq/L (5-15); Blood Urea Nitrogen 14 mg/dl (7-17); Calcium 8.7 mg/dl (8.4-10.2); Carbon Dioxide 27 mmol/L (22.0-30.0); Chloride 101 mmol/L (98-107); Creatinine Clearance Estimated 84 mL/min (50-200); Creatinine,Serum 0.80 mg/dl (0.52-1.04); Estimated Glomerular Filt Rate 87 ml/min (>60); GFR (African American) 105 ML/MIN (>60); Glucose 173 mg/dl (74-100); Potassium 4.1 mmoL/L (3.5-5.1); Sodium 137 mmol/L (136-145)
[2025-02-23] MEDS: HEPARIN 25,000 UNITS/D5W 500 ML 22 UNIT IV (08:41)
--- NOTE | 2025-02-23 08:43 | P.PN_ITS ---
Subjective *Date: 02/23/25 *Time: 12:57 Interval history: No acute respiratory vents overnight. Improving oxygen requirements. Pulmonology Exam Inpatient Vital signs and Labs for Last 24 Hours: Temp Pulse Resp BP Pulse Ox O2 Del Method O2 Flow Rate 97.6 F 80 15 118/76 93 L Nasal Cannula 4 02/23/25 04:00 02/23/25 06:00 02/23/25 06:00 02/23/25 06:00 02/23/25 06:00 02/23/25 06:56 02/23/25 06:56 FiO2 100 02/22/25 09:55 Laboratory Results - last 24 hr 02/22/25 08:15: Hemoglobin A1c 5.4, Troponin I 0.47 H, NT-Pro-B Natriuret Pep 2860 H, Triglycerides 168 H, Cholesterol 197, LDL Cholesterol Direct 140.37 H, VLDL Cholesterol 34, HDL Cholesterol 30 L, Cholesterol/HDL Ratio 6.6 H, TSH 1.36 02/22/25 11:30: Troponin I 0.51 H 02/22/25 16:35: APTT 80.1 H* 02/22/25 18:30: APTT 86.4 H* 02/22/25 21:03: APTT 110.2 H* 02/22/25 23:23: WBC 10.4, RBC 4.45, Hgb 12.4, Hct 38.1, MCV 85.6, MCH 27.6, MCHC 32.3, RDW 13.9, Plt Count 218, MPV 9.3, Neut % (Auto) 84.6 H, Lymph % (Auto) 9.4 L, [place] % (Auto) 5.7, Eos % (Auto) 0.0 L, Baso % (Auto) 0.1, Neut # (Auto) 8.8 H , Lymph # (Auto) 1.0, [place] # (Auto) 0.6, Eos # (Auto) 0.0, Baso # (Auto) 0.0, APTT 112.0 H* 02/23/25 01:51: APTT 95.0 H* 02/23/25 06:50: WBC 13.1 H D, RBC 4.19 L, Hgb 11.4 L, Hct 36.4 L, MCV 86.9, MCH 27.2, MCHC 31.3 L, RDW 14.1, Plt Count 241, MPV 9.6, Neut % (Auto) 81.6 H, Lymph % (Auto) 12.6, [place] % (Auto) 5.2, Eos % (Auto) 0.0 L, Baso % (Auto) 0.1, Neut # (Auto) 10.6 H, Lymph # (Auto) 1.7, [place] # (Auto) 0.7, Eos # (Auto) 0.0, Baso # (Auto) 0.0, APTT 58.9, Sodium 137, Potassium 4.1, Chloride 101, Carbon Dioxide 27, Anion Gap 13.1, BUN 14 D, Creatinine 0.80, Estimated Creat Clear 84, Estimated GFR 87, Est GFR ( Amer) 105, Glucose 173 H, Calcium 8.7 Temp Pulse Resp BP Pulse Ox O2 Del Method O2 Flow Rate 97.9 F 84 17 133/78 99 Nasal Cannula, Non-Rebreather 15 02/22/25 07:00 02/22/25 09:00 02/22/25 09:00 02/22/25 09:00 02/22/25 09:00 02/22/25 09:00 02/22/25 06:22 FiO2 100 02/22/25 08:00 Laboratory Results - last 24 hr 02/22/25 00:30: WBC 10.0, RBC 5.60 H, Hgb 15.4, Hct 48.1 H, MCV 85.9, MCH 27.5, MCHC 32.0, RDW 13.8, Plt Count 246, MPV 9.3, Neut % (Auto) 51.5, Lymph % (Auto) 39.9, [place] % (Auto) 6.0, Eos % (Auto) 2.0, Baso % (Auto) 0.4, Neut # (Auto) 5.2, Lymph # (Auto) 4.0, [place] # (Auto) 0.6, Eos # (Auto) 0.2, Baso # (Auto) 0.0, D- Dimer 2.75 H, Sodium 141, Potassium 3.8, Chloride 106, Carbon Dioxide 26, Anion Gap 12.8, BUN 12, Creatinine 0.70, Estimated Creat Clear 101, Estimated GFR 101, Est GFR ( Amer) 122, Glucose 98, Calcium 10.0, Total Bilirubin 1.7 H, AST 48 H, ALT 32, Alkaline Phosphatase 71, Total Protein 8.6 H, Albumin 4.9, Globulin 3.7 H, Albumin/Globulin Ratio 1.3, Serum HCG, Qual Negative 02/22/25 04:15: WBC 13.0 H D, RBC 5.03, Hgb 13.7 D, Hct 43.8, MCV 87.1, MCH 27.2, MCHC 31.3 L, RDW 13.9, Plt Count 245, MPV 9.3, Neut % (Auto) 46.0, Lymph % (Auto) 46.4, [place] % (Auto) 5.8, Eos % (Auto) 1.3, Baso % (Auto) 0.3, Neut # (Auto) 6.0, Lymph # (Auto) 6.0 H, [place] # (Auto) 0.8, Eos # (Auto) 0.2, Baso # (Auto) 0.0, Total Counted 100, Neutrophils % (Manual) 35 L, Lymphocytes % (Manual) 59 H, Monocytes % (Manual) 6, Platelet Estimate Not Reportable, RBC Morphology Not Reportable, Sodium 138, Potassium 3.5, Chloride 108 H, Carbon Dioxide 12 L, Anion Gap 21.5 H, BUN 11, Creatinine 0.90 D, Estimated Creat Clear 75, Estimated GFR 76, Est GFR ( Amer) 92 D, Glucose 275 H D, Calcium 9.2, Troponin I 0.12 H 02/22/25 08:15: Hemoglobin A1c 5.4, Troponin I 0.47 H, NT-Pro-B Natriuret Pep 2860 H, Triglycerides 168 H, Cholesterol 197, LDL Cholesterol Direct 140.37 H, VLDL Cholesterol 34, HDL Cholesterol 30 L, Cholesterol/HDL Ratio 6.6 H, TSH 1.36 I & O for Labs for Last 24 Hours: Intake & Output 02/20/25 02/21/25 02/22/25 02/23/25 23:59 23:59 23:59 23:59 Intake Total 523.333 / 763.333 364.667 / 364.667 Output Total 2500 / 2500 Balance -1976.667 / -1736.667 364.667 / 364.667 Weight 260 lb 4.8 oz 256 lb 8 oz Intake & Output 02/19/25 02/20/25 02/21/25 02/22/25 23:59 23:59 23:59 23:59 Output Total 1000 / 1000 Balance -1000 / -1000 Weight 260 lb 4.8 oz Constitutional: Present severe distress Head: Present normocephalic and atraumatic ENT: Present normal exam, normal oropharynx and mucous membranes moist Neck: Present normal inspection and full ROM Respiratory: Present respiratory distress, diminished air movement and able to speak in complete sentences; Absent prolonged expiratory phase, rhonchi, wheezes or crackles Cardiac: Present S1/S2, Tachycardia and radial pulses present GI: Present soft and distention; Absent tenderness or guarding Rectal (female): Present deferred (female): Present deferred Skin: Present intact; Absent cyanosis or jaundice Neuro: Present alert, awake and oriented x 3 Extremities: Present normal inspection; Absent clubbing or cyanosis Psychiatric: Present normal affect and cooperative Assessment and Plan *Assessment and plan (1) Pulmonary embolism: Status: Acute Qualifiers: Acute cor pulmonale presence: with acute cor pulmonale Chronicity: acute Pulmonary embolism type: saddle Qualified Code(s): I26.02 - Saddle embolus of pulmonary artery with acute cor pulmonale Category: Medical Code(s): I26.99 - Other pulmonary embolism without acute cor pulmonale (2) Acute respiratory failure with hypoxia: Status: Resolved Category: Medical Code(s): J96.01 - Acute respiratory failure with hypoxia Plan Ms. Piña is a 74-year-old female with a history of obesity TOO and GERD dyslipidemia presented today with worsening respiratory distress dizziness found to have bilateral pulmonary embolism and pulmonary was called for further evaluation and management. CT upon admission bilateral extensive pulmonary embolism extending from right and left main pulmonary arteries. Possible left lower lobe wedge infarct. She had received tenecteplase for her pulmonary embolism. She also received iodine contrast. Interval update: No acute respiratory vents overnight. Status post mechanical thrombectomy by cardiology. Improving oxygen requirements. Continue to receive heparin drip. Chest x-ray ordered by worsening pulm infiltrates. Slight worsening leukocytosis. Worsening infiltrates can well be from wedge infarcts given her massive bilateral pulmonary embolism however cannot completely rule out airspace disease. Plan: Initiate levofloxacin 750 mg daily Switch heparin to full dose oral anticoagulation Continue other supplementation to maintain O2 saturation above 90% and above. Follow with cardiology recommendations Albuterol/DuoNebs 4 times daily as needed # Thank you for involving pulmonary in this patient care. Will continue to follow.
--- NOTE | 2025-02-23 08:54 | HMH.PHAHEP ---
[facility] Pharmacy Heparin Dosing Demographic Data Admission date:: 02/22/25 Date: 02/23/25 Time: 08:54 Allergies Allergy/AdvReac Type Severity Reaction Status Date / Time Penicillins (PENICILLINS) Allergy Severe Anaphylaxis Verified 02/20/25 13:53 mold Allergy Intermediate Other Verified 02/20/25 13:53 Iodinated Contrast Media Allergy Anaphylaxis Verified 02/20/25 13:53 Height: 1.6 m Weight: 116 kg Indication Medication therapy:: Heparin Current Indications:: PE Current Active Problems (Updated 02/22/25 @ 11:48 by Sandi Daniels APRN) Nexplanon in place (Acute) Leg pain (Acute) Hypertension (Acute) Pulmonary embolism (Acute) Peripheral edema (Acute) Syncope (Acute) BMI greater than 40 (Chronic) TOO (obstructive sleep apnea) (Acute) CVA?: No Bleeding problem?: No Kidney disease?: No CT?: No Desired PTT range:: 50-75 seconds Labs Anticoagulation Lab Results:: 02/22/25 02/23/25 23:23 06:50 Hgb 12.4 11.4 L Hct 38.1 36.4 L Plt Count 218 241 Monitoring Dose Monitor 1: Date: 02/22/25 Time: 16:35 PTT Result:: 80.1 Infusion Rate:: HAD HEPARIN IV IN MEDICAL PSYCHOTHERAPIST. STARTED HEPARIN 2000 UNITS/HR ABOUT 1630. NO ADDITIONAL BOLUS GIVEN DUE TO RECEIVING IN MEDICAL PSYCHOTHERAPIST. Dose Monitor 2: Date: 02/22/25 Time: 18:30 PTT Result:: 86.4 Infusion Rate:: CONTINUE WITH HEPARIN 2000 UNITS/HR Dose Monitor 3: Date: 02/22/25 Time: 21:03 PTT Result:: 110.2 Infusion Rate:: 1640 UNITS/HR Dose Monitor 4: Date: 02/22/25 Time: 23:23 PTT Result:: 112.0 Infusion Rate:: 1280 UNITS/HR Dose Monitor 5: Date: 02/23/25 Time: 01:51 PTT Result:: 95.0 Infusion Rate:: 1100 UNITS/HR Dose Monitor 6: Date: 02/23/25 Time: 06:50 PTT Result:: 58.9 Infusion Rate:: 1100 UNITS/HR Core Measures Is INR > or = 2 at discharge?: No Most Recent Labs:: Laboratory Results - last 24 hr 02/22/25 08:15: Troponin I 0.47 H, NT-Pro-B Natriuret Pep 2860 H, Triglycerides 168 H, Cholesterol 197, LDL Cholesterol Direct 140.37 H, VLDL Cholesterol 34, HDL Cholesterol 30 L, Cholesterol/HDL Ratio 6.6 H, TSH 1.36 02/22/25 11:30: Troponin I 0.51 H 02/22/25 16:35: APTT 80.1 H* 02/22/25 18:30: APTT 86.4 H* 02/22/25 21:03: APTT 110.2 H* 02/22/25 23:23: WBC 10.4, RBC 4.45, Hgb 12.4, Hct 38.1, MCV 85.6, MCH 27.6, MCHC 32.3, RDW 13.9, Plt Count 218, MPV 9.3, Neut % (Auto) 84.6 H, Lymph % (Auto) 9.4 L, [place] % (Auto) 5.7, Eos % (Auto) 0.0 L, Baso % (Auto) 0.1, Neut # (Auto) 8.8 H, Lymph # (Auto) 1.0, [place] # (Auto) 0.6, Eos # (Auto) 0.0, Baso # (Auto) 0.0, APTT 112.0 H* 02/23/25 01:51: APTT 95.0 H* 02/23/25 06:50: WBC 13.1 H D, RBC 4.19 L, Hgb 11.4 L, Hct 36.4 L, MCV 86.9, MCH 27.2, MCHC 31.3 L, RDW 14.1, Plt Count 241, MPV 9.6, Neut % (Auto) 81.6 H, Lymph % (Auto) 12.6, [place] % (Auto) 5.2, Eos % (Auto) 0.0 L, Baso % (Auto) 0.1, Neut # (Auto) 10.6 H, Lymph # (Auto) 1.7, [place] # (Auto) 0.7, Eos # (Auto) 0.0, Baso # (Auto) 0.0, APTT 58.9, Sodium 137, Potassium 4.1, Chloride 101, Carbon Dioxide 27, Anion Gap 13.1, BUN 14 D, Creatinine 0.80, Estimated Creat Clear 84, Estimated GFR 87, Est GFR ( Amer) 105, Glucose 173 H, Calcium 8.7 Were Heparin and Warfarin started on the same day?: No If not, why?: started xarelto
--- NOTE | 2025-02-23 09:09 | EXP.CARD.PN ---
Subjective Subjective Date: 02/23/25 Time: 08:00 Principal diagnosis: Bilateral pulmonary emboli Interval history: This is a 24-year-old white female who was found to have bilateral pulmonary emboli. The patient underwent bilateral thrombectomy of the right main distal pulmonary artery which extended through the middle and lower lung. She also underwent thrombectomy of the left main distal pulmonary artery to the left lower and partially the right upper lobe. The patient tolerated this procedure well. This morning she denies any chest pain or shortness of breath. She denies any fever, chills, nausea, vomiting, diarrhea, PND or orthopnea. She states she is feeling much better today. Exam Data for Last 24 hours Vital signs and Labs for Last 24 Hours: Temp Pulse Resp BP Pulse Ox O2 Del Method O2 Flow Rate 98.4 F 75 21 135/86 93 L Nasal Cannula 4 02/23/25 08:00 02/23/25 09:00 02/23/25 09:00 02/23/25 09:00 02/23/25 09:00 02/23/25 09:00 02/23/25 09:00 FiO2 100 02/22/25 09:55 Laboratory Results - last 24 hr 02/22/25 08:15: NT-Pro-B Natriuret Pep 2860 H, LDL Cholesterol Direct 140.37 H, TSH 1.36 02/22/25 11:30: Troponin I 0.51 H 02/22/25 16:35: APTT 80.1 H* 02/22/25 18:30: APTT 86.4 H* 02/22/25 21:03: APTT 110.2 H* 02/22/25 23:23: WBC 10.4, RBC 4.45, Hgb 12.4, Hct 38.1, MCV 85.6, MCH 27.6, MCHC 32.3, RDW 13.9, Plt Count 218, MPV 9.3, Neut % (Auto) 84.6 H, Lymph % (Auto) 9.4 L, [place] % (Auto) 5.7, Eos % (Auto) 0.0 L, Baso % (Auto) 0.1, Neut # (Auto) 8.8 H, Lymph # (Auto) 1.0, [place] # (Auto) 0.6, Eos # (Auto) 0.0, Baso # (Auto) 0.0, APTT 112.0 H* 02/23/25 01:51: APTT 95.0 H* 02/23/25 06:50: WBC 13.1 H D, RBC 4.19 L, Hgb 11.4 L, Hct 36.4 L, MCV 86.9, MCH 27.2, MCHC 31.3 L, RDW 14.1, Plt Count 241, MPV 9.6, Neut % (Auto) 81.6 H, Lymph % (Auto) 12.6, [place] % (Auto) 5.2, Eos % (Auto) 0.0 L, Baso % (Auto) 0.1, Neut # (Auto) 10.6 H, Lymph # (Auto) 1.7, [place] # (Auto) 0.7, Eos # (Auto) 0.0, Baso # (Auto) 0.0, APTT 58.9, Sodium 137, Potassium 4.1, Chloride 101, Carbon Dioxide 27, Anion Gap 13.1, BUN 14 D, Creatinine 0.80, Estimated Creat Clear 84, Estimated GFR 87, Est GFR ( Amer) 105, Glucose 173 H, Calcium 8.7 I & O for Last 24 hours: Intake & Output 02/20/25 02/21/25 02/22/25 02/23/25 23:59 23:59 23:59 23:59 Intake Total 523.333 / 763.333 364.667 / 364.667 Output Total 2500 / 2500 Balance -1976.667 / -1736.667 364.667 / 364.667 Weight 260 lb 4.8 oz 255 lb 11.779 oz Constitutional Constitutional: no acute distress and morbidly obese *Routine HEENT Exam Head: Present normocephalic and atraumatic ENT: Present mucous membranes moist *Routine Neck Exam Neck: Present supple, full ROM and normal carotid upstroke; Absent JVD, carotid bruit or lymphadenopathy *Routine Respiratory Exam Respiratory: Present CTA bilaterally, normal respiratory effort, able to speak in complete sentences and symmetric chest movement *Routine Cardiovascular Exam Cardiovascular: Present RRR, Normal S1 and Normal S2; Absent murmur or gallop *Routine Abdominal Exam Abdominal: Present soft and normoactive bowel sounds; Absent tenderness, distended or organomegaly *Routine Extremities Exam Extremities: Present full ROM, pulses intact and normal capillary refill; Absent cyanosis, clubbing or edema *Routine Skin Exam Skin: Present intact and warm; Absent erythema *Routine Neurological Exam Neurological: Present alert, oriented X3 and CN II-XII intact; Absent sensory deficit or motor deficit Routine Psychiatric Exam Psychiatric: Present normal affect Progress Note: A&P Assessment and plan (1) Pulmonary embolism: Status: Acute (2) Acute respiratory failure with hypoxia: Status: Resolved (3) Nexplanon in place: Status: Acute (4) Hyperlipidemia: Status: Chronic Assessment and Plan Assessment and Plan for All Diagnoses:: Plan: 1. The patient was admitted to the hospital for bilateral massive pulmonary emboli extending to the right and left main pulmonary arteries. Echocardiogram does show at least moderate dilation and moderate reduction in RV function. Thrombectomy is recommended. 2. The patient underwent mechanical thrombectomy yesterday of the right and left main pulmonary arteries. She tolerated the procedure well. Her symptoms have resolved this morning. 3. Her blood pressure is well-controlled. 4. Her LDL goal is less than 100. Her LDL is 140. Will start her on Lipitor 40 mg p.o. nightly. 5. The patient is currently on therapeutic Lovenox for anticoagulation. Prior to discharge home we would like for her to be switched over to Eliquis 10 mg twice daily x 1 week then 5 mg twice daily thereafter for at least 6 months. 6. Recommend a hypercoagulable workup and referral to Dr. Perez with hematology. 7. The patient does have a Nexplanon in place and she is a smoker. HARBOR POLICE LAUNCH COMMANDER does not feel that the Nexplanon provoked the PE. However, it does state that Nexplanon is contraindicated once the patient has a diagnosis of VTE. We would recommend removal of Nexplanon since she does have massive bilateral PEs. We will leave this up to the patient and [employer] POLICE LAUNCH COMMANDER, Dr. Gaitan. 8. Her troponins were elevated which is most likely from the RV strain from her massive PEs. No plans for invasive left cardiac catheterization at this time. 9. As mentioned above the patient does have bilateral PEs. There is also evidence of pulmonary infarct. Pulmonology has been consulted as well. 10. No further recommendations at this time from a cardiac standpoint. Once this patient is stable for discharge home from a medical standpoint she will need to be seen in cardiology clinic next week. The patient will need to be discharged on the following cardiac medications: Eliquis 10 mg twice daily for 10 days then 5 mg twice daily thereafter for at least 6 months Lipitor 40 mg p.o. nightly Referral to hematology Thank you for the opportunity to help participate in the care of this patient. All recommendations and orders are per Dr. Beaver.
[2025-02-23 09:33] LABS: POC Glucose,Bedside 176 gm/dL (70-110)
[2025-02-23] MEDS: LEVOFLOXACIN/D5W 750 MG/150 ML 750 MG/150 ML PIGGYBACK 100 MG IV (10:20)
[2025-02-23 10:50] LABS: PTT Heparin (inpatient only) 36.5 Seconds (50-75)
--- NOTE | 2025-02-23 12:21 | XR_ITS ---
FINAL REPORT CLINICAL HISTORY: pain, difficulty weight bearing FINDINGS: RIGHT FOOT Three views show no evidence of acute displaced fracture or dislocation of the visualized bony architecture. The joint spaces appear normal. IMPRESSION: Unremarkable exam. Authenticated and ERN
--- NOTE | 2025-02-23 12:44 | PC.NURSE ---
1208: pt was to get up with RT to complete 6 min walk test. pt stated to staff that she thought she would be unable to get up and walk in the room. pt instead said she needed to use the restroom. pt was offered a walker and assisted to the restroom. pt o2 sats were checked by RT while up to the commode and were noted to be 96-97. pt stated that she was dizzy and was assisted back to the bed. MD was notified of pt complaint. requested xray for r ankle, as one had not been ordered since admission. ok to order xray. When pt laid back in bed, o2 sats were noted to drop to the lower 70's. md also requests orthostatic vitals, and if pt is not comfortable with being discharged, she can stay another night. pt stated to this RN that she was not comfortable being discharged home today. called and notified md, he stated that he will be over to assess pt again. also asked for PT order to be entered for pt.
--- NOTE | 2025-02-23 13:39 | EXP.PN ---
Subjective *Date: 02/24/25 *Time: 14:10 Interval history: Patient is nervous about mechanical thrombectomy, but agreed to get it done. No chest pain, shortness of breath at this time. Exam Data for Last 24 hours Vital signs and Labs for Last 24 Hours: Temp Pulse Resp BP Pulse Ox O2 Del Method O2 Flow Rate 98.6 F 94 H 16 126/74 97 Nasal Cannula 2 02/24/25 12:18 02/24/25 12:18 02/24/25 12:18 02/24/25 12:18 02/24/25 12:18 02/24/25 12:18 02/24/25 12:18 FiO2 100 02/22/25 09:55 Laboratory Results - last 24 hr 02/22/25 08:15: LITA Comment Comment, CECY-1 Antibody <0.2, SS-A Antibody <0.2, SS-B Antibody <0.2, Sm (Galarza) Antibody <0.2, BEAM HOUSE INSPECTOR Antibody <0.2, Scl-70 Scleroderma Ab <0.2, Double Strand DNA Ab <1, Chromatin Antibody <0.2, Centromere B Antibody <0.2 I & O for Last 24 hours: Intake & Output 02/21/25 02/22/25 02/23/25 02/24/25 23:59 23:59 23:59 23:59 Intake Total 523.333 / 113.438 8103.070 / 1863.070 732 / 732 Output Total 2500 / 2500 600 / 600 500 / 500 Balance -1976.667 / -9496.605 7033.070 / 1263.070 232 / 232 Weight 118.07 kg 116 kg 119.884 kg Constitutional Constitutional: no acute distress and obese *Routine HEENT Exam Head: Present normocephalic Eye: Present EOMI and PERRL ENT: Present mucous membranes moist *Routine Neck Exam Neck: Present supple; Absent lymphadenopathy *Routine Respiratory Exam Respiratory: Present CTA bilaterally *Routine Cardiovascular Exam Cardiovascular: Present RRR *Routine Abdominal Exam Abdominal: Present soft and normoactive bowel sounds; Absent tenderness *Routine Extremities Exam Extremities: Absent cyanosis, clubbing or edema *Routine Skin Exam Skin: Present warm; Absent rash *Routine Neurological Exam Neurological: Present alert and oriented X3 Assessment and Plan *Assessment and plan (1) Pulmonary embolism: Status: Acute Qualifiers: Acute cor pulmonale presence: with acute cor pulmonale Chronicity: acute Pulmonary embolism type: saddle Qualified Code(s): I26.02 - Saddle embolus of pulmonary artery with acute cor pulmonale Category: Medical Code(s): I26.99 - Other pulmonary embolism without acute cor pulmonale Plan Sanjuana Piña is a 24-year-old female who presented with dizziness, syncope, shortness of breath, chest pain and was admitted for extensive bilateral pulmonary emboli. #Acute hypoxic respiratory failure #Extensive bilateral pulmonary emboli #RV failure #NSTEMI type II #Syncope, shortness of breath #Transient cardiogenic shock ? Patient presented with dizziness, syncope, shortness of breath, chest pain. CTA chest 02/22/2025 revealed extensive bilateral pulmonary emboli with RV strain. ? Shortly after admission, patient syncopized with hypotension which is likely sequelae of significant PEs/transient cardiogenic shock. Improved with TNK. Lower suspicion for known contrast allergy as this happened hours after contrast, and previous allergy was not anaphylactic. No further episodes of syncope, hypotension during admission. ? Patient was given therapeutic Lovenox. ? Patient does have risk factors including obesity, tobacco smoking, and Nexplanon. ? Cardiology consulted, s/p mechanical thrombectomy on 02/22/2025. Extensive pulmonary emboli were removed. Patient tolerated procedure well. ? Pulmonology consulted, recommended levofloxacin 750 mg daily for right lower lobe opacity. ? Transitioned from heparin drip to Xarelto 15 mg twice daily. ? [employer]JOR LEAG[employer] BASEBALL UMPIRE consulted, do not recommend removing Nexplanon at this time. Can be reconsidered on an outpatient basis as Nexplanon is contraindicated in VTE. ? Complains of right calf pain, follow-up bilateral venous Doppler. ? Initially required nonrebreather 15 L with 6 L nasal cannula, weaned to 2 L after mechanical thrombectomy. ? Follow-up LITA comprehensive panel, factor V Leiden, protein C/S. Will need hematology follow-up after discharge. ? Patient feels slightly dizzy with ambulation today, will monitor overnight due to high risk of decompensation with residual PE and cardiogenic shock during admission. #Right ankle pain ? Follow-up right ankle x-ray. #GERD ? Continue home PPI. #Anxiety/depression ? Continue home amitriptyline 10 mg. #Obesity ? Complicates all aspects of care. #Current tobacco smoker ? Strongly advise discontinuation. Full code DVT prophylaxis: Xarelto
--- NOTE | 2025-02-23 13:55 | HMH.PTEV ---
Physical Therapy Evaluation Rehab PT IP Evaluation Start: 02/23/25 12:51 Freq: ONCE Status: Active Protocol: Document 02/23/25 13:45 RICO (Rec: 02/23/25 13:51 RICO [id number]) Subjective/History History History Per H&P: This is a 24-year-old female with past medical history of obesity, TOO, GERD, hyperlipidemia, anxiety who presents emergency department with complaints of dizziness and chest pain. She also reports 1 week history of left calf tightness and lower extremity swelling. States that she saw her PCP in office approximately a week ago and had ultrasound of her left lower extremity that was negative for DVT. She reports chest pressure/heaviness and dizziness that began 2 days ago. She denies shortness of breath or fever. Emergency department workup notable for elevated D- dimer with elevated troponin of 0.10. CT PE with massive bilateral mainstem PEs extending into all lung ortega with associated right heart strain. All other labs stable. At the time of admission she had normal vital signs with heart rate in the 70s, 100% on room air and blood pressure of 140/80. Dr. Hughes was consulted and recommends therapeutic Lovenox with plans for thrombectomy in the a.m. Patient arrived to the Med[facility] unit via wheelchair without difficulty. Upon getting out of the wheelchair and ambulating to the bathroom she became dizzy, diaphoretic with syncopal episode. Upon my immediate arrival to the bedside she was noted to be cyanotic and minimally responsive. She was noted to have heart rate in the 160s with oxygen saturation in the 70s. She did arouse somewhat and was able to get back into the wheelchair and then back to the hospital bed. ER provider Dr. Ordonez and housetrailer servicer with other marketing support specialist arrived to the bedside. She was complaining of worsening chest pressure with worsening T wave abnormalities on EKG. Dr. Hughes was reconsulted and decision was made to give TNK given likely hemodynamic changes from her massive PEs. Further differentials were discussed including possible anaphylaxis. At the time of patient receiving CT contrast, computer system was on downtime. She did not tell ED providers that she was allergic to contrast in the beginning of her emergency department visit. After computer system came back up it was shown that she was allergic to iodine to contrast dye. Given her hemodynamic instability 0.3 mg of epinephrine IM and Solu-Medrol were given although CT contrast scan was completed approximately 2 hours prior to this event. After stabilization, she was moved to the ICU. At the time of transfer to the ICU she had heart rate in the 110s, 100% oxygen saturation and normotensive. All care was discussed with her as well as her sister Cami over the phone. Both patient and sister Cami agreed to patient receiving TNK. Subjective Subjective Pt reports she is usually IND with all mobility without AD use. Pt lives with her sister who works. Pt does not drive. Pt does not work. Pt reports ankle pain when ambulating. New diagnosis of No cancer in past 12 months? [facility] How much help from another person do you currently need... Turning from your None back to your side while in a flat bed without using bedrails? Moving from lying on None back to sitting on the side of a flat bed without using bedrails? Moving to and from a None bed to a chair ( including a wheelchair)? Standing up from a None chair using your arms? (e.g., wheelchair, bedside chair) Walking in hospital A little room? Climbing 3-5 steps A little with a railing? Mobility Score 22 Mobility Level [facility] Mobility 7 Walk 25 feet or more Mobility Calculator Rehab PT IP Eval Objective Appearance Patient Behavior Appropriate,Cooperative Patient Orientation Person,Situation Difficulty following none instructions Speech Pattern Clear Ambulation Patient Able to Yes Ambulate Ambulation Observation IP General Gait Antalgic Gait Pattern Observation Ambulation Distance 10 (feet) Ambulation Assistive Standard Walker Device Ambulation Ability Contact Guard/Hand Hold Balance Ability to Arise Able, uses arms to help Sitting Balance Steady, safe Standing Balance Steady, wide stance Dynamic Sitting Good Balance Ability Dynamic Standing Fair Balance Ability Transfers Bed Transfer Ability Independent Sit to Stand Bed Independent Transfer Ability Rehab PT IP prob,goals,plan Problems Date of Evaluation: 02/23/25 PT IP Problems Transfers,Gait,Balance,Self care Rehab Potential Rehab Potential Good Equipment Needs Assistive Devices Rolling / Wheeled Walker Plan PT Intervention Plan Transfers,Gait,Balance,Self care,Therapeutic Exercise Other Intervention 1-2 times Plan PT Plan Frequency Daily Duration Goals Met Discharge Goals Bed Transfer Ability Independent Sit to Stand Chair Independent Transfer Ability Ambulation Assistive Rolling Walker Device Ambulation Distance 30 (feet) Discharge Plan PT Discharge Plan Pt presents below baseline in strength and endurance. Pt demo'd short but safe ambulation and good static standing balance. Pt with an antalgic gait pattern. Pt most appropriate to d/c home with HH PT services. PT recommending pt use RW for pain management and improved ambulation. Pt would benefit from skilled PT while at [facility] to prevent further functional decline and address mobility deficits. Eval Complexity Eval Charge Codes 04957 - Moderate Complexity PHYSICIAN CERTIFICATION: I certify the specified therapy services for Sanjuana Piña are required, authorized, and reviewed every 30 days.
--- NOTE | 2025-02-23 14:00 | CARE MANAGER ---
Addendum entered by Lavern Carter RN 02/23/25 14:32: Patient actually will use the [facility] out of [place]. The phone number is [phone] and the fax number will be [phone]. Original Note: Patient will likely require Oxygen at discharge. Patient did not have a preference for company. Spoke with [facility] at [phone] and they do accept her insurance. Upon discharge please call the number listed and fax the discharge summary with the patient's O2 RA sat at rest or the walk test signed by the physician to [phone].
--- NOTE | 2025-02-23 14:06 | SW/DCPLANNER ---
Addendum entered by Romy Givens 02/23/25 15:11: I asked patient if she would be able to do outpatient therapy and patient stated that she would be interested in doing outpatient therapy. Doris Moore Addendum entered by Romy Givens 02/23/25 15:05: [facility] is not able to accept patient due to her insurance. Doris Moore Addendum entered by Romy Givens 02/23/25 14:37: [facility] does not accept patient's insurance and [facility] doesn't either. I faxed patient's information to [facility]. I will update once i hear back if they are able to accept or not. Doris Moore Original Note: Spoke with patient regarding home health services. Patient stated that she has no preference in what agency i send her information to. I sent patient's information to [facility] and [facility]. I will update once i hear back if they can accept patient or not. I also let patient know that it would be hard to get home health due to her insurance. Doris Moore
--- NOTE | 2025-02-23 16:12 | PC.NURSE ---
pt left floor at 1608
[2025-02-24] VITALS (9 sets, daily range): BP systolic 114–127; BP diastolic 60–77; PULSE 80–105; RESP 14–16; TEMP 36.8–37; O2SAT 87–100; BMI 46.8
--- NOTE | 2025-02-24 06:22 | PC.NURSE ---
Pt is A&OX4 she is on 2 L NC, Her dressing on her Right Femoral area is CDI. No C/O pain or discomfort. Pt has naomi light with in reach. MAL JONES RN
[2025-02-24] MEDS: LEVOFLOXACIN/D5W 750 MG/150 ML 750 MG/150 ML PIGGYBACK 100 MG IV (08:48)
[2025-02-24] MEDS: POLYETHYLENE GLYCOL 3350 17 GM PACKET 34 GM PO (11:00)
[2025-02-24] MEDS: KETOROLAC 30MG/ML VIAL 30 MG IV (11:00)
--- NOTE | 2025-02-24 11:06 | EXP.DC.SUM ---
General Admission date:: 02/22/25 HPI HPI HPI: Sanjuana Piña is a pleasant 24-year-old G0 who I was consulted on secondary to pulmonary embolism in the setting of a Nexplanon. Per chart review her Nexplanon was placed on 10/15/2020, approximately 4 years ago. Her beta-hCG is negative as of 02/22/2025. Her Pap smear was last completed in 2020 where it was negative for endothelial lesion or malignancy, transformation zone was present, gonorrhea and Chlamydia negative. She did have a Pap smear in 2018 that was LGSIL. The patient reports a past medical history of tobacco use, obesity, obstructive sleep apnea, GERD, hyperlipidemia, and anxiety. She has not seen a hydrogen plant operations manager in several years. Patient reports that her mom from a stroke. She is unsure if she has any family history of inheritable thrombophilias Hospital Course Hospital Course Hospital Course: Sanjuana Piña is a 24-year-old female who presented with dizziness, syncope, shortness of breath, chest pain and was admitted for extensive bilateral pulmonary emboli. #Acute hypoxic respiratory failure #Extensive bilateral pulmonary emboli #RV failure #NSTEMI type II #Syncope, shortness of breath #Transient cardiogenic shock ? Patient presented with dizziness, syncope, shortness of breath, chest pain. CTA chest 02/22/2025 revealed extensive bilateral pulmonary emboli with RV strain. ? Shortly after admission, patient syncopized with hypotension which is likely sequelae of significant PEs/transient cardiogenic shock. Improved with TNK. Lower suspicion for known contrast allergy as this happened hours after contrast, and previous allergy was not anaphylactic. No further episodes of syncope, hypotension during admission. ? Patient does have risk factors including obesity, tobacco smoking, and Nexplanon. ? Cardiology consulted, s/p mechanical thrombectomy on 02/22/2025. Extensive pulmonary emboli were removed. Patient tolerated procedure well. ? Pulmonology consulted, recommended levofloxacin 750 mg daily for total of 5 days for right lower lobe opacity. ? TOURIST ESCORT consulted, do not recommend removing Nexplanon at this time. Can be reconsidered on an outpatient basis as Nexplanon is contraindicated in VTE. ? Complains of right calf pain, bilateral venous Doppler negative for DVT. Right calf pain likely from strain after falling. ? Initially required nonrebreather 15 L with 6 L nasal cannula, weaned to 2 L after mechanical thrombectomy. Desaturating to 87% on room air. ? Follow-up [facility] comprehensive panel, factor V Leiden, protein C/S. Referred to hematology for further evaluation. ? Patient feeling better today, no dizziness, shortness of breath, chest pain. Does have right ankle pain. See below. ? Discharged with Xarelto 15 mg twice daily for total of 21 days, then 20 mg daily. ? Will follow-up with cardiology, hematology within 1 week. #Right ankle pain ? Right ankle x-ray without acute findings. ? Discharged with Mobic as needed for pain, in addition to rolling walker as recommended by PT. #GERD ? Continue home PPI. #Anxiety/depression ? Continue home amitriptyline 10 mg. #Obesity ? Complicates all aspects of care. #Current tobacco smoker ? Strongly advise discontinuation. Exam Data for Last 24 hours Vital signs and Labs for Last 24 Hours: Temp Pulse Resp BP Pulse Ox O2 Del Method O2 Flow Rate 98.4 F 97 H 14 114/60 100 Nasal Cannula 2 02/24/25 07:21 02/24/25 08:00 02/24/25 07:21 02/24/25 07:21 02/24/25 07:21 02/24/25 09:00 02/24/25 09:00 FiO2 100 02/22/25 09:55 Laboratory Results - last 24 hr 02/22/25 08:15: LITA Comment Comment, CECY-1 Antibody <0.2, SS-A Antibody <0.2, SS-B Antibody <0.2, Sm (Galarza) Antibody <0.2, ASSEMBLER SKYLIGHTS Antibody <0.2, Scl-70 Scleroderma Ab <0.2, Double Strand DNA Ab <1, Chromatin Antibody <0.2, Centromere B Antibody <0.2 I & O for Last 24 hours: Intake & Output 02/21/25 02/22/25 02/23/25 02/24/25 23:59 23:59 23:59 23:59 Intake Total 523.333 / 635.233 4793.070 / 1863.070 732 / 732 Output Total 2500 / 2500 600 / 600 500 / 500 Balance -1976.667 / -1104.709 7950.070 / 1263.070 232 / 232 Weight 118.07 kg 116 kg 119.884 kg Constitutional Constitutional: no acute distress and obese *Routine HEENT Exam Head: Present normocephalic Eye: Present EOMI and PERRL ENT: Present mucous membranes moist *Routine Neck Exam Neck: Present supple; Absent lymphadenopathy *Routine Respiratory Exam Respiratory: Present CTA bilaterally *Routine Cardiovascular Exam Cardiovascular: Present RRR *Routine Abdominal Exam Abdominal: Present soft and normoactive bowel sounds; Absent tenderness *Routine Extremities Exam Extremities: Absent cyanosis, clubbing or edema *Routine Skin Exam Skin: Present warm; Absent rash *Routine Neurological Exam Neurological: Present alert and oriented X3 Results Data Completed and Pending Labs on day of discharge: Labs from last 24 hours 02/22/25 08:15 LITA Comment Comment CECY-1 Antibody <0.2 SS-A Antibody <0.2 SS-B Antibody <0.2 Sm (Galarza) Antibody <0.2 ASSEMBLER SKYLIGHTS Antibody <0.2 Scl-70 Scleroderma Ab <0.2 Double Strand DNA Ab <1 Chromatin Antibody <0.2 Centromere B Antibody <0.2 DS: Diagnosis Discharge Diagnosis (1) Pulmonary embolism: Status: Acute Code(s): I26.99 - Other pulmonary embolism without acute cor pulmonale Qualifiers: Acute cor pulmonale presence: with acute cor pulmonale Chronicity: acute Pulmonary embolism type: saddle Qualified Code(s): I26.02 - Saddle embolus of pulmonary artery with acute cor pulmonale (2) Acute respiratory failure with hypoxia: Status: Resolved Code(s): J96.01 - Acute respiratory failure with hypoxia Meds Home Medications and Allergies Home Medications ?Medication ?Instructions ?Recorded ?Confirmed ?Type amitriptyline 10 mg tablet 10 mg PO HS #30 tabs 11/17/24 02/22/25 Rx cholecalciferol (vitamin D3) 50 50 mcg PO DAILY #90 caps 11/17/24 02/22/25 Rx mcg (2,000 unit) capsule pantoprazole 40 mg tablet,delayed 40 mg PO DAILY #90 tabs 11/17/24 02/22/25 Rx release (Protonix) blood pressure monitor (Blood #1 ea 11/27/24 02/24/25 Rx Pressure Kit) blood-glucose meter (Accu-Chek #1 ea 12/04/24 02/24/25 History Guide Glucose Meter) fluticasone 500 mcg-salmeterol 50 1 inh inhalation BID 90 days #180 12/19/24 02/22/25 Rx mcg/dose blistr powdr for ea inhalation (Advair Diskus) blood pressure monitor (Blood #1 ea 12/26/24 02/24/25 Rx Pressure Kit) albuterol sulfate 90 mcg/actuation 1 inh inhalation Q6HP PRN 02/22/25 02/22/25 History aerosol inhaler shortness of breath or wheezing ipratropium 0.5 mg-albuterol 3 mg 3 ml inhalation Q6HP PRN shortness 02/22/25 02/22/25 History (2.5 mg base)/3 mL nebulization of breath or wheezing soln levofloxacin 750 mg tablet 750 mg PO DAILY 3 days #3 tabs 02/24/25 Rx meloxicam 7.5 mg tablet 7.5 mg PO BIDP PRN pain #14 tabs 02/24/25 Rx rivaroxaban 15 mg (42)-20 mg (9) See Rx Instructions PO .COMPLEX 02/24/25 Rx tablets in a starter pack (Xarelto #51 tabs DVT-PE Treatment 30-Day Starter) New Prescriptions to Start Prescriptions: levofloxacin Simba Hernandez meloxicam Simba Hernandez rivaroxaban [Xarelto DVT-PE Treat 30d Start] Simba Hernandez Allergies Allergy/AdvReac Type Severity Reaction Status Date / Time Penicillins (PENICILLINS) Allergy Severe Anaphylaxis Verified 02/20/25 13:53 mold Allergy Intermediate Other Verified 02/20/25 13:53 Iodinated Contrast Media Allergy Anaphylaxis Verified 02/20/25 13:53 Discharge Plan Disposition Patient Disposition: Home, Self-Care Condition: Fair Discharge Order Discharge Orders: Discharge Order (Routine); Ordered 02/24/25 Ordered By: Simba Hernandez Follow up Plan Follow up with: Sandi Daniels APRN [Nurse Practitioner, Cardiology] - 1 week Referral Note: please call for appointment Sandi Gaitan DO [Staff Physician, TOURIST ESCORT] - Enter time for follow up Referral Note: please call for appointment Kaz aWrd MD [Staff Physician, Oncology] - 1 week Referral Note: please call for appointment Praveen Zheng MD [Physician, Pulmonology] - Enter time for follow up Prescriptions/Medication Reconciliation: New levofloxacin 750 mg tablet 750 mg PO DAILY 3 Days Qty: 3 0RF meloxicam 7.5 mg tablet 7.5 mg PO BIDP PRN (Reason: pain) Qty: 14 0RF Xarelto DVT-PE Treat 30d Start 15 mg (42)- 20 mg (9) tablets,dose pack See Rx Instructions .ROUTE .COMPLEX Qty: 51 0RF Rx Instructions: take one-15 mg tablet twice daily for 21 days, then one-20 mg tablet once daily; must take with meal/food Continued fluticasone propion-salmeterol [Advair Diskus] 500-50 mcg/dose blister with device 1 inh inhalation BID 90 Days Qty: 180 2RF (DME) blood-glucose meter [Accu-Chek Guide Glucose Meter] [facility] See Rx Instructions .ROUTE .MEDSUPPLY Qty: 1 Patient Comments: USE DIRECTED Rx Instructions: As directed (DME) blood pressure monitor [Blood Pressure Kit] Kit See Rx Instructions .Route Qty: 1 0RF Rx Instructions: As directed amitriptyline 10 mg tablet 10 mg PO HS Qty: 30 1RF cholecalciferol (vitamin D3) 50 mcg (2,000 unit) capsule 50 mcg PO DAILY Qty: 90 3RF pantoprazole [Protonix] 40 mg tablet,delayed release (DR/EC) 40 mg PO DAILY Qty: 90 3RF (DME) blood pressure monitor [Blood Pressure Kit] Kit See Rx Instructions .Route Qty: 1 0RF Rx Instructions: As directed ipratropium-albuterol 0.5 mg-3 mg(2.5 mg base)/3 mL solution for nebulization 3 ml inhalation Q6HP PRN (Reason: shortness of breath or wheezing) albuterol sulfate 90 mcg/actuation HFA aerosol inhaler 1 inh inhalation Q6HP PRN (Reason: shortness of breath or wheezing) Problem Reconciliation Problems Reviewed?: Yes Patient Discharge Instructions Patient Instructions: Pulmonary Embolism, DI for Pulmonary Embolism Print Language: Congolese Providers Primary Care Provider: Provider,Referral Admit Provider: Simba Hernandez Attending Provider: Simba Hernandez
[2025-02-24] MEDS: PANTOPRAZOLE 40MG TABLET 40 MG PO (11:37)
--- NOTE | 2025-02-26 11:34 | SW/DCPLANNER ---
Spoke with patient on the phone. Patient stated that she is doing good. Patient stated that she is aware of her upcoming appointments. Patient stated that she was able to get her new medicine picked up from clinic pharmacy. Patient stated that she has no concerns or questions. Doris Moore
== END 2025-02-24 18:19 | disposition home or self-care (01) | DRG 163 ==
LOC: ER 03:31 → 2ND 03:46 → ICU 07:20 → 2ND 10:15 → ICU 10:15 → 2ND 02-23 16:10
PROVIDERS: Internal Medicine; Internal Medicine Pulmonary Disease; Nurse Practitioner Acute Care; Admitting Provider Student in an Organized Health Care Education/Training Program; Emergency Provider Emergency Medicine; Visit Provider Student in an Organized Health Care Education/Training Program
PROC: 02CQ3ZZ Extirpation of Matter from Right Pulmonary Artery, Percutaneous Approach (ICD-10-PCS; principal; 2025-02-22 16:00)
DX: I26.02 Saddle embolus of pulmonary artery with acute cor pulmonale (principal); I21.A1 Myocardial infarction type 2; J96.01 Acute respiratory failure with hypoxia; R57.0 Cardiogenic shock; Z68.42 Body mass index [BMI] 45.0-49.9, adult; F32.A Depression, unspecified; E66.01 Morbid (severe) obesity due to excess calories; I10 Essential (primary) hypertension; G47.33 Obstructive sleep apnea (adult) (pediatric); K21.9 Gastro-esophageal reflux disease without esophagitis; F41.9 Anxiety disorder, unspecified; E78.5 Hyperlipidemia, unspecified; F17.210 Nicotine dependence, cigarettes, uncomplicated; M79.605 Pain in left leg; M79.604 Pain in right leg; R60.0 Localized edema; Z88.0 Allergy status to penicillin; Z91.041 Radiographic dye allergy status; Z91.048 Other nonmedicinal substance allergy status; Z79.899 Other long term (current) drug therapy; Z71.6 Tobacco abuse counseling
CPT/HCPCS: 34490; 36415; 51798; 71045; 71275; 73630; 80048; 80053; 80061; 81241; 82962; 83036; 83880; 84443; 84484; 84703; 85007; 85025; 85302; 85305; 85306; 85378; 85730; 86225; 86235; 93005; 93270; 93306; 93970; 94640; 97162; 99152; 99153; 99285; C1725; C1757; C1769; C1894; J0169; J1200; J1644; J1650; J1885; J1938; J1956; J2003; J2250; J2270; J2405; J2919; J3010; J3101; J7614; Q9967

== ENCOUNTER 2025-02-28 10:03 | Outpatient (RCR) | payer MEDICARE, MEDICAID, SELFPAY ==
--- NOTE | 2025-02-28 11:57 | HMH.PTOPEV ---
PT Evaluation Rehab PT Outpatient Evaluation Start: 02/28/25 10:49 Freq: Status: Active Protocol: Document 02/28/25 10:51 DELTA (Rec: 02/28/25 11:57 DELTA [id number]) E-signed By Darshan Perez, PT Outpatient Therapy Subjective History Subjective History This is the initial PT eval for Sanjuana Piña, 24 yowf who presents with c/o general weakness, L low back pain, and R LE pain x ~ 1-2 wks. Pt reports she suffered several episodes of chest pain, shortness of breath, dizziness, and syncope with resulting falls. This led her to ED visit and subsequent admission to the hospital after she was found to have large B PE's. She underwent B lung thrombectomy via cath ~ 6 days ago and was released from the hospital ~ 5 days ago. She presents with continued general weakness and shortness of air using RW for ambulation assistance and using 2 L O2 via NC. She c/o pain with normal ADL's, but is unsure of any mechanism of injury due to passing out during each of her multiple recent falls. Chief Complaint Pain,Stiff Symptom Type Ache Symptoms Relieved By Rest/Positioning Symptoms Aggravated Physical Activity,Walking By Prior Functional None Limitations Current Functional Sleeping,Standing,Recreation Activity,Walking,Bending/ Limitations Stooping Symptom Description Constant but Variable,Activity Dependent Level of pain today 6 (0-10) Pain scale - at its 9 worst (0-10) Hip/Knee Eval Gait Observation General Gait Pattern Antalgic Gait Observation Assistive Device Assistive Devices Rolling / Wheeled Walker Palpation Tenderness right Hip Palpation Tenderness Findings Hip Palpation anterior hip cath insertion area 2/4 Overall Comment MMT bilateral Hip Flexion Strength 3+ Fair+ Grade Hip Abduction 4+ Good+ Strength Grade Hip Adduction 5 Normal Strength Grade Hip Extension 5 Normal Strength Grade Knee Extension 5 Normal Strength Grade Knee Flexion 5 Normal Strength Grade ROM right Hip Extension Active -10 Range of Motion ( degrees) Hip Extension -5 Passive Range of Motion (degrees) Lower Extremity Functional Index Activities Today, do you or would you have any difficulty at all with: a.Any of your usual No difficulty work, housework or school activities b. Your usual No difficulty hobbies, recreational or sporting activities c. Getting into or Quite a bit of difficulty out of the bath d. Walking between A little bit of difficulty rooms e. Putting on your Moderate difficulty shoes or socks f. Squatting Moderate difficulty g. Lifting an object No difficulty , like a bag of groceries from the floor h. Performing light Extreme difficulty or unable to perform activity activities around your home i. Performing heavy No difficulty activities around your home j. Getting into or Quite a bit of difficulty out of a car k. Walking 2 blocks A little bit of difficulty l. Walking a mile No difficulty m. Going up or down Quite a bit of difficulty 10 stairs (about 1 flight of stairs) n. Standing for 1 Moderate difficulty hour o. Sitting for 1 Extreme difficulty or unable to perform activity hour p. Running on even A little bit of difficulty ground q. Running on uneven Moderate difficulty ground r. Making sharp Moderate difficulty turns while running fast s. Hopping Extreme difficulty or unable to perform activity t. Rolling over in Quite a bit of difficulty bed LEFI Score Lower Extremity 43 Functional Index Score Miscellaneous Dx PT Eval Objective Objective TU sec FXSTS: 26 sec RPE with evaluation: 5 Outpatient Therapy Assessment Impairments Problems/ Palpation Tenderness,Impaired Range of Motion,Impaired Impairmments Strength,Impaired Endurance,Impaired Gait Pattern, Impaired Walking,Impaired Dressing,Impaired Shower/ Bathing,Impaired Household Care,Impaired Stair Climbing ,Subjective C/O Pain,Impaired Self Care/Self Management Prognosis Rehab Potential Good Comment Skilled therapy is indicated to improve general endurance to all ADLs and strength in B LE in order to aid pt improvement in overall QOL. Clinical Impression Consistent with Yes Diagnosis PT Patient Goals PT Patient Goals PT Short Term In 2 wks pt will: Patient Goals 1) Increase B LE MMT to at least 4/5 throughout 2) decrease pain in R hip and L low back to 4/10. PT Weeder Patient In 4 wks pt will: Goals 1) Increase B LE MMT to at least 4+/5 throughout 2) decrease pain in R hip and L low back to 2/10. 3) Increase ambulation to 15 min without pain and least restrictive AD. 4) Decrease TUG time to 12 sec or less 5) Increase LEFS score to 55 or more Outpatient Therapy Plan of Care Treatment Plan May Include Therapeutic Exercise Yes Including Home Exercise Program Manual Therapy Yes Techniques Neuromuscular Re- Yes education Therapeutic Yes Activities to Return to Previous Functional/Work Level Gait Training Yes ADL/Self Care Yes Education Thermal Modalities Yes Electrical Yes Stimulation Orthotics/Bracing/ Yes Splinting Eval/Re-Eval Yes Frequency Times per week 2 Duration Number of Weeks 4 Addendums This patient is a No candidate for social or vocational rehab ? Patient/Guardian Yes verbally acknowledges understanding of treatment program and consents to further treatment? Patient/Guardian Yes verbally acknowledges understanding of diagnosis, prognosis and goals for treatment? Eval Complexity PT Charges 39607 - High Complexity Shoulder/Elbow Eval Shoulder Objective Measurements Elbow Objective Measurements PHYSICIAN CERTIFICATION: I certify the specified therapy services for Sanjuana Piña are required, authorized, and reviewed every 30 days.
== END 2025-02-28 23:59 | disposition home or self-care (01) ==
LOC: PT 10:03
PROVIDERS: Visit Provider Student in an Organized Health Care Education/Training Program
DX: R53.1 Weakness (principal)
CPT/HCPCS: 97163

== ENCOUNTER 2025-02-28 13:24 | Outpatient (CLI) | payer MEDICARE, MEDICAID, SELFPAY ==
--- OUTSIDE RECORDS SUMMARY | 2025-02-28 13:37 | XMS_ITS | Clinical Summary ---
Author Organization [facility] Address [address] [place] [phone] Phone Care Team Providers Care Administrative Office Assistant Name Role Phone Krystal Treadwell PA-C Primary Care Physician [ ] Conditions or Problems Problem Name Problem Code Onset Date Status Entry Date Provider Comment Standard Description Annotate HEAD LICE PEDICULOS B85.2 (ICD-10-CM) Inactive Krystal Treadwell PA-C Pediculosis, unspecified History of HEARING LOSS, RIGHT EAR 15864286 (SNOMED CT) Active Mikayla Rosales MA Hearing loss 50% History of ASTHMA 849412958 (SNOMED CT) Active Mikayla Rosales MA Asthma History of ALLERGIC RHINITIS 70602006 (SNOMED CT) Active Mikayla Rosales MA Allergic rhinitis Medications Medication Instructions Start Date Stop Date Generic Name [facility] Provider ULESFIA 5 % EXTERNAL LOTION APPLY TO HAIR, RINSE AFTER 10 MINUTES AND REPEAT IN 1 WEEK 5 BENZYL ALCOHOL [id number] Krystal Treadwell PA-C ADVAIR HFA 45-21 MCG/ACT AERO USE 2 PUFFS TWICE A DAY 2 FLUTICASONE-SHASHI METEROL [id number] Krystal Treadwell PA-C LORATADINE 10 MG TABS TAKE 1 TAB BY MOUTH EVERY DAY 2 LORATADINE 22776263274 Krystal Treadwell PA-C SINGULAIR 5 MG CHEW TAKE 1 TAB BY MOUTH EVERY DAY 2 MONTELUKAST SODIUM 75503334047 Krystal Treadwell PA-C PROAIR HFA 108 (90 Base) MCG/ACT INHALATION AEROSOL SOLUTION USE 2 INHALATIONS 4 TIMES A DAY NEEDED FOR WHEEZING 2 ALBUTEROL SULFATE 47426260892 Krystal Treadwell PA-C ULESFIA 5 % EXTERNAL LOTION APPLY TO HAIR, RINSE AFTER 10 MINUTES AND REPEAT IN 1 WEEK 5 BENZYL ALCOHOL 85743466608 Krystal Treadwell PA-C ADVAIR HFA 45-21 MCG/ACT AERO 2 PUFFS BID 1 FLUTICASONE-SHASHI METEROL 74008965429 Krystal Treadwell PA-C LORATADINE 10 MG TABS OPT 1 LORATADINE 08226792286 Mikayla Rosales MA SINGULAIR 5 MG CHEW 1 PO QD 1 MONTELUKAST SODIUM 96910883861 Mikayla Rosales MA PROAIR HFA 108 (90 Base) MCG/ACT INHALATION AEROSOL SOLUTION 2 PUFFS QID 1 ALBUTEROL SULFATE 58243709288 Mikayla Rosales MA Medications Administered No information [...] Procedures Code Procedure Name Date Entry Date CPT-[id number] Flu 3 yrs and older vfc 2009 CPT-64883KOD Hep A pediatric/adol escent dosage- 2 dose 2 schedule CPT-[id number] Gardasil, HPV vfc Vital Signs Date Name [...]
--- OUTSIDE RECORDS SUMMARY | 2025-02-28 13:38 | XMS_ITS | Clinical Summary ---
Author Organization Healthcare Address [address] [place] [address] Care Team Providers Care Classification Case Manager Name Role Phone Danette Lynch Primary Care Provider [phone] Family History Medical History Relation Name Comments [...] 19+ 3-dose series) 2017 [facility]Y-Pap Smear 2019 [id number] Vaccine (1 - 20 24-25 season) 2025 [...] age to complete this topic Insurance MEDICAID [facility] MEDICARE Care Teams Classification Case Manager Relationship Specialty Start Date End Date Danette Lynch PA [address] [place] [address] PCP - General 10/25/20
[2025-03-02 14:17] LABS: Anti-Cardio Antibody IgM <9 MPL U/mL (0-12); Anti-Cardiolipin Antibody IgG <9 GPL U/mL (0-14); Beta-2 Glycoprotein I Ab, IgG <9 (0-20); Beta-2 Glycoprotein I Ab, IgM <9 (0-32)
== END 2025-02-28 23:59 | disposition home or self-care (01) ==
PROVIDERS: PCP Family Medicine; Visit Provider Internal Medicine Medical Oncology
DX: I82.622 Acute embolism and thrombosis of deep veins of left upper extremity (principal); Z86.2 Personal history of diseases of the blood and blood-forming organs and certain disorders involving the immune mechanism; Z86.718 Personal history of other venous thrombosis and embolism; Z86.711 Personal history of pulmonary embolism
CPT/HCPCS: 36415; 81240; 85300; 85301; 86146; 86147

== ENCOUNTER 2025-03-01 00:04 | Emergency (ER) | payer MEDICARE, MEDICAID, SELFPAY ==
--- NOTE | 2025-03-01 00:07 | HMH.EDGENADL ---
Discharge Plan Disposition Patient Disposition: Home, Self-Care Prescriptions Prescriptions: No Action fluticasone propion-salmeterol [Advair Diskus] 500-50 mcg/dose blister with device 1 inh inhalation BID 90 Days Qty: 180 2RF (DME) blood-glucose meter [Accu-Chek Guide Glucose Meter] [facility] See Rx Instructions .ROUTE .MEDSUPPLY Qty: 1 Patient Comments: USE DIRECTED Rx Instructions: As directed (DME) blood pressure monitor [Blood Pressure Kit] Kit See Rx Instructions .Route Qty: 1 0RF Rx Instructions: As directed amitriptyline 10 mg tablet 10 mg PO HS Qty: 30 1RF cholecalciferol (vitamin D3) 50 mcg (2,000 unit) capsule 50 mcg PO DAILY Qty: 90 3RF pantoprazole [Protonix] 40 mg tablet,delayed release (DR/EC) 40 mg PO DAILY Qty: 90 3RF (DME) blood pressure monitor [Blood Pressure Kit] Kit See Rx Instructions .Route Qty: 1 0RF Rx Instructions: As directed ipratropium-albuterol 0.5 mg-3 mg(2.5 mg base)/3 mL solution for nebulization 3 ml inhalation Q6HP PRN (Reason: shortness of breath or wheezing) albuterol sulfate 90 mcg/actuation HFA aerosol inhaler 1 inh inhalation Q6HP PRN (Reason: shortness of breath or wheezing) meloxicam 7.5 mg tablet 7.5 mg PO BIDP PRN (Reason: pain) Qty: 14 0RF Xarelto DVT-PE Treat 30d Start 15 mg (42)- 20 mg (9) tablets,dose pack See Rx Instructions .ROUTE .COMPLEX Qty: 51 0RF Rx Instructions: take one-15 mg tablet twice daily for 21 days, then one-20 mg tablet once daily; must take with meal/food Referrals Follow up/Referrals: Provider,Referral, MD [Primary Care Provider, Medical] - See instructions Activity Restrictions/Add. Instructions Additional Instructions/Restrictions: Continue medications as previously prescribed. Please follow-up with your primary care provider. Please return to the emergency department if you develop any new or worsening symptoms or become concerned for your health. Clinical Impressions Clinical Impression: Pulmonary embolism, Chest pain Print Language Print Language: Lao Discharge ED Provider: Nicko Ordonez Adult HPI General Stated complaint: lung bloodclot surgery cp Time Seen by Provider: 03/01/25 00:07 History of Present Illness HPI narrative: 24-year-old female who was recently admitted for massive PE requiring thrombectomy presents for chest pain. She reports this started within the last hour. It is centrally located, severe. She has been taking her anticoagulation as prescribed. She finished her antibiotics for her pulmonary opacity. She was discharged on nasal cannula oxygen. She reports some shortness of breath. She denies any other significant symptoms at this time. Related Data Home Medications ?Medication ?Instructions ?Recorded ?Confirmed blood-glucose meter (Accu-Chek #1 ea 12/04/24 02/28/25 Guide Glucose Meter) albuterol sulfate 90 mcg/actuation 1 inh inhalation Q6HP PRN 02/22/25 02/28/25 aerosol inhaler shortness of breath or wheezing ipratropium 0.5 mg-albuterol 3 mg 3 ml inhalation Q6HP PRN shortness 02/22/25 02/28/25 (2.5 mg base)/3 mL nebulization of breath or wheezing soln Previous Rx's ?Medication ?Instructions ?Recorded amitriptyline 10 mg tablet 10 mg PO HS #30 tabs 11/17/24 cholecalciferol (vitamin D3) 50 50 mcg PO DAILY #90 caps 11/17/24 mcg (2,000 unit) capsule pantoprazole 40 mg tablet,delayed 40 mg PO DAILY #90 tabs 11/17/24 release (Protonix) blood pressure monitor (Blood #1 ea 11/27/24 Pressure Kit) fluticasone 500 mcg-salmeterol 50 1 inh inhalation BID 90 days #180 12/19/24 mcg/dose blistr powdr for ea inhalation (Advair Diskus) blood pressure monitor (Blood #1 ea 12/26/24 Pressure Kit) meloxicam 7.5 mg tablet 7.5 mg PO BIDP PRN pain #14 tabs 02/24/25 rivaroxaban 15 mg (42)-20 mg (9) See Rx Instructions PO .COMPLEX 02/24/25 tablets in a starter pack (Xarelto #51 tabs DVT-PE Treatment 30-Day Starter) Allergies Allergy/AdvReac Type Severity Reaction Status Date / Time Penicillins (PENICILLINS) Allergy Severe Anaphylaxis Verified 02/28/25 11:52 mold Allergy Intermediate Other Verified 02/28/25 11:52 Iodinated Contrast Media Allergy Anaphylaxis Verified 02/28/25 11:52 [facility] Disclaimer: The information contained in this section may have been updated after the patient was seen, as this information can be updated by other users. Medical History Leg pain Sleep apnea Asthma Acute viral syndrome Acute bronchitis Bruise of toe Conjunctivitis of left eye Allergic reaction Contusion of knee, left Skin yeast infection Otitis media Plantar fasciitis, bilateral Family history of ovarian cancer Family history of breast cancer Family history of BRCA gene mutation Bilateral otitis media Gastroesophageal reflux disease BMI 38.0-38.9,adult LGSIL on Pap smear of cervix Nexplanon insertion insertion 10/15/20 Hypertension Morbid obesity with BMI of 45.0-49.9, adult Vitamin D deficiency (~09/26/17) Hyperlipidemia (~09/26/17) Family history of diabetes mellitus Polyuria Apneic episode Migraine headache Surgical History History of tonsillectomy and adenoidectomy Family History Other Anxiety Depression Diabetes Hypertension Sleep apnea Stroke Social History Smoking Status: Current every day smoker tobacco type: cigarettes packs per day: 1 alcohol intake: never substance use type: denies use current occupational status: disabled Travel in the last 8 weeks?: None household members: family housing: house caffeine: No Other Medical History Have you received the Flu Vaccine for this season: No Have you received the Pneumonia Vaccine: No ROS Obtained: Yes All systems reviewed & no additional complaints except as documented Physical Exam General General appearance: alert and in no apparent distress Head Head exam: atraumatic and normocephalic Eye Eye exam: Present normal appearance, PERRL and EOMI ENT ENT exam: Present normal oropharynx and normal external ear exam Neck Neck exam: Present normal inspection and full ROM Chest Chest inspection: Present normal inspection and symmetric chest wall rise; Absent tenderness Respiratory Respiratory exam: Present normal lung sounds bilaterally; Absent respiratory distress Cardiovascular Cardiovascular exam: Present regular rate and normal rhythm Abdominal Exam Abdominal exam: Present soft; Absent distention, tenderness or guarding Extremities Exam Extremities exam: Present normal inspection; Absent edema or joint swelling Back Exam Back exam: Present normal inspection; Absent tenderness Neurological Exam Neurological exam: Present alert and oriented X3; Absent motor sensory deficit Psychiatric Psychiatric exam: Present normal affect and normal mood Skin Skin exam: Present warm, dry and normal color Lymphatic Lymphatic Findings: no adenopathy Medical Decision Making Medical Records Medical records reviewed: Yes I reviewed the patient's medical records. Screening: Per USPSTF and CDC recommendations, given the prevalence of disease in our region, it is our hospital?s policy to screen for HIV and viral Hepatitis for all patients aged 18 and over and those with ongoing risk factors. Ty Inquiry Pt receiving controlled substance: No Ty was queried for this patient: No Lab Data Lab results reviewed: Yes I reviewed the patient's lab results. Lab Results 03/01/25 00:20: WBC 9.3, RBC 2.99 L, Hgb 8.4 L, Hct 27.1 L, MCV 90.6, MCH 28.1, MCHC 31.0 L, RDW 16.2, Plt Count 334, MPV 8.8, Neut % (Auto) 66.1, Lymph % (Auto) 24.4, [place] % (Auto) 5.9, Eos % (Auto) 2.5, Baso % (Auto) 0.2, Neut # (Auto) 6.2, Lymph # (Auto) 2.3, [place] # (Auto) 0.6, Eos # (Auto) 0.2, Baso # (Auto) 0.0, Sodium 140, Potassium 3.9, Chloride 102, Carbon Dioxide 28, Anion Gap 13.9, BUN 15, Creatinine 1.00, Estimated GFR 67, Est GFR ( Amer) 81, Glucose 110 H, Calcium 9.5, Total Bilirubin 2.1 H, AST 25, ALT 32, Alkaline Phosphatase 57, Troponin I 0.03, Total Protein 7.1, Albumin 4.2, Globulin 2.9, Albumin/Globulin Ratio 1.4 03/01/25 00:20 03/01/25 00:20 Orders (Tests/Meds): ED MEDICATIONS Discontinued Medications Generic Name Dose Route Start Last Admin Trade Name Freq PRN Reason Stop Dose Admin Acetaminophen 1,000 mg 03/01/25 00:14 03/01/25 00:41 Acetaminophen 500mg Tab PO 03/01/25 00:15 1,000 mg ONCE ONE Administration Belladonna Alkaloids 60 ml 03/01/25 00:14 03/01/25 00:41 Belladonna Alkaloids 60 Ml Ml PO 03/01/25 00:15 60 ml ONCE ONE Administration Iopamidol 70 ml 03/01/25 00:42 03/01/25 00:43 Iopamidol-370 (76%);100ml Bottle IV 03/01/25 00:43 70 ml ONCE ONE Administration Ketorolac Tromethamine 30 mg 03/01/25 00:14 03/01/25 00:41 Ketorolac 30mg/Ml Vial IV 03/01/25 00:15 30 mg ONCE ONE Administration Sodium Chloride 50 ml 03/01/25 00:42 03/01/25 00:43 0.9 % Sodium Chloride 50 Ml Vial IV 03/01/25 00:43 50 ml ONCE ONE Administration Sodium Chloride 10 ml 03/01/25 00:42 03/01/25 00:43 Sodium Chloride 0.9% 10ml Syr (Rad Only) IV 03/01/25 00:43 10 ml ONCE ONE Administration ORDERS Category Date Time Status CT angio chest PE protocol Stat Cat Scan 03/01/25 00:14 Completed CBC w/Auto Diff [Complete Blood Count Auto Diff] Stat Lab 03/01/25 00:20 Completed CMP [Comprehensive Metabolic Panel] Stat Lab 03/01/25 00:20 Completed Troponin I Q3H Lab 03/01/25 00:20 Completed Troponin I Q3H Lab 03/01/25 03:15 Ordered Medical Decision Narrative: 24-year-old female with history of recent admission for massive PE requiring thrombolysis and thrombectomy presents for acute chest pain. History was obtained via interactive discussion with patient, chart review. On arrival, patient is [afebrile, hemodynamically stable, satting appropriately on nasal cannula, mildly tachycardic, alert, oriented x4, GCS 15], moving all extremities spontaneously. Full physical exam performed and significant for clear lungs bilaterally Differential includes but is not limited to recurrent PE, pleurisy, GERD, musculoskeletal chest pain.. Patient was given GI cocktail, Tylenol, Toradol for symptomatic management and correction of underlying abnormalities. Workup initiated including CT PE, basic labs, EKG. Patient does have a listed iodine allergy, however she has received contrast both for her initial PE study as well as her thrombectomy and she did not have any reaction at that time. Given this, we will proceed with contrast. We we will be unable to tell whether she has residual clots or new clots if they are small, my main concern is to make sure she does not have a new large clot. On re-evaluation, patient [remains afebrile, HD stable.] Laboratory workup independently interpreted by me and significant for initial troponin within normal limits, hemoglobin downtrending but not critically low. Imaging independently interpreted by me and significant for residual PEs present, no new large PE or opacity.. See radiology read for full review of final results. EKG independently interpreted by me and significant for sinus tachycardia, T wave inversion in the inferior leads, stable from prior.. Repeat troponin was considered, but deemed unnecessary due to no concern for ACS.. Given patient history, exam and workup, patient's presentation most likely represents chest pain in the setting of recent PE. No evidence of new large PE on workup. Patient has been satting appropriately and has been hemodynamically normal. I had an interactive discussion with patient regarding her presentation and workup. Return precautions were given. Discharged in stable condition.. Procedures Risk/Benefits of Procedure(s) Were Explained: Yes Critical Care Critical Care Time Critical Care Time: No
--- NOTE | 2025-03-01 00:13 | ECG_ITS ---
APPROVED REPORT Exam: Resting ECG HR:100 bpm ECG Measurements Heart Rate 100 AXES DC 140 P 15 QRSd 89 QRS 70 QT 335 T -13 QTc 392 Conclusion SINUS TACHYCARDIA MODERATE T-WAVE ABNORMALITY, CONSIDER ANTERIOR ISCHEMIA [-0.1+ mV T-WAVE IN V3/V4] ABNORMAL ECG UNCONFIRMED REPORT Electronically signed by : DACIA MAR, 03/01/2025 06:36:38
--- NOTE | 2025-03-01 00:14 | CT_ITS ---
PROCEDURE INFORMATION: Exam: CTA Chest With Contrast Exam date and time: 03/01/2025 12:35 AM Age: 24 years old Clinical indication: Pain; Chest pressure; Additional info: HX recent pe S/P thrombectomy, new cp/tachy TECHNIQUE: Imaging protocol: Computed tomographic angiography of the chest with contrast. Exam focused on the arteries. 3D rendering (Not supervised by radiologist): MIP and/or 3D reconstructed images were created by the technologist. Total images: 849 Radiation optimization: All CT scans at this facility use at least one of these dose optimization techniques: automated exposure control; mA and/or kV adjustment per patient size (includes targeted exams where dose is matched to clinical indication); or iterative reconstruction. Contrast material: ISOVUE; Contrast volume: 70 ml; Contrast route: INTRAVENOUS (IV); COMPARISON: CT ANGIO CHEST PE PROTOCOL 02/22/2025 2:37 AM FINDINGS: Pulmonary arteries: Suboptimal contrast opacification of the pulmonary arteries, compromising evaluation. No main or saddle pulmonary emboli. Prior bilateral distal main pulmonary emboli have resolved. Very heterogeneous enhancement of segmental vessels throughout both lungs, either artifact of imaging versus sequela of prior emboli. Aorta: No thoracic aortic aneurysm or dissection. Cardiac pulsation artifact in the ascending aorta and aortic arch. Lungs: The trachea and main bronchi are patent. Subsegmental atelectasis in the right upper lobe and left lower lobe. Additional ground-glass opacity lung parenchyma bilaterally in part artifact of respiratory motion. No new airspace consolidation. Small peripheral wedge-shaped opacity left lung base may reflect pulmonary infarct. Pleural spaces: Unremarkable. No pneumothorax. No pleural effusion. Heart: Normal heart size. No pericardial effusion. Mediastinal space: No mediastinal mass or hematoma. Lymph nodes: No mediastinal or hilar lymphadenopathy. Diaphragm: Tiny hiatal hernia. Intraperitoneal space: No acute process in the upper abdomen. Bones/joints: Mild broad-based thoracic levocurvature may be positional. Otherwise, grossly unremarkable chest wall structures. Soft tissues: Unremarkable. Notes: Considerable limitations from motion and attenuation artifact. Poor pulmonary arterial contrast opacification. IMPRESSION: 1. Considerable limitations from respiratory motion artifact and poor pulmonary arterial contrast opacification. 2. No acute main or saddle emboli. 3. Prior bilateral distal main pulmonary emboli have resolved. 4. Very heterogeneous opacification of segmental pulmonary artery branches throughout both lungs, most likely artifactual versus sequela of residual emboli. No convincing evidence for acute superimposed embolic disease. 5. Right upper lobe and left lower lobe subsegmental atelectasis. 6. Small peripheral wedge-shaped opacity at the left lung base may reflect pulmonary infarct.
[2025-03-01 00:26] LABS: Hematocrit 27.1 % (37.0-47.0); Hemoglobin 8.4 g/dL (12.2-16.2); Immature Granulocytes % 0.9 %; Mean Corpuscular HGB Conc 31.0 g/dL (31.8-35.4); Mean Corpuscular Hemoglobin 28.1 pg (27.0-31.2); Mean Corpuscular Volume 90.6 fl (81-99); Nucleated Red Blood Cells % 0 %; Platelet Count 334 K/mm3 (142-424); Red Blood Count 2.99 M/mm3 (4.20-5.40); Red Cell Distribution Width-SD 49.6 fL; White Blood Count 9.3 K/mm3 (4.8-10.8)
--- OUTSIDE RECORDS SUMMARY | 2025-03-01 00:26 | XMS_ITS | Clinical Summary ---
Author Organization [facility] Address [address] [place] [phone] Phone Care Team Providers Care Engineer Byproduct Name Role Phone Krystal Treadwell PA-C Primary Care Physician [ ] Conditions or Problems Problem Name Problem Code Onset Date Status Entry Date Provider Comment Standard Description Annotate HEAD LICE PEDICULOS B85.2 (ICD-10-CM) Inactive Krystal Treadwell PA-C Pediculosis, unspecified History of HEARING LOSS, RIGHT EAR 31260796 (SNOMED CT) Active Mikayla Rosales MA Hearing loss 50% History of ASTHMA 444801107 (SNOMED CT) Active Mikayla Rosales MA Asthma History of ALLERGIC RHINITIS 92611898 (SNOMED CT) Active Mikayla Rosales MA Allergic rhinitis Medications Medication Instructions Start Date Stop Date Generic Name [facility] Provider ULESFIA 5 % EXTERNAL LOTION APPLY TO HAIR, RINSE AFTER 10 MINUTES AND REPEAT IN 1 WEEK 5 BENZYL ALCOHOL [id number] Krystal Treadwell PA-C ADVAIR HFA 45-21 MCG/ACT AERO USE 2 PUFFS TWICE A DAY 2 FLUTICASONE-SHASHI METEROL 37498976942 Krystal Treadwell PA-C LORATADINE 10 MG TABS TAKE 1 TAB BY MOUTH EVERY DAY 2 LORATADINE 57231098603 Krystal Treadwell PA-C SINGULAIR 5 MG CHEW TAKE 1 TAB BY MOUTH EVERY DAY 2 MONTELUKAST SODIUM 79764447443 Krystal Treadwell PA-C PROAIR HFA 108 (90 Base) MCG/ACT INHALATION AEROSOL SOLUTION USE 2 INHALATIONS 4 TIMES A DAY NEEDED FOR WHEEZING 2 ALBUTEROL SULFATE 67736300655 Krystal Treadwell PA-C ULESFIA 5 % EXTERNAL LOTION APPLY TO HAIR, RINSE AFTER 10 MINUTES AND REPEAT IN 1 WEEK 5 BENZYL ALCOHOL 39543309514 Krystal Treadwell PA-C ADVAIR HFA 45-21 MCG/ACT AERO 2 PUFFS BID 1 FLUTICASONE-SHASHI METEROL 96197203706 Krystal Treadwell PA-C LORATADINE 10 MG TABS OPT 1 LORATADINE 47963562522 Mikayla Rosales MA SINGULAIR 5 MG CHEW 1 PO QD 1 MONTELUKAST SODIUM 45968712804 Mikayla Rosales MA PROAIR HFA 108 (90 Base) MCG/ACT INHALATION AEROSOL SOLUTION 2 PUFFS QID 1 ALBUTEROL SULFATE 43741670257 Mikayla Rosales MA Medications Administered No information [...] Procedures Code Procedure Name Date Entry Date CPT-86236MMN Flu 3 yrs and older vfc 2009 CPT-05713KKE Hep A pediatric/adol escent dosage- 2 dose 2 schedule CPT-49303TFN Gardasil, HPV vfc Vital Signs Date Name [...]
--- OUTSIDE RECORDS SUMMARY | 2025-03-01 00:27 | XMS_ITS | Clinical Summary ---
Author Organization [facility] Address [address] [place] [address] Care Team Providers Care Cigarette Inspector Name Role Phone Danette Lynch Primary Care Provider [phone] Family History Medical History Relation Name Comments [...] 19+ 3-dose series) 2017 [facility]-Pap Smear 2019 [id number] Vaccine (1 - 20 24-25 season) 2025 [...] age to complete this topic Insurance MEDICAID [facility] MEDICARE Care Teams Cigarette Inspector Relationship Specialty Start Date End Date Danette Lynch PA [address] [place] [address] PCP - General 10/25/20
[2025-03-01 00:33] LABS: Albumin Level 4.2 g/dl (3.5-5.0); Chloride 102 mmol/L (98-107); Potassium 3.9 mmoL/L (3.5-5.1); Sodium 140 mmol/L (136-145)
[2025-03-01 00:36] LABS: Alanine Aminotransferase 32 U/L (12-78); Albumin/Globulin Ratio 1.4 (1.1-1.8); Alkaline Phosphatase 57 U/L (38-126); Anion Gap 13.9 mEq/L (5-15); Aspartate Amino Transferase 25 U/L (14-36); Bilirubin,Total 2.1 mg/dl (0.2-1.3); Blood Urea Nitrogen 15 mg/dl (7-17); Calcium 9.5 mg/dl (8.4-10.2); Carbon Dioxide 28 mmol/L (22.0-30.0); Creatinine,Serum 1.00 mg/dl (0.52-1.04); Estimated Glomerular Filt Rate 67 ml/min (>60); GFR (African American) 81 ML/MIN (>60); Globulin 2.9 g/dL (1.3-3.2); Glucose 110 mg/dl (74-100); Total Protein,Serum 7.1 g/dl (6.3-8.2)
[2025-03-01] MEDS: BELLADONNA ALKALOIDS 60 ML ML PO (00:41)
[2025-03-01] MEDS: ACETAMINOPHEN 500MG TAB 1000 MG PO (00:41)
[2025-03-01] MEDS: KETOROLAC 30MG/ML VIAL 30 MG IV (00:41)
[2025-03-01] MEDS: 0.9 % SODIUM CHLORIDE 50 ML VIAL IV (00:43)
[2025-03-01] MEDS: SODIUM CHLORIDE 0.9% 10ML SYR (RAD ONLY) 10 ML IV (00:43)
[2025-03-01] MEDS: IOPAMIDOL-370 (76%);100ML BOTTLE 70 ML IV (00:43)
[2025-03-01 00:48] LABS: Troponin I 0.03 ng/ml (0.00-0.034)
[2025-03-01 01:26] VITALS: BP 127/65; PULSE 111; RESP 20; TEMP 36.7; O2SAT 99
[2025-03-01 01:28] VITALS: BP 136/78; PULSE 78; RESP 17; TEMP 37.1
[2025-03-01 01:32] VITALS: BP 127/65; PULSE 98; RESP 24; TEMP 37.2; O2SAT 94
== END 2025-03-01 01:33 | disposition home or self-care (01) ==
PROVIDERS: Emergency Provider Emergency Medicine
DX: R07.9 Chest pain, unspecified (principal); I26.99 Other pulmonary embolism without acute cor pulmonale; F17.210 Nicotine dependence, cigarettes, uncomplicated; I10 Essential (primary) hypertension; E78.5 Hyperlipidemia, unspecified; Z79.01 Long term (current) use of anticoagulants
CPT/HCPCS: 71275; 80053; 84484; 85025; 93005; 96374; 99282; 99285; J1885; Q9967

== ENCOUNTER 2025-03-19 13:12 | Outpatient (CLI) | payer MEDICARE, MEDICAID, SELFPAY ==
--- OUTSIDE RECORDS SUMMARY | 2025-03-19 13:17 | XMS_ITS | Clinical Summary ---
Author Organization [facility] Address [address] [place] [phone] Phone Care Team Providers Care Packaging Operator Name Role Phone Krystal Treadwell PA-C Primary Care Physician [phone] [ ] Conditions or Problems Problem Name Problem Code Onset Date Status Entry Date Provider Comment Standard Description Annotate HEAD LICE PEDICULOS B85.2 (ICD-10-CM) Inactive Krystal Treadwell PA-C Pediculosis, unspecified History of HEARING LOSS, RIGHT EAR 48620372 (SNOMED CT) Active Mikayla Rosales MA Hearing loss 50% History of ASTHMA 788352509 (SNOMED CT) Active Mikayla Rosales MA Asthma History of ALLERGIC RHINITIS 86942678 (SNOMED CT) Active Mikayla Rosales MA Allergic rhinitis Medications Medication Instructions Start Date Stop Date Generic Name [facility] Provider ULESFIA 5 % EXTERNAL LOTION APPLY TO HAIR, RINSE AFTER 10 MINUTES AND REPEAT IN 1 WEEK 5 BENZYL ALCOHOL [id number] Krystal Treadwell PA-C ADVAIR HFA 45-21 MCG/ACT AERO USE 2 PUFFS TWICE A DAY 2 FLUTICASONE-SHASHI METEROL 94386270911 Krystal Treadwell PA-C LORATADINE 10 MG TABS TAKE 1 TAB BY MOUTH EVERY DAY 2 LORATADINE 38089860709 Krystal Treadwell PA-C SINGULAIR 5 MG CHEW TAKE 1 TAB BY MOUTH EVERY DAY 2 MONTELUKAST SODIUM 18058380161 Krystal Treadwell PA-C PROAIR HFA 108 (90 Base) MCG/ACT INHALATION AEROSOL SOLUTION USE 2 INHALATIONS 4 TIMES A DAY NEEDED FOR WHEEZING 2 ALBUTEROL SULFATE 33778187082 Krystal Treadwell PA-C ULESFIA 5 % EXTERNAL LOTION APPLY TO HAIR, RINSE AFTER 10 MINUTES AND REPEAT IN 1 WEEK 5 BENZYL ALCOHOL 17749512920 Krystal Treadwell PA-C ADVAIR HFA 45-21 MCG/ACT AERO 2 PUFFS BID 1 FLUTICASONE-SHASHI METEROL 07813551299 Krystal Treadwell PA-C LORATADINE 10 MG TABS OPT 1 LORATADINE 93545565505 Mikayla Rosales MA SINGULAIR 5 MG CHEW 1 PO QD 1 MONTELUKAST SODIUM 34908764168 Mikayla Rosales MA PROAIR HFA 108 (90 Base) MCG/ACT INHALATION AEROSOL SOLUTION 2 PUFFS QID 1 ALBUTEROL SULFATE 98240846993 Mikayla Rosales MA Medications Administered No information [...] Procedures Code Procedure Name Date Entry Date CPT-67105SXZ Flu 3 yrs and older vfc 2009 CPT-87539EXW Hep A pediatric/adol escent dosage- 2 dose 2 schedule CPT-04467WQL Gardasil, HPV vfc Vital Signs Date Name [...]
--- OUTSIDE RECORDS SUMMARY | 2025-03-19 13:18 | XMS_ITS | Clinical Summary ---
Author Organization Healthcare Address [address] [place] [address] Care Team Providers Care Elevator Pilot Name Role Phone Danette Lynch Primary Care Provider [phone] Family History Medical History Relation Name Comments [...] 19+ 3-dose series) 2017 [facility]-Pap Smear 2019 [id number] Vaccine (1 - 20 24-25 season) 2025 [...] age to complete this topic Insurance MEDICAID [facility] MEDICARE Care Teams Elevator Pilot Relationship Specialty Start Date End Date Danette Lynch PA [address] [place] [address] PCP - General 10/25/20
[2025-03-19 14:35] VITALS: PULSE 88; PULSE 92
[2025-03-19] MEDS: ALBUTEROL 0.083% 2.5 MG/3 ML NEB IH (14:35)
== END 2025-03-19 23:59 | disposition home or self-care (01) ==
LOC: RT 13:13
PROVIDERS: PCP Family Medicine; Visit Provider Internal Medicine Pulmonary Disease
DX: J44.9 Chronic obstructive pulmonary disease, unspecified (principal); R94.2 Abnormal results of pulmonary function studies
CPT/HCPCS: 94060; 94618; 94640; 94726; 94729

== ENCOUNTER 2025-03-22 15:21 | Outpatient (RCR) | payer MEDICARE, MEDICAID, SELFPAY | END 2025-03-22 23:59 | disposition home or self-care (01) | LOC: PT 15:21 | PROVIDERS: Visit Provider Student in an Organized Health Care Education/Training Program | DX: R53.1 Weakness (principal) | CPT/HCPCS: 97110 ==